=== PATIENT | male | born 1945 | race Caucasian/White ===

== ENCOUNTER → 2018-01-27 13:37 | Outpatient (CLI) | payer MEDICARE, SELFPAY ==
--- NOTE | 2018-01-27 15:23 | RAD_ITS ---
STUDY: X-RAY - ABDOMEN/PELVIS REASON FOR EXAM: Male, 72 years old. Diarrhea TECHNIQUE: AP supine and upright views of the abdomen and pelvis. COMPARISON: None. FINDINGS: Normal visualized lung bases. There is an unremarkable bowel gas pattern. Moderate fecal retention. There is no demonstrated free abdominal air. The visualized liver, spleen and kidneys are grossly normal in size and morphology. Normal soft tissue structures. Normal visualized osseous structures. RAD/Abd Inc Decub and/or Erect IMPRESSION: Moderate fecal retention. No evidence for obstruction. Electronically Signed: Sae Ellis MD at 10:33 EDT , Service support ,
[2018-01-27 15:59] LABS: Absolute Lymphocyte Count 0.72 X10^3/ul (0.83-4.51); Absolute Neutrophil Count 2.7 X10^3/uL (2.0-7.7); Basophil# 0.02 X10^3/uL; Basophil% 0.5 % (0-1); Eosinophil# 0.17 X10^3/uL; Eosinophils% 3.9 % (0-5); Hematocrit 41.3 % (40-54); Hemoglobin 13.6 g/dl (13.0-16.5); Lymphocyte # 0.72 X10^3/ul (4.0); Lymphocyte % 16.6 % (19-41); Mean Corp Hgb Conc 32.9 g/gl (32-36); Mean Corpuscular Hgb 31.6 pg (27.0-32.0); Mean Platelet Vol. 10.8 fl (6.2-12.0); Monocyte% 16.1 % (0-10); Neutrophil # 2.72 X10^3/uL (2.7-7.7); Neutrophil % 62.7 % (47-70); POSITIVE COUNT NO; POSITIVE DIFFERENTIAL NO; POSITIVE MORPHOLOGY NO; Platelet Count 137 K/mm3 (150-450); RBC Distribution Width CV 14.1 % (11.6-14.6); RBC Distribution Width SD 47.8 fl (35.1-43.9); White Blood Count 4.3 K/mm3 (4.4-11.0)
[2018-01-27 16:23] LABS: ALB/GLOB Ratio 1.1 RATIO (0.9-2.4); AST(SGOT) 42 U/L (15-37); Alanine Aminotransfer ALT/SGPT 39 U/L (16-61); Albumin, Serum 3.2 g/dL (3.2-5.0); Alkaline Phosphatase 75 U/L (45-117); Amylase 30 U/L (25-115); Anion Gap 6 (5-15); BUN 17 mg/dL (7-18); BUN/Creat Ratio 20.2 RATIO (10-20); Calcium,Total 8.6 mg/dL (8.5-10.1); Chloride 106 mmol/L (98-107); Creatinine, Serum 0.84 mg/dL (0.70-1.30); EST Glomerular Filtration Rate 95 mL/min (>60); Est Glom Filt Rate - Afr Amer 114 mL/min (>60); Glucose 62 mg/dL (74-106); Lipase 86 U/L (73-393); Potassium 4.3 mmol/L (3.5-5.1); Protein, Total 6.2 g/dL (6.4-8.2); Sodium Level 138 mmol/L (136-145)
== END ==
PROVIDERS: Family Provider Family Medicine Geriatric Medicine; PCP Family Medicine Geriatric Medicine; Visit Provider Family Medicine Geriatric Medicine
DX: R11.2 Nausea with vomiting, unspecified (principal)
CPT/HCPCS: 36415; 74019; 80053; 82150; 83690; 85025

== ENCOUNTER → 2018-01-28 09:32 | Outpatient (CLI) | payer MEDICARE, SELFPAY | PROVIDERS: Family Provider Family Medicine Geriatric Medicine; PCP Family Medicine Geriatric Medicine; Visit Provider Family Medicine Geriatric Medicine | DX: R11.2 Nausea with vomiting, unspecified (principal) | CPT/HCPCS: 82274; 83630; 87177; 87209; 87493; 87506 ==

== ENCOUNTER → 2018-02-23 09:33 | Outpatient (CLI) | payer MEDICARE, SELFPAY ==
--- NOTE | 2018-02-23 09:44 | BI_ITS ---
MAMMOGRAPHY - BILATERAL DIAGNOSTIC REASON FOR EXAM: Male, 72 years old. Retroareolar right breast lump and soreness. PERTINENT HISTORY: Mother with breast cancer. TECHNIQUE: Digital bilateral breast aramis (3D mammographic acquisition) in the CC and MLO projections. 2-D mediolateral oblique (MLO) and craniocaudad (CC) views of both breasts were obtained. CAD: Full Field Digital Mammography with Computer Added Detection was performed. COMPARISON: None. Baseline examination. FINDINGS: Breast Composition: The breasts are almost entirely fatty. Mild degree of retroareolar glandular tissue more prominent on the right side. There is a 5 mm x 5 mm well-defined nodular density in the upper lateral portion of the right breast most likely representing a small lymph node. No other significant abnormalities are identified. BI/DIAG MAMM W/CAD, BILAT IMPRESSION: Findings suggest bilateral gynecomastia slightly worse on the right side. Correlation with ultrasound is recommended. ASSESSMENT CATEGORY: BIRADS Category 0: Incomplete. Need additional imaging evaluation. A letter regarding these results will be sent to the patient by the facility within 30 days. Approximately 10% of breast cancers are not detected by mammography. A normal mammogram should not delay biopsy of a clinically suspicious abnormality. Electronically Signed: Robert England MD at 10:44 EDT Tel [phone], Service support ,
--- NOTE | 2018-02-23 09:47 | US_ITS ---
STUDY: ULTRASOUND BREAST - RIGHT REASON FOR EXAM: Male, 72 years old. Palpable lump in the right breast. TECHNIQUE: Axial and longitudinal images of the RIGHT breast were performed with a high resolution ultrasound transducer. COMPARISON: Comparison is made with prior mammogram done earlier today. FINDINGS: RIGHT Breast: Normal appearing retroareolar glandular tissue. No solid or cystic mass lesions US/Breast Limited Unilateral IMPRESSION: Findings suggestive of gynecomastia. ASSESSMENT CATEGORY: BIRADS Category 2: Benign. A letter regarding these results will be sent to the patient by the facility within 30 days. Electronically Signed: Robert England MD at 10:45 EDT Tel [phone], Service support ,
== END ==
PROVIDERS: Family Provider Family Medicine Geriatric Medicine; PCP Family Medicine Geriatric Medicine; Visit Provider Family Medicine Geriatric Medicine
DX: N63.42 Unspecified lump in left breast, subareolar (principal)
CPT/HCPCS: 76642; 77062; 77066; G0279

== ENCOUNTER → 2018-03-25 17:10 | Outpatient (CLI) | payer MEDICARE, SELFPAY | PROVIDERS: Family Provider Family Medicine Geriatric Medicine; PCP Family Medicine Geriatric Medicine; Visit Provider Family Medicine Geriatric Medicine | DX: E55.9 Vitamin D deficiency, unspecified (principal); I10 Essential (primary) hypertension ==

== ENCOUNTER → 2018-03-26 09:39 | Outpatient (CLI) | payer MEDICARE, SELFPAY ==
[2018-03-26 12:21] LABS: Absolute Lymphocyte Count 0.87 X10^3/ul (0.83-4.51); Absolute Neutrophil Count 4.3 X10^3/uL (2.0-7.7); Basophil# 0.02 X10^3/uL; Basophil% 0.3 % (0-1); Eosinophil# 0.18 X10^3/uL; Eosinophils% 3.1 % (0-5); Hematocrit 43.1 % (40-54); Hemoglobin 14.1 g/dl (13.0-16.5); Lymphocyte # 0.87 X10^3/ul (4.0); Lymphocyte % 14.8 % (19-41); Mean Corp Hgb Conc 32.7 g/gl (32-36); Mean Corpuscular Hgb 31.8 pg (27.0-32.0); Mean Corpuscular Volume 97.1 fL (80-94); Mean Platelet Vol. 10.8 fl (6.2-12.0); Monocyte# 0.53 X10^3/uL; Neutrophil # 4.26 X10^3/uL (2.7-7.7); Neutrophil % 72.5 % (47-70); Platelet Count 128 K/mm3 (150-450); RBC Distribution Width CV 13.9 % (11.6-14.6); RBC Distribution Width SD 48.1 fl (35.1-43.9); Red Blood Count 4.44 M/mm3 (4.6-6.2); White Blood Count 5.9 K/mm3 (4.4-11.0)
[2018-03-26 12:27] LABS: POSITIVE COUNT NO; POSITIVE DIFFERENTIAL NO; POSITIVE MORPHOLOGY NO
[2018-03-26 12:41] LABS: Vitamin D,25 Hydroxy 13.9 ng/mL (29.95-100.01)
[2018-03-26 13:16] LABS: ALB/GLOB Ratio 1.2 RATIO (0.9-2.4); AST(SGOT) 24 U/L (15-37); Alanine Aminotransfer ALT/SGPT 36 U/L (16-61); Albumin, Serum 3.6 g/dL (3.2-5.0); Alkaline Phosphatase 117 U/L (45-117); Anion Gap 6 (5-15); BUN 16 mg/dL (7-18); BUN/Creat Ratio 14.5 RATIO (10-20); Chloride 106 mmol/L (98-107); EST Glomerular Filtration Rate 70 mL/min (>60); Est Glom Filt Rate - Afr Amer 84 mL/min (>60); Globulin 2.9 g/dL (2.2-4.2); Glucose 99 mg/dL (74-106); Potassium 4.4 mmol/L (3.5-5.1); Protein, Total 6.5 g/dL (6.4-8.2); Sodium Level 138 mmol/L (136-145); Thyroid Stim Hormone (TSH) 3.06 uIU/mL (0.358-3.74)
== END ==
PROVIDERS: Family Provider Family Medicine Geriatric Medicine; PCP Family Medicine Geriatric Medicine; Visit Provider Family Medicine Geriatric Medicine
DX: I10 Essential (primary) hypertension (principal); E55.9 Vitamin D deficiency, unspecified
CPT/HCPCS: 36415; 80053; 82306; 84443; 85025

== ENCOUNTER → 2018-06-15 13:35 | Outpatient (CLI) | payer MEDICARE, SELFPAY ==
[2018-06-15 17:42] LABS: Absolute Lymphocyte Count 1.06 X10^3/ul (0.83-4.51); Absolute Neutrophil Count 3.9 X10^3/uL (2.0-7.7); Basophil# 0.02 X10^3/uL; Basophil% 0.3 % (0-1); Eosinophil# 0.11 X10^3/uL; Eosinophils% 1.9 % (0-5); Hematocrit 41.9 % (40-54); Hemoglobin 13.9 g/dl (13.0-16.5); Lymphocyte # 1.06 X10^3/ul (4.0); Lymphocyte % 18.5 % (19-41); Mean Corp Hgb Conc 33.2 g/gl (32-36); Mean Corpuscular Volume 96.5 fL (80-94); Mean Platelet Vol. 10.4 fl (6.2-12.0); Monocyte# 0.58 X10^3/uL; Monocyte% 10.1 % (0-10); Neutrophil # 3.94 X10^3/uL (2.7-7.7); Neutrophil % 68.9 % (47-70); Platelet Count 133 K/mm3 (150-450); RBC Distribution Width CV 14.3 % (11.6-14.6); RBC Distribution Width SD 48.2 fl (35.1-43.9); Red Blood Count 4.34 M/mm3 (4.6-6.2); White Blood Count 5.7 K/mm3 (4.4-11.0)
[2018-06-15 18:16] LABS: POSITIVE COUNT NO; POSITIVE DIFFERENTIAL NO; POSITIVE MORPHOLOGY NO
[2018-06-15 18:28] LABS: Anion Gap 5 (5-15); BUN 17 mg/dL (7-18); BUN/Creat Ratio 17.3 RATIO (10-20); Calcium,Total 8.7 mg/dL (8.5-10.1); Chloride 108 mmol/L (98-107); Creatinine, Serum 0.98 mg/dL (0.70-1.30); EST Glomerular Filtration Rate 79 mL/min (>60); Est Glom Filt Rate - Afr Amer 96 mL/min (>60); Glucose 103 mg/dL (74-106); Potassium 4.7 mmol/L (3.5-5.1); Sodium Level 139 mmol/L (136-145)
== END ==
PROVIDERS: Family Provider Family Medicine Geriatric Medicine; PCP Family Medicine Geriatric Medicine; Visit Provider Family Medicine Geriatric Medicine
DX: D64.9 Anemia, unspecified (principal); E86.0 Dehydration
CPT/HCPCS: 36415; 80048; 85025

== ENCOUNTER 2018-08-11 09:30 | Outpatient (RCR) | payer MEDICARE, SELFPAY ==
--- NOTE | 2018-07-14 12:05 | HP.PTEVAL_ITS ---
Patient's Visit Information ALMAZ ZUÑIGA is a 72 year old M referred to Physical Therapy by Macy Rausch DPM with a diagnosis of L midfoot OA. Date of Evaluation: 07/14/18 Physical Therapist: Jose Saunders DPT, OC - Visit Plan Frequency: 2-3x /Week Duration: 4-6 Weeks Plan: Molded orthotics and will fit when they arrive. Will consider STM and ankle/foot mobs and gastroc soleus stretching to suupplement this 2-3x/week for 4-6 weeks but patient wishes to wait on this until after he gets orthotics to see if it is needed. - Subjective Subjective: Here for foot pain L>R bu bilateral. And also has B thumb OA and pain. They hurt yesterday. Foot pain is daily and has been there for a year. Has had treatment for 9 months including some ex(pulling on elastic bands and stretching/ROM), band to wear around foot and they have helped a little but not much. Wears orthotics and they help for 10 years. Newer insoles have not helped. Daily pain gets to 9/10 and some days not any pain. Lots pf stabbing pain on top of midfoot and into arch 5/10. No heel pain lately. Hurts more with walking but also sitting and turning in bed. Sleep is not interrupted but may wake him up occasionally. 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 Current activities include cooking and working in the yard and active in political groups. Walks the dog a mile every day which hurts during the walk. Doesn't even try to hike due to pain. - Pain B midfoot. Pain Intensity (Out of 10): 0 Pain Intensity Range: 0, 9 - Objective Pes planus B with fallen arch and bearing weight nearly through navicular. Tender to palpation in this same area underneath and medial foot. Also mod tender through metatarsal heads B all 5. AROM in the ankles is WFL about 4 degrees of DF. Gastroc soleus mildly tight. No tenderness over post tibial tendon today B. Hindfoot is is neutral at stance. strength in LE 4+/5 ankle inv/ev/PF/DF and no real pain. Walks without antalgia today. - Goals Goal 1:: Fit for and I in use of new orthotics. Goal Time Frame: 2-4 Weeks Goal 2:: Patient pain to 0-2/10 at all times in midfoot and metatarsals. Goal Time Frame: 4-6 Weeks Goal 3:: Walk without increased pain for 1 mile with the dog. Goal Time Frame: 4-6 Weeks - Rehabilitation Potential Physical Therapy Diagnosis: L midfoot OA Rehabilitation Potential: Fair - Anticipated Interventions Patient/Client Instruction: Educate patient on: Condition, Plan of Care For the Purpose of:: To decrease pain, To improve ability of physical actions for home/community/work/leisure Therapeutic Exercise to Include: Flexibilty training For the Purpose of:: To decrease pain, To increase tolerance to activity/ condition/position, To improve ability of physical actions for home/community/ work/leisure Manual Therapy Techniques to Include: Soft tissue mobilization For the Purpose of:: To increase ROM, To improve ability of physical actions for home/community/work/leisure, To improve gait and locomotor functions Orthotics: Shoe insert For the Purpose of:: To decrease pain TENS: Yes For the Purpose of:: To decrease pain Thank you for the opportunity to evaluate your patient. For Medicare and Medicare HMO plans, please review the plan of care and approve it. It will need to be FAXED BACK to us at [phone] for Medicare purposes. Please let me know if there are questions or concerns regarding this plan of care. Physician Signature: Date:
--- NOTE | 2018-08-11 09:55 | HP.PTDCSUM ---
HP - PT D/C Summary It has been my pleasure to treat ALMAZ ZUÑIGA under orders from Macy Rausch DPM, for the diagnosis of L midfoot OA for a total of 2 visit(s). Discharge Date: 08/11/18 Please see the following information for a summary of their discharge status. - Subjective Subjective: Feet feeling better, cut down on going barefoot. - Pain B midfoot. Pain Intensity (Out of 10): 0 - Objective Objective/Function: Good fit and understanding of use. Does not wish for further PT at this point. 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 - Goals Goal 1:: Fit for and I in use of new orthotics. Goal Progress: Goal Met Goal 2:: Patient pain to 0-2/10 at all times in midfoot and metatarsals. Goal Progress: Goal Met Goal 3:: Walk without increased pain for 1 mile with the dog. Goal Progress: ??? - Plan Plan: D/C, pt request. - D/C Information Discharge Comments: Cut t fit shoe and I in use of orthotics. Does not want further therapy as he is feeling good. If there are questions or concerns regarding this patient's physical therapy, please feel free to call me at [phone]. Thank you for the referral of this patient. Sincerely, Jose Saunders, BIANCAT, OC
== END 2018-08-11 19:00 | disposition home or self-care (01) ==
LOC: PT 09:30
PROVIDERS: Family Provider Family Medicine Geriatric Medicine; PCP Family Medicine Geriatric Medicine; Visit Provider Podiatrist
DX: M19.072 Primary osteoarthritis, left ankle and foot (principal); R26.2 Difficulty in walking, not elsewhere classified; M76.822 Posterior tibial tendinitis, left leg
CPT/HCPCS: 97110; 97161; 97763

== ENCOUNTER → 2018-09-20 13:27 | Outpatient (CLI) | payer MEDICARE, SELFPAY ==
[2018-09-20 14:22] LABS: Absolute Lymphocyte Count 0.99 X10^3/ul (0.83-4.51); Absolute Neutrophil Count 5.1 X10^3/uL (2.0-7.7); Basophil# 0.02 X10^3/uL; Basophil% 0.3 % (0-1); Eosinophil# 0.24 X10^3/uL; Eosinophils% 3.2 % (0-5); Hemoglobin 14.9 g/dl (13.0-16.5); Lymphocyte # 0.99 X10^3/ul (4.0); Lymphocyte % 13.4 % (19-41); Mean Corp Hgb Conc 31.7 g/gl (32-36); Mean Corpuscular Hgb 31.6 pg (27.0-32.0); Mean Corpuscular Volume 99.6 fL (80-94); Mean Platelet Vol. 10.6 fl (6.2-12.0); Monocyte# 1.02 X10^3/uL; Monocyte% 13.8 % (0-10); Neutrophil # 5.11 X10^3/uL (2.7-7.7); Neutrophil % 69.2 % (47-70); Platelet Count 147 K/mm3 (150-450); RBC Distribution Width CV 14.4 % (11.6-14.6); RBC Distribution Width SD 52.8 fl (35.1-43.9); Red Blood Count 4.72 M/mm3 (4.6-6.2); White Blood Count 7.4 K/mm3 (4.4-11.0)
[2018-09-20 14:24] LABS: POSITIVE COUNT NO; POSITIVE DIFFERENTIAL NO; POSITIVE MORPHOLOGY NO
[2018-09-20 14:43] LABS: ALB/GLOB Ratio 0.9 RATIO (0.9-2.4); AST(SGOT) 20 U/L (15-37); Alanine Aminotransfer ALT/SGPT 36 U/L (16-61); Albumin, Serum 3.3 g/dL (3.2-5.0); Alkaline Phosphatase 108 U/L (45-117); Anion Gap 8 (5-15); BUN 14 mg/dL (7-18); BUN/Creat Ratio 14.4 RATIO (10-20); Calcium,Total 9.3 mg/dL (8.5-10.1); Chloride 106 mmol/L (98-107); Creatinine, Serum 0.98 mg/dL (0.70-1.30); EST Glomerular Filtration Rate 80 mL/min (>60); Est Glom Filt Rate - Afr Amer 97 mL/min (>60); Globulin 3.6 g/dL (2.2-4.2); Glucose 59 mg/dL (74-106); Potassium 4.2 mmol/L (3.5-5.1); Protein, Total 6.9 g/dL (6.4-8.2); Sodium Level 143 mmol/L (136-145); Thyroid Stim Hormone (TSH) 2.26 uIU/mL (0.358-3.74)
[2018-09-20 14:48] LABS: Vitamin D,25 Hydroxy 28.5 ng/mL (29.95-100.01)
== END ==
PROVIDERS: Family Provider Family Medicine Geriatric Medicine; PCP Family Medicine Geriatric Medicine; Visit Provider Family Medicine Geriatric Medicine
DX: E55.9 Vitamin D deficiency, unspecified (principal); I10 Essential (primary) hypertension
CPT/HCPCS: 36415; 80053; 82306; 84443; 85025

== ENCOUNTER 2018-10-22 13:00 | Outpatient (RCR) | payer MEDICARE, SELFPAY ==
--- NOTE | 2018-10-05 12:45 | HP.PTEVAL ---
Patient's Visit Information ALMAZ ZUÑIGA is a 72 year old M referred to Physical Therapy by Macy Rausch DPM with a diagnosis of L post tibial tendonitis adn OA. Date of Evaluation: 10/05/18 Physical Therapist: Jose Saunders DPT, OC - Visit Plan Frequency: 3x /Week Duration: 2-4 Weeks Plan: 3x/week for 2-4 for. 1/ STM to B medial feet and gastroc soleus. 2. strength to ankle and foot muscles adn progress to HEP. 3. Stretch gastroc and soleus and post tib. - Subjective Subjective: This is a re-evaluation of Mr Zuñiga who had an eval a while back and decided he wanted to just try orthotics. When that did not help as expected, he wants to return for the ordered PT. R foot better with orthotics adn left foot not really. L foot still gives him days that are difficult walking due to left arch pain. Even walking around the house is painful and walking the dog is a lot painful. Can hurt to turn in bed. Daily pain. R foot is better and pain is in arch and to top of foot but less often adn less severe. Not daily. Wearing orthotics but no other treatments for foot. Not employed. Retired. Drives alot of the day, errands around town adn meals on wheels.Admittedly very sedentary. Has avoided [employer] workout due to foot pain as well as [employer]. - Pain R arch pain Pain Intensity (Out of 10): 0 Pain Intensity Range: 0, 1, 3 L arch pain Pain Intensity (Out of 10): 2 Pain Intensity Range: 1, 6 - Objective Walks I without antalgia today , still showing pes planus B L>R. Transfers I. Tender L post tibialis tendon. Gastroc and soleus tight on L to 0 degrees and R to 4 degrees DF. Inv and eversion B are WFL and painful end of eversion slightly. PF is weak at 3+ B, ev and inv 4- and DF 4- adn painful on R. Ortotics in place and holding foot in decent position. - Goals Goal 1:: Pain in R foot abolished adn L foot 11/18 and 75% improved, Goal Time Frame: 4-6 Weeks Goal 2:: Patient I in HEP to minimize future problems Goal Time Frame: 4-6 Weeks Goal 3:: Turn in bed without noticing feet. Goal Time Frame: 4-6 Weeks - Rehabilitation Potential Physical Therapy Diagnosis: L foot pain post tibial tendonitis and tight and weak. Rehabilitation Potential: Fair - Anticipated Interventions Patient/Client Instruction: Educate patient on: Condition, Plan of Care For the Purpose of:: To decrease pain, To increase ROM Therapeutic Exercise to Include: Strength training, Passive ROM, Active ROM For the Purpose of:: To decrease pain, To increase ROM, To improve muscle performance and motor function, To improve ability of physical actions for home/community/work/leisure Manual Therapy Techniques to Include: Soft tissue mobilization For the Purpose of:: To decrease pain, To increase ROM TENS: Yes Thermo therapy (hot pack): Yes For the Purpose of:: To decrease pain Thank you for the opportunity to evaluate your patient. For Medicare and Medicare HMO plans, please review the plan of care and approve it. It will need to be FAXED BACK to us at [phone] for Medicare purposes. Please let me know if there are questions or concerns regarding this plan of care. Physician Signature: Date:
--- NOTE | 2018-10-22 13:41 | HP.PTDCSUM ---
HP - PT D/C Summary It has been my pleasure to treat ALMAZ ZUÑIGA under orders from Macy Rausch DPM, for the diagnosis of L post tibial tendonitis adn OA for a total of 8 visit(s). Discharge Date: 10/22/18 Please see the following information for a summary of their discharge status. - Subjective Subjective: Improved a little. L hurts less frequently and less intense for the last few days. R side is not a problem. Gets to 2/10 in am. Better as day goes on. Not a continuous pain. Doing stretches daily. Rolling ball on foot. Doing band exercises daily. Wearing orthotics. No f/u with doctor. Will continue to do exercises on his own. - Pain R arch pain Pain Intensity (Out of 10): 0 L arch pain Pain Intensity (Out of 10): 2 - Overall Improvement % Improvement: 85 - Objective Objective/Function: Functional AROM of L ankle without pain. Minimal tenderness calcaneus. Walks well adn toe raise I. - Goals Goal 1:: Pain in R foot abolished adn L foot 1/10 and 75% improved, Goal Progress: Progressing Goal 2:: Patient I in HEP to minimize future problems Goal Progress: Goal Met Goal 3:: Turn in bed without noticing feet. 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 - D/C Information Discharge Comments: Doing well and will manage with ex at home and contact doctor if pain worsens. If there are questions or concerns regarding this patient's physical therapy, please feel free to call me at [phone]. Thank you for the referral of this patient. Sincerely, Jose Saunders, DPT, OCS, CSCS
== END 2018-10-22 19:00 | disposition home or self-care (01) ==
LOC: PT 13:00
PROVIDERS: Family Provider Family Medicine Geriatric Medicine; PCP Family Medicine Geriatric Medicine; Referring Provider Podiatrist; Visit Provider Podiatrist
DX: M19.072 Primary osteoarthritis, left ankle and foot (principal); R26.2 Difficulty in walking, not elsewhere classified; M76.822 Posterior tibial tendinitis, left leg
CPT/HCPCS: 97110; 97140; 97164; 97530

== ENCOUNTER → 2019-01-04 17:32 | Outpatient (CLI) | payer MEDICARE, SELFPAY ==
--- NOTE | 2019-01-04 17:41 | CT_ITS ---
STUDY: CT BRAIN WITHOUT CONTRAST REASON FOR EXAM: Male, 73 years old. Recent falls. No reported head injury. RADIATION DOSAGE (If Supplied By Facility): CTDIvol = ( 60.81 ) mGy, DLP = ( 1067.08 ) mGycm TECHNIQUE: Transaxial CT imaging of the brain was performed without administration of intravenous contrast material. Individualized dose optimization techniques were used for this CT. COMPARISON: MRI of the brain, June 28, 2015. CT of the head, June 28, 2015. FINDINGS: Normal soft tissue structures. Normal calvarium. The There are areas of decreased attenuation within the white matter tracts of the supratentorial brain, consistent with microvascular disease changes. Normal basal ganglia and thalami. Normal brainstem. Normal cerebellum. There is no intracranial hemorrhage. There are no findings of an acute ischemic infarction. Normal visualized paranasal sinuses. CT/Brain/Head without Contrast IMPRESSION: Chronic involutional changes without evidence of acute intracranial or calvarial abnormality. There is no interval change. Electronically Signed: Hiram Jacobs DO at 18:30 EST Tel [phone], Service support ,
--- NOTE | 2019-01-04 17:45 | RAD_ITS ---
STUDY: X-RAY - PELVIS AND RIGHT HIP REASON FOR EXAM: Male, 73 years old. Fall today. Right hip pain. TECHNIQUE: 3 views of the pelvis and hip. COMPARISON: None. FINDINGS: There is a non-specific bowel gas pattern. Normal visualized soft tissue structures. There are surgical clips in the mid pelvic mass centered over the left groin. Surgical clips are also seen in the right scrotum. Normal bilateral iliac wings, sacroiliac joints and visualized sacrum. Normal bilateral superior and inferior pubic rami. Normal pubic symphysis. Normal bilateral ischial tuberosities. There is mild narrowing of the left hip. Normal visualized right femoral head. Normal right acetabulum. There is mild articular joint space narrowing of the right hip. RAD/HIP, UNI W/ Pelvis 2-3 Views IMPRESSION: Mild degenerative changes of the right hip without fracture or dislocation. Electronically Signed: Hiram Jacobs DO at 18:07 EST Tel [phone], Service support ,
--- NOTE | 2019-01-04 17:46 | RAD_ITS ---
STUDY: X-RAY - RIGHT KNEE REASON FOR EXAM: Male, 73 years old. Fall today. Pain. TECHNIQUE: 4 view(s) of the knee. COMPARISON: None. FINDINGS: Normal visualized distal femur. Normal visualized proximal tibia and fibula. Normal proximal tibiofibular articulation. There is no acute fracture, dislocation or destructive osseous pathology. There is very mild degenerative arthrosis of the medial femorotibial compartment. Normal lateral femorotibial compartment. Normal patellofemoral articulation. There is no demonstrated joint effusion. There are atherosclerotic calcifications. Skin clips are seen in the soft tissues medial to the RAD/Knee 4 or More Views IMPRESSION: Minimal arthrosis of the right knee without acute fracture or dislocation Electronically Signed: Hiram Jacobs DO at 18:08 EST Tel [phone], Service support ,
[2019-01-04 18:28] LABS: Absolute Lymphocyte Count 1.04 X10^3/ul (0.83-4.51); Absolute Neutrophil Count 4.3 X10^3/uL (2.0-7.7); Basophil# 0.02 X10^3/uL; Basophil% 0.3 % (0-1); Eosinophil# 0.13 X10^3/uL; Eosinophils% 2.1 % (0-5); Hematocrit 48.1 % (40-54); Hemoglobin 15.8 g/dl (13.0-16.5); Lymphocyte # 1.04 X10^3/ul (4.0); Lymphocyte % 16.7 % (19-41); Mean Corp Hgb Conc 32.8 g/gl (32-36); Mean Corpuscular Hgb 32.5 pg (27.0-32.0); Mean Platelet Vol. 10.2 fl (6.2-12.0); Monocyte# 0.75 X10^3/uL; Neutrophil % 68.9 % (47-70); POSITIVE COUNT NO; POSITIVE DIFFERENTIAL NO; POSITIVE MORPHOLOGY NO; Platelet Count 141 K/mm3 (150-450); RBC Distribution Width CV 13.8 % (11.6-14.6); RBC Distribution Width SD 49.4 fl (35.1-43.9); Red Blood Count 4.86 M/mm3 (4.6-6.2); White Blood Count 6.2 K/mm3 (4.4-11.0)
[2019-01-04 18:51] LABS: ALB/GLOB Ratio 1.1 RATIO (0.9-2.4); AST(SGOT) 29 U/L (15-37); Alanine Aminotransfer ALT/SGPT 40 U/L (16-61); Albumin, Serum 3.5 g/dL (3.2-5.0); Alkaline Phosphatase 103 U/L (45-117); Anion Gap 4 (5-15); BUN 17 mg/dL (7-18); BUN/Creat Ratio 14.8 RATIO (10-20); Calcium,Total 9.3 mg/dL (8.5-10.1); Chloride 107 mmol/L (98-107); Creatinine, Serum 1.15 mg/dL (0.70-1.30); EST Glomerular Filtration Rate 66 mL/min (>60); Est Glom Filt Rate - Afr Amer 80 mL/min (>60); Globulin 3.3 g/dL (2.2-4.2); Glucose 101 mg/dL (74-106); Potassium 4.6 mmol/L (3.5-5.1); Protein, Total 6.8 g/dL (6.4-8.2); Sodium Level 138 mmol/L (136-145)
== END ==
PROVIDERS: Family Provider Family Medicine Geriatric Medicine; PCP Family Medicine Geriatric Medicine; Visit Provider Family Medicine Geriatric Medicine
DX: S09.90XA Unspecified injury of head, initial encounter (principal); M25.559 Pain in unspecified hip; W19.XXXA Unspecified fall, initial encounter
CPT/HCPCS: 36415; 70450; 73502; 73564; 80053; 85025

== ENCOUNTER → 2019-01-11 13:54 | Outpatient (CLI) | payer MEDICARE, SELFPAY ==
--- NOTE | 2019-01-11 14:30 | MRI_ITS ---
STUDY: MRI BRAIN WITHOUT CONTRAST REASON FOR EXAM: Male, 73 years old. closed head injury, symptoms x 2 wks, persistent falling, h/a, laceration rt inferior orbit area. TECHNIQUE: Standardized multiplanar fat and water weighted pulse sequences were obtained. COMPARISON: 01/04/2019 CT of the head and MRI dated June 28, 2015 FINDINGS: There is mild cerebral atrophy with widening of the extra-axial spaces and ventricular dilatation. There are a limited number of small white matter hyperintensities, distributed throughout the deep white matter tracts of the cerebral hemispheres, consistent with mild chronic white matter ischemic changes. There is a 1 cm right anterior frontal nodule, stable since the prior examination in 2014, likely meningioma. Normal bilateral basal ganglia. Normal thalami. There is no extra-axial fluid accumulation. Normal flow voids within the major intracranial circulation suggesting patency by spin echo criteria. Normal sella turcica, pituitary gland, infundibular stalk, optic chiasm and hypothalamus. Normal tectal plate and pineal gland. Normal midbrain, chuckie and medulla. Normal cerebellum. Normal basal cisterns. MRI/Brain without Contrast IMPRESSION: No acute intracranial abnormality. Stable small right frontal meningioma. Electronically Signed: Gwendolyn Aguila MD at 15:39 EST Tel , Service support ,
== END ==
PROVIDERS: Family Provider Family Medicine Geriatric Medicine; PCP Family Medicine Geriatric Medicine; Referring Provider Family Medicine Geriatric Medicine; Visit Provider Family Medicine Geriatric Medicine
DX: S09.90XA Unspecified injury of head, initial encounter (principal)
CPT/HCPCS: 70551

== ENCOUNTER → 2019-01-31 10:59 | Outpatient (CLI) | payer MEDICARE, SELFPAY ==
[2019-01-25 14:05] VITALS: BMI 26.9
--- NOTE | 2019-01-31 11:01 | ECHOD_ITS ---
Reason For Study: Valve Replacement Eval Procedure This was a 2D Doppler, Color Flow transthoracic echocardiogram. Exam performed in department. Left Ventricle Mild concentric left ventricular hypertrophy. The estimated ejection fraction is 65 %. Stage 1 diastolic dysfunction. No regional wall motion abnormalities noted. Right Ventricle Moderately dilated right ventricle. Normal systolic function. Atria Normal left atrium. Normal right atrium. Normal atrial septum. Mitral Valve The mitral valve is structurally normal. No prolapse or stenosis seen. Trivial mitral valve insufficiency. Tricuspid Valve Normal tricuspid valve. Mild to moderate (1-2+) tricuspid valve insufficiency. Right ventricular systolic pressure estimated to be 36 mmHg. Aortic Valve Peak aortic valve gradient 49 mmHg. Mean aortic valve gradient 27 mmHg. Calculated aortic valve area (continuity equation) is 0.88 cm2. Bioprosthetic aortic valve. Pulmonic Valve Normal pulmonic valve. Great Vessels Normal aortic root. Mild atherosclerosis of the aortic arch. Normal inferior vena cava. Inferior vena cava collapse with sniff. MMode/2D Measurements & Calculations LVIDd: 4.0 cm IVSd: 1.3 cm LVOT diam: 2.0 cm LVIDs: 2.9 cm LVPWd: 1.2 cm LVOT area: 3.0 cm2 RVDd: 4.1 cm FS: 26.0 % Ao root diam: 2.3 cm LAV(MOD-bp): 53.7 ml LVAd ap4: 22.1 cm2 LAV(MOD-bp) Indexed: 28.5 ml/m2 EDV(MOD-sp4): 61.8 ml LAV(MOD-sp2): 65.8 ml EDV(sp4-el): 63.2 ml LAV(MOD-sp4): 44.2 ml LVAs ap4: 12.1 cm2 ESV(MOD-sp4): 23.1 ml ESV(sp4-el): 23.1 ml EF(MOD-sp4): 62.6 % EF(sp4-el): 63.4 % SV(MOD-sp4): 38.7 ml SV(sp4-el): 40.1 ml LA A4 area: 18.3 cm2 LA dimension(2D): 3.5 cm RA A4 area: 13.5 cm2 Doppler Measurements & Calculations MV E max elpidio: 96.9 cm/sec Lat Peak E' Elpidio: 8.2 cm/sec Med Peak E' Elpidio: 5.0 cm/sec MV A max elpidio: 132.6 cm/sec E/E' lat: 11.8 E/E' med: 19.3 MV E/A: 0.73 Ao V2 max: 348.7 cm/sec LV V1 max: 101.7 cm/sec SV(LVOT): 74.5 ml Ao max P.6 mmHg LV V1 max P.1 mmHg Ao V2 mean: 245.0 cm/sec LV V1 mean P.4 mmHg Ao mean P.9 mmHg LV V1 mean: 73.7 cm/sec Ao V2 VTI: 76.6 cm LV V1 VTI: 24.6 cm POLO(I,D): 0.97 cm2 POLO(V,D): 0.88 cm2 PA V2 max: 144.9 cm/sec TR max elpidio: 277.8 cm/sec TR max P.9 mmHg Interpretation Summary Mild concentric left ventricular hypertrophy. The estimated ejection fraction is 65 %. Stage 1 diastolic dysfunction. Moderately dilated right ventricle. Trivial mitral valve insufficiency. Mild to moderate (1-2+) tricuspid valve insufficiency. Right ventricular systolic pressure estimated to be 36 mmHg. Peak aortic valve gradient 49 mmHg. Mean aortic valve gradient 27 mmHg. Calculated aortic valve area (continuity equation) is 0.88 cm2. Compared to echo report dated , LV function has remained the same; Aortic valve gradients have worsened, but may be due to image acquisition or anemia. Recommend clinical correlation. RVSP has remained about the same. TAVR appears to be functioning normally. Ordering Physician: Jj Rodriguez Referring Physician: Kip Parnell Chi Performed By: Ashli Vasquez RDCS, RVT
== END ==
PROVIDERS: Family Provider Family Medicine Geriatric Medicine; PCP Family Medicine Geriatric Medicine; Referring Provider Internal Medicine Cardiovascular Disease; Visit Provider Internal Medicine Cardiovascular Disease
DX: Z95.2 Presence of prosthetic heart valve (principal)
CPT/HCPCS: 93306

== ENCOUNTER → 2019-03-23 12:16 | Outpatient (CLI) | payer MEDICARE, SELFPAY ==
[2019-01-25 14:05] VITALS: BMI 26.9
[2019-03-23 13:32] LABS: Absolute Lymphocyte Count 0.98 X10^3/ul (0.83-4.51); Absolute Neutrophil Count 3.6 X10^3/uL (2.0-7.7); Basophil# 0.02 X10^3/uL; Basophil% 0.4 % (0-1); Eosinophil# 0.16 X10^3/uL; Hematocrit 47.1 % (40-54); Hemoglobin 15.8 g/dl (13.0-16.5); Lymphocyte # 0.98 X10^3/ul (4.0); Lymphocyte % 18.5 % (19-41); Mean Corp Hgb Conc 33.5 g/gl (32-36); Mean Corpuscular Volume 95.3 fL (80-94); Mean Platelet Vol. 10.5 fl (6.2-12.0); Monocyte# 0.52 X10^3/uL; Monocyte% 9.8 % (0-10); Neutrophil # 3.62 X10^3/uL (2.7-7.7); Neutrophil % 68.1 % (47-70); Platelet Count 143 K/mm3 (150-450); RBC Distribution Width CV 13.7 % (11.6-14.6); RBC Distribution Width SD 46.5 fl (35.1-43.9); Red Blood Count 4.94 M/mm3 (4.6-6.2); White Blood Count 5.3 K/mm3 (4.4-11.0)
[2019-03-23 13:33] LABS: POSITIVE COUNT NO; POSITIVE DIFFERENTIAL NO; POSITIVE MORPHOLOGY NO
[2019-03-23 13:55] LABS: Vitamin D,25 Hydroxy 30.3 ng/mL (29.95-100.01)
[2019-03-23 14:00] LABS: ALB/GLOB Ratio 1.4 RATIO (0.9-2.4); AST(SGOT) 23 U/L (15-37); Alanine Aminotransfer ALT/SGPT 33 U/L (16-61); Albumin, Serum 3.7 g/dL (3.2-5.0); Alkaline Phosphatase 108 U/L (45-117); Anion Gap 3 (5-15); BUN 18 mg/dL (7-18); BUN/Creat Ratio 17.5 RATIO (10-20); Calcium,Total 9.2 mg/dL (8.5-10.1); Chloride 108 mmol/L (98-107); Creatinine, Serum 1.03 mg/dL (0.70-1.30); EST Glomerular Filtration Rate 75 mL/min (>60); Est Glom Filt Rate - Afr Amer 90 mL/min (>60); Globulin 2.7 g/dL (2.2-4.2); Glucose 78 mg/dL (74-106); Potassium 4.2 mmol/L (3.5-5.1); Protein, Total 6.4 g/dL (6.4-8.2); Sodium Level 139 mmol/L (136-145)
== END ==
PROVIDERS: Family Provider Family Medicine Geriatric Medicine; PCP Family Medicine Geriatric Medicine; Visit Provider Family Medicine Geriatric Medicine
DX: E55.9 Vitamin D deficiency, unspecified (principal); I10 Essential (primary) hypertension
CPT/HCPCS: 36415; 80053; 82306; 84443; 85025

== ENCOUNTER 2019-05-05 10:00 | Outpatient (RCR) | payer MEDICARE, SELFPAY ==
[2019-01-25 14:05] VITALS: BMI 26.9
--- NOTE | 2019-03-30 15:00 | HP.PTEVAL ---
Patient's Visit Information ALMAZ ZUÑIGA is a 73 year old M referred to Physical Therapy by Kip Parnell MD with a diagnosis of R shoulder pain. Date of Evaluation: 03/30/19 Physical Therapist: Joe Garber PT, ATC - Visit Plan Frequency: 2-3x /Week Duration: 4-6 Weeks Plan: R shoulder strengthening (rot cuff), scapular stab ex's, UBE, HEP - Subjective Findings: Pt reports he has had R shoulder pain for 5 months. Pt reports he likes to sleep on that shoulder and believes this may have been what caused his pain. Pt reports there has been no trauma to his shoulder. Pt is R hand dominant. No tingling or numbness in R UE. Pt reports sleep difficulty secondary to pain. Pt has had no diagnostic tests at this time. Pt reports yard work is limited secondary to pain. Pt is also limited with easier tasks such as cooking at home. No PMHx of pain like this. 1/10 pain at rest, 8/10 at worst (when he wakes up at night.) - Pain R shoulder OA Pain Intensity (Out of 10): 1 Pain Intensity Range: 8 - Objective Neuro: B UE sensation is WNL to light touch. B bicepital reflex= 2/3. Palpation: R shoulder is sore on the supraspinatus tendon and LHB. No deformity. ROM: L shoulder flex= 165, abd= 180, ER= 50, IR WNL; R shoulder flex= 95, abd= 105, ER= 50, IR= minimally limited. MMT: L shoulder is 5/5 throughout. R shoulder is 3/5 and painful. SPecial tests: - Goals Goal 1:: Decrease R shoulder pain x 50% to aid with sleep Goal Time Frame: 4-6 Weeks Goal 2:: Increase R shoulder strength x 1 grade to aid with IADL's Goal Time Frame: 4-6 Weeks Goal 3:: Increase R shoulder flexion and abd ROM x 1 grade to aid with overhead activity Goal Time Frame: 4-6 Weeks Goal 4:: I with HEP Goal Time Frame: 4-6 Weeks - Rehabilitation Potential Physical Therapy Diagnosis: R shoulder pain, weakness, and limited ROM secondary to impingement syndrome Rehabilitation Potential: Good - Anticipated Interventions Patient/Client Instruction: Educate patient on: Condition, Plan of Care For the Purpose of:: To improve self management Therapeutic Exercise to Include: Strength training, Body mechanics, Postural training, Scapular Strength/Stabilization For the Purpose of:: To decrease pain, To increase ROM, To improve muscle performance and motor function Cryotherapy (ice pack, ice massage): Yes For the Purpose of:: To decrease pain Thank you for the opportunity to evaluate your patient. For Medicare and Medicare HMO plans, please review the plan of care and approve it. It will need to be FAXED BACK to us at [phone] for Medicare purposes. For Medicare only, by signing this I certify the plan of care. Please let me know if there are questions or concerns regarding this plan of care. Physician Signature: Date:
--- NOTE | 2019-05-05 10:37 | HP.PTREVAL_ITS ---
Kip Parnell MD, It has been my pleasure to treat ALMAZ ZUÑIGA over the last 9 visits for R shoulder pain. Please see the progress note below for an update on the physical therapy plan of care! Subjective: Pt reports his shoulder pain is 1/10 at rest, 7/10 with movement Objective/Function: R shoulder pain ranges from 1/10-7/10. Still waking pt up at night. R shoulder ROM: flex= 125, abd= 120 degrees. R shoulder MMT: IR 5/5, all other motions 4-/5 and painful with testing. Pt is progressing well but still demonstrates the need for skilled PT to decrease pain and increase strength and ROM Plan Plan: Cont with PT 2x's per week for 2 more weeks Goals Goal 1:: Decrease R shoulder pain x 50% to aid with sleep Goal Time Frame: 4-6 Weeks Goal Progress: Progressing Goal 2:: Increase R shoulder strength x 1 grade to aid with IADL's Goal Time Frame: 4-6 Weeks Goal Progress: Progressing Goal 3:: Increase R shoulder flexion and abd ROM x 1 grade to aid with overhead activity Goal Time Frame: 4-6 Weeks Goal Progress: Progressing Goal 4:: I with HEP Goal Time Frame: 4-6 Weeks Goal Progress: Progressing Anticipated Interventions Patient/Client Instruction: Educate patient on: Condition, Plan of Care For the Purpose of:: To improve self management Therapeutic Exercise to Include: Strength training, Body mechanics, Postural training, Scapular Strength/Stabilization For the Purpose of:: To decrease pain, To increase ROM, To improve muscle p erformance and motor function Cryotherapy (ice pack, ice massage): Yes For the Purpose of:: To decrease pain Please do not hesitate to contact me at [phone] by phone or if you have questions or concerns regarding this new plan of care! Sincerely, Joe Garber, PT, ATC
--- NOTE | 2019-08-03 12:45 | HP.PT.NRP ---
HP - Discharge Summary (1) - Patient Information ALMAZ ZUÑIGA was seen in my office for initial evaluation on 03/30/19. The following Plan of Care was established for this patient: Initial Frequency: 2-3x /Week Initial Duration: 4-6 Weeks - Anticipated Interventions Patient/Client Instruction: Educate patient on: Condition, Plan of Care For the Purpose of:: To improve self management Therapeutic Exercise to Include: Strength training, Body mechanics, Postural training, Scapular Strength/Stabilization For the Purpose of:: To decrease pain, To increase ROM, To improve muscle performance and motor function Cryotherapy (ice pack, ice massage): Yes For the Purpose of:: To decrease pain This patient was last seen in our office . Pertinent comments regarding their Physical therapy will appear below: Pt was treated for 9 PT visits for his R shoulder pain through the date of 05/05/19. Pt has not returned through todays date and is therefore discontinued at this time. At this point I will be discontinuing this patient from physical therapy. I would be happy to see this patient again in the future if found appropriate by the physician. Thank you! Joe Garber, PT, ATC
== END 2019-05-05 19:00 | disposition home or self-care (01) ==
LOC: PT 10:00
PROVIDERS: Family Provider Family Medicine Geriatric Medicine; PCP Family Medicine Geriatric Medicine; Visit Provider Family Medicine Geriatric Medicine
DX: M25.519 Pain in unspecified shoulder (principal)
CPT/HCPCS: 97110; 97161; 97530

== ENCOUNTER → 2019-08-04 10:27 | Outpatient (CLI) | payer MEDICARE, SELFPAY ==
[2019-01-25 14:05] VITALS: BMI 26.9
--- NOTE | 2019-06-23 14:02 | RAD_ITS ---
STUDY: X-RAY CHEST REASON FOR EXAM: Male, 73 years old. Preop for cardiac surgery TECHNIQUE: PA and lateral views of the chest. COMPARISON: None. FINDINGS: There are interstitial fibrotic changes of the lungs. There is no demonstrated pleural abnormality. Sternal cerclage wires and vascular clips are present from a prior sternotomy and coronary artery bypass graft procedure (CABG). Normal mediastinum and altagracia. Normal visualized pulmonary arteries. Aortic root stent noted. There are diffuse degenerative changes of the visualized thoracic spine. Normal visualized ribs, clavicles, and shoulders. There is no demonstrated abnormality of the visualized soft tissue structures of the upper abdomen. RAD/Chest PA and Lateral IMPRESSION: No acute pulmonary process Electronically Signed: Nehemias Hodge MD at 17:04 EDT , Service support ,
--- NOTE | 2019-06-23 14:05 | EKG12_ITS ---
Test Reason : PRE OP Blood Pressure : / mmHG Vent. Rate : 065 BPM Atrial Rate : 065 BPM P-R Int : 158 ms QRS Dur : 078 ms QT Int : 350 ms P-R-T Axes : 056 -07 084 degrees QTc Int : 364 ms Normal sinus rhythm Nonspecific T wave abnormality Abnormal ECG Confirmed by LEONARD BELLE, GISELL ([id number]), web editor SCOTT LAM ([id number]) on 06/24/2019 11:49:55 AM Referred By: Victor Hugo Araujo Confirmed By:JUAN VALLE MD
[2019-06-23 15:38] LABS: Hematocrit 47.2 % (40-54); Hemoglobin 16.1 g/dL (13.0-16.5); Mean Corp Hgb Conc 34.1 g/dL (32-36); Mean Corpuscular Hgb 33.4 pg (27.0-32.0); Mean Corpuscular Volume 97.9 fL (80-94); Mean Platelet Vol. 10.1 fl (6.2-12.0); Platelet Count 148 K/mm3 (150-450); RBC Distribution Width CV 13.3 % (11.6-14.6); RBC Distribution Width SD 47.5 fl (35.1-43.9); Red Blood Count 4.82 M/mm3 (4.6-6.2); White Blood Count 6.8 K/mm3 (4.4-11.0)
[2019-06-23 16:00] LABS: Prothrombin Time (Protime)PT. 13.2 SECONDS (11.7-14.9)
[2019-06-23 16:01] LABS: Partial Thromboplast Time 29.7 Seconds (24.1-36.2)
[2019-06-23 16:03] LABS: AST(SGOT) 25 U/L (15-37); Alanine Aminotransfer ALT/SGPT 40 U/L (16-61); Albumin, Serum 3.3 g/dL (3.2-5.0); Alkaline Phosphatase 127 U/L (45-117); Anion Gap 6 (5-15); BUN 17 mg/dL (7-18); BUN/Creat Ratio 15.6 RATIO (10-20); Bilirubin, Direct 0.12 mg/dL (0.00-0.30); Calcium,Total 9.6 mg/dL (8.5-10.1); Chloride 109 mmol/L (98-107); Creatinine, Serum 1.09 mg/dL (0.70-1.30); EST Glomerular Filtration Rate 70 mL/min (>60); Est Glom Filt Rate - Afr Amer 85 mL/min (>60); Globulin 3.2 g/dL (2.2-4.2); Glucose 79 mg/dL (74-106); Potassium 4.3 mmol/L (3.5-5.1); Protein, Total 6.5 g/dL (6.4-8.2); Sodium Level 141 mmol/L (136-145)
== END ==
PROVIDERS: Family Provider Family Medicine Geriatric Medicine; PCP Family Medicine Geriatric Medicine; Referring Provider Urology; Visit Provider Urology
DX: Z01.818 Encounter for other preprocedural examination (principal); R94.31 Abnormal electrocardiogram [ECG] [EKG]; R23.3 Spontaneous ecchymoses; G47.30 Sleep apnea, unspecified
CPT/HCPCS: 36415; 71046; 80053; 82248; 85027; 85610; 85730; 86850; 86900; 86901; 93005

== ENCOUNTER → 2019-08-19 08:59 | Outpatient (CLI) | payer MEDICARE, SELFPAY ==
[2019-08-18 14:53] VITALS: BMI 26.6
[2019-08-19 10:48] LABS: AST(SGOT) 22 U/L (15-37); Alanine Aminotransfer ALT/SGPT 30 U/L (16-61); Albumin, Serum 3.7 g/dL (3.2-5.0); Alkaline Phosphatase 106 U/L (45-117); Bilirubin, Direct 0.16 mg/dL (0.00-0.30); Cholesterol 139 mg/dL (200); Globulin 3.1 g/dL (2.2-4.2); High Density Lipoprotein 46 mg/dL; Protein, Total 6.8 g/dL (6.4-8.2); Triglycerides 147 mg/dL; Very Low Density Lipoprotein 29 mg/dL (5-40)
== END ==
PROVIDERS: Family Provider Family Medicine Geriatric Medicine; PCP Family Medicine Geriatric Medicine; Referring Provider Internal Medicine Cardiovascular Disease; Visit Provider Internal Medicine Cardiovascular Disease
DX: E78.00 Pure hypercholesterolemia, unspecified (principal)
CPT/HCPCS: 36415; 80061; 80076

== ENCOUNTER → 2019-08-26 12:23 | Outpatient (CLI) | payer MEDICARE, SELFPAY ==
[2019-08-18 14:53] VITALS: BMI 26.6
--- NOTE | 2019-08-26 12:25 | STEWCON_ITS ---
Reason For Study: CAD; S/P CABG Stress Results Protocol: Baron Protocol Maximum Predicted HR: 145 bpm Target HR: 123 bpm % Maximum Predicted HR: 81 % DurationHeart Rate Stage (mm:ss) (bpm) BP Comment Baseline 61 128/70No Chest Pain; 3 ML Diluted Definity Given Baron Protocol Stage I 3:00 90 146/74Mild Chest Tightness Baron Protocol Stage II 3:00 107 174/70Mild to Moderate Chest Tightness; Left Chest Ache Baron Protocol Stage III 0:52 118 / Mild to Moderate Chest Tightness; Left Chest Ache Recovery 70 118/80No Chest Pain Stress Duration: 6:52 mm:ss Maximum Stress HR: 118 bpm METS: 9 Baseline Echocardiogram Findings The estimated ejection fraction is 65 %. Stress Echo Wall motion Data Resting WM Intermediate WM Stress WM Resting Wall Motion Wall Motion Stress No regional wall motion Posterior-Basal: Mildly abnormalities noted. hypokinetic. Infero-Basal: Mildly hypokinetic. EKG Data The baseline ECG displays normal sinus rhythm. The patient exercised according to the regular Baron protocol for a total duration of 6:52. The maximum heart rate attained was 118 beats per minute. This was 81% of maximum predicted heart rate. The patient exercised into stage 3 of the Baron protocol. During stress, there were no ST or T wave changes noted to suggest ischemia. No clinical angina was noted. MMode/2D Measurements & Calculations LVOT diam: 2.0 cm LVOT area: 3.1 cm2 Doppler Measurements & Calculations Ao V2 max: 342.4 cm/sec TR max courtney: 237.6 cm/sec Ao max P.9 mmHg TR max P.6 mmHg Ao V2 mean: 244.7 cm/sec Ao mean P.4 mmHg Ao V2 VTI: 73.2 cm Interpretation Summary The estimated ejection fraction is 65 %. Abnormal, submaximal treadmill echocardiogram. Positive for ischemia by echocardiographic criteria. Positive anginal symptoms noted during exercise. Rare PVC noted. Average exercise capacity for age. Patient appeared to develop mid inferior basal hypokinesis at peak exercise. Chest pain resolved by 2 minutes into recovery. Final LVEF of 45%. Test terminated due to chest discomfort. Poor echo windows requiring Definity agent may affect the integrity of the test. No complications. Patient referred to our office for repeat catheterization and graft angiography. The study was technically difficult. Contrast injection was performed. Ordering Physician: Jj Rodriguez Referring Physician: Kip Parnell Chi Performed By: Cheri Huff RDCS, RVT
== END ==
PROVIDERS: Family Provider Family Medicine Geriatric Medicine; PCP Family Medicine Geriatric Medicine; Referring Provider Internal Medicine Cardiovascular Disease; Visit Provider Internal Medicine Cardiovascular Disease
DX: I25.10 Atherosclerotic heart disease of native coronary artery without angina pectoris (principal); I10 Essential (primary) hypertension; Z95.1 Presence of aortocoronary bypass graft; Z95.2 Presence of prosthetic heart valve
CPT/HCPCS: 93017; 93350; Q9957; A4216; C8928

== ENCOUNTER → 2019-08-29 13:54 | Outpatient (CLI) | payer MEDICARE, SELFPAY ==
[2019-08-18 14:53] VITALS: BMI 26.6
[2019-08-29 15:00] LABS: Hematocrit 40.9 % (40-54); Hemoglobin 12.6 g/dL (13.0-16.5); Mean Corp Hgb Conc 30.8 g/dL (32-36); Mean Corpuscular Hgb 28.4 pg (27.0-32.0); Mean Corpuscular Volume 92.3 fL (80-94); Mean Platelet Vol. 10.9 fl (6.2-12.0); Platelet Count 184 K/mm3 (150-450); RBC Distribution Width CV 13.8 % (11.6-14.6); RBC Distribution Width SD 46.7 fl (35.1-43.9); Red Blood Count 4.43 M/mm3 (4.6-6.2); White Blood Count 5.7 K/mm3 (4.4-11.0)
[2019-08-29 15:10] LABS: Partial Thromboplast Time 30.3 Seconds (24.1-36.2)
[2019-08-29 15:33] LABS: Anion Gap 5 (5-15); BUN 21 mg/dL (7-18); BUN/Creat Ratio 18.8 RATIO (10-20); Calcium,Total 9.3 mg/dL (8.5-10.1); Chloride 105 mmol/L (98-107); Creatinine, Serum 1.12 mg/dL (0.70-1.30); EST Glomerular Filtration Rate 68 mL/min (>60); Est Glom Filt Rate - Afr Amer 82 mL/min (>60); Glucose 81 mg/dL (74-106); Potassium 4.7 mmol/L (3.5-5.1); Sodium Level 139 mmol/L (136-145)
== END ==
PROVIDERS: Family Provider Family Medicine Geriatric Medicine; PCP Family Medicine Geriatric Medicine; Referring Provider Internal Medicine Cardiovascular Disease; Visit Provider Internal Medicine Cardiovascular Disease
DX: R07.9 Chest pain, unspecified (principal); R94.39 Abnormal result of other cardiovascular function study; Z95.2 Presence of prosthetic heart valve; Z95.5 Presence of coronary angioplasty implant and graft; Z95.1 Presence of aortocoronary bypass graft; I25.10 Atherosclerotic heart disease of native coronary artery without angina pectoris
CPT/HCPCS: 36415; 80048; 85027; 85610; 85730

== ENCOUNTER 2019-09-08 06:53 | Day surgery (SDC) | payer MEDICARE, SELFPAY ==
[2019-08-18 14:53] VITALS: BMI 26.6
[2019-08-29 16:11] VITALS: BMI 26.6
[2019-09-07 08:57] VITALS: BMI 26.6
--- NOTE | 2019-09-08 08:40 | CL.D_ITS ---
Patient Name: ALMAZ ZUÑIGA Study Date: 09/08/2019 Performing: Jj Rodriguez MD Ht: 66.92 inches 170 cm : 1945 Wt: 169.76 lbs 77 kg Age: 73 Gender: male BSA: 1.88 PROCEDURE(S) PERFORMED ND84-NZG/COR/CABG DC11-AO ROOT ANGIO WITH HEART CATH CLINICAL PROFILE AND INDICATIONS Indications: New Onset Angina <= 2 months, Stable Known CAD, Valvular Disease Heart Failure: None Stress/Imaging Date: 08/26/2019Stress Echocardiogram: Positive Low Risk Angina Classification Anginal Classification w/in 2 Weeks: CCS III CAD Presentations: Unstable angina. Comorbidities/Risk Factors: Hypertension Dyslipidemia Prior CABG CONCLUSIONS Double vessel CAD of the LAD, LCX Non obstructive coronary arteries Widley patent stents to OM and RCA. Widely patent GUZMÁN to LAD. Occluded SVG to OM RECOMMENDATIONS Management as per referring Noc Analyst Re evaluate for possible redo AVR given symptoms of exertional anginal superimposed on moderate to se marvel TAVR restenosis. DESCRIPTION OF PROCEDURE The patient arrived to the procedure lab. The risks and benefits of the procedure as well as a full d escription of our services here and current unavailability of surgical backup were fully explained to the patient and/or their significant other prior to the catheterization. The Timeout was completed, verifying the correct patient and procedure. The patient's procedural site was prepped and draped in the usual fashion. Local anesthetic was given subcutaneously to right groin region with Lidocaine 2%. Using a modified Seldinger technique, arterial access was obtained via the right femoral artery, a 4 Fr sheath was inserted Left Coronary Artery selective angiography was performed in multiple views us ing a 4 Fr. JL5 catheter. Right Coronary Artery selective angiography was then performed in multiple views using a 4 Fr. 3DRC catheter. Left internal mammary artery graft to the LAD selective angiograph y was performed in multiple views using a 4 Fr. 3FRC catheter. Ascending (root) aorta selective angiography was then performed in single view. Ascending (root) aorta selective angiography was then performed in single view. CORONARY ANGIOGRAPHY DOMINANCE: Right Dominant LEFT HEART ASSESSMENT Left Ventricular Ejection Fraction: Not assessed LEFT MAIN: Moderate calcification LEFT ANTERIOR DESCENDING ARTERY: is occluded CIRCUMFLEX ARTERY: is occluded distally OM 1: Proximal - Instent restenosis 20 % RIGHT CORONARY ARTERY: MID RCA: Previously placed stent is patent GRAFTS: GUZMÁN graft to the LAD is patent Saphenous Vein graft to the 1st OM is totally occluded COMPLICATIONS No Complications PROCEDURE MEDICATIONS Oxygen: 2 L/min via nasal cannula SUMMARY OF HEMODYNAMIC DATA Time AIR REST ECG 07:20:32 AO 130/58 (84) SA 08:16:07 Signed By Jj Rodriguez MD On 09/08/2019 08:39:45 Jj Rodriguez MD
== END 2019-09-08 13:11 | disposition home or self-care (01) ==
LOC: CLSP 06:54
PROVIDERS: Family Provider Family Medicine Geriatric Medicine; PCP Family Medicine Geriatric Medicine; Visit Provider Internal Medicine Cardiovascular Disease
DX: I25.810 Atherosclerosis of coronary artery bypass graft(s) without angina pectoris (principal); T82.858A Stenosis of other vascular prosthetic devices, implants and grafts, initial encounter; I25.110 Atherosclerotic heart disease of native coronary artery with unstable angina pectoris; I10 Essential (primary) hypertension; E78.5 Hyperlipidemia, unspecified; Z95.1 Presence of aortocoronary bypass graft; K21.9 Gastro-esophageal reflux disease without esophagitis; D69.6 Thrombocytopenia, unspecified; R07.9 Chest pain, unspecified; Z95.2 Presence of prosthetic heart valve; R07.89 Other chest pain; I36.1 Nonrheumatic tricuspid (valve) insufficiency; I35.0 Nonrheumatic aortic (valve) stenosis
CPT/HCPCS: 93455; 93567; J7040; Q9967; C1769; C1894

== ENCOUNTER → 2019-09-21 10:26 | Outpatient (CLI) | payer MEDICARE, SELFPAY ==
[2019-09-07 08:57] VITALS: BMI 26.6
[2019-09-21 12:12] LABS: Absolute Lymphocyte Count 0.86 X10^3/uL (0.83-4.51); Absolute Neutrophil Count 4.2 X10^3/uL (2.0-7.7); Basophil# 0.04 X10^3/uL; Basophil% 0.7 % (0-1); Eosinophil# 0.18 X10^3/uL; Eosinophils% 3.1 % (0-5); Hematocrit 40.8 % (40-54); Hemoglobin 12.3 g/dL (13.0-16.5); Lymphocyte # 0.86 X10^3/ul (4.0); Lymphocyte % 14.7 % (19-41); Mean Corp Hgb Conc 30.1 g/dL (32-36); Mean Corpuscular Hgb 27.3 pg (27.0-32.0); Mean Corpuscular Volume 90.7 fL (80-94); Mean Platelet Vol. 11.1 fl (6.2-12.0); Monocyte# 0.55 X10^3/uL; Monocyte% 9.4 % (0-10); NRBC Flagged by Analyzer 0 % (0-5); Neutrophil # 4.19 X10^3/uL (2.7-7.7); Neutrophil % 71.6 % (47-70); Platelet Count 187 K/mm3 (150-450); RBC Distribution Width CV 14.7 % (11.6-14.6); RBC Distribution Width SD 49.1 fl (35.1-43.9); White Blood Count 5.9 K/mm3 (4.4-11.0)
[2019-09-21 12:55] LABS: ALB/GLOB Ratio 1.2 RATIO (0.9-2.4); AST(SGOT) 21 U/L (15-37); Alanine Aminotransfer ALT/SGPT 30 U/L (16-61); Albumin, Serum 3.6 g/dL (3.2-5.0); Alkaline Phosphatase 102 U/L (45-117); Anion Gap 6 (5-15); BUN 17 mg/dL (7-18); BUN/Creat Ratio 15.5 RATIO (10-20); Calcium,Total 9.1 mg/dL (8.5-10.1); Chloride 106 mmol/L (98-107); EST Glomerular Filtration Rate 69 mL/min (>60); Est Glom Filt Rate - Afr Amer 84 mL/min (>60); Glucose 99 mg/dL (74-106); Potassium 4.6 mmol/L (3.5-5.1); Protein, Total 6.6 g/dL (6.4-8.2); Sodium Level 140 mmol/L (136-145); Thyroid Stim Hormone (TSH) 2.81 uIU/mL (0.358-3.74); Uric Acid 6.5 mg/dL (3.5-7.2)
[2019-09-21 13:45] LABS: Vitamin D,25 Hydroxy 38.4 ng/mL (29.95-100.01)
== END ==
PROVIDERS: Family Provider Family Medicine Geriatric Medicine; PCP Family Medicine Geriatric Medicine; Visit Provider Family Medicine Geriatric Medicine
DX: R53.83 Other fatigue (principal); E55.9 Vitamin D deficiency, unspecified; M10.9 Gout, unspecified
CPT/HCPCS: 36415; 80053; 82306; 84443; 84550; 85025

== ENCOUNTER 2019-10-08 11:32 | Emergency (ER) | payer MEDICARE, SELFPAY ==
[2019-10-07 12:49] VITALS: BMI 26.6
[2019-10-08 11:33] VITALS: BP 133/73; PULSE 65; RESP 17; TEMP 36.6; O2SAT 98; BMI 28.8
--- NOTE | 2019-10-08 11:46 | ED.VISSUMM ---
- ER Visit Summary Date of Service: 10/08/19 Chief Complaint: [Pain and swelling to left elbow] History of Present Illness: The patient is a 73 M [presents to the emergency department with pain and swelling to the left elbow that started about 3 days ago. Patient thinks that he may have bumped it against something but is not sure. He denies any significant trauma to the area. Patient was seen in urgent care and started he believes on Bactrim yesterday however he got a notice from pharmacy that he was actually started on Keflex so he is not sure exactly what antibiotic he is taken. Patient denies any fever or chills or sweats. Patient has history of coronary artery disease. Patient states that he had a hard time sleeping last night so that is why he came in today.] Physical Examination: [HEENT-PERRLA, EOMI. Cranial nerves II through XII grossly intact. TMs clear. Mucous membranes moist. No adenopathy. Cardiovascular-regular rate and rhythm without murmur or ectopy Lungs-clear to auscultation, chest wall stable without crepitus or subcu emphysema Abdomen-normoactive bowel sounds, soft, nontender, no rebound or rigidity, no peritoneal signs. Extremities-intact ?4, normal range of motion, normal pulses, atraumatic. Left elbow-patient has soft tissue swelling and bogginess over the olecranon bursa of the left elbow. He is got some mild erythema noted. No lymphangitic streaking. Patient has painless range of motion at the elbow. He is neurovascular intact distally.] Test Results: [None indicated] Emergency Department Course and Treatment: [We will call the pharmacy to see exactly what antibiotic patient was started on as I feel he should be on both Keflex and Bactrim.] Treatment Plan: [Patient will be placed on both Bactrim and Keflex and given a prescription for [place] for pain. Patient will be given follow-up with orthopedics within the next 3 to 5 days. Patient advised to return if worsening pain, increased swelling, or condition should worsen anyway.] Disposition: [Discharged home in stable condition] Impression: [Left olecranon bursitis] This note was generated with [employer] software. It may contain incorrect words, spelling, and punctuation that were not noted in review of the chart prior to signing ED Disposition - Plan for ED Patient: Referrals: Kip Parnell Chi, MD [Primary Care Provider] -
--- NOTE | 2019-10-08 11:49 | DCINST.ED_ITS ---
ED Disposition - Plan for ED Patient: Instructions: Bursitis, Elbow (Olecranon) Prescriptions: Smz/Tmp Ds [Bactrim Ds] 1 tab PO BID #20 tab Prescription Printed Hydrocodone Bitart/Apap 5-325 [[place] 5MG-325MG] 1 tab PO Q4H PRN PRN 2 Days #14 tab PRN Reason: Pain Prescription Printed Referrals: Kip Parnell Chi, MD [Primary Care Provider] - David Chaocn DO [STAFF PHYSICIAN] - 3-5 Days
[2019-10-08 12:01] VITALS: RESP 16
== END 2019-10-08 12:02 | disposition home or self-care (01) ==
LOC: ED 11:58
PROVIDERS: Emergency Provider Emergency Medicine; Family Provider Family Medicine Geriatric Medicine; PCP Family Medicine Geriatric Medicine
DX: M70.22 Olecranon bursitis, left elbow (principal); I25.10 Atherosclerotic heart disease of native coronary artery without angina pectoris; Z95.1 Presence of aortocoronary bypass graft
CPT/HCPCS: 99282

== ENCOUNTER → 2019-10-12 13:58 | Outpatient (CLI) | payer MEDICARE, SELFPAY ==
[2019-10-12 13:49] VITALS: BMI 27.4
--- NOTE | 2019-10-12 13:59 | RAD_ITS ---
STUDY: X-RAY - LEFT ELBOW REASON FOR EXAM: Male, 73 years old. Pain for one week, unsure of an injury. TECHNIQUE: 3 view(s) of the elbow. COMPARISON: None. FINDINGS: Normal visualized humerus, radius and ulna. Normal radiocapitellar and ulnotrochlear articulations. Small enthesophyte is seen in association with the triceps tendon insertion. RAD/Elbow min 3 Views IMPRESSION: Small enthesophyte noted in association with the triceps tendon insertion otherwise unremarkable. Electronically Signed: Leah Carroll MD at 13:54 EST , Service support ,
[2019-10-12 16:32] LABS: Pathologist Comment/Body Fluid May follow
[2019-10-12 17:25] LABS: Absolute Lymphocyte Count 0.85 X10^3/uL (0.83-4.51); Absolute Neutrophil Count 4.4 X10^3/uL (2.0-7.7); Basophil# 0.03 X10^3/uL; Basophil% 0.5 % (0-1); Eosinophil# 0.19 X10^3/uL; Eosinophils% 3.1 % (0-5); Hematocrit 39.5 % (40-54); Hemoglobin 12.2 g/dL (13.0-16.5); Lymphocyte # 0.85 X10^3/ul (4.0); Lymphocyte % 13.7 % (19-41); Mean Corp Hgb Conc 30.9 g/dL (32-36); Mean Corpuscular Hgb 27.2 pg (27.0-32.0); Mean Corpuscular Volume 88.2 fL (80-94); Mean Platelet Vol. 10.3 fl (6.2-12.0); Monocyte# 0.69 X10^3/uL; Monocyte% 11.1 % (0-10); NRBC Flagged by Analyzer 0 % (0-5); Neutrophil # 4.42 X10^3/uL (2.7-7.7); Platelet Count 232 K/mm3 (150-450); RBC Distribution Width CV 16.4 % (11.6-14.6); RBC Distribution Width SD 52.6 fl (35.1-43.9); Red Blood Count 4.48 M/mm3 (4.6-6.2); White Blood Count 6.2 K/mm3 (4.4-11.0)
[2019-10-12 17:30] LABS: Anion Gap 7 (5-15); BUN 20 mg/dL (7-18); BUN/Creat Ratio 15.4 RATIO (10-20); Calcium,Total 9.4 mg/dL (8.5-10.1); Chloride 106 mmol/L (98-107); EST Glomerular Filtration Rate 57 mL/min (>60); Est Glom Filt Rate - Afr Amer 69 mL/min (>60); Glucose 86 mg/dL (74-106); Potassium 4.7 mmol/L (3.5-5.1); Sodium Level 138 mmol/L (136-145); Uric Acid 5.2 mg/dL (3.5-7.2)
[2019-10-12 17:33] LABS: Erythrocyte Sedimentation Rate 49 mm/hr (0-20)
[2019-10-12 17:57] LABS: Body Fluid Mononuclear WBC # 2.986 10^3/uL; Red Cell Count/Body Fluid 0.015 10^6/ul
[2019-10-12 18:21] LABS: Auto B Fluid Analyzer BKGD Ct COUNTS W/IN LIMITS (W/IN LIMITS)
[2019-10-12 18:22] LABS: Appearance/Body Fluid TURBID; Color/Body Fluid YELLOW; Source- Body Fluid OTHER; Source- Body Fluid SYNOVIAL
[2019-10-12 18:55] LABS: Lymphocytes 6 %; Neutrophil (Segs) 94 %
[2019-10-12 18:56] LABS: Body Fluid QC Type(s) BF1Q
[2019-10-13 09:34] LABS: Pathologist Review Reviewed
== END ==
PROVIDERS: Family Provider Family Medicine Geriatric Medicine; PCP Family Medicine Geriatric Medicine; Referring Provider Orthopaedic Surgery; Visit Provider Orthopaedic Surgery
DX: R79.9 Abnormal finding of blood chemistry, unspecified (principal); M25.522 Pain in left elbow
CPT/HCPCS: 36415; 73080; 80048; 84550; 85025; 85652; 86140; 87070; 87075; 87077; 87186; 87205; 89050; 89060

== ENCOUNTER 2019-11-04 10:57 | Outpatient (RCR) | payer MEDICARE, SELFPAY ==
[2019-10-28 10:53] VITALS: BMI 27.4
[2019-11-04 11:46] LABS: International Normalized Ratio 1.5; Prothrombin Time (Protime)PT. 18.2 SECONDS (11.7-14.9)
== END 2019-11-04 18:00 | disposition home or self-care (01) ==
LOC: LAB 10:57
PROVIDERS: Family Provider Family Medicine Geriatric Medicine; PCP Family Medicine Geriatric Medicine; Referring Provider Internal Medicine Cardiovascular Disease; Visit Provider Internal Medicine Cardiovascular Disease
DX: I74.10 Embolism and thrombosis of unspecified parts of aorta (principal); Z79.01 Long term (current) use of anticoagulants
CPT/HCPCS: 36415; 85610

== ENCOUNTER → 2019-11-24 10:16 | Outpatient (CLI) | payer MEDICARE, SELFPAY ==
[2019-10-17 10:09] VITALS: BMI 27.4
[2019-10-28 10:53] VITALS: BMI 27.4
== END ==
PROVIDERS: Family Provider Family Medicine Geriatric Medicine; PCP Family Medicine Geriatric Medicine; Referring Provider Orthopaedic Surgery; Visit Provider Orthopaedic Surgery
DX: Z00.00 Encounter for general adult medical examination without abnormal findings (principal)

== ENCOUNTER 2019-12-01 11:52 | Outpatient (RCR) | payer MEDICARE, SELFPAY ==
[2019-10-28 10:53] VITALS: BMI 27.4
[2019-11-10 11:32] LABS: International Normalized Ratio 2.1; Prothrombin Time (Protime)PT. 23.7 SECONDS (11.7-14.9)
[2019-11-17 11:14] LABS: International Normalized Ratio 1.8; Prothrombin Time (Protime)PT. 20.3 SECONDS (11.7-14.9)
[2019-11-24 12:41] LABS: International Normalized Ratio 1.8; Prothrombin Time (Protime)PT. 20.3 SECONDS (11.7-14.9)
[2019-12-01 12:46] LABS: International Normalized Ratio 1.8; Prothrombin Time (Protime)PT. 20.7 SECONDS (11.7-14.9)
== END 2019-12-07 18:00 | disposition home or self-care (01) ==
LOC: LAB 11:52
PROVIDERS: Family Provider Family Medicine Geriatric Medicine; PCP Family Medicine Geriatric Medicine; Referring Provider Internal Medicine Cardiovascular Disease; Visit Provider Internal Medicine Cardiovascular Disease
DX: I74.10 Embolism and thrombosis of unspecified parts of aorta (principal); Z79.01 Long term (current) use of anticoagulants
CPT/HCPCS: 36415; 85610

== ENCOUNTER 2020-01-02 11:10 | Outpatient (RCR) | payer MEDICARE, SELFPAY ==
[2019-10-28 10:53] VITALS: BMI 27.4
[2019-12-15 09:43] LABS: Prothrombin Time (Protime)PT. 31.4 SECONDS (11.7-14.9)
[2019-12-23 11:38] LABS: International Normalized Ratio 1.8; Prothrombin Time (Protime)PT. 20.9 SECONDS (11.7-14.9)
[2020-01-02 14:00] LABS: Prothrombin Time (Protime)PT. 35.9 SECONDS (11.7-14.9)
[2020-01-02 14:28] LABS: International Normalized Ratio 3.6
== END 2020-01-02 18:00 | disposition home or self-care (01) ==
LOC: LAB 11:10
PROVIDERS: Family Provider Family Medicine Geriatric Medicine; PCP Family Medicine Geriatric Medicine; Referring Provider Internal Medicine Cardiovascular Disease; Visit Provider Internal Medicine Cardiovascular Disease
DX: I74.10 Embolism and thrombosis of unspecified parts of aorta (principal); Z79.01 Long term (current) use of anticoagulants
CPT/HCPCS: 36415; 85610

== ENCOUNTER 2020-01-06 12:47 | Emergency (ER) | payer MEDICARE, SELFPAY ==
[2019-10-28 10:53] VITALS: BMI 27.4
[2020-01-06 12:47] VITALS: BP 152/85; PULSE 70; RESP 16; TEMP 36.6; O2SAT 98; BMI 27.3
--- NOTE | 2020-01-06 13:05 | CT_ITS ---
STUDY: CT BRAIN WITHOUT CONTRAST REASON FOR EXAM: Male, 74 years old. FALL, NO LOC, LAC TO FOREHEAD, PT ON THINNERS INDICATION: FALL, NO LOC, LAC TO FOREHEAD, PT ON THINNERS COMPARISON: None. TECHNIQUE: A CT scan of the head was performed without IV contrast in the axial plane. Coronal and sagittal reconstruction images were also obtained. This exam was performed according to our departmental dose-optimization program, which includes automated exposure control, adjustment of the mA and/or kV according to patient size and/or use of iterative reconstruction technique. FINDINGS: The chuckie, medulla, and cerebellum appear to be normal. The ventricles and sulci are mild to moderately enlarged. The basal ganglia appear to be normal. The inner and outer tables of the skull are intact. The frontal, ethmoid, maxillary, and sphenoid sinuses are normal. The mastoid air cells are normal. CT/Brain/Head without Contrast IMPRESSION: Age-related cerebral atrophy. Electronically Signed: Mikhail Mosquera, at 14:06 EST Tel , Service support ,
--- NOTE | 2020-01-06 13:05 | EKG12_ITS ---
Test Reason : CP Blood Pressure : / mmHG Vent. Rate : 065 BPM Atrial Rate : 065 BPM P-R Int : 162 ms QRS Dur : 080 ms QT Int : 392 ms P-R-T Axes : 018 -15 079 degrees QTc Int : 407 ms Normal sinus rhythm Nonspecific T wave abnormality Inferior MS, age undetermined, cannot be excluded Abnormal ECG Confirmed by MAHIN BELLE, NANCY ([id number]), primer expeditor and drier ISADORA CASTRO ([id number]) on 01/09/2020 9:56:44 AM Referred By: ZENY Confirmed By:NANCY STOCKTON MD
--- NOTE | 2020-01-06 13:06 | CT_ITS ---
STUDY: CT CERVICAL SPINE WITHOUT CONTRAST REASON FOR EXAM: Male, 74 years old. FALL, NO LOC, LAC TO FOREHEAD, PT ON THINNERS RADIATION DOSAGE (If Supplied By Facility): CTDIvol = ( 20.76 ) mGy, DLP = ( 473.10 ) mGycm TECHNIQUE: High resolution transaxial imaging was performed without contrast material. Sagittal and coronal images were reconstructed. Individualized dose optimization techniques were used for this CT. COMPARISON: Previous CTA of the neck obtained on 06/28/2015 FINDINGS: A CT scan of cervical spine was performed in the axial plane with coronal and sagittal reconstructions obtained. The base of the skull and C1 and C2 and C3 and C4 and C5 and C6 and C6-7 and T1 show no evidence of fracture, dislocation, or bony destruction. There is narrowing of the C5-6 intervertebral disc space with prominent spur formation seen off the inferior endplate of C5 causing him significant central spinal stenosis with some mild biforaminal stenosis. In addition, there is cervical spondylosis involving the posterior articular facets seen at the C3-4 level on the right and C4-5 level on the left in the C5-6 level on the left and at the C7-T1 level on the left. CT/Spine Cervical without Contras IMPRESSION: 1. No evidence of cervical spine fracture. 2. Narrowing of C5-6 intervertebral disc space level with uncinate spurring causing mild neural foraminal narrowing at C5-6 level bilaterally. 3. Cervical spondylosis Electronically Signed: Mikhail Mosquera, at 14:13 EST Tel , Service support ,
--- NOTE | 2020-01-06 13:11 | ED.VIS.GEN ---
History of Present Illness Chief Complaint: Head Injury Informant: Patient Onset: Today Current Severity: Mild Maximum Severity: Moderate Narrative: Patient presents after fall and head injury. Patient states he has been feeling lightheaded today and had several episodes of near falls. He was going down his basement steps when he felt on the last 2 steps and struck the center of his forehead against a metal support beam. Patient denies loss of consciousness. He is currently on Coumadin. He states his INR was over 3 when it was checked 5 days ago. Medications were adjusted at that time. 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 Rhodes started pt on Coumadin, we are taking over management. 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 Rhodes @ [facility] (4) Stented coronary artery Status: Chronic Comment: 2.5 X 13 followed by 1.5 X 18 Cypher Stent to first OM per Dr. Isidro Mckenzie at [facility] (5) S/P AVR (aortic valve replacement) and aortoplasty Status: Chronic Comment: GUZMÁN to LAD< SVG to OM-1; Redo sternotomy, AVT Ascending aortic aneurysm replacement with a 26mm Hemashield graft and CABG X1 to posterolateral CX with SVG 09/23/[address] Gonzalez Carroll, [facility] (6) S/P CABG x 2 Status: Chronic Comment: INITIAL CABG X 2 VESSELS 1997: GUZMÁN to LAD< SVG to OM-1; Redo sternotomy, AVT Ascending aortic aneurysm replacement with a 26mm Hemashield graft and CABG X1 to posterolateral CX with SVG 09/23/[address] Gonzalez Carroll, [facility] (7) Osteoarthritis Status: Chronic (8) Depression Status: Chronic (9) HTN (hypertension) Status: Chronic (10) Thrombocytopenia Status: Chronic (11) HLD (hyperlipidemia) Status: Chronic (12) GERD (gastroesophageal reflux disease) Status: Chronic Past Medical History - Allergies and Home Meds Allergies/Adverse Reactions: Allergies No Known Allergies Allergy (Verified 01/06/20 12:49) Primary Care Physician: Kip Parnell Chi, MD [Primary Care Provider] - Prior records reviewed: Yes Surgical History: coronary bypass surgery, herniorrhaphy Lives: Spouse/ Significant Other Smoking Status: Never smoker - Family History Maternal Family History: Family History (Last Reviewed 10/07/19 @ 12:49 by Shasta Lowe) Father COPD (chronic obstructive pulmonary disease) Mother Congestive heart failure Brother Sudden cardiac Brother Hypertension Hyperlipidemia Family History: Reports: Diabetes - His mother at the age of 94 and she had DM and breast CA Paternal Family History: Family History (Last Reviewed 10/07/19 @ 12:49 by Shasta Lowe) Father COPD (chronic obstructive pulmonary disease) Mother Congestive heart failure Brother Sudden cardiac Brother Hypertension Hyperlipidemia Family History: Reports: - - father at the age of 70 with COPD Sibling Family History: Family History (Last Reviewed 10/07/19 @ 12:49 by Shasta Lowe) Father COPD (chronic obstructive pulmonary disease) Mother Congestive heart failure Brother Sudden cardiac Brother Hypertension Hyperlipidemia Family History: Reports: Cancer - prostate, Heart Disease, Pulmonary Disease Review of Systems General: Denies: Chills, Fever Eyes: Denies: Visual changes - bilaterally ENT: Denies: Bilateral ear pain Cardiovascular: Denies: Chest pain Respiratory: Denies: Dyspnea, Cough Gastrointestinal: Denies: Abdominal pain, Nausea, Vomiting, Diarrhea Musculoskeletal: Reports: Neck pain - Chronic, unchanged from baseline. Denies: Back pain Skin: Reports: Wounds Neurological: Reports: Headache Hematologic: Reports: Easy bruising - Secondary to Coumadin Physical Exam Vital Signs/Narrative: Vital Signs Temp Pulse Resp BP Pulse Ox 01/06/20 12:47 98 F 70 16 152/85 H 98 Inital Vital Signs reviewed: Yes General: Well nourished, Well developed Head: Normocephalic, - - Hematoma noted to the central forehead with 2 vertical linear lacerations, each measuring approximately 2 cm. Eyes: Perrl, EOMI ENT: Moist mucous membranes Neck: Supple, - - No focal C-spine tenderness. Cardiovascular: Regular rate, Regular rhythm Respiratory: No distress, CTA bilaterally Abdomen: Soft, Nontender Extremities: Nontender Skin: - - Lacerations as above Neurological: Alert, Oriented x3, Normal Strength, Normal Sensation Psychological: Normal affect Diagnostic/Tx/Re-eval Impressions Brain CT 01/06/20 13:05 IMPRESSION: Age-related cerebral atrophy. Electronically Signed: Mikhail Mosquera, at 14:06 EST Tel , Service support , Cervical Spine CT 01/06/20 13:06 IMPRESSION: 1. No evidence of cervical spine fracture. 2. Narrowing of C5-6 intervertebral disc space level with uncinate spurring causing mild neural foraminal narrowing at C5-6 level bilaterally. 3. Cervical spondylosis Electronically Signed: Mikhail Mosquera, at 14:13 EST Tel , Service support , 01/06/20 13:05 Brain/Head without Contrast [CT] Stat 01/06/20 13:06 CT Cervical [Spine Cervical without Contras] [CT] Stat Laboratory Results 01/06/20 01/06/20 01/06/20 13:20 13:20 13:20 WBC 5.9 RBC 4.86 Hgb 12.7 L Hct 41.4 MCV 85.2 MCH 26.1 L MCHC 30.7 L RDW Std Deviation 55.6 H RDW Coeff of Alessandro 18.1 H Plt Count 164 MPV 10.0 Immature Gran % (Auto) 0.300 Neut % (Auto) 61.9 Lymph % (Auto) 16.1 L [place] % (Auto) 11.0 H Eos % (Auto) 10.2 H Baso % (Auto) 0.5 Absolute Neuts (auto) 3.7 Absolute Lymphs (auto) 0.95 Nucleated RBC % 0 PT 28.8 H INR 2.7 Sodium 140 Potassium 4.5 Chloride 108 H Carbon Dioxide 28.0 Anion Gap 4 L BUN 18 Creatinine 1.09 Estim Creat Clear Calc 52.03 Est GFR (MDRD) Af Amer 85 Est GFR (MDRD) Non-Af 70 BUN/Creatinine Ratio 16.5 Glucose 81 Calcium 9.5 - EKG Initial EKG Interpretation: Sinus Rhythm - Sinus at 65 with nonspecific T wave flattening. 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 He is able to get up and ambulate to the restroom without difficulty. Forehead lacerations were anesthetized with 4 cc of 1% lidocaine. A total of 10 simple interrupted sutures were placed with 6-0 nylon. Surgifoam and pressure dressing was then applied. Patient be discharged home with at this time. He is to have sutures removed in 5 to 7 days. Procedures - Lacerations No standard instances Length: 1.57 in - Total length of 2 laceration Depth: Skin Number of Sutures/Yrn: 10 Suture Information: Simple, 6-0 ED Disposition - Plan for ED Patient: Disposition: Home or Assisted Living Diagnosis: Fall, Closed head injury, Forehead laceration Instructions: HEAD INJURY, No Wake-Up (Adult), LACERATION, Face (Suture or Tape) Referrals: Kip Parnell Chi, MD [Primary Care Provider] - 5 Days for suture removal
[2020-01-06] MEDS: 0.9% Normal Saline 1,000 ML 150 ML IV (13:21)
[2020-01-06] MEDS: Diphth,Pertuss(Acell),Tet Vac 0.5 ML Vial IM (13:21)
[2020-01-06 13:31] LABS: Absolute Lymphocyte Count 0.95 X10^3/uL (0.83-4.51); Absolute Neutrophil Count 3.7 X10^3/uL (2.0-7.7); Basophil# 0.03 X10^3/uL; Basophil% 0.5 % (0-1); Eosinophils% 10.2 % (0-5); Hematocrit 41.4 % (40-54); Hemoglobin 12.7 g/dL (13.0-16.5); Lymphocyte # 0.95 X10^3/ul (4.0); Lymphocyte % 16.1 % (19-41); Mean Corp Hgb Conc 30.7 g/dL (32-36); Mean Corpuscular Hgb 26.1 pg (27.0-32.0); Mean Corpuscular Volume 85.2 fL (80-94); Monocyte# 0.65 X10^3/uL; NRBC Flagged by Analyzer 0 % (0-5); Neutrophil # 3.65 X10^3/uL (2.7-7.7); Neutrophil % 61.9 % (47-70); Platelet Count 164 K/mm3 (150-450); RBC Distribution Width CV 18.1 % (11.6-14.6); RBC Distribution Width SD 55.6 fl (35.1-43.9); Red Blood Count 4.86 M/mm3 (4.6-6.2); White Blood Count 5.9 K/mm3 (4.4-11.0)
[2020-01-06 13:40] LABS: International Normalized Ratio 2.7; Prothrombin Time (Protime)PT. 28.8 SECONDS (11.7-14.9)
[2020-01-06 13:42] VITALS: BP 142/83; PULSE 62; RESP 16; O2SAT 99
[2020-01-06 13:43] LABS: Anion Gap 4 (5-15); BUN 18 mg/dL (7-18); BUN/Creat Ratio 16.5 RATIO (10-20); Calcium,Total 9.5 mg/dL (8.5-10.1); Chloride 108 mmol/L (98-107); Creatinine, Serum 1.09 mg/dL (0.70-1.30); EST Glomerular Filtration Rate 70 mL/min (>60); Est Glom Filt Rate - Afr Amer 85 mL/min (>60); Estimated Creatinine Clearance 52.03 ml/min; Glucose 81 mg/dL (74-106); Potassium 4.5 mmol/L (3.5-5.1); Sodium Level 140 mmol/L (136-145)
[2020-01-06 14:25] VITALS: BP 135/76; PULSE 56; RESP 11; O2SAT 98
[2020-01-06 15:21] VITALS: BP 127/93; PULSE 55; RESP 15; O2SAT 94
[2020-01-06 16:10] VITALS: BP 127/93; PULSE 55; RESP 20; O2SAT 93
== END 2020-01-06 16:26 | disposition home or self-care (01) ==
PROVIDERS: Emergency Provider Emergency Medicine; PCP Family Medicine Geriatric Medicine
DX: S01.81XA Laceration without foreign body of other part of head, initial encounter (principal); W10.9XXA Fall (on) (from) unspecified stairs and steps, initial encounter; Y93.9 Activity, unspecified; Y92.009 Unspecified place in unspecified non-institutional (private) residence as the place of occurrence of the external cause; Y99.9 Unspecified external cause status; E78.5 Hyperlipidemia, unspecified; F32.9 Major depressive disorder, single episode, unspecified; I10 Essential (primary) hypertension; D69.6 Thrombocytopenia, unspecified; K21.9 Gastro-esophageal reflux disease without esophagitis; Z79.01 Long term (current) use of anticoagulants; Z82.49 Family history of ischemic heart disease and other diseases of the circulatory system; Z83.3 Family history of diabetes mellitus; Z95.1 Presence of aortocoronary bypass graft; Z95.2 Presence of prosthetic heart valve; Z95.5 Presence of coronary angioplasty implant and graft
CPT/HCPCS: 12011; 70450; 72125; 80048; 85025; 85610; 90471; 90715; 93005; 99285; J7030; A4216

== ENCOUNTER 2020-01-06 20:00 | Emergency (ER) | payer MEDICARE, SELFPAY ==
[2020-01-06 12:47] VITALS: BMI 27.3
[2020-01-06 20:02] VITALS: BP 149/83; PULSE 60; RESP 17; TEMP 36; O2SAT 98; BMI 27.1
--- NOTE | 2020-01-06 22:47 | ED.VISSUMM ---
- ER Visit Summary Date of Service: 01/06/20 Chief Complaint: Laceration bleeding History of Present Illness: The patient is a [address] Rodriguez and Dr. Parnell. He is on Coumadin for an aortic valve replacement. Reports that this is a bovine valve, but is calcified so they have placed him on Coumadin. Patient reports that earlier today he hit his head on a bar going into the basement and suffered a laceration. He was seen in the emerge department had sutures placed. Unfortunately this is continued to bleed he once he is got home. Physical Examination: Vitals: Stable. Afebrile. General: Well-nourished and well-developed. Head: Normocephalic 2 lacerations in the midline of his forehead. The one on the left approximately 3 cm long and it is oozing from the inferior 1 cm of this. Neck: Supple, no lymphadenopathy. No JVD. Nontender. Cardiovascular: Regular rate and rhythm. No murmurs. Respiratory: No respiratory distress. Clear to auscultation bilaterally. Abdominal: Soft, nontender, nondistended, normal bowel sounds. No guarding, rebound, or peritoneal signs. Back: Nontender. Extremities: Nontender, no edema. Skin: Normal color, no rash. Neurologic: Alert and oriented ?3. Cranial nerves II through XII are intact. Normal strength and sensation. Psych: Normal affect. Emergency Department Course and Treatment: Patient had his wound anesthetized and repaired. He tolerated this well. He was observed over the course of an hour following this and had no further bleeding. Treatment Plan: Patient be discharged instructions have sutures removed in 5 days. Return to the emergency department for any worsening symptoms. Disposition: To home in improved and stable condition. Impression: 1. Forehead laceration revision, 3 cm. 2. Coumadin coagulopathy. Procedure note: Patient had 4 out of the 5 stitches removed from this laceration. Was then injected with lidocaine with epinephrine. There were 3 Vicryl subcutaneous stitches that were placed to control the bleeding. It was then closed up again with 4 simple ruptured 4-0 Ethilon sutures. Patient tolerated this well. This note was generated with [employer] software. It may contain incorrect words, spelling, and punctuation that were not noted in review of the chart prior to signing ED Disposition - Plan for ED Patient: Disposition: Home or Assisted Living Instructions: LACERATION, Face (Suture or Tape) Referrals: Kip Parnell Chi, MD [Primary Care Provider] - 5 Days for suture removal
--- NOTE | 2020-01-06 22:54 | ED.RN ---
DR. CONTRERAS REMOVED 5 SUTURES AND REPLACED 4 WITH DISSOLVABLE TO LEFT SIDE OF MID FOREHEAD.
== END 2020-01-06 23:00 | disposition home or self-care (01) ==
LOC: ED 20:19
PROVIDERS: Emergency Provider Emergency Medicine; PCP Family Medicine Geriatric Medicine
DX: S01.81XA Laceration without foreign body of other part of head, initial encounter (principal); W22.09XA Striking against other stationary object, initial encounter; Y93.9 Activity, unspecified; Y92.008 Other place in unspecified non-institutional (private) residence as the place of occurrence of the external cause; Y99.9 Unspecified external cause status; T45.515A Adverse effect of anticoagulants, initial encounter; R79.1 Abnormal coagulation profile; Z79.01 Long term (current) use of anticoagulants; Z95.2 Presence of prosthetic heart valve
CPT/HCPCS: 12013; 70450; 72125; 80048; 85025; 85610; 90471; 90715; 93005; 96360; 96361; 99282; 99285; J7030; A4216

== ENCOUNTER 2020-01-07 15:33 | Emergency (ER) | payer MEDICARE, SELFPAY ==
[2020-01-06 20:02] VITALS: BMI 27.1
[2020-01-07 15:34] VITALS: BP 161/86; PULSE 75; RESP 18; TEMP 36.6; O2SAT 94; BMI 26.6
[2020-01-07] MEDS: Mixture 30 ML Bottle TOPICAL (16:01)
--- NOTE | 2020-01-07 18:23 | ED.VISSUMM ---
- ER Visit Summary Date of Service: 01/07/20 Chief Complaint: Nosebleed History of Present Illness: The patient is a [address] Rodriguez and Dr. Parnell. He is on Coumadin for an aortic valve replacement. He reports he picks the right side of his nose and it began to bleed. He denies any pain. He has not had anything like this previously. Physical Examination: Vitals: Stable. Afebrile. General: Well-nourished and well-developed. Head: Normocephalic 2 lacerations in the midline of his forehead with sutures in place. No bleeding. No erythema or warmth. No evidence of infection. HEENT: Moderate bleeding from the right nare. I had him blow the clots from his nose. I cannot visualize an obvious source of bleeding. Neck: Supple, no lymphadenopathy. No JVD. Nontender. Cardiovascular: Regular rate and rhythm. 2 out of 6 systolic murmur. Respiratory: No respiratory distress. Clear to auscultation bilaterally. Abdominal: Soft, nontender, nondistended, normal bowel sounds. No guarding, rebound, or peritoneal signs. Back: Nontender. Extremities: Nontender, no edema. Skin: Normal color, no rash. Neurologic: Alert and oriented ?3. Cranial nerves II through XII are intact. Normal strength and sensation. Psych: Normal affect. Test Results: INR is 4.2. INR yesterday was 2.7. Hemoglobin is 11.4. Hemoglobin yesterday was 12.7. Emergency Department Course and Treatment: Initially I packed the right side of his nose with Vaseline gauze. He continued to have oozing. This was removed and he had a 7 x 5 cm rapid Rhino placed. He was observed for approximately an hour following this and the bleeding seemed to resolve. Patient was discharged to home. Unfortunately after that he began having oozing from the right side of his nares again. So he returned emergency department. I did not have the patient sign in for a new visit as I feel this is a continuation of his prior visit. He had a Vaseline gauze placed around the rapid Rhino which transiently improved the bleeding. The bleeding then started again and is easing. He complains of a tickle in his throat. He was given Tessalon Perles and Keflex p.o. Treatment Plan: Patient was discussed with Dr. Flores. Unfortunately we do not have an ENT material control associate and she does not feel comfortable admitting him. I do think that this is a reasonable thing is he continues to ooze from the right nares. He was discussed with [facility]. They do not have any ENT either. He was then discussed with Dr. Clark, and ENT at [facility], who is accepted him in transfer to the emergency department where he will attempt to stop the bleeding. Patient has remained stable in the emergency department. Disposition: Transferred in stable condition. Impression: 1. Epistaxis on right. 2. Coumadin coagulopathy. This note was generated with [employer] dictation software. It may contain incorrect words, spelling, and punctuation that were not noted in review of the chart prior to signing ED Disposition - Plan for ED Patient: Disposition: Home or Assisted Living Instructions: Nosebleed Prescriptions: Cephalexin [Keflex] 500 mg PO TID #21 cap Prescription Printed Referrals: John Llanes MD [STAFF PHYSICIAN] - 3-5 Days
[2020-01-07] MEDS: Cephalexin 500 MG Capsule PO (18:30)
[2020-01-07 20:22] VITALS: BP 115/93; PULSE 69; RESP 18; O2SAT 98
--- NOTE | 2020-01-07 20:22 | ED.RN ---
patient presents to the ER with continuos nosebleed. Patient seen by Dr. Castro earlier. Chart brought back up and care continued at this time
[2020-01-07 20:38] LABS: Absolute Lymphocyte Count 1.21 X10^3/uL (0.83-4.51); Basophil# 0.02 X10^3/uL; Basophil% 0.3 % (0-1); Eosinophil# 0.13 X10^3/uL; Eosinophils% 1.8 % (0-5); Hemoglobin 11.4 g/dL (13.0-16.5); Lymphocyte # 1.21 X10^3/ul (4.0); Lymphocyte % 16.9 % (19-41); Mean Corp Hgb Conc 30.8 g/dL (32-36); Mean Corpuscular Hgb 27.1 pg (27.0-32.0); Mean Corpuscular Volume 88.1 fL (80-94); Mean Platelet Vol. 10.1 fl (6.2-12.0); Monocyte# 0.78 X10^3/uL; Monocyte% 10.9 % (0-10); NRBC Flagged by Analyzer 0 % (0-5); Neutrophil # 4.97 X10^3/uL (2.7-7.7); Neutrophil % 69.7 % (47-70); Platelet Count 165 K/mm3 (150-450); RBC Distribution Width CV 18.1 % (11.6-14.6); RBC Distribution Width SD 57.7 fl (35.1-43.9); White Blood Count 7.1 K/mm3 (4.4-11.0)
[2020-01-07 21:15] LABS: International Normalized Ratio 4.2
[2020-01-07 21:30] VITALS: BP 142/101; PULSE 73; RESP 18; O2SAT 96
--- NOTE | 2020-01-07 21:30 | ED.RN ---
PT BLEW HIS NOSE WITH RAPID RHINO IN PLACE. NOSE STARTED BLEEDING AGAIN. DR CONTRERAS NOTIFIED.
[2020-01-07 22:30] VITALS: BP 127/71; PULSE 76; RESP 16; O2SAT 96
[2020-01-07] MEDS: Benzonatate 100 MG Capsule 200 MG PO (23:10)
== END 2020-01-07 23:30 | disposition short-term general hospital (02) ==
LOC: ED 16:03
PROVIDERS: Emergency Provider Emergency Medicine; PCP Family Medicine Geriatric Medicine
DX: R04.0 Epistaxis (principal); R79.1 Abnormal coagulation profile; T45.515A Adverse effect of anticoagulants, initial encounter; Z79.01 Long term (current) use of anticoagulants; Z95.2 Presence of prosthetic heart valve
CPT/HCPCS: 30901; 85025; 85610; 99285; A4216

== ENCOUNTER 2020-01-19 13:53 | Outpatient (RCR) | payer MEDICARE, SELFPAY ==
[2020-01-11 13:20] LABS: Absolute Lymphocyte Count 1.05 X10^3/uL (0.83-4.51); Absolute Neutrophil Count 8.8 X10^3/uL (2.0-7.7); Basophil# 0.02 X10^3/uL; Basophil% 0.2 % (0-1); Eosinophil# 0.02 X10^3/uL; Eosinophils% 0.2 % (0-5); Hematocrit 33.4 % (40-54); Hemoglobin 10.5 g/dL (13.0-16.5); Lymphocyte # 1.05 X10^3/ul (4.0); Lymphocyte % 9.4 % (19-41); Mean Corp Hgb Conc 31.4 g/dL (32-36); Mean Corpuscular Hgb 27.6 pg (27.0-32.0); Mean Corpuscular Volume 87.7 fL (80-94); Mean Platelet Vol. 10.1 fl (6.2-12.0); Monocyte% 10.8 % (0-10); NRBC Flagged by Analyzer 0 % (0-5); Neutrophil # 8.81 X10^3/uL (2.7-7.7); Platelet Count 189 K/mm3 (150-450); RBC Distribution Width CV 19.3 % (11.6-14.6); Red Blood Count 3.81 M/mm3 (4.6-6.2); White Blood Count 11.2 K/mm3 (4.4-11.0)
[2020-01-11 13:51] LABS: International Normalized Ratio 1.2
[2020-01-19 14:22] LABS: International Normalized Ratio 1.2; Prothrombin Time (Protime)PT. 15.2 SECONDS (11.7-14.9)
== END 2020-01-19 18:00 | disposition home or self-care (01) ==
LOC: LAB 13:53
PROVIDERS: Family Provider Family Medicine Geriatric Medicine; PCP Family Medicine Geriatric Medicine; Referring Provider Internal Medicine Cardiovascular Disease; Visit Provider Internal Medicine Cardiovascular Disease
DX: I74.10 Embolism and thrombosis of unspecified parts of aorta (principal); Z79.01 Long term (current) use of anticoagulants
CPT/HCPCS: 36415; 85025; 85610

== ENCOUNTER → 2020-03-21 12:04 | Outpatient (CLI) | payer MEDICARE, SELFPAY ==
[2020-03-08 09:16] VITALS: BMI 25.3
[2020-03-21 12:24] LABS: Absolute Lymphocyte Count 0.98 X10^3/uL (0.83-4.51); Absolute Neutrophil Count 4.4 X10^3/uL (2.0-7.7); Basophil# 0.03 X10^3/uL; Basophil% 0.5 % (0-1); Eosinophil# 0.16 X10^3/uL; Eosinophils% 2.6 % (0-5); Hematocrit 35.5 % (40-54); Lymphocyte # 0.98 X10^3/ul (4.0); Lymphocyte % 15.7 % (19-41); Mean Corp Hgb Conc 28.2 g/dL (32-36); Mean Corpuscular Hgb 22.9 pg (27.0-32.0); Mean Corpuscular Volume 81.2 fL (80-94); Mean Platelet Vol. 10.5 fl (6.2-12.0); Monocyte# 0.63 X10^3/uL; Monocyte% 10.1 % (0-10); NRBC Flagged by Analyzer 0 % (0-5); Neutrophil # 4.41 X10^3/uL (2.7-7.7); Neutrophil % 70.6 % (47-70); POSITIVE MORPHOLOGY YES; Platelet Count 238 K/mm3 (150-450); RBC Distribution Width CV 18.1 % (11.6-14.6); RBC Distribution Width SD 53.7 fl (35.1-43.9); Red Blood Count 4.37 M/mm3 (4.6-6.2); White Blood Count 6.2 K/mm3 (4.4-11.0)
[2020-03-21 12:25] LABS: Differential Indicated SCAN CRITERIA MET
[2020-03-21 12:40] LABS: Vitamin D,25 Hydroxy 40.3 ng/mL
[2020-03-21 12:45] LABS: ALB/GLOB Ratio 1.1 RATIO (0.9-2.4); AST(SGOT) 17 U/L (15-37); Alanine Aminotransfer ALT/SGPT 33 U/L (16-61); Albumin, Serum 3.5 g/dL (3.2-5.0); Alkaline Phosphatase 97 U/L (45-117); Anion Gap 5 (5-15); BUN 18 mg/dL (7-18); BUN/Creat Ratio 16.5 RATIO (10-20); Calcium,Total 9.5 mg/dL (8.5-10.1); Chloride 106 mmol/L (98-107); Creatinine, Serum 1.09 mg/dL (0.70-1.30); EST Glomerular Filtration Rate 70 mL/min (>60); Est Glom Filt Rate - Afr Amer 85 mL/min (>60); Globulin 3.2 g/dL (2.2-4.2); Glucose 92 mg/dL (74-106); Potassium 4.6 mmol/L (3.5-5.1); Protein, Total 6.7 g/dL (6.4-8.2); Sodium Level 139 mmol/L (136-145); Thyroid Stim Hormone (TSH) 2.56 uIU/mL (0.358-3.74); Uric Acid 5.6 mg/dL (3.5-7.2)
[2020-03-21 13:54] LABS: Differential Comment SCANNED
== END ==
PROVIDERS: PCP Family Medicine Geriatric Medicine; Visit Provider Family Medicine Geriatric Medicine
DX: E55.9 Vitamin D deficiency, unspecified (principal); I10 Essential (primary) hypertension; M10.9 Gout, unspecified
CPT/HCPCS: 36415; 80053; 82306; 84443; 84550; 85025

== ENCOUNTER → 2020-03-23 09:32 | Outpatient (CLI) | payer MEDICARE, SELFPAY ==
[2020-03-08 09:16] VITALS: BMI 25.3
[2020-03-23 12:53] LABS: Absolute Neutrophil Count 3.8 X10^3/uL (2.0-7.7); Basophil# 0.02 X10^3/uL; Basophil% 0.4 % (0-1); Eosinophil# 0.09 X10^3/uL; Eosinophils% 1.8 % (0-5); Hematocrit 33.5 % (40-54); Hemoglobin 9.5 g/dL (13.0-16.5); Immature Platelet Fraction 1.9 % (1.0-7.9); Lymphocyte % 13.8 % (19-41); Mean Corp Hgb Conc 28.4 g/dL (32-36); Mean Corpuscular Hgb 23.2 pg (27.0-32.0); Mean Corpuscular Volume 81.7 fL (80-94); Mean Platelet Vol. 10.7 fl (6.2-12.0); Monocyte# 0.41 X10^3/uL; Monocyte% 8.1 % (0-10); NRBC Flagged by Analyzer 0 % (0-5); Neutrophil # 3.83 X10^3/uL (2.7-7.7); Neutrophil % 75.5 % (47-70); POSITIVE MORPHOLOGY YES; Platelet Count 190 K/mm3 (150-450); RBC Distribution Width CV 18.2 % (11.6-14.6); RBC Distribution Width SD 54.2 fl (35.1-43.9); RET-HE 20.8 pg (30-35); Reticulocyte Count 1.43 % (0.5-1.5); White Blood Count 5.1 K/mm3 (4.4-11.0)
[2020-03-23 13:03] LABS: Differential Indicated SCAN CRITERIA MET
[2020-03-23 13:04] LABS: Vitamin B12 239 pg/mL (211-911)
[2020-03-23 13:38] LABS: Anisocytosis 1+; Hypochromasia 2+; Microcytosis 2+; Platelet Estimate ADEQUATE (ADEQ); Schistocytes RARE
[2020-03-23 13:50] LABS: Ferritin 7 ng/mL (26-388); Iron 25 ug/dL (65-175); Iron Binding Capacity,Total 365 ug/dL (250-450)
== END ==
PROVIDERS: PCP Family Medicine Geriatric Medicine; Visit Provider Family Medicine Geriatric Medicine
DX: D64.9 Anemia, unspecified (principal)
CPT/HCPCS: 36415; 82607; 82728; 82746; 83540; 83550; 85025; 85045

== ENCOUNTER → 2020-03-27 12:52 | Outpatient (CLI) | payer MEDICARE, SELFPAY ==
[2020-03-08 09:16] VITALS: BMI 25.3
--- NOTE | 2020-03-27 12:57 | ECHOD_ITS ---
Reason For Study: VALVE REPLACEMENT EVAL Procedure This was a 2D Doppler, Color Flow transthoracic echocardiogram. The study was technically difficult. Exam performed in department. Left Ventricle Normal LV size. Left ventricular systolic function is normal. The estimated ejection fraction is 55 %. Unable to assess diastolic dysfunction. No regional wall motion abnormalities noted. Right Ventricle Moderately dilated right ventricle. Moderate global right ventricular systolic dysfunction. Atria The left atrium is mildly enlarged. Normal right atrium. No doppler evidence for ASD. Mitral Valve There is no mitral annular calcification. Normal mitral valve. Trivial mitral valve insufficiency. Tricuspid Valve Normal tricuspid valve. Moderate (2+) tricuspid valve insufficiency. Right ventricular systolic pressure estimated to be 28 mmHg. Aortic Valve Mild aortic stenosis. Stable appearing bioprosthetic aortic valve apparatus. Pulmonic Valve The pulmonic valve is not well visualized. Great Vessels The aortic root is not well visualized. Pericardium/Pleural No pericardial effusion. MMode/2D Measurements & Calculations LVIDd: 3.7 cm IVSd: 0.88 cm LVOT diam: 2.0 cm LVIDs: 2.9 cm LVPWd: 1.1 cm LVOT area: 3.0 cm2 RVDd: 4.0 cm FS: 23.5 % LAV(MOD-bp): 65.7 ml LA A4 area: 22.7 cm2 LA dimension(2D): 3.4 cm LAV(MOD-bp) Indexed: 35.6 ml/m2 LAV(MOD-sp2): 60.0 ml LAV(MOD-sp4): 71.7 ml RA A4 area: 17.3 cm2 Doppler Measurements & Calculations MV E max courtney: 150.7 cm/sec Ao V2 max: 221.3 cm/sec LV V1 max: 85.4 cm/sec Ao max P.6 mmHg LV V1 max P.9 mmHg Ao V2 mean: 139.8 cm/sec LV V1 mean P.7 mmHg Ao mean P.2 mmHg LV V1 mean: 62.2 cm/sec Ao V2 VTI: 37.6 cm LV V1 VTI: 17.5 cm POLO(I,D): 1.4 cm2 POLO(V,D): 1.2 cm2 SV(LVOT): 52.3 ml PA V2 max: 117.3 cm/sec TR max courtney: 220.7 cm/sec TR max P.6 mmHg Interpretation Summary The study was technically difficult. Left ventricular systolic function is normal. The estimated ejection fraction is 55 %. Moderately dilated right ventricle. Moderate global right ventricular systolic dysfunction. The left atrium is mildly enlarged. Trivial mitral valve insufficiency. Moderate (2+) tricuspid valve insufficiency. Stable appearing bioprosthetic aortic valve apparatus. Mild aortic stenosis. Right ventricular systolic pressure estimated to be 28 mmHg. Unable to assess diastolic dysfunction. Comment: Underlying rhythm: Consider atrial fibrillation/flutter-clinical correlation suggested Ordering Physician: Jj Rodriguez Referring Physician: Kip Parnell Chi Performed By: Cheri Huff, RDCS, RVT
== END ==
PROVIDERS: PCP Family Medicine Geriatric Medicine; Visit Provider Internal Medicine Cardiovascular Disease
DX: R07.9 Chest pain, unspecified (principal); Z95.2 Presence of prosthetic heart valve; R68.89 Other general symptoms and signs; E72.11 Homocystinuria
CPT/HCPCS: 36415; 83090; 83921; 93306

== ENCOUNTER → 2020-03-27 14:08 | Outpatient (CLI) | payer MEDICARE, SELFPAY ==
[2020-03-08 09:16] VITALS: BMI 25.3
[2020-03-27 15:09] LABS: Homocysteine 7.2 umol/L (3.2-10.7)
== END ==
PROVIDERS: PCP Family Medicine Geriatric Medicine; Visit Provider Family Medicine Geriatric Medicine
DX: R68.89 Other general symptoms and signs (principal)
CPT/HCPCS: 36415; 83090; 83921

== ENCOUNTER → 2020-03-28 12:48 | Outpatient (CLI) | payer MEDICARE, SELFPAY ==
[2020-03-08 09:16] VITALS: BMI 25.3
[2020-03-28 09:45] VITALS: BMI 25.3
== END ==
PROVIDERS: PCP Family Medicine Geriatric Medicine; Visit Provider Internal Medicine Cardiovascular Disease
DX: I49.9 Cardiac arrhythmia, unspecified (principal); I25.10 Atherosclerotic heart disease of native coronary artery without angina pectoris; Z95.2 Presence of prosthetic heart valve
CPT/HCPCS: 93225; 93226

== ENCOUNTER 2020-04-17 08:05 | Day surgery (SDC) | payer MEDICARE, SELFPAY ==
[2020-03-28 09:45] VITALS: BMI 25.3
--- NOTE | 2020-03-30 01:16 | HP_ITS ---
Intake Vital Signs 03/28/20 BMI 25.3 03/28/20 Height 5 ft 7 in 03/28/20 Weight: 169 lb 03/28/20 BMI 26.4 03/28/20 BP 106/73 03/28/20 Blood Pressure Location Rt brachial 03/28/20 Position Sitting 03/28/20 Respiration 18 03/28/20 Temp 97.5 F L 03/28/20 Temp Source Temporal Intake Visit Reasons: EGD/ CSCOPE Chief Complaint: Anemia and occult blood Director Of Scout Work Required: No Is patient in pain?: No Allergies No Known Allergies Allergy (Verified 03/28/20 09:44) Medications Nitroglycerin (INPATIENT USE) [Nitrostat] 0.4 mg SUBLINGUAL Q5M PRN 03/01/14 [History Confirmed 03/08/20] buPROPion SR [Wellbutrin SR (150mg tablets)] 150 mg PO QHS 06/28/15 [History Confirmed 03/28/20] atorvastatin 40 mg tablet 40 mg PO QHS 01/21/19 [History Confirmed 03/28/20] bupropion HCl 300 mg 24 hr tablet, extended release 300 mg PO QAM 01/21/19 [History Confirmed 03/28/20] fluticasone propionate 50 mcg/actuation nasal spray,suspension 2 spray INTRANASAL BID g 01/21/19 [History Confirmed 03/28/20] benazepril 5 mg tablet 5 mg PO DAILY 01/25/19 [History Confirmed 03/28/20] biotin 1 mg capsule 5,000 mcg PO DAILY 01/25/19 [History Confirmed 03/28/20] coenzyme Q10 100 mg capsule 100 mg PO DAILY 01/25/19 [History Confirmed 03/28/20] methylphenidate HCl 5 mg tablet 5 mg PO DAILY PRN tab 01/25/19 [History Confirmed 03/28/20] omeprazole 40 mg capsule,delayed release 40 mg PO DAILY 01/25/19 [History Confirmed 03/28/20] tamsulosin 0.4 mg capsule 0.4 mg PO DAILY 08/18/19 [History Confirmed 03/28/20] azelastine 137 mcg (0.1 %) nasal spray aerosol 1 spray INTRANASAL DAILY #30 ml 10/07/19 [History Confirmed 03/28/20] cholecalciferol (vitamin D3) 25 mcg (1,000 unit) capsule 1,000 unit PO DAILY 10/07/19 [History Confirmed 03/28/20] aspirin 81 mg tablet,delayed release 81 mg PO DAILY #1 tab 01/19/20 [Rx Confirmed 03/28/20] clopidogrel 75 mg tablet 75 mg PO DAILY #90 tab 03/01/20 [Rx Confirmed 03/28/20] metoprolol tartrate 25 mg tablet 25 mg PO QHS tab 03/08/20 [History Confirmed 03/28/20] PFSH Medical History Irregular heartbeat (Acute) Chest pain on exertion (Acute) Severe aortic stenosis (Chronic) MCFP current use of anticoagulant (Inactive) Aortic mural thrombus (Chronic 10/29/19) Abnormal stress test (Acute) Carotid bruit (Chronic) Atherosclerotic heart disease of [place] coronary artery without angina pectoris (Chronic) HTN (hypertension) (Chronic) Thrombocytopenia (Chronic) HLD (hyperlipidemia) (Chronic) GERD (gastroesophageal reflux disease) (Chronic) Arthritis (Acute) Back pain (Acute) Cancer (Acute) Difficulty balancing (Acute) Heart disease (Acute) Knee pain (Acute) Limb weakness (Acute) SOB (shortness of breath) (Acute) Shoulder pain (Acute) Surgical History 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 Alfonzo Maldonado MD) Smoking Status: Never smoker HPI HPI HPI: ALMAZ ZUÑIGA, is a 74 M who presents to the office today for HPI HPI Surgical H&P: Yes HPI: ALMAZ ZUÑIGA, is a 74 M who presents to the office today for Anemia and positive fecal occult blood test. The patient reports that he has not had any gross blood or abdominal pain. He has new onset anemia. Patient has a significant heart history with valve replacement x2 and stents. Patient is currently on a PPI but he is also on Plavix and aspirin. He had colonoscopy in [address] Reeder. This was normal. ROS General General: Yes fatigue; no weight change Musc Musculoskeletal: Yes arthritis and gout Cardio Cardiovascular: Yes murmur, heart disease, atrial fibrillation, high blood pressure and heart stent; no pacemaker, heart attack, palpitations, shortness of breat with exertion or chest pain Additional Details: Heart valve replacement x2 Psych Psychiatric: No depression or anxiety Resp Respiratory: No shortness of breath, No sleep apnea, No cough, No COPD, No asthma, No emphysema, No wheezing Gastro Gastrointestinal: No abdominal pain, No nausea or vomiting, No diarrhea, No constipation, No blood in stool, No acid reflux, No hemorrhoids, No ulcers, No gallbladder problem, No black,tarry stools Ryan Hematologic: No blood thinners Exam Const General: cooperative Orientation: alert, oriented x3 Resp Effort & Inspection: normal respiratory effort Auscultation: clear to auscultation bilaterally Cardio Rate: regular rate Rhythm: regular rhythm Heart Sounds: murmur GI Inspection: non-distended Palpation: soft, nontender Assessment & Plan Problems 1. Iron deficiency anemia, unspecified iron deficiency anemia type D50.9 2. Occult blood in stools R19.5 3. S/P AVR (aortic valve replacement) and aortoplasty Z95.2 GUZMÁN to LAD< SVG to OM-1; Redo sternotomy, AVT Ascending aortic aneurysm replacement with a 26mm Hemashield graft and CABG X1 to posterolateral CX with SVG 09/23/[address] Gonzalez Carroll, [facility] 4. S/P TAVR (transcatheter aortic valve replacement) Z95.2 Done for Severe Symptomatic Bioprosthetic Valve Stenosis (previously placed in 2001): #23 [place] XT Aortic Valve per Dr. Rhodes @ [facility] Plan The patient has an extensive heart history. He has new onset anemia and he was found to have positive fecal occult blood by his PCP. 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 Rodriguez for permission to perform EGD and colonoscopy and for permission to stop his Plavix. Patient may continue aspirin for the procedure. Would recommend EGD and colonoscopy to ensure that there is no bleeding from the stomach. His last colonoscopy was in 2016. I explained endoscopy in detail to the patient. I explained the risks including but not limited to stroke or heart attack with anesthesia, perforation of the GI tract, bleeding, infection. I explained that any of these could necessitate further emergency surgery. The patient understands and all questions were answered sufficiently. The patient wishes to proceed with procedure. We discussed the current risks associated with COVID-19. While it is understood that there is a community spread of COVID-19, the risk of frederic COVID-19 while at [facility] ([facility]) is very low; however, the risk cannot be completely mitigated because of the community spread of the disease. We discussed in detail the risk of exposure to and/or potential harm posed by the COVID-19 virus with having a surgery/procedure at this time versus the risk of delaying the surgery/procedure. It is not possible to know either the risk of delaying the surgery or procedure or chance of getting an infection with perfect accuracy, but a joint decision was made to proceed at this time with the scheduled surgery/procedure as indicated on the consent form. Patient was notified that we will need to comply with any screening or testing [facility] wishes to perform or that surgery may be delayed for any positive results. Alfonzo Maldonado MD Pager: [facility] [address] [place] [address], [address] [place] [address] Office: Orders Orders: Colonoscopy Today D64.9, R19.5 EGD Today D64.9, R19.5 Coding Level of Care Code Off vis,new,level 3 Diagnoses Iron deficiency anemia, unspecified iron deficiency anemia type D50.9 ??Anemia type: iron deficiency ??Iron deficiency anemia type: unspecified iron deficiency Occult blood in stools R19.5 S/P AVR (aortic valve replacement) and aortoplasty Z95.2 S/P TAVR (transcatheter aortic valve replacement) Z95.2 03/30/20 1316 <Electronically signed by Alfonzo cox MD> Date _ Alfonzo Maldonado MD I have re-examined the patient. There are no clinical changes since date of exam.
[2020-04-17] VITALS (7 sets, daily range): BP systolic 104–132; BP diastolic 55–64; PULSE 58–63; RESP 14–16; TEMP 36.2–36.7; O2SAT 98–100; BMI 26.2
[2020-04-17] MEDS: Lactated Ringers 1,000 ML 100 ML IV (08:30)
--- NOTE | 2020-04-17 09:00 | EGD_PTH ---
PATIENT: ALMAZ ZUÑIGA LOC: EN U#:[id number] AGE/SX: 74/M ROOM: RE04/17/[address]: Dr. Alfonzo Maldonado MD : 1945 BED: DIS: 04/17/2020 SPEC #: [id number] RECD: 04/17/20 13:48 STATUS: RADHA KP #: [id number] KATHLEEN: 04/17/20 09:[address]: Alfonzo Maldonado DEPT: SURGICAL PATHOLOGY RECD BY: Aziza Smith ENTERED: 04/17/20 14:03 SP TYPE: EGD BIOPSY OT DR: Dr. Kip Parnell MD Tissues: Gastric mucous membrane Procedures: Surgery Specimen Level IV HEADER OPERATION: [place]oscopy, [place] PRE[place]OP DIAGNOSIS: Anemia TISSUE SUBMITTED: Prepyloric ulcer biopsy for histo and H. pylori MICROSCOPIC DIAGNOSIS Prepyloric ulcer, biopsy: Mild gastritis. See microscopic description and comment. SJ:rene 04/19/20 COMMENT The results of immunohistochemistry for Helicobacter pylori will be reported separately ([id number]). MICROSCOPIC DESCRIPTION Slides are reviewed. The specimen shows fragments of gastric mucosa with chronic inflammatory cell infiltrates in the lamina propria consisting of lymphocytes and plasma cells, consistent with mild chronic gastritis. GROSS DESCRIPTION Received in fixative is one container labeled with the patient's name and designated prepyloric ulcer biopsy. The specimen consists of one irregular fragment of light herrera soft tissue that measures 0.5 x 0.3 x 0.1 cm. The specimen is totally submitted in one cassette. / BHUMI:rene 04/18/20 TC:3 CPT: 78905
--- NOTE | 2020-04-17 09:00 | IMM_PTH ---
PATIENT: ALMAZ ZUÑIGA LOC: KEKE U#:[id number] AGE/SX: 74/M ROOM: RE04/17/[address]: Dr. Alfonzo Maldonado MD : 1945 BED: DIS: 04/17/2020 SPEC #: [id number] RECD: 04/18/20 09:38 STATUS: RADHA REJaneth #: [id number] KATHLEEN: 04/17/20 09:[address]: Alfonzo Maldonado DEPT: IMMUNOHISTOCHEMISTRY RECD BY: Marylin Fong ENTERED: 04/18/20 09:38 SP TYPE: IMMUNO OTHR DR: Dr. Kip Parnell MD Tissues: Stomach, NOS Procedures: H Pylori (initial) PHYSICIAN & INSTITUTION [place] [address] SPECIMEN INFORMATION: Tissue Source: Prepyloric ulcer Clinical Info: Anemia Specimen Number: [id number] CPT code: 96237 METHODOLOGY: Deparaffinized sections of prefer/formalin-fixed tissue or PAP/DQ stained slides are incubated with monoclonal/polyclonal antibodies/oligonucleotide probes. Localization is made via biotin free immunoperoxidase method. Appropriate controls are performed and reacted as expected. Results on target cell population are indicated in the following table: RESULTS: ANTIBODY / CLONE RESULT H Pylori (polyclonal) negative These tests were developed and their performance characteristics determined by [facility]. They may not have been cleared or approved by the U.S. Food and Drug Administration. The FDA has determined that such clearance or approval is not necessary. INTERPRETATION: Prepyloric ulcer: Negative for Helicobacter pylori organisms. BHUMI:rene 04/19/20
--- NOTE | 2020-04-17 09:22 | OP.CCLET_ITS ---
04/17/2020 Kip Parnell MD [address] [place] [address] Re : Upper GI endoscopy procedure for Jevon Berkowitz Dear Dr. Parnell This procedure was performed on Friday, April 17, 2020. My impressions and recommendations are as follows: Impressions : - Normal esophagus. - Normal examined duodenum. - Non-bleeding gastric ulcer with no stigmata of bleeding. Biopsied. Recommendations : - Await pathology results. - Discharge patient to home. - Resume previous diet. - Continue present medications. My findings are described in the full procedure note, which is enclosed. If I can be of further assistance, please feel free to contact me at Doctor phone number(s): , Work: . Sincerely, Alfonzo Maldonado MD 04/17/2020 9:21:53 AM This report has been signed electronically.
--- NOTE | 2020-04-17 09:22 | OP.EGD_ITS ---
Patient Name: Jevon Berkowitz Procedure Date: 04/17/2020 8:48 AM Date of : 1945 Age: 74 Procedure: Upper GI endoscopy Indications: Iron deficiency anemia Providers: Alfonzo Maldonado MD Referring MD: Kip Parnell MD Medicines: Monitored Anesthesia Care Patient Profile: This is a 74 year old male. Refer to note in patient chart for documentation of history and physical. Complications: No immediate complications. Estimated blood loss: Minimal. Procedure: Pre-Anesthesia Assessment: - Prior to the procedure, a History and Physical was performed, and patient medications and allergies were reviewed. The patient's tolerance of previous anesthesia was also reviewed. The risks and benefits of the procedure and the sedation options and risks were discussed with the patient. All questions were answered, and informed consent was obtained. Prior Anticoagulants: The patient has taken Plavix (clopidogrel), last dose was 5 days prior to procedure. After reviewing the risks and benefits, the patient was deemed in satisfactory condition to undergo the procedure. After obtaining informed consent, the endoscope was passed under direct vision. Throughout the procedure, the patient's blood pressure, pulse, and oxygen saturations were monitored continuously. The gastroscope was introduced through the mouth, and advanced to the second part of duodenum. The upper GI endoscopy was accomplished without difficulty. The patient tolerated the procedure well. Scope In: 8:57:41 AM Scope Out: 9:00:19 AM Total Procedure Duration Time 0 hours 2 minutes 38 seconds Findings: The esophagus was normal. The examined duodenum was normal. One non-bleeding superficial gastric ulcer with no stigmata of bleeding was found in the prepyloric region of the stomach. The lesion was 5 mm in largest dimension. Biopsies were taken with a cold forceps for Helicobacter pylori testing. A medium-sized hiatal hernia was present. Impression: - Normal esophagus. - Normal examined duodenum. - Non-bleeding gastric ulcer with no stigmata of bleeding. Biopsied. Recommendation: - Await pathology results. - Discharge patient to home. - Resume previous diet. - Continue present medications. Procedure Code(s): --- Professional --- 97147, Esophagogastroduodenoscopy, flexible, transoral; with biopsy, single or multiple Diagnosis Code(s): --- Professional --- K25.9, Gastric ulcer, unspecified as acute or chronic, without hemorrhage or perforation D50.9, Iron deficiency anemia, unspecified CPT copyright 2017 [employer]. All rights reserved. The codes documented in this report are preliminary and upon video machines mechanic review may be revised to meet current compliance requirements. Alfonzo Maldonado MD 04/17/2020 9:21:53 AM This report has been signed electronically. Number of Addenda: 0 Note Initiated On: 04/17/2020 8:48 AM
--- NOTE | 2020-04-17 09:24 | OP.CCLET_ITS ---
04/17/2020 Kip Parnell MD [address] [place] [address] Re : Colonoscopy procedure for Jevon Berkowitz Dear Dr. Parnell This procedure was performed on Friday, April 17, 2020. My impressions and recommendations are as follows: Impressions : - The entire examined colon is normal on direct and retroflexion views. - Diverticulosis in the sigmoid colon. There was no evidence of diverticular bleeding. - No specimens collected. Recommendations : - Discharge patient to home. - Resume previous diet. - Resume Plavix (clopidogrel) at prior dose tomorrow. - Repeat colonoscopy is not recommended due to current age (66 years or older) for screening purposes. My findings are described in the full procedure note, which is enclosed. If I can be of further assistance, please feel free to contact me at Doctor phone number(s): , Work: . Sincerely, Alfonzo Maldonado MD 04/17/2020 9:23:51 AM This report has been signed electronically.
--- NOTE | 2020-04-17 09:24 | OP.COLON_ITS ---
Patient Name: Jevon Berkowitz Procedure Date: 04/17/2020 9:01 AM Date of : 1945 Age: 74 Procedure: Colonoscopy Indications: Iron deficiency anemia Providers: Alfonzo Maldonado MD Referring MD: Kip Parnell MD Medicines: Monitored Anesthesia Care Patient Profile: This is a 74 year old male. Refer to note in patient chart for documentation of history and physical. Last Colonoscopy: more than 3 years ago. Complications: No immediate complications. Procedure: Pre-Anesthesia Assessment: - Prior to the procedure, a History and Physical was performed, and patient medications and allergies were reviewed. The patient's tolerance of previous anesthesia was also reviewed. The risks and benefits of the procedure and the sedation options and risks were discussed with the patient. All questions were answered, and informed consent was obtained. Prior Anticoagulants: The patient has taken Plavix (clopidogrel), last dose was 5 days prior to procedure. After reviewing the risks and benefits, the patient was deemed in satisfactory condition to undergo the procedure. After I obtained informed consent, the scope was passed under direct vision. Throughout the procedure, the patient's blood pressure, pulse, and oxygen saturations were monitored continuously. The colonoscope was introduced through the anus and advanced to the cecum, identified by appendiceal orifice and ileocecal valve. The colonoscopy was performed without difficulty. The patient tolerated the procedure well. The quality of the bowel preparation was good. Scope In: 9:02:07 AM Scope Withdrawal Time 0 hours 6 minutes 22 seconds Scope Out: 9:17:50 AM Total Procedure Duration Time 0 hours 15 minutes 43 seconds Findings: The entire examined colon appeared normal on direct and retroflexion views. Multiple small-mouthed diverticula were found in the sigmoid colon. There was no evidence of diverticular bleeding. Impression: - The entire examined colon is normal on direct and retroflexion views. - Diverticulosis in the sigmoid colon. There was no evidence of diverticular bleeding. - No specimens collected. Recommendation: - Discharge patient to home. - Resume previous diet. - Resume Plavix (clopidogrel) at prior dose tomorrow. - Repeat colonoscopy is not recommended due to current age (66 years or older) for screening purposes. Procedure Code(s): --- Professional --- 86607, Colonoscopy, flexible; diagnostic, including collection of specimen(s) by brushing or washing, when performed (separate procedure) Diagnosis Code(s): --- Professional --- D50.9, Iron deficiency anemia, unspecified K57.30, Diverticulosis of large intestine without perforation or abscess without bleeding CPT copyright 2017 [employer]. All rights reserved. The codes documented in this report are preliminary and upon hims coder review may be revised to meet current compliance requirements. Alfonzo Maldonado MD 04/17/2020 9:23:51 AM This report has been signed electronically. Number of Addenda: 0 Note Initiated On: 04/17/2020 9:01 AM
== END 2020-04-17 10:23 | disposition home or self-care (01) ==
LOC: EN 08:05 → AC 08:07
PROVIDERS: Physician Assistant; PCP Family Medicine Geriatric Medicine; Referring Provider Family Medicine Geriatric Medicine; Visit Provider Surgery
PROC: 0DJD8ZZ Inspection of Lower Intestinal Tract, Via Natural or Artificial Opening Endoscopic (ICD-10-PCS; CPT 45378; principal; 2020-04-17 08:55)
DX: K29.70 Gastritis, unspecified, without bleeding (principal); K25.9 Gastric ulcer, unspecified as acute or chronic, without hemorrhage or perforation; D50.9 Iron deficiency anemia, unspecified; K44.9 Diaphragmatic hernia without obstruction or gangrene; K57.30 Diverticulosis of large intestine without perforation or abscess without bleeding; K21.9 Gastro-esophageal reflux disease without esophagitis; R19.5 Other fecal abnormalities; I25.10 Atherosclerotic heart disease of native coronary artery without angina pectoris; I10 Essential (primary) hypertension; E78.00 Pure hypercholesterolemia, unspecified; F32.9 Major depressive disorder, single episode, unspecified; N40.0 Benign prostatic hyperplasia without lower urinary tract symptoms; D69.6 Thrombocytopenia, unspecified; E78.5 Hyperlipidemia, unspecified; M19.90 Unspecified osteoarthritis, unspecified site; G47.419 Narcolepsy without cataplexy; Z95.1 Presence of aortocoronary bypass graft; Z95.2 Presence of prosthetic heart valve; Z79.01 Long term (current) use of anticoagulants; Z79.02 Long term (current) use of antithrombotics/antiplatelets; Z79.82 Long term (current) use of aspirin; Z79.899 Other long term (current) drug therapy; Z11.59 Encounter for screening for other viral diseases
CPT/HCPCS: 43239; 45378; 87635; 88305; 88342; G2023; J7120; J2405; U0003

== ENCOUNTER → 2020-04-26 17:04 | Outpatient (CLI) | payer MEDICARE, SELFPAY ==
[2020-04-26 15:44] VITALS: BMI 26.2
[2020-04-26 17:32] LABS: Absolute Lymphocyte Count 1.03 X10^3/uL (0.83-4.51); Absolute Neutrophil Count 3.9 X10^3/uL (2.0-7.7); Basophil# 0.03 X10^3/uL; Basophil% 0.5 % (0-1); Differential Indicated SCAN CRITERIA MET; Eosinophil# 0.14 X10^3/uL; Eosinophils% 2.4 % (0-5); Hemoglobin 10.1 g/dL (13.0-16.5); Lymphocyte # 1.03 X10^3/ul (4.0); Lymphocyte % 17.7 % (19-41); Mean Corp Hgb Conc 28.1 g/dL (32-36); Mean Corpuscular Hgb 22.5 pg (27.0-32.0); Mean Corpuscular Volume 80.4 fL (80-94); Mean Platelet Vol. 10.7 fl (6.2-12.0); Monocyte# 0.66 X10^3/uL; Monocyte% 11.3 % (0-10); NRBC Flagged by Analyzer 0 % (0-5); Neutrophil # 3.94 X10^3/uL (2.7-7.7); Neutrophil % 67.8 % (47-70); POSITIVE MORPHOLOGY YES; Platelet Count 230 K/mm3 (150-450); RBC Distribution Width CV 20.6 % (11.6-14.6); RBC Distribution Width SD 57.8 fl (35.1-43.9); Red Blood Count 4.48 M/mm3 (4.6-6.2); White Blood Count 5.8 K/mm3 (4.4-11.0)
[2020-04-26 17:48] LABS: Ferritin 10 ng/mL (26-388); Iron 20 ug/dL (65-175); Iron Binding Capacity,Total 406 ug/dL (250-450)
[2020-04-26 17:56] LABS: Anisocytosis 1+; Microcytosis 1+; Platelet Estimate ADEQUATE (ADEQ); Red Cell Morphology N CHROM NORMAL (NORM C&C)
== END ==
PROVIDERS: PCP Family Medicine Geriatric Medicine; Visit Provider Family Medicine Geriatric Medicine
DX: D64.9 Anemia, unspecified (principal)
CPT/HCPCS: 36415; 82728; 83540; 83550; 85025

== ENCOUNTER → 2020-05-09 12:58 | Outpatient (CLI) | payer MEDICARE, SELFPAY ==
[2020-04-26 15:44] VITALS: BMI 26.2
--- NOTE | 2020-05-09 13:01 | CDU_ITS ---
Reason For Study: Rt Carotid Bruit Rt. Velocities/BP Lt. Velocities/BP Prox CCA 99/20 cm/sec. Prox CCA 118/25 cm/sec. Mid CCA 89/22 cm/sec. Mid CCA 86/23 cm/sec. Dist CCA 99/19 cm/sec. Dist CCA 86/25 cm/sec. Prox ICA 106/23 cm/sec. Prox ICA 59/14 cm/sec. Mid ICA 87/19 cm/sec. Mid ICA 100/25 cm/sec. Dist ICA 104/36 cm/sec. Dist ICA 89/33 cm/sec. Rt. ICA/CCA = 1.2. Lt. ICA/CCA = 1.2. Prox ECA 60/8 cm/sec. Prox ECA 84/10 cm/sec. Rt. Vert. 67/16 cm/sec. Lt. Vert. 59/15 cm/sec. Right Extracranial There is heterogeneous, irregular atherosclerotic plaque noted in the right common carotid artery. There is heterogeneous, irregular atherosclerotic plaque noted in the right internal carotid artery. The right internal carotid artery is very tortuous. There is heterogeneous, irregular atherosclerotic plaque noted in the right external carotid artery. Antegrade flow is noted in the right vertebral artery. Left Extracranial There is heterogeneous, irregular atherosclerotic plaque noted in the left common carotid artery. There is heterogeneous, irregular atherosclerotic plaque noted in the left internal carotid artery. There is heterogeneous, irregular atherosclerotic plaque noted in the left external carotid artery. Antegrade flow is noted in the left vertebral artery. Procedure Carotid Duplex 84717. Exam performed in department. Interpretation Summary Mild (<50%) stenosis right extracranial internal carotid. Mild (<50%) stenosis left extracranial internal carotid. Flow within the vertebral arteries is antegrade bilaterally. Tortuosity in the right internal carotid artery may account for the presence of a bruit. Clinical correlation is advised. Ordering Physician: Sharlene Olson Referring Physician: Kip Parnell Chi Performed By: Ashli Vasquez, KARISSA, RVT
== END ==
PROVIDERS: PCP Family Medicine Geriatric Medicine; Referring Provider Nurse Practitioner Family; Visit Provider Nurse Practitioner Family
DX: R09.89 Other specified symptoms and signs involving the circulatory and respiratory systems (principal)
CPT/HCPCS: 93880

== ENCOUNTER → 2020-05-18 13:50 | Outpatient (CLI) | payer MEDICARE, SELFPAY ==
[2020-04-26 15:44] VITALS: BMI 26.2
[2020-05-18 14:00] VITALS: BP 114/62; PULSE 61; RESP 16; TEMP 36.3; O2SAT 98; BMI 25.8
[2020-05-18] MEDS: 0.9% NaCl IVPB Med Flush (250 mL) 15 ML IV (14:13)
[2020-05-18] MEDS: 0.9% NaCl Peripheral Flush Adult/Peds IV (14:14)
== END ==
PROVIDERS: PCP Family Medicine Geriatric Medicine; Referring Provider Family Medicine Geriatric Medicine; Visit Provider Family Medicine Geriatric Medicine
DX: D50.9 Iron deficiency anemia, unspecified (principal); K90.9 Intestinal malabsorption, unspecified
CPT/HCPCS: 96365; J1756; J7050; A4216

== ENCOUNTER → 2020-05-21 14:26 | Outpatient (CLI) | payer MEDICARE, SELFPAY ==
[2020-04-26 15:44] VITALS: BMI 26.2
[2020-05-18 14:00] VITALS: BMI 25.8
[2020-05-21] MEDS: 0.9% NaCl IVPB Med Flush (250 mL) 15 ML IV (14:47)
[2020-05-21 14:48] VITALS: BP 130/80; PULSE 67; RESP 16; TEMP 35.8; O2SAT 98; BMI 25.8
[2020-05-21] MEDS: 0.9% NaCl Peripheral Flush Adult/Peds IV (14:53)
[2020-05-21 15:31] VITALS: BP 130/80
== END ==
PROVIDERS: PCP Family Medicine Geriatric Medicine; Referring Provider Family Medicine Geriatric Medicine; Visit Provider Family Medicine Geriatric Medicine
DX: D50.9 Iron deficiency anemia, unspecified (principal); K90.9 Intestinal malabsorption, unspecified
CPT/HCPCS: 96365; J1756; J7050; A4216

== ENCOUNTER → 2020-05-23 13:52 | Outpatient (CLI) | payer MEDICARE, SELFPAY ==
[2020-04-26 15:44] VITALS: BMI 26.2
[2020-05-21 14:48] VITALS: BMI 25.8
[2020-05-23] MEDS: 0.9% NaCl IVPB Med Flush (250 mL) 15 ML IV (14:14)
[2020-05-23] MEDS: 0.9% NaCl Peripheral Flush Adult/Peds IV (14:15)
[2020-05-23 14:18] VITALS: BP 136/79; PULSE 80; RESP 16; TEMP 36.4; BMI 25.8
[2020-05-23 15:18] VITALS: BP 139/59; PULSE 58
== END ==
PROVIDERS: PCP Family Medicine Geriatric Medicine; Referring Provider Family Medicine Geriatric Medicine; Visit Provider Family Medicine Geriatric Medicine
DX: D50.9 Iron deficiency anemia, unspecified (principal)
CPT/HCPCS: 96365; J1756; J7050; A4216

== ENCOUNTER → 2020-05-25 13:57 | Outpatient (CLI) | payer MEDICARE, SELFPAY ==
[2020-04-26 15:44] VITALS: BMI 26.2
[2020-05-23 14:18] VITALS: BMI 25.8
[2020-05-25 14:11] VITALS: BP 142/65; PULSE 63; RESP 14; TEMP 36.4; O2SAT 98; BMI 25.9
[2020-05-25] MEDS: 0.9% NaCl IVPB Med Flush (250 mL) 15 ML IV (14:21)
[2020-05-25] MEDS: 0.9% NaCl Peripheral Flush Adult/Peds IV (14:21)
== END ==
PROVIDERS: PCP Family Medicine Geriatric Medicine; Referring Provider Family Medicine Geriatric Medicine; Visit Provider Family Medicine Geriatric Medicine
DX: D50.9 Iron deficiency anemia, unspecified (principal)
CPT/HCPCS: 96365; J1756; J7050; A4216

== ENCOUNTER → 2020-05-28 13:56 | Outpatient (CLI) | payer MEDICARE, SELFPAY ==
[2020-04-26 15:44] VITALS: BMI 26.2
[2020-05-25 14:11] VITALS: BMI 25.9
[2020-05-28 14:00] VITALS: BP 151/73; PULSE 58; RESP 16; TEMP 37; O2SAT 98; BMI 25.9
[2020-05-28] MEDS: 0.9% NaCl IVPB Med Flush (250 mL) 15 ML IV (14:20)
[2020-05-28] MEDS: 0.9% NaCl Peripheral Flush Adult/Peds IV (14:21)
== END ==
PROVIDERS: PCP Family Medicine Geriatric Medicine; Referring Provider Family Medicine Geriatric Medicine; Visit Provider Family Medicine Geriatric Medicine
DX: D50.9 Iron deficiency anemia, unspecified (principal); K90.9 Intestinal malabsorption, unspecified
CPT/HCPCS: 96365; J1756; J7050; A4216

== ENCOUNTER → 2020-05-29 10:35 | Outpatient (CLI) | payer MEDICARE, SELFPAY ==
[2020-05-28 14:00] VITALS: BMI 25.9
== END ==
PROVIDERS: PCP Family Medicine Geriatric Medicine; Referring Provider Family Medicine Geriatric Medicine; Visit Provider Family Medicine Geriatric Medicine
DX: R05 Cough (principal)
CPT/HCPCS: 87635; G2023; U0003

== ENCOUNTER → 2020-06-22 10:44 | Outpatient (CLI) | payer MEDICARE, SELFPAY ==
[2020-05-28 14:00] VITALS: BMI 25.9
== END ==
PROVIDERS: PCP Family Medicine Geriatric Medicine; Visit Provider Family Medicine Geriatric Medicine
DX: N39.0 Urinary tract infection, site not specified (principal)
CPT/HCPCS: 87086

== ENCOUNTER → 2020-07-09 23:04 | Outpatient (CLI) | payer MEDICARE, SELFPAY ==
[2020-04-26 15:44] VITALS: BMI 26.2
[2020-05-28 14:00] VITALS: BMI 25.9
== END ==
PROVIDERS: PCP Family Medicine Geriatric Medicine; Visit Provider Psychiatry & Neurology Neurology
DX: G47.30 Sleep apnea, unspecified (principal); R53.83 Other fatigue
CPT/HCPCS: 95810

== ENCOUNTER → 2020-07-12 15:59 | Outpatient (CLI) | payer MEDICARE, SELFPAY ==
[2020-05-28 14:00] VITALS: BMI 25.9
[2020-07-12 16:39] LABS: Absolute Lymphocyte Count 0.81 X10^3/uL (0.83-4.51); Absolute Neutrophil Count 5.8 X10^3/uL (2.0-7.7); Basophil# 0.02 X10^3/uL; Basophil% 0.3 % (0-1); Eosinophils% 1.3 % (0-5); Hematocrit 46.4 % (40-54); Hemoglobin 14.5 g/dL (13.0-16.5); Lymphocyte # 0.81 X10^3/ul (4.0); Lymphocyte % 10.9 % (19-41); Mean Corp Hgb Conc 31.3 g/dL (32-36); Mean Corpuscular Hgb 28.6 pg (27.0-32.0); Mean Corpuscular Volume 91.5 fL (80-94); Mean Platelet Vol. 9.6 fl (6.2-12.0); Monocyte# 0.69 X10^3/uL; Monocyte% 9.3 % (0-10); NRBC Flagged by Analyzer 0 % (0-5); Neutrophil # 5.78 X10^3/uL (2.7-7.7); Neutrophil % 77.8 % (47-70); POSITIVE MORPHOLOGY YES; Platelet Count 159 K/mm3 (150-450); RBC Distribution Width CV 25.3 % (11.6-14.6); RBC Distribution Width SD 82.3 fl (35.1-43.9); Red Blood Count 5.07 M/mm3 (4.6-6.2); White Blood Count 7.4 K/mm3 (4.4-11.0)
[2020-07-12 16:40] LABS: Differential Indicated SCAN CRITERIA MET
[2020-07-12 17:05] LABS: Differential Comment SCANNED
== END ==
PROVIDERS: PCP Family Medicine Geriatric Medicine; Visit Provider Family Medicine Geriatric Medicine
DX: R40.0 Somnolence (principal)
CPT/HCPCS: 36415; 85025

== ENCOUNTER → 2020-07-20 14:22 | Outpatient (CLI) | payer MEDICARE, SELFPAY ==
[2020-07-17 16:40] VITALS: BMI 25.8
[2020-07-20 15:29] LABS: CPK Total, Creatine Kinase 55 U/L (39-308)
[2020-07-23 14:08] LABS: Aldolase 6.9 U/L (3.3-10.3)
[2020-07-23 15:29] LABS: Myoglobin, Serum 43 ng/mL (28-72)
== END ==
PROVIDERS: Nurse Practitioner Family; PCP Family Medicine Geriatric Medicine; Referring Provider Psychiatry & Neurology Neurology; Visit Provider Psychiatry & Neurology Neurology
DX: R53.1 Weakness (principal)
CPT/HCPCS: 36415; 82085; 82550; 83874

== ENCOUNTER → 2020-09-05 20:05 | Outpatient (CLI) | payer MEDICARE, SELFPAY ==
[2020-08-22 11:18] VITALS: BMI 25.8
== END ==
PROVIDERS: PCP Family Medicine Geriatric Medicine; Referring Provider Nurse Practitioner Acute Care; Visit Provider Nurse Practitioner Acute Care
DX: G47.33 Obstructive sleep apnea (adult) (pediatric) (principal)
CPT/HCPCS: 95811

== ENCOUNTER → 2020-09-20 12:29 | Outpatient (CLI) | payer MEDICARE, SELFPAY ==
[2020-09-14 09:56] VITALS: BMI 25.8
== END ==
PROVIDERS: PCP Family Medicine Geriatric Medicine; Visit Provider Nurse Practitioner Acute Care
DX: Z46.89 Encounter for fitting and adjustment of other specified devices (principal)

== ENCOUNTER → 2020-09-24 10:59 | Outpatient (CLI) | payer MEDICARE, SELFPAY ==
[2020-09-14 09:56] VITALS: BMI 25.8
[2020-09-24 12:07] LABS: Absolute Lymphocyte Count 1.59 X10^3/uL (0.83-4.51); Absolute Neutrophil Count 6.4 X10^3/uL (2.0-7.7); Basophil# 0.04 X10^3/uL; Basophil% 0.4 % (0-1); Eosinophil# 0.26 X10^3/uL; Eosinophils% 2.9 % (0-5); Hemoglobin 13.1 g/dL (13.0-16.5); Lymphocyte # 1.59 X10^3/ul (4.0); Lymphocyte % 17.9 % (19-41); Mean Corpuscular Hgb 31.6 pg (27.0-32.0); Mean Corpuscular Volume 98.8 fL (80-94); Mean Platelet Vol. 9.9 fl (6.2-12.0); Monocyte# 0.57 X10^3/uL; Monocyte% 6.4 % (0-10); NRBC Flagged by Analyzer 0 % (0-5); Neutrophil % 72.1 % (47-70); Platelet Count 257 K/mm3 (150-450); RBC Distribution Width CV 15.4 % (11.6-14.6); Red Blood Count 4.15 M/mm3 (4.6-6.2); White Blood Count 8.9 K/mm3 (4.4-11.0)
[2020-09-24 12:24] LABS: Vitamin D,25 Hydroxy 34.4 ng/mL
[2020-09-24 12:31] LABS: AST(SGOT) 25 U/L (15-37); Alanine Aminotransfer ALT/SGPT 40 U/L (16-61); Albumin, Serum 3.3 g/dL (3.2-5.0); Alkaline Phosphatase 113 U/L (45-117); Anion Gap 6 (5-15); BUN 13 mg/dL (7-18); BUN/Creat Ratio 12.9 RATIO (10-20); Chloride 107 mmol/L (98-107); Creatinine, Serum 1.01 mg/dL (0.70-1.30); EST Glomerular Filtration Rate 76 mL/min (>60); Est Glom Filt Rate - Afr Amer 92 mL/min (>60); Globulin 3.3 g/dL (2.2-4.2); Glucose 86 mg/dL (74-106); Potassium 4.2 mmol/L (3.5-5.1); Protein, Total 6.6 g/dL (6.4-8.2); Sodium Level 141 mmol/L (136-145); Thyroid Stim Hormone (TSH) 2.63 uIU/mL (0.358-3.74); Uric Acid 6.2 mg/dL (3.5-7.2)
== END ==
PROVIDERS: PCP Family Medicine Geriatric Medicine; Visit Provider Family Medicine Geriatric Medicine
DX: I10 Essential (primary) hypertension (principal); E55.9 Vitamin D deficiency, unspecified; M10.9 Gout, unspecified
CPT/HCPCS: 36415; 80053; 82306; 84443; 84550; 85025

== ENCOUNTER → 2020-09-28 12:56 | Outpatient (CLI) | payer MEDICARE, SELFPAY ==
[2020-09-14 09:56] VITALS: BMI 25.8
--- NOTE | 2020-09-28 12:58 | ECHOCS_ITS ---
Reason For Study: Valve replacement eval Procedure This was a 2D Doppler, Color Flow transthoracic echocardiogram. The study was technically difficult. Contrast injection was performed. Exam performed in department. Left Ventricle Normal LV size. Left ventricular systolic function is normal. The estimated ejection fraction is 60 %. Stage 1 diastolic dysfunction. No regional wall motion abnormalities noted. Right Ventricle Normal RV size. Normal systolic function. Atria Normal left atrium. Normal right atrium. Mitral Valve Normal mitral valve. Tricuspid Valve Normal tricuspid valve. Mild (1+) tricuspid valve insufficiency. Pulmonary artery systolic pressure is 32 mmHg. Aortic Valve Peak aortic valve gradient 44 mmHg. Mean aortic valve gradient 21 mmHg. Bioprosthetic aortic valve. Stable appearing bioprosthetic aortic valve apparatus. Pulmonic Valve The pulmonic valve is not well visualized. Great Vessels Normal aortic root. The pulmonary artery is normal size. Normal inferior vena cava. Pericardium/Pleural No pericardial effusion. Medication 22 gauge I.V. with prn adaptor inserted into right arm. Diluted definity 2.5ml given slow IV push to enhance endocardial definition. MMode/2D Measurements & Calculations LVIDd: 4.4 cm IVSd: 1.2 cm LVOT diam: 2.0 cm LVIDs: 2.7 cm LVPWd: 1.1 cm FS: 37.3 % LVOT area: 3.2 cm2 LA dimension: 3.2 cm LAV(MOD-bp): 73.0 ml LA A4 area: 24.0 cm2 LAV(MOD-bp) Indexed: 39.2 ml/m2 LAV(MOD-sp2): 65.9 ml LAV(MOD-sp4): 75.2 ml RA A4 area: 16.8 cm2 Time Measurements MV dec time: 0.34 sec Doppler Measurements & Calculations MV E max elpidio: 91.2 cm/sec Lat Peak E' Elpidio: 8.8 cm/sec Med Peak E' Elpidio: 6.9 cm/sec MV A max elpidio: 132.9 cm/sec E/E' lat: 10.3 E/E' med: 13.2 MV E/A: 0.69 MV V2 max: 139.6 cm/sec MV P1/2t max elpidio: 112.7 cm/sec Ao V2 max: 329.6 cm/sec MV max P.8 mmHg MV P1/2t: 134.5 msec Ao max P.4 mmHg MV V2 mean: 72.2 cm/sec MV dec slope: 245.4 cm/sec2 Ao V2 mean: 211.4 cm/sec MV mean P.4 mmHg Ao mean P.4 mmHg MV V2 VTI: 48.4 cm MVA(P1/2t): 1.6 cm2 Ao V2 VTI: 76.3 cm MVA(VTI): 1.7 cm2 POLO(I,D): 1.0 cm2 POLO(V,D): 1.0 cm2 LV V1 max: 106.5 cm/sec SV(LVOT): 80.0 ml TR max elpidio: 266.3 cm/sec LV V1 max P.5 mmHg TR max P.4 mmHg LV V1 mean P.7 mmHg LV V1 mean: 76.4 cm/sec LV V1 VTI: 24.9 cm Interpretation Summary Normal LV size. Left ventricular systolic function is normal. The estimated ejection fraction is 60 %. Stage 1 diastolic dysfunction. Stable appearing bioprosthetic aortic valve apparatus. Contrast injection was performed. Ordering Physician: Eb Oropeza Referring Physician: Kip Parnell Chi Performed By: Anson Hardy RCS
== END ==
PROVIDERS: PCP Family Medicine Geriatric Medicine; Referring Provider Internal Medicine Cardiovascular Disease; Visit Provider Internal Medicine Cardiovascular Disease
DX: I25.10 Atherosclerotic heart disease of native coronary artery without angina pectoris (principal); Z95.2 Presence of prosthetic heart valve
CPT/HCPCS: 93306; Q9957; A4216; C8929

== ENCOUNTER → 2020-12-04 11:00 | Outpatient (CLI) | payer MEDICARE, SELFPAY ==
[2020-11-15 09:42] VITALS: BMI 28.0
== END ==
PROVIDERS: PCP Family Medicine Geriatric Medicine; Visit Provider Internal Medicine Critical Care Medicine
DX: G47.33 Obstructive sleep apnea (adult) (pediatric) (principal)
CPT/HCPCS: 98960; G0463

== ENCOUNTER → 2021-01-22 16:12 | Outpatient (CLI) | payer MEDICARE, SELFPAY ==
[2021-01-22 15:30] VITALS: BMI 27.2
[2021-01-22 17:29] LABS: AST(SGOT) 22 U/L (15-37); Alanine Aminotransfer ALT/SGPT 37 U/L (16-61); Albumin, Serum 3.5 g/dL (3.2-5.0); Alkaline Phosphatase 125 U/L (45-117); Bilirubin, Direct 0.19 mg/dL (0.00-0.30); Cholesterol 145 mg/dL (200); Globulin 3.1 g/dL (2.2-4.2); High Density Lipoprotein 46 mg/dL; Protein, Total 6.6 g/dL (6.4-8.2); Triglycerides 239 mg/dL; Very Low Density Lipoprotein 48 mg/dL (5-40)
== END ==
PROVIDERS: PCP Family Medicine Geriatric Medicine; Referring Provider Internal Medicine Cardiovascular Disease; Visit Provider Internal Medicine Cardiovascular Disease
DX: I25.10 Atherosclerotic heart disease of native coronary artery without angina pectoris (principal); E78.5 Hyperlipidemia, unspecified
CPT/HCPCS: 36415; 80061; 80076

== ENCOUNTER 2021-01-26 17:59 | Emergency (ER) | payer MEDICARE, SELFPAY ==
[2021-01-22 15:30] VITALS: BMI 27.2
[2021-01-26 18:00] VITALS: BP 157/99; PULSE 73; RESP 14; TEMP 37.1; O2SAT 96; BMI 26.6
--- NOTE | 2021-01-26 18:07 | ED.VIS.INJ ---
History of Present Illness Chief Complaint: Burn Detail of Chief Complaint: Some right hand and abdomen Informant: Patient Onset: Hours Mechanism/Context: Burn - Dr. Ann Quality of Pain: Aching, Throbbing Location: Dorsal radial side right hand and superior umbilicus Current Severity: Mild Maximum Severity: Severe Worsened by: Hot grease Relieved by: Cold water Associated Symptoms: - - Negative to all Length of loss of consciousness: Not applicable Narrative: Patient is a 75-year-old [id number][place]hfew-en[place] male who presents with burn to the dorsal radial side of his right hand with involvement of the thumb. There is no blistering noted. Area of involvement is 5 cm x 3 cm. There is a 2 x 3 cm superficial burn to the abdomen above the umbilicus. There is no blistering noted. Tetanus is unknown. He has no history of ulcers, diabetes or renal disease. Patient is on Plavix. He is on no anticoagulant. Tetanus Immunization: >10 years Prior similar symptoms: No Recent Illness/Hospitalization: No - Past Medical History (1) Aortic mural thrombus Status: Chronic (2) Atherosclerotic heart disease of [place] coronary artery without angina pectoris Status: Chronic (3) Essential (primary) hypertension Status: Chronic (4) HLD (hyperlipidemia) Status: Chronic (5) History of aortic valve replacement with bioprosthetic valve Status: Chronic Comment: AVR 2001; TAVR #23 [place] XT Aortic Valve 03/22/2016 (6) History of coronary artery stent placement Status: Chronic Comment: PCI-CAROLYNE-OM1 w/ 2.5 mm x 13 mm and 1.5 mm X 18 mm Cypher Stent; CAROLYNE-Mid RCA 10/20/2008; (7) Severe obstructive sleep apnea Status: Chronic (8) Thrombocytopenia Status: Chronic Past Medical History - Allergies and Home Meds Allergies/Adverse Reactions: Allergies No Known Allergies Allergy (Verified 01/26/21 18:01) Primary Care Physician: Kip Parnell Chi, MD [Primary Care Provider] - Surgical History: coronary bypass surgery, herniorrhaphy Smoking Status: Never smoker - Family History Maternal Family History: Family History (Last Reviewed 01/22/21 @ 15:[address] Eb Oropeza MD) Father COPD (chronic obstructive pulmonary disease) Mother Congestive heart failure Brother Sudden cardiac Brother Hypertension Hyperlipidemia Family History: Reports: Diabetes - His mother at the age of 94 and she had DM and breast CA Paternal Family History: Family History (Last Reviewed 01/22/21 @ 15:[address] Eb Oropeza MD) Father COPD (chronic obstructive pulmonary disease) Mother Congestive heart failure Brother Sudden cardiac Brother Hypertension Hyperlipidemia Family History: Reports: - - father at the age of 70 with COPD Sibling Family History: Family History (Last Reviewed 01/22/21 @ 15:[address] Eb Oropeza MD) Father COPD (chronic obstructive pulmonary disease) Mother Congestive heart failure Brother Sudden cardiac Brother Hypertension Hyperlipidemia Family History: Reports: Cancer - prostate, Heart Disease, Pulmonary Disease Review of Systems General: Denies: Chills, Fever, Malaise, Subjective Gastrointestinal: Reports: Abdominal pain. Denies: Nausea, Vomiting Skin: Reports: Rash, Wounds Neurological: Denies: Weakness, Parasthesia, Numbness Hematologic: Reports: Easy bruising. Denies: Easy bleeding Physical Exam Vital Signs/Narrative: Vital Signs Temp Pulse Resp BP Pulse Ox 01/26/21 18:00 98.8 F 73 14 157/99 H 96 Inital Vital Signs reviewed: Yes General: Well nourished, Well developed Head: Normocephalic, Atraumatic Eyes: Perrl, EOMI Cardiovascular: Regular rate, Regular rhythm Respiratory: No distress Abdomen: Soft - There is over superficial burn area, Nondistended, Normal bowel sounds, Tender Extremeties: Superficial burn dorsal radial side of right hand involving the thumb. Median, radial and ulnar function intact. Skin: Normal color, Trauma - Facial burn abdomen and hand Neurological: Alert, Oriented x3, Cranial nerves II-XII grossly intact, Normal Strength, Normal Sensation Psychological: Normal affect - Glascow Coma Scale Eye Opening: Spontaneous Motor: Obeys Commands Verbal: Oriented Coma Scale Total: 15 Diagnostic/Tx/Re-eval - Medical Decision Making Superficial burn. Appropriate treatment and home-going instructions ED Disposition - Plan for ED Patient: Disposition: Home or Assisted Living Diagnosis: Superficial burn of right hand including fingers, Superficial burn of abdominal wall Instructions: ED Burn, [facility] Referrals: Kip Parnell Chi, MD [Primary Care Provider] - As Needed
[2021-01-26] MEDS: Aspirin 325 MG Tablet PO (18:41)
[2021-01-26] MEDS: Diphth,Pertuss(Acell),Tet Vac 0.5 ML Vial IM (18:41)
== END 2021-01-26 18:42 | disposition home or self-care (01) ==
LOC: ED 18:37
PROVIDERS: Emergency Provider Emergency Medicine; PCP Family Medicine Geriatric Medicine
DX: T23.031A Burn of unspecified degree of multiple right fingers (nail), not including thumb, initial encounter (principal); T21.02XA Burn of unspecified degree of abdominal wall, initial encounter; X10.2XXA Contact with fats and cooking oils, initial encounter; Y93.9 Activity, unspecified; Y92.89 Other specified places as the place of occurrence of the external cause; Y99.8 Other external cause status; E78.5 Hyperlipidemia, unspecified; G47.33 Obstructive sleep apnea (adult) (pediatric); I10 Essential (primary) hypertension; I25.10 Atherosclerotic heart disease of native coronary artery without angina pectoris; Z80.3 Family history of malignant neoplasm of breast; Z82.49 Family history of ischemic heart disease and other diseases of the circulatory system; Z83.3 Family history of diabetes mellitus; Z83.49 Family history of other endocrine, nutritional and metabolic diseases; Z95.3 Presence of xenogenic heart valve; Z95.5 Presence of coronary angioplasty implant and graft; D69.6 Thrombocytopenia, unspecified
CPT/HCPCS: 90471; 90715; 99283

== ENCOUNTER → 2021-01-28 13:41 | Outpatient (CLI) | payer MEDICARE, SELFPAY ==
[2021-01-26 18:00] VITALS: BMI 26.6
[2021-01-28 18:07] LABS: M R Staph aureus DNA By PCR Negative (Negative); Probe Check PASS; Specimen Processing Control PASS; Staph aureus DNA By PCR POSITIVE (Negative)
== END ==
PROVIDERS: PCP Family Medicine Geriatric Medicine; Visit Provider Family Medicine Geriatric Medicine
DX: T14.8XXA Other injury of unspecified body region, initial encounter (principal); B95.62 Methicillin resistant Staphylococcus aureus infection as the cause of diseases classified elsewhere
CPT/HCPCS: 87070; 87077; 87186; 87205; 87640

== ENCOUNTER → 2021-03-25 14:08 | Outpatient (CLI) | payer MEDICARE, SELFPAY ==
[2021-03-25 16:45] LABS: Absolute Lymphocyte Count 1.03 X10^3/uL (0.83-4.51); Absolute Neutrophil Count 3.3 X10^3/uL (2.0-7.7); Basophil# 0.02 X10^3/uL; Basophil% 0.4 % (0-1); Eosinophil# 0.13 X10^3/uL; Eosinophils% 2.6 % (0-5); Hematocrit 46.7 % (40-54); Hemoglobin 15.5 g/dL (13.0-16.5); Lymphocyte # 1.03 X10^3/ul (0.83-4.51); Lymphocyte % 20.8 % (19-41); Mean Corp Hgb Conc 33.2 g/dL (32-36); Mean Corpuscular Volume 102.4 fL (80-94); Mean Platelet Vol. 10.3 fl (6.2-12.0); Monocyte# 0.47 X10^3/uL; Monocyte% 9.5 % (0-10); NRBC Flagged by Analyzer 0 % (0-5); Neutrophil # 3.28 X10^3/uL (2.7-7.7); Neutrophil % 66.3 % (47-70); Platelet Count 137 K/mm3 (150-450); RBC Distribution Width CV 13.2 % (11.6-14.6); RBC Distribution Width SD 50.4 fl (35.1-43.9); Red Blood Count 4.56 M/mm3 (4.6-6.2)
[2021-03-25 17:03] LABS: Vitamin D,25 Hydroxy 41.1 ng/mL
[2021-03-25 17:12] LABS: ALB/GLOB Ratio 1.2 RATIO (0.9-2.4); AST(SGOT) 28 U/L (15-37); Alanine Aminotransfer ALT/SGPT 43 U/L (16-61); Albumin, Serum 3.5 g/dL (3.2-5.0); Alkaline Phosphatase 114 U/L (45-117); Anion Gap 5 (5-15); BUN 17 mg/dL (7-18); BUN/Creat Ratio 15.3 RATIO (10-20); Calcium,Total 9.2 mg/dL (8.5-10.1); Chloride 107 mmol/L (98-107); Creatinine, Serum 1.11 mg/dL (0.70-1.30); EST Glomerular Filtration Rate 68 mL/min (>60); Est Glom Filt Rate - Afr Amer 83 mL/min (>60); Glucose 90 mg/dL (74-106); Potassium 3.9 mmol/L (3.5-5.1); Protein, Total 6.5 g/dL (6.4-8.2); Sodium Level 141 mmol/L (136-145); Thyroid Stim Hormone (TSH) 2.42 uIU/mL (0.358-3.74); Uric Acid 6.5 mg/dL (3.5-7.2)
== END ==
PROVIDERS: PCP Family Medicine Geriatric Medicine; Visit Provider Family Medicine Geriatric Medicine
DX: I10 Essential (primary) hypertension (principal); E55.9 Vitamin D deficiency, unspecified; M10.9 Gout, unspecified
CPT/HCPCS: 36415; 80053; 82306; 84443; 84550; 85025

== ENCOUNTER → 2021-04-29 08:00 | Outpatient (CLI) | payer MEDICARE, SELFPAY | PROVIDERS: PCP Family Medicine Geriatric Medicine; Visit Provider Nurse Practitioner Acute Care | DX: Z46.89 Encounter for fitting and adjustment of other specified devices (principal) ==

== ENCOUNTER → 2021-07-25 12:55 | Outpatient (CLI) | payer MEDICARE, SELFPAY ==
[2021-05-14 06:36] VITALS: BMI 28.2
--- NOTE | 2021-07-25 12:57 | ECHOD_ITS ---
Reason For Study: VALVE REPLACEMENT Procedure This was a 2D Doppler, Color Flow transthoracic echocardiogram. Exam performed in department. Left Ventricle Normal LV size. Left ventricular systolic function is normal. The estimated ejection fraction is 55 %. Stage 1 diastolic dysfunction. No regional wall motion abnormalities noted. Right Ventricle Normal RV size. Normal systolic function. Atria Normal left atrium. Normal right atrium. Mitral Valve Normal mitral valve. Tricuspid Valve Normal tricuspid valve. Mild tricuspid valve insufficiency. Pulmonary artery systolic pressure is 24 mmHg. Aortic Valve Peak aortic valve gradient 30 mmHg. Mean aortic valve gradient 18 mmHg. Mild to moderate aortic stenosis. Bioprosthetic aortic valve. Pulmonic Valve Normal pulmonic valve. Great Vessels Normal aortic root. The pulmonary artery is normal size. Normal inferior vena cava. Pericardium/Pleural No pericardial effusion. MMode/2D Measurements & Calculations LVIDd: 4.6 cm IVSd: 0.89 cm LVOT diam: 2.0 cm LVIDs: 3.2 cm LVPWd: 0.97 cm LVOT area: 3.1 cm2 RVDd: 3.2 cm FS: 30.6 % Ao root diam: 2.8 cm LAV(MOD-bp): 69.2 ml LA A4 area: 22.0 cm2 LAV(MOD-bp) Indexed: 37.4 ml/m2 LAV(MOD-sp2): 71.3 ml LAV(MOD-sp4): 61.9 ml LA dimension(2D): 4.6 cm RA A4 area: 17.4 cm2 Time Measurements MV dec time: 0.32 sec Doppler Measurements & Calculations MV E max elpidio: 84.7 cm/sec Lat Peak E' Elpidio: 6.4 cm/sec Med Peak E' Elpidio: 5.0 cm/sec MV A max elpidio: 114.7 cm/sec E/E' lat: 13.3 E/E' med: 16.8 MV E/A: 0.74 Ao V2 max: 276.7 cm/sec LV V1 max: 102.4 cm/sec SV(LVOT): 68.6 ml Ao max P.7 mmHg LV V1 max P.2 mmHg Ao V2 mean: 201.9 cm/sec LV V1 mean P.6 mmHg Ao mean P.6 mmHg LV V1 mean: 77.9 cm/sec Ao V2 VTI: 58.7 cm LV V1 VTI: 22.4 cm POLO(I,D): 1.2 cm2 POLO(V,D): 1.1 cm2 PA V2 max: 130.2 cm/sec TR max elpidio: 230.8 cm/sec TR max P.3 mmHg ECHO/Echo Complete Interpretation Summary Normal LV size. Left ventricular systolic function is normal. The estimated ejection fraction is 55 %. Stage 1 diastolic dysfunction. Bioprosthetic aortic valve. Compared to the previous the above findings are essentially comparable. Ordering Physician: Eb Oropeza Referring Physician: Kip Parnell Chi Performed By: Cheri Huff, KARISSA, RVT
== END ==
PROVIDERS: PCP Family Medicine Geriatric Medicine; Referring Provider Internal Medicine Cardiovascular Disease; Visit Provider Internal Medicine Cardiovascular Disease
DX: G47.33 Obstructive sleep apnea (adult) (pediatric) (principal)
CPT/HCPCS: 93306

== ENCOUNTER → 2021-08-08 12:07 | Outpatient (CLI) | payer MEDICARE, SELFPAY | PROVIDERS: PCP Family Medicine Geriatric Medicine; Referring Provider Physician Assistant; Visit Provider Physician Assistant | DX: Z11.52 Encounter for screening for COVID-19 (principal) | CPT/HCPCS: 87635; U0005; U0003 ==

== ENCOUNTER → 2021-08-30 | Outpatient (CLI) | payer MEDICARE, SELFPAY ==
[2021-08-30 14:10] LABS: M R Staph aureus DNA By PCR Negative (Negative); Probe Check PASS; Specimen Processing Control PASS; Staph aureus DNA By PCR POSITIVE (Negative)
== END | disposition home or self-care (01) ==
LOC: LABSPEC 11:24
PROVIDERS: PCP Family Medicine Geriatric Medicine; Visit Provider Family Medicine Geriatric Medicine
DX: S41.102A Unspecified open wound of left upper arm, initial encounter (principal); B95.62 Methicillin resistant Staphylococcus aureus infection as the cause of diseases classified elsewhere
CPT/HCPCS: 87070; 87077; 87186; 87205; 87640

== ENCOUNTER → 2021-09-09 17:08 | Outpatient (CLI) | payer MEDICARE, SELFPAY ==
--- NOTE | 2021-09-09 17:20 | RAD_ITS ---
STUDY: X-RAY - RIGHT ANKLE REASON FOR EXAM: Male, 75 years old. PAIN TECHNIQUE: 3 view(s) of the ankle. COMPARISON: None. FINDINGS: Normal visualized distal tibia and fibula. There is either an old ununited fracture or accessory ossicle just inferior to the distal fibula. Normal medial and lateral malleoli. Normal tibiotalar articulation and ankle mortise. Normal visualized talus. Small calcaneal spurs The visualized subtalar, talonavicular, calcaneocuboid and tarsal articulations are normal. The soft tissue structures are unremarkable. RAD/Ankle min 3 Views IMPRESSION: No acute findings Calcaneal spurs Electronically Signed: Nehemias Hodge MD at 10:43 EDT , Service support ,
--- NOTE | 2021-09-09 17:20 | RAD_ITS ---
STUDY: X-RAY - RIGHT FOOT CLINICAL: Male, 75 years old. PAIN TECHNIQUE: 3 view(s) of the foot. COMPARISON: None. FINDINGS: Normal talus and tarsal bones. Calcaneal spurs Normal visualized subtalar, talonavicular, calcaneocuboid, tarsal and tarsometatarsal articulations. Normal metatarsi. There is degenerative arthrosis of the metatarsophalangeal joint of the hallux with a hallux valgus deformity. Normal tibial and fibular sesamoid bones. Normal interphalangeal joint of the great toe. Normal phalanges of the great toe. Normal second through fifth metatarsophalangeal joints. Normal interphalangeal joints and phalanges of the lesser toes. The soft tissue structures are unremarkable. 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
--- NOTE | 2021-09-09 17:20 | RAD_ITS ---
STUDY: X-RAY - PELVIS AND RIGHT HIP REASON FOR EXAM: Male, 75 years old. PAIN TECHNIQUE: 3 views of the pelvis and hip. COMPARISON: None. FINDINGS: There is a non-specific bowel gas pattern. Normal visualized soft tissue structures. There is diffuse demineralization of the osseous structures. There is narrowing with cortical sclerosis and osteophyte formation of the sacroiliac joint consistent with degenerative osteoarthritic changes. Normal bilateral superior and inferior pubic rami. Normal pubic symphysis. Normal bilateral ischial tuberosities. Normal visualized femoral head. Normal acetabulum. There is moderate articular joint space narrowing of the hip. RAD/HIP, UNI W/ Pelvis 2-3 Views IMPRESSION: Age consistent degenerative changes, no acute findings Electronically Signed: Nehemias Hodge MD at 10:44 EDT , Service support ,
== END ==
PROVIDERS: PCP Family Medicine Geriatric Medicine; Referring Provider Family Medicine Geriatric Medicine; Visit Provider Family Medicine Geriatric Medicine
DX: M25.559 Pain in unspecified hip (principal); M79.609 Pain in unspecified limb
CPT/HCPCS: 73502; 73610; 73630

== ENCOUNTER → 2021-09-25 14:20 | Outpatient (CLI) | payer MEDICARE, SELFPAY ==
[2021-09-25 17:14] LABS: Absolute Lymphocyte Count 0.86 X10^3/uL (0.83-4.51); Absolute Neutrophil Count 3.6 X10^3/uL (2.0-7.7); Basophil# 0.03 X10^3/uL; Basophil% 0.6 % (0-1); Eosinophil# 0.17 X10^3/uL; Eosinophils% 3.3 % (0-5); Hematocrit 42.6 % (40-54); Hemoglobin 14.2 g/dL (13.0-16.5); Lymphocyte # 0.86 X10^3/ul (0.83-4.51); Lymphocyte % 16.6 % (19-41); Mean Corp Hgb Conc 33.3 g/dL (32-36); Mean Corpuscular Hgb 34.7 pg (27.0-32.0); Mean Corpuscular Volume 104.2 fL (80-94); Mean Platelet Vol. 10.2 fl (6.2-12.0); Monocyte# 0.53 X10^3/uL; Monocyte% 10.2 % (0-10); NRBC Flagged by Analyzer 0 % (0-5); Neutrophil # 3.59 X10^3/uL (2.7-7.7); Neutrophil % 69.1 % (47-70); Platelet Count 167 K/mm3 (150-450); RBC Distribution Width CV 13.5 % (11.6-14.6); RBC Distribution Width SD 51.9 fl (35.1-43.9); Red Blood Count 4.09 M/mm3 (4.6-6.2); White Blood Count 5.2 K/mm3 (4.4-11.0)
[2021-09-25 17:54] LABS: ALB/GLOB Ratio 1.1 RATIO (0.9-2.4); AST(SGOT) 18 U/L (15-37); Alanine Aminotransfer ALT/SGPT 35 U/L (16-61); Albumin, Serum 3.2 g/dL (3.2-5.0); Alkaline Phosphatase 93 U/L (45-117); Anion Gap 5 (5-15); BUN 20 mg/dL (7-18); BUN/Creat Ratio 19.8 RATIO (10-20); Calcium,Total 9.3 mg/dL (8.5-10.1); Chloride 107 mmol/L (98-107); Creatinine, Serum 1.01 mg/dL (0.70-1.30); EST Glomerular Filtration Rate 76 mL/min (>60); Est Glom Filt Rate - Afr Amer 92 mL/min (>60); Glucose 108 mg/dL (74-106); Potassium 4.2 mmol/L (3.5-5.1); Protein, Total 6.2 g/dL (6.4-8.2); Sodium Level 140 mmol/L (136-145); Thyroid Stim Hormone (TSH) 2.02 uIU/mL (0.358-3.74); Uric Acid 6.7 mg/dL (3.5-7.2)
[2021-09-25 18:12] LABS: Vitamin D,25 Hydroxy 38.8 ng/mL
== END ==
PROVIDERS: PCP Family Medicine Geriatric Medicine; Visit Provider Family Medicine Geriatric Medicine
DX: I10 Essential (primary) hypertension (principal); E55.9 Vitamin D deficiency, unspecified; M10.9 Gout, unspecified
CPT/HCPCS: 36415; 80053; 82306; 84443; 84550; 85025

== ENCOUNTER 2021-11-11 13:30 | Outpatient (RCR) | payer MEDICARE, SELFPAY ==
--- NOTE | 2021-09-18 11:51 | HP.PTEVAL ---
Patient's Visit Information ALMAZ ZUÑIGA is a 75 year old M referred to Physical Therapy by Dr. Kip Parnell MD with a diagnosis of Balance Deficit. Date of Evaluation: 09/18/21 Physical Therapist: Rosie Amaro DPT - Visit Plan Frequency: 2x /Week Duration: 4 Weeks Plan: Balance assessment- and 2x4 for strength and endurance with addition of balance exercises indicated in assessment. HEP Given IE: HR/TR, marching, hip abduction, hip extension, marching - Subjective Patient reports that he has had balance issues for a long time. Was doing silver sneakers here then he dropped out of the program and has not been diligent to get back in. Reports falling 3x in the last week but that is not every week. He starts to fall but catches himself- time of day has no bearings. He normally falls forwards. He has had a few falls missing the last step on stairs. Patient reports that the last fall he bruised his right foot which is affecting his gait currently. Right hip pain from another fall for about 4 weeks. Had both foot and hip x-rayed which showed no breaks. Does not use a cane or walker. Two story home and sleeps on the second floor-hand rail. Does wear shoes 75% of the time. Does not have any numbness or tingling in his feet. Has never been treated for his balance before. 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 Does still drive and is fully I with all ADL's- he goes to the grocery store and cooks all the meals. PMHx/Meds: no changes since saw MD- scanned into the chart. Does still walk his dog daily- small dog- 1/8 of a mile up to a mile. - Objective Posture: FH, RS- can correct but does not maintain. Gait: slightly deviated- slow [place] and decreased stride bilateral- watches his feet- no AD. Stairs: asc/ desc 8 recip with 2 HR and watches feet. HR/TR: able. SLS: weight shift but no SLS. Balance: see FGA. ROM: WFL. Strength: Core: fair, Hip: 4/5 throughout Knee: 4+/5, Ankle: 5/5 - Balance/Special Test Scores Functional Gait Assessment Score: 19 % Disability: 36.6700 Lower Extremity Functional Score: 42 TUG Test Time Seconds: 15.05 30 Second Chair Rise Test Seconds: 18 - Goals Goal 1:: Patient will be I with HEP and progression Goal Time Frame: 4-6 Weeks Goal 2:: Patient will increase his FGA to wfl for his age Goal Time Frame: 4-6 Weeks Goal 3:: Patient will asc/desc 8 stairs recip carrying an object safely Goal Time Frame: 4-6 Weeks Goal 4:: Patient will demo 5/5 strength in LE Goal Time Frame: 4-6 Weeks - Rehabilitation Potential Physical Therapy Diagnosis: Patient presents with hypomobility- he has decreased LE and core s/s, proprioception, muscular endurance leading to poor balance, falls and decreased ability to perform ADL's. Rehabilitation Potential: Good - Anticipated Interventions Patient/Client Instruction: Educate patient on: Benefits of Fitness Program Therapeutic Exercise to Include: Strength training, Endurance training, Balance training, Coordination, Agility training, Body mechanics, Postural training, Flexibilty training, Gait and locomotor training, Neuromotor development, Dynamic Lumbar Stabilization For the Purpose of:: To improve muscle performance and motor function Thank you for the opportunity to evaluate your patient. For Medicare and Medicare HMO plans, please review the plan of care and approve it. It will need to be FAXED BACK to us at [phone] for Medicare purposes. For Medicare only, by signing this I certify the plan of care. Please let me know if there are questions or concerns regarding this plan of care. Physician Signature: Date:
--- NOTE | 2021-09-25 16:38 | HP.PTCOM ---
PT Communication Note 09/25/[address] Kip Parnell MD , Thank you for the referral of Jevon to [facility] for balance testing. I have enclosed a copy of the results for your review. In summation, he scored well on the Sensory roganization Test and Motor control Test. he scored poorly on the Forward weight shifting portions of the Limits of Stability Test. With these results in mind, We plan to see mr. orlando as described in his evaluation for 2x/week for 4 weeks to work on strength as well as exercises to address the deficits in his balance assessment. please do not hesitate to call if you have questions. Sincerely, Jose Saunders DPT, OCS, CSCS Contact Information
--- NOTE | 2021-10-23 12:59 | HP.PTREVAL_ITS ---
Dr. Kip Parnell MD, It has been my pleasure to treat ALMAZ ZUÑIGA over the last 9 visits for Balance Deficit. Please see the progress note below for an update on the physical therapy plan of care! Subjective: Patient reports that he fell a few weeks ago pulling out his trashcans and lost his balance and fell- right leg has significant bruising from his hamstring. Went to his MD who gave him medication that is helping. He feels the balance was most of the issue of the fall. Does not feel that his balance is improving. Objective/Function: Posture: FH, RS- can correct but does not maintain. Gait: slightly deviated- slow catalino and decreased stride bilateral- watches his feet- no AD. Stairs: asc/ desc 8 recip with 1 HR and watches feet. HR/TR: able. SLS: weight shift but no SLS. Balance: see FGA. ROM: WFL. Strength: Core: fair, Hip: 4/5 throughout Knee: 4+/5, Ankle: 5/5 Plan Plan: 2x4 for strength and endurance. Please include Fw weight shift and funcitonal Fw weight shift exercises for patient each visit and to HEP based on his balance results. Balance/Gait/Functional tests - Balance/Special Test Scores Functional Gait Assessment Score: 18 % Disability: 40.0000 Lower Extremity Functional Score: 32 TUG Test Time Seconds: 15.05 Tug Test: <20 sec.=mostly independent 30 Second Chair Rise Test Seconds: 18 Goals Goal 1:: Patient will be I with HEP and progression Goal Time Frame: 4-6 Weeks Goal Progress: Progressing Goal 2:: Patient will increase his FGA to wfl for his age Goal Time Frame: 4-6 Weeks Goal Progress: Progressing Goal 3:: Patient will asc/desc 8 stairs recip carrying an object safely Goal Time Frame: 4-6 Weeks Goal Progress: Progressing Goal 4:: Patient will demo 5/5 strength in LE Goal Time Frame: 4-6 Weeks Goal Progress: Progressing Anticipated Interventions Patient/Client Instruction: Educate patient on: Benefits of Fitness Program Therapeutic Exercise to Include: Strength training, Endurance training, Balance training, Coordination, Agility training, Body mechanics, Postural training, Flexibilty training, Gait and locomotor training, Neuromotor development, Dynamic Lumbar Stabilization For the Purpose of:: To improve muscle performance and motor function Please do not hesitate to contact me at [phone] by phone or Fax: if you have questions or concerns regarding this new plan of care! Sincerely, BIANCA StevenT
--- NOTE | 2021-11-19 11:28 | HP.PT.NRP ---
ALMAZ ZUÑIGA was seen in my office for initial evaluation on 09/18/21. The following Plan of Care was established for this patient: Initial Frequency: 2x /Week Initial Duration: 4 Weeks Patient/Client Instruction: Educate patient on: Benefits of Fitness Program Therapeutic Exercise to Include: Strength training, Endurance training, Balance training, Coordination, Agility training, Body mechanics, Postural training, Flexibilty training, Gait and locomotor training, Neuromotor development, Dynamic Lumbar Stabilization For the Purpose of:: To improve muscle performance and motor function This patient was last seen in our office . Pertinent comments regarding their Physical therapy will appear below: fell and broke her leg so he is taking care of her- would like to be discharged from PT. At this point I will be discontinuing this patient from physical therapy. I would be happy to see this patient again in the future if found appropriate by the physician. Thank you! Rosie Amaro, BIANCAT Balance/Gait/Functional tests - Balance/Special Test Scores Functional Gait Assessment Score: 18 % Disability: 40.0000 Lower Extremity Functional Score: 32 TUG Test Time Seconds: 15.05 Tug Test: <20 sec.=mostly independent 30 Second Chair Rise Test Seconds: 18
== END 2021-11-11 19:00 | disposition home or self-care (01) ==
LOC: PT 13:30
PROVIDERS: PCP Family Medicine Geriatric Medicine; Referring Provider Family Medicine Geriatric Medicine; Visit Provider Family Medicine Geriatric Medicine
DX: R26.81 Unsteadiness on feet (principal); R29.6 Repeated falls
CPT/HCPCS: 92548; 97110; 97162; 97164

== ENCOUNTER → 2022-03-26 | Outpatient (CLI) | payer MEDICARE, SELFPAY ==
[2022-03-26 17:18] LABS: Absolute Lymphocyte Count 1.13 X10^3/uL (0.83-4.51); Absolute Neutrophil Count 4.4 X10^3/uL (2.0-7.7); Basophil# 0.03 X10^3/uL; Basophil% 0.5 % (0-1); Eosinophil# 0.08 X10^3/uL; Eosinophils% 1.3 % (0-5); Hematocrit 47.9 % (40-54); Lymphocyte # 1.13 X10^3/ul (0.83-4.51); Lymphocyte % 18.2 % (19-41); Mean Corp Hgb Conc 33.4 g/dL (32-36); Mean Corpuscular Volume 101.9 fL (80-94); Monocyte# 0.54 X10^3/uL; Monocyte% 8.7 % (0-10); NRBC Flagged by Analyzer 0 % (0-5); Neutrophil # 4.39 X10^3/uL (2.7-7.7); Neutrophil % 70.8 % (47-70); Platelet Count 161 K/mm3 (150-450); RBC Distribution Width CV 13.4 % (11.6-14.6); RBC Distribution Width SD 50.6 fl (35.1-43.9); White Blood Count 6.2 K/mm3 (4.4-11.0)
[2022-03-26 17:55] LABS: ALB/GLOB Ratio 1.1 RATIO (0.9-2.4); AST(SGOT) 28 U/L (15-37); Alanine Aminotransfer ALT/SGPT 49 U/L (16-61); Albumin, Serum 3.5 g/dL (3.2-5.0); Alkaline Phosphatase 103 U/L (45-117); Anion Gap 7 (5-15); BUN 18 mg/dL (7-18); BUN/Creat Ratio 15.9 RATIO (10-20); Calcium,Total 9.6 mg/dL (8.5-10.1); Chloride 106 mmol/L (98-107); Creatinine, Serum 1.13 mg/dL (0.70-1.30); EST Glomerular Filtration Rate 67 mL/min (>60); Est Glom Filt Rate - Afr Amer 81 mL/min (>60); Globulin 3.2 g/dL (2.2-4.2); Glucose 97 mg/dL (74-106); Potassium 4.1 mmol/L (3.5-5.1); Protein, Total 6.7 g/dL (6.4-8.2); Sodium Level 139 mmol/L (136-145); Thyroid Stim Hormone (TSH) 2.22 uIU/mL (0.358-3.74); Uric Acid 6.7 mg/dL (3.5-7.2)
== END | disposition home or self-care (01) ==
LOC: POLAB3 13:06
PROVIDERS: PCP Family Medicine Geriatric Medicine; Visit Provider Family Medicine Geriatric Medicine
DX: I10 Essential (primary) hypertension (principal); E55.9 Vitamin D deficiency, unspecified; M10.9 Gout, unspecified
CPT/HCPCS: 36415; 80053; 82306; 84443; 84550; 85025

== ENCOUNTER → 2022-04-18 | Outpatient (CLI) | payer MEDICARE, SELFPAY | END | disposition home or self-care (01) | LOC: PSN 14:05 | PROVIDERS: PCP Family Medicine Geriatric Medicine; Referring Provider Family Medicine Geriatric Medicine; Visit Provider Family Medicine Geriatric Medicine | DX: R68.83 Chills (without fever) (principal) | CPT/HCPCS: 87635; 87804; 87807; C9803; U0003; U0005 ==

== ENCOUNTER → 2022-05-05 | Outpatient (CLI) | payer MEDICARE, SELFPAY ==
[2022-05-05 17:25] LABS: Specimen Processing Control PASS
== END | disposition home or self-care (01) ==
LOC: PSN 13:57
PROVIDERS: PCP Family Medicine Geriatric Medicine; Referring Provider Family Medicine Geriatric Medicine; Visit Provider Family Medicine Geriatric Medicine
DX: R68.83 Chills (without fever) (principal)
CPT/HCPCS: 87635; 87804; 87807; C9803; U0003; U0005

== ENCOUNTER → 2022-09-30 | Outpatient (CLI) | payer MEDICARE, SELFPAY ==
[2022-09-30 17:23] LABS: Absolute Neutrophil Count 7.5 X10^3/uL (2.0-7.7); Basophil# 0.04 X10^3/uL; Basophil% 0.4 % (0-1); Eosinophil# 0.06 X10^3/uL; Eosinophils% 0.6 % (0-5); Hematocrit 52.3 % (40-54); Hemoglobin 17.5 g/dL (13.0-16.5); Mean Corp Hgb Conc 33.5 g/dL (32-36); Mean Corpuscular Hgb 34.2 pg (27.0-32.0); Mean Corpuscular Volume 102.1 fL (80-94); Monocyte# 1.03 X10^3/uL; Monocyte% 10.3 % (0-10); NRBC Flagged by Analyzer 0 % (0-5); Neutrophil # 7.45 X10^3/uL (2.7-7.7); Neutrophil % 74.2 % (47-70); Platelet Count 189 K/mm3 (150-450); RBC Distribution Width CV 12.6 % (11.6-14.6); RBC Distribution Width SD 47.8 fl (35.1-43.9); Red Blood Count 5.12 M/mm3 (4.6-6.2)
[2022-09-30 18:36] LABS: ALB/GLOB Ratio 1.2 RATIO (0.9-2.4); AST(SGOT) 22 U/L (15-37); Alanine Aminotransfer ALT/SGPT 48 U/L (16-61); Albumin, Serum 3.8 g/dL (3.2-5.0); Alkaline Phosphatase 102 U/L (45-117); Anion Gap 7 (5-15); BUN 20 mg/dL (7-18); BUN/Creat Ratio 20.5 RATIO (10-20); Calcium,Total 10.2 mg/dL (8.5-10.1); Chloride 101 mmol/L (98-107); Creatinine, Serum 0.98 mg/dL (0.70-1.30); EST Glomerular Filtration Rate 79 mL/min (>60); Est Glom Filt Rate - Afr Amer 95 mL/min (>60); Globulin 3.3 g/dL (2.2-4.2); Glucose 56 mg/dL (74-106); Potassium 4.5 mmol/L (3.5-5.1); Protein, Total 7.1 g/dL (6.4-8.2); Sodium Level 138 mmol/L (136-145); Thyroid Stim Hormone (TSH) 2.65 uIU/mL (0.358-3.74)
[2022-09-30 18:40] LABS: Vitamin D,25 Hydroxy 52.6 ng/mL
== END | disposition home or self-care (01) ==
LOC: POLAB3 14:29
PROVIDERS: PCP Family Medicine Geriatric Medicine; Visit Provider Family Medicine Geriatric Medicine
DX: I10 Essential (primary) hypertension (principal); E55.9 Vitamin D deficiency, unspecified
CPT/HCPCS: 36415; 80053; 82306; 84443; 85025

== ENCOUNTER → 2022-10-15 | Outpatient (CLI) | payer MEDICARE, SELFPAY | END | disposition home or self-care (01) | LOC: POLAB3 16:39 | PROVIDERS: PCP Family Medicine Geriatric Medicine; Visit Provider Family Medicine Geriatric Medicine | DX: N39.0 Urinary tract infection, site not specified (principal); I10 Essential (primary) hypertension | CPT/HCPCS: 36415; 87086; 87088 ==

== ENCOUNTER → 2022-10-16 | Outpatient (CLI) | payer MEDICARE, SELFPAY ==
[2022-10-16 12:23] LABS: Absolute Lymphocyte Count 1.11 X10^3/uL (0.83-4.51); Absolute Neutrophil Count 4.4 X10^3/uL (2.0-7.7); Basophil# 0.03 X10^3/uL; Basophil% 0.5 % (0-1); Eosinophil# 0.09 X10^3/uL; Eosinophils% 1.4 % (0-5); Hematocrit 49.9 % (40-54); Hemoglobin 16.8 g/dL (13.0-16.5); Lymphocyte # 1.11 X10^3/ul (0.83-4.51); Lymphocyte % 17.7 % (19-41); Mean Corp Hgb Conc 33.7 g/dL (32-36); Mean Corpuscular Hgb 34.5 pg (27.0-32.0); Mean Corpuscular Volume 102.5 fL (80-94); Mean Platelet Vol. 9.5 fl (6.2-12.0); Monocyte# 0.62 X10^3/uL; Monocyte% 9.9 % (0-10); NRBC Flagged by Analyzer 0 % (0-5); Neutrophil # 4.38 X10^3/uL (2.7-7.7); Platelet Count 155 K/mm3 (150-450); RBC Distribution Width CV 12.7 % (11.6-14.6); RBC Distribution Width SD 48.3 fl (35.1-43.9); Red Blood Count 4.87 M/mm3 (4.6-6.2); White Blood Count 6.3 K/mm3 (4.4-11.0)
[2022-10-16 12:47] LABS: Anion Gap 3 (5-15); BUN 18 mg/dL (7-18); Calcium,Total 9.7 mg/dL (8.5-10.1); Chloride 105 mmol/L (98-107); Creatinine, Serum 1.06 mg/dL (0.70-1.30); EST Glomerular Filtration Rate 72 mL/min (>60); Est Glom Filt Rate - Afr Amer 87 mL/min (>60); Glucose 93 mg/dL (74-106); Potassium 4.8 mmol/L (3.5-5.1); Sodium Level 139 mmol/L (136-145)
== END | disposition home or self-care (01) ==
LOC: LAB 11:40
PROVIDERS: PCP Family Medicine Geriatric Medicine; Referring Provider Family Medicine Geriatric Medicine; Visit Provider Family Medicine Geriatric Medicine
DX: I10 Essential (primary) hypertension (principal); N39.0 Urinary tract infection, site not specified
CPT/HCPCS: 36415; 80048; 85025; 87086

== ENCOUNTER → 2022-10-22 | Outpatient (CLI) | payer MEDICARE, SELFPAY ==
[2022-10-22 16:29] LABS: Erythrocyte Sedimentation Rate 4 mm/hr (0-20)
[2022-10-22 16:33] LABS: CRP < 2.90 mg/L (0.0-3.0); LDH 245 U/L (87-241)
[2022-10-24 15:08] LABS: Endomysial Antibody IgA Negative (Negative)
[2022-10-24 15:38] LABS: Immunoglobulin A 193 mg/dL (61-437)
[2022-10-24 15:39] LABS: t-Transglutaminase IgA <2 U/mL (0-3)
[2022-10-24 16:08] LABS: Anti-Centromere B Ab <0.2 AI (0.0-0.9); Anti-Chromatin <0.2 AI (0.0-0.9); Anti-Jo <0.2 AI (0.0-0.9); Anti-Scleroderma-70 AB <0.2 AI (0.0-0.9); RNP Ab 0.4 AI (0.0-0.9); SJOGREN'S Anti-SS-A test < 0.2 AI (0.0-0.9); SJOGREN'S Anti-SS-B test < 0.2 AI (0.0-0.9); Smith Ab 0.2 AI (0.0-0.9)
[2022-10-24 20:52] LABS: Anti-dsDNA Ab <1 IU/mL (0-9)
[2022-10-27 01:06] LABS: Angiotensin Convert Enzyme < 15 U/L (14-82); Cytoplasmic Ab (C-ANCA) <1:20 titer (Neg:<1:20); Immunoglobulin A 194 mg/dL (61-437); Immunoglobulin E 50 IU/mL (6-495); Immunoglobulin G 590 mg/dL (603-1613)
[2022-10-27 19:05] LABS: Gastrin, Serum 56 pg/mL (0-115); Immunoglobulin M 74 mg/dL (15-143); Perinuclear Ab (P-ANCA) <1:20 titer (Neg:<1:20)
== END | disposition home or self-care (01) ==
LOC: LAB 14:59
PROVIDERS: PCP Family Medicine Geriatric Medicine; Visit Provider Internal Medicine Gastroenterology
DX: R05.3 Chronic cough (principal)
CPT/HCPCS: 36415; 82164; 82784; 82785; 82941; 83516; 83615; 85652; 86140; 86225; 86235; 86255; 86256

== ENCOUNTER 2022-12-22 06:27 | Day surgery (SDC) | payer MEDICARE, SELFPAY ==
--- NOTE | 2022-12-03 13:20 | CASEMGMT ---
SARAH SOTO: Notified on 12/01/22 of pt's scheduled procedure and plan to use [facility] transportation to and from. Report received that pt does not have an individual to accompany him home. Call placed to patient on 12/01 and voicemail received. Message left requesting a return call. Return call received on this date from pt. Discussed protocol and rationale for pt to have a responsible individual to accompany him home from the procedure. Pt expressed understanding. States his is not mobile and unable to accompany him. Pt states it would be a hardship to find someone. States he will try harder to reach out to some of his friends. Requested pt to call this RN CHARLES back if he is unable to find someone. Pt expressed agreement with this plan. Mj Daigle RN CM
[2022-12-22] VITALS (8 sets, daily range): BP systolic 97–136; BP diastolic 61–85; PULSE 60–74; RESP 16–18; TEMP 36.1–36.9; O2SAT 92–97; BMI 25.9
--- NOTE | 2022-12-22 | IMM_PTH ---
PATIENT: ALMAZ ZUÑIGA LOC: EN U#:[id number] AGE/SX: 77/M ROOM: RE12/22/[address]: Dr. Oswald Cates DO : 1945 BED: DIS: 12/22/2022 SPEC #: [id number] RECD: 12/23/22 14:00 STATUS: RADHA REJaneth #: [id number] KATHLEEN: 12/22/22 00:[address]: Oswald Cates DEPT: IMMUNOHISTOCHEMISTRY RECD BY: Marylin Fong ENTERED: 12/23/22 14:01 SP TYPE: IMMUNO OTHR DR: Dr. Kip Parnell MD Tissues: Esophagus, NOS Procedures: P53 (initial) KI-67 (add) PHYSICIAN & [place] [phone] SPECIMEN INFORMATION: Tissue Source: Distal esophagus Clinical Info: Cough Specimen Number: [id number] CPT code: 51858, 11495 METHODOLOGY: Deparaffinized sections of prefer/formalin-fixed tissue or PAP/DQ stained slides are incubated with monoclonal/polyclonal antibodies/oligonucleotide probes. Localization is made via biotin free immunoperoxidase method. Appropriate controls are performed and reacted as expected. Results on target cell population are indicated in the following table: RESULTS: ANTIBODY / CLONE RESULT P53 (DO-7) negative Ki-67 (30-9) positive, very low These tests were developed and their performance characteristics determined by [facility]. They may not have been cleared or approved by the U.S. Food and Drug Administration. The FDA has determined that such clearance or approval is not necessary. The above immunohistochemical/dualISH markers are ordered and reviewed by the Pathologist. INTERPRETATION: Distal esophagus, biopsy: Negative for dysplasia. BHUMI:rene 12/24/2022
[2022-12-22] MEDS: Lactated Ringers 1,000 ML 15 ML IV (07:45)
--- NOTE | 2022-12-22 08:22 | HP.PCM_ITS ---
History and Physical Date of Admission: 12/22/22 77 M who presents to the office today for initial consult. Jevon established with this clinic 10.22.22 with referral from PCP. Chronic cough with wheeze for 20-30 years present both day and night; cough syrup helpful, PO steroids helpful, azelastine and levocetirizine helpful, gabapentin ineffective. ENT ? finger waver GERD for which he utilizes omeprazole PMH aortic valve disorder; CAD s/p CABG 1976; depression; HTN; hyperlipidemia; chronic sinusitis FH brother asthma Pt reports having a chronic cough over the last couple decades. Has been working with a cough clinic through [facility]. Reports no dysphagia, nausea, vomiting. Has had issues in the fast with heartburn but is controlled with omeprazole and Prevacid. Has had previous EGD and Colonoscopy several years ago. Father had COPD. No other FH of esophageal disease. ? ? Exam Const General: cooperative and comfortable Nutritional Appearance: average body habitus and well nourished HENMT Head: normal to inspection Ears: hearing grossly normal bilaterally Nose: external nose normal Face and sinus: normal facial exam Mouth: oral mucosae normal Throat: posterior oropharynx normal Eyes General: appearance normal, both eyes and all related structures Neck Neck: normal visual inspection Chest Chest palpation & inspection: normal inspection of the chest and normal palpation of entire chest wall Resp Effort & Inspection: normal respiratory effort Auscultation: Bilateral: Clear to Auscultation Cardio Palpation: normal PMI Rate: regular rate Rhythm: regular rhythm GI Inspection: normal to inspection Auscultation: normal bowel sounds Percussion: normal to percussion Palpation: no hepatosplenomegaly Skin General: no rashes or lesions noted Neuro General: patient alert Extrem General: normal to inspection Psych Affect: normal affect Quality Reporting Tobacco Screening ([facility] 138) Smoking Status: Never smoker Assessment and Plan Assessment and Plan (1) Chronic cough: ?Status:?Chronic ?Plan: Diffuse diagnosis for his chronic cough psychogenic cough, atypical gastroesophageal reflux disease and is not responsive to medicines.? Also different diagnosis would include cricopharyngeal achalasia, gastric inlet patch, esophageal dysmotility disorder, eosinophilic esophagitis.? He will undergo an upper endoscopy with evaluation of his upper GI tract and placement of Buckner at the patient off of PPI therapy for 5 days.? He takes omeprazole 40 mg once a day.? He also may need a gastric emptying study and a biochemical work-up for autoimmune diseases such as scleroderma, Sjogren's syndrome and any other autoimmune disease that may be affecting upper GI tract.? He was explained alternatives, risk, benefits including outstanding bleeding, infection, sepsis, perforation, need for emergent .? He will have an ASA of 3. I have examined the patient and the H&P has been reviewed. There are no clinical changes since date of exam.
--- NOTE | 2022-12-22 08:30 | EGD_PTH ---
PATIENT: ALMAZ ZUÑIGA LOC: EN U#:[id number] AGE/SX: 77/M ROOM: RE12/22/[address]: Dr. Oswald Cates DO : 1945 BED: DIS: 12/22/2022 SPEC #: [id number] RECD: 12/22/22 10:50 STATUS: RADHA KP #: [id number] KATHLEEN: 12/22/22 08:[address]: Oswald Cates DEPT: SURGICAL PATHOLOGY RECD BY: Mai Guardado ENTERED: 12/22/22 12:13 SP TYPE: EGD BIOPSY OT DR: Dr. Kip Parnell MD Tissues: Esophagus, NOS Procedures: Special Stain Group II Surgery Specimen Level IV Alcian Blue/PAS (control) HEADER OPERATION: [place] [place] probe PRE-OP DIAGNOSIS: Cough TISSUE SUBMITTED: Distal esophagus MICROSCOPIC DIAGNOSIS Distal esophagus, biopsy: Gastroesophageal junctional mucosa with mild chronic inflammation. 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 Focal changes of reflux. No evidence of dysplasia. See comment. AM:rene 12/23/2022 COMMENT Immunohistochemistry ([id number]) for P53 and Ki-67 will be performed and results will be reported separately. Alcian blue/PAS stain with matched control supports the above diagnosis. MICROSCOPIC DESCRIPTION Slides are reviewed. GROSS DESCRIPTION Received in fixative is one container labeled with the patient's name and designated distal esophagus. The specimen consists of multiple irregular fragments of light herrera soft tissue that in aggregate measure 0.8 x 0.3 x 0.1 cm. The specimen is totally submitted in one cassette. / BHUMI:rene 12/22/2022 TC:3 CPT: 81974, 28165
--- NOTE | 2022-12-22 08:50 | OP.EGD_ITS ---
Patient Name: Jevon Berkowitz Procedure Date: 12/22/2022 8:30 AM Date of : 1945 Age: 77 Procedure: Upper GI endoscopy Indications: Heartburn, Suspected esophageal reflux, Failure to respond to medical treatment Providers: Oswald Cates DO Referring MD: Oswald Cates DO Medicines: Monitored Anesthesia Care Patient Profile: This is a 77 year old male. Refer to note in patient chart for documentation of history and physical. Patient has symptoms of chronic cough. Complications: No immediate complications. Procedure: Pre-Anesthesia Assessment: - Prior to the procedure, a History and Physical was performed, and patient medications and allergies were reviewed. The patient is competent. The risks and benefits of the procedure and the sedation options and risks were discussed with the patient. All questions were answered and informed consent was obtained. Patient identification and proposed procedure were verified by the physician in the pre-procedure area. Mental Status Examination: alert and oriented. Airway Examination: normal oropharyngeal airway and neck mobility. Respiratory Examination: clear to auscultation. CV Examination: normal. Prophylactic Antibiotics: The patient does not require prophylactic antibiotics. Prior Anticoagulants: The patient has taken no previous anticoagulant or antiplatelet agents. After reviewing the risks and benefits, the patient was deemed in satisfactory condition to undergo the procedure. The anesthesia plan was to use monitored anesthesia care (MAC). Immediately prior to administration of medications, the patient was re-assessed for adequacy to receive sedatives. The heart rate, respiratory rate, oxygen saturations, blood pressure, adequacy of pulmonary ventilation, and response to care were monitored throughout the procedure. The physical status of the patient was re-assessed after the procedure. After obtaining informed consent, the endoscope was passed under direct vision. Throughout the procedure, the patient's blood pressure, pulse, and oxygen saturations were monitored continuously. The gastroscope was introduced through the mouth, and advanced to the second part of duodenum. The upper GI endoscopy was accomplished without difficulty. The patient tolerated the procedure well. Scope In: 8:34:18 AM Scope Out: 8:41:01 AM Total Procedure Duration Time 0 hours 6 minutes 43 seconds Findings: The Z-line was irregular and was found 37 cm from the incisors. A large hiatal hernia was present. No other significant abnormalities were identified in a careful examination of the stomach. Mildly erythematous mucosa without active bleeding and with no stigmata of bleeding was found in the first portion of the duodenum. Biopsies were taken with a cold forceps for histology. Verification of patient identification for the specimen was done. Estimated blood loss was minimal. Impression: - Z-line irregular, 37 cm from the incisors. - Large hiatal hernia. - Erythematous duodenopathy. Biopsied. Recommendation: - Discharge patient to home. - Resume previous diet. - Continue present medications. - Await pathology results. - Repeat upper endoscopy in 1 year for surveillance. Procedure Code(s): --- Professional --- 63139, Esophagogastroduodenoscopy, flexible, transoral; with biopsy, single or multiple CPT copyright 2017 [employer]. All rights reserved. The codes documented in this report are preliminary and upon invoice coder review may be revised to meet current compliance requirements. Oswald Cates DO 12/22/2022 8:50:35 AM This report has been signed electronically. Number of Addenda: 0 Note Initiated On: 12/22/2022 8:30 AM
--- NOTE | 2022-12-22 08:51 | OP.CCLET_ITS ---
12/22/2022 Kip Parnell MD [address] [place] [address] Re : Upper GI endoscopy procedure for Jevon Berkowitz Dear Dr. Parnell This procedure was performed on Thursday, December 22, 2022. My impressions and recommendations are as follows: Impressions : - Z-line irregular, 37 cm from the incisors. - Large hiatal hernia. - Erythematous duodenopathy. Biopsied. Recommendations : - Discharge patient to home. - Resume previous diet. - Continue present medications. - Await pathology results. - Repeat upper endoscopy in 1 year for surveillance. My findings are described in the full procedure note, which is enclosed. If I can be of further assistance, please feel free to contact me at . Sincerely, Oswald Cates, 12/22/2022 8:50:35 AM This report has been signed electronically.
== END 2022-12-22 09:35 | disposition home or self-care (01) ==
LOC: EN 06:28 → AC 06:29
PROVIDERS: PCP Family Medicine Geriatric Medicine; Referring Provider Family Medicine Geriatric Medicine; Visit Provider Internal Medicine Gastroenterology
PROC: 0DJ08ZZ Inspection of Upper Intestinal Tract, Via Natural or Artificial Opening Endoscopic (ICD-10-PCS; CPT 43235; principal; 2022-12-22 08:25)
DX: K44.9 Diaphragmatic hernia without obstruction or gangrene (principal); R05.3 Chronic cough; K21.9 Gastro-esophageal reflux disease without esophagitis; I25.10 Atherosclerotic heart disease of native coronary artery without angina pectoris; Z95.1 Presence of aortocoronary bypass graft; F32.A Depression, unspecified; I10 Essential (primary) hypertension; E78.2 Mixed hyperlipidemia
CPT/HCPCS: 43239; 88305; 88313; 88341; 88342; J7120

== ENCOUNTER → 2023-01-05 | Outpatient (CLI) | payer MEDICARE, SELFPAY ==
--- NOTE | 2023-01-05 16:52 | RAD_ITS ---
STUDY: X-RAY - RIGHT SHOULDER REASON FOR EXAM: Male, 77 years old. RIGHT SHOULDER PAIN TECHNIQUE: 4 view(s) of the shoulder. COMPARISON: None. FINDINGS: Narrowed glenohumeral articulation. Normal acromioclavicular joint. There is mild periarticular soft tissue calcification Normal acromion. Narrowed subacromial space which may be on the basis of rotator cuff tendon pathology Normal humeral head and visualized proximal humerus. The soft tissue structures are unremarkable. Normal visualized pulmonary apex. RAD/Shoulder min 2 Views IMPRESSION: Degenerative changes. No acute fracture or significant bony pathology. Electronically Signed: Isidro Mo MD at 20:55 EST ,
== END | disposition home or self-care (01) ==
LOC: RAD 16:50
PROVIDERS: PCP Family Medicine Geriatric Medicine; Visit Provider Family Medicine Geriatric Medicine
DX: M25.511 Pain in right shoulder (principal)
CPT/HCPCS: 73030

== ENCOUNTER → 2023-01-23 | Outpatient (CLI) | payer MEDICARE, SELFPAY ==
[2023-01-23 16:06] LABS: AST(SGOT) 23 U/L (15-37); Alanine Aminotransfer ALT/SGPT 37 U/L (16-61); Albumin, Serum 3.3 g/dL (3.2-5.0); Alkaline Phosphatase 95 U/L (45-117); Bilirubin, Direct 0.16 mg/dL (0.00-0.30); Cholesterol 227 mg/dL (200); High Density Lipoprotein 42 mg/dL; Protein, Total 6.3 g/dL (6.4-8.2); Triglycerides 507 mg/dL
== END | disposition home or self-care (01) ==
LOC: LAB 13:54
PROVIDERS: PCP Family Medicine Geriatric Medicine; Visit Provider Internal Medicine Cardiovascular Disease
DX: I25.10 Atherosclerotic heart disease of native coronary artery without angina pectoris (principal); Z95.1 Presence of aortocoronary bypass graft; E78.5 Hyperlipidemia, unspecified
CPT/HCPCS: 36415; 80061; 80076

== ENCOUNTER → 2023-02-05 | Outpatient (CLI) | payer MEDICARE, SELFPAY ==
--- NOTE | 2023-02-05 18:22 | STRESSREP ---
Stress Test Report Pharmacologic myocardial perfusion stress test. 77-year-old man with a history of coronary artery disease Resting EKG demonstrates sinus rhythm with a rate of 66 bpm. Resting blood pressure is 128/80 mmHg. 0.4 mg of regadenoson was infused per usual protocol followed by rapid intravenous saline flush injection. Continuous EKG monitoring was performed. The maximum heart rate was 79 bpm which was 56% of max impacted heart rate the maximum workload was 1 metabolic equivalent. At rest there were no ST or T wave changes noted to suggest ischemia and at peak infusion nonspecific ST changes were noted which did not meet the criteria for ischemia. No clinical angina is noted. The final blood pressure was 120/78 mmHg. Myocardial perfusion protocol. 11.3 mCi of technetium 99m sestamibi was injected at rest. 0.4 mg of regadenoson was infused per usual protocol. At peak infusion 34 mCi of technetium 99m sestamibi was injected stress images were obtained stress and rest images were reconstructed and compared in the short axis vertical long and horizontal long axis. Gated images were also obtained. Perfusion SPECT analysis: Review of the stress images demonstrate normal uptake of tracer noted in all areas of the myocardium. The resting images similar demonstrated normal uptake of tracer noted in all areas of the myocardium. No areas of reversibility are noted to suggest ischemia and no previous infarct is noted. Gated SPECT analysis: The gated ejection fraction is 71%. Conclusion: Normal pharmacologic myocardial perfusion stress test. Preserved ejection fraction.
== END | disposition home or self-care (01) ==
PROVIDERS: PCP Family Medicine Geriatric Medicine; Visit Provider Internal Medicine Cardiovascular Disease
DX: R07.9 Chest pain, unspecified (principal); Z95.1 Presence of aortocoronary bypass graft
CPT/HCPCS: 78452; 93017; A9500; A4216; J2785

== ENCOUNTER → 2023-03-31 | Outpatient (CLI) | payer MEDICARE, SELFPAY ==
[2023-03-31 17:16] LABS: Absolute Lymphocyte Count 0.95 X10^3/uL (0.83-4.51); Absolute Neutrophil Count 5.4 X10^3/uL (2.0-7.7); Basophil# 0.03 X10^3/uL; Basophil% 0.4 % (0-1); Eosinophil# 0.15 X10^3/uL; Eosinophils% 2.1 % (0-5); Hematocrit 52.4 % (40-54); Lymphocyte # 0.95 X10^3/ul (0.83-4.51); Lymphocyte % 13.1 % (19-41); Mean Corp Hgb Conc 32.4 g/dL (32-36); Mean Corpuscular Volume 104.8 fL (80-94); Mean Platelet Vol. 9.9 fl (6.2-12.0); Monocyte# 0.63 X10^3/uL; Monocyte% 8.7 % (0-10); NRBC Flagged by Analyzer 0 % (0-5); Neutrophil # 5.43 X10^3/uL (2.7-7.7); Neutrophil % 75.1 % (47-70); Platelet Count 179 K/mm3 (150-450); RBC Distribution Width CV 13.3 % (11.6-14.6); White Blood Count 7.2 K/mm3 (4.4-11.0)
[2023-03-31 17:43] LABS: Vitamin D,25 Hydroxy 55.7 ng/mL
[2023-03-31 17:57] LABS: ALB/GLOB Ratio 1.1 RATIO (0.9-2.4); AST(SGOT) 30 U/L (15-37); Alanine Aminotransfer ALT/SGPT 37 U/L (16-61); Albumin, Serum 3.5 g/dL (3.2-5.0); Alkaline Phosphatase 109 U/L (45-117); Anion Gap 4 (5-15); BUN 15 mg/dL (7-18); BUN/Creat Ratio 15.2 RATIO (10-20); Calcium,Total 9.7 mg/dL (8.5-10.1); Chloride 107 mmol/L (98-107); Creatinine, Serum 0.99 mg/dL (0.70-1.30); EST Glomerular Filtration Rate 78 mL/min (>60); Est Glom Filt Rate - Afr Amer 94 mL/min (>60); Globulin 3.3 g/dL (2.2-4.2); Glucose 85 mg/dL (74-106); Potassium 4.7 mmol/L (3.5-5.1); Protein, Total 6.8 g/dL (6.4-8.2); Sodium Level 139 mmol/L (136-145); Thyroid Stim Hormone (TSH) 1.91 uIU/mL (0.358-3.74)
== END | disposition home or self-care (01) ==
LOC: POLAB3 14:42
PROVIDERS: PCP Family Medicine Geriatric Medicine; Visit Provider Family Medicine Geriatric Medicine
DX: I10 Essential (primary) hypertension (principal); E55.9 Vitamin D deficiency, unspecified
CPT/HCPCS: 36415; 80053; 82306; 84443; 85025

== ENCOUNTER → 2023-04-30 | Outpatient (CLI) | payer MEDICARE, SELFPAY ==
--- NOTE | 2023-04-30 10:45 | RAD_ITS ---
HISTORY: RIB PAIN. TECHNIQUE: XR Ribs Unilateral W/ PA Chest Min 3 Views. COMPARISON: 02/26/2016. FINDINGS: CARDIOMEDIASTINAL BORDERS: Cardiac silhouette within normal limits in size. Mediastinal contour unremarkable with calcification tortuosity of the aorta. Midline sternotomy with valve prosthesis. Mild hiatal hernia. LUNGS: Mild left basilar scarring again seen. PLEURA: No pleural effusion or pneumothorax seen. OSSEOUS STRUCTURES: No acute displaced rib fracture identified. RAD/Ribs Uni Min 3V w/PA Chest IMPRESSION: No acute displaced rib fracture identified. Mild hiatal hernia. Electronically Signed: Parisa Stock MD at 15:56 EDT ,
== END | disposition home or self-care (01) ==
PROVIDERS: PCP Family Medicine Geriatric Medicine; Referring Provider Family Medicine Geriatric Medicine; Visit Provider Family Medicine Geriatric Medicine
DX: R07.81 Pleurodynia (principal)
CPT/HCPCS: 71101

== ENCOUNTER → 2023-05-18 | Outpatient (CLI) | payer MEDICARE, SELFPAY | END | disposition home or self-care (01) | LOC: POLAB3 15:21 | PROVIDERS: PCP Family Medicine Geriatric Medicine; Visit Provider Family Medicine Geriatric Medicine | DX: N39.0 Urinary tract infection, site not specified (principal) | CPT/HCPCS: 87077; 87086; 87088; 87186 ==

== ENCOUNTER → 2023-05-19 | Outpatient (CLI) | payer MEDICARE, SELFPAY | END | disposition home or self-care (01) | LOC: PSN 12:05 | PROVIDERS: PCP Family Medicine Geriatric Medicine; Referring Provider Family Medicine Geriatric Medicine; Visit Provider Family Medicine Geriatric Medicine | DX: R68.83 Chills (without fever) (principal) | CPT/HCPCS: 87635; 87804; 87807 ==

== ENCOUNTER → 2023-06-17 | Outpatient (CLI) | payer MEDICARE, SELFPAY ==
--- NOTE | 2023-06-17 17:13 | RAD_ITS ---
INDICATION: LEFT HIP PAIN pt states fell x 1 week ago, left hip pain x 4 days, bruising to lateral femur, pain radiates into lower back EXAMINATION/TECHNIQUE: X-RAY - XR Hip Unilateral with Pelvis when performed; 2-3 Views COMPARISON: Pelvis x-rays 09/09/2021 FINDINGS: No fracture demonstrated. The femoral heads are normal in contour. No dislocation at the hips. Surgical clips overlying the left hip and pelvis. RAD/HIP, UNI W/ Pelvis 2-3 Views IMPRESSION: No evidence of fracture. Electronically Signed: Agatha Quintana MD at 4:34 EDT ,
--- NOTE | 2023-06-17 17:18 | RAD_ITS ---
INDICATION: LOW BACK PAIN pt states fell x 1 week ago, lower back pain x 4 days EXAMINATION/TECHNIQUE: X-RAY - XR Spine Lumbar Min 4 Views COMPARISON: None. FINDINGS: Vertebral bodies are normal height. No definite fracture demonstrated. Minimal retrolisthesis of L2 on L3. Disc space narrowing with osteophytes at all levels. Facet arthropathy most pronounced at the lower levels. No paravertebral soft tissue mass identified. Aortic calcifications. RAD/L/S Spine Min 4 Views IMPRESSION: No evidence of fracture or traumatic subluxation. Degenerative changes. Electronically Signed: Agatha Quintana MD at 4:37 EDT ,
== END | disposition home or self-care (01) ==
LOC: RAD 17:04
PROVIDERS: PCP Family Medicine Geriatric Medicine; Referring Provider Family Medicine Geriatric Medicine; Visit Provider Family Medicine Geriatric Medicine
DX: M54.50 Low back pain, unspecified (principal); M25.552 Pain in left hip
CPT/HCPCS: 72110; 73502

== ENCOUNTER → 2023-06-18 | Outpatient (CLI) | payer MEDICARE, SELFPAY | END | disposition home or self-care (01) | LOC: PSN 11:59 | PROVIDERS: PCP Family Medicine Geriatric Medicine; Visit Provider Family Medicine Geriatric Medicine | DX: R68.83 Chills (without fever) (principal) | CPT/HCPCS: 87635; 87804; 87807; C9803 ==

== ENCOUNTER → 2023-08-26 | Outpatient (CLI) | payer MEDICARE, SELFPAY ==
[2023-08-26 16:59] LABS: M R Staph aureus DNA By PCR Negative (Negative); Probe Check PASS; Staph aureus DNA By PCR POSITIVE (Negative)
== END | disposition home or self-care (01) ==
LOC: LABSPEC 14:34
PROVIDERS: PCP Family Medicine Geriatric Medicine; Visit Provider Family Medicine Geriatric Medicine
DX: L03.115 Cellulitis of right lower limb (principal)
CPT/HCPCS: 87070; 87077; 87186; 87205; 87640

== ENCOUNTER 2023-08-28 08:04 | Outpatient (RCR) | payer MEDICARE, SELFPAY ==
--- NOTE | 2023-08-28 09:04 | HP.PTEVAL ---
Patient's Visit Information Visit Information Visit Information: ALMAZ ZUÑIGA is a 77 year old M referred to Physical Therapy by Dr. Kip Parnell MD with a diagnosis of Imbalance and Gait. Date of Evaluation: 08/28/23 Physical Therapist: Joe Garber, PT, ATC Visit Plan Frequency: 2-3x /Week Duration: 4-6 Weeks Plan: Nu-Step, gait ex, balance ex, LE strengthening Subjective Subjective: Pt reports he has had several falls in the past. Pt notes it is usually due to a loss of balance. 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 Pt notes he is a little sore today in his R hip. Pt denies numbness in LE's. Pt reports he gets light headed occasionally if he stands up too quickly. Pt reports he wears glasses secondary to having double vision. Pt notes he sees 2 of everything. Pt notes he feels weak throughout, but especially in his legs. Pt notes he has difficulty with transfers, and notes he is unable to get off of the ground if he falls secondary to LE weakness. Pt feels like he has really debilitated the most over the past 6 months. Pt notes he lives a very seditary lifestyle at this time. Pt has stairs at home and has to negotiate them one step at a time on occasions. Objective Objective: LEFS: 38 Neuro: All LE sensation WNL to light touch; MMT: B Hips: 4/5; B Knee Flex: 4-/5; B Knee Ext: 5/5 FGA: (Age Norm = 24.9) Gait: 680 ft without AD - stopped d/t fatigue Balance/Special Test Scores Functional Gait Assessment Score: 22 % Disability: 26.6700 Lower Extremity Functional Score: 38 Goals Goal 1:: Pt. to improve B hip strength by x1 grade to 5/5 and B Knee Flexion x1 grade to 5-/5 to aid in ability to complete ADLs and iADLs. Goal Time Frame: 4-6 Weeks Goal 2:: Pt. to improve FGA score by 4 points to reflect a MCID to aid in the pts. postural stability during walking and assesses their ability to perform multiple motor tasks while walking. Goal Time Frame: 4-6 Weeks Goal 3:: Pt. to ambulate 1000 ft without AD and without experiencing fatigue or pain in order to aid in community ambulation. Goal Time Frame: 4-6 Weeks Goal 4:: Pt. to be I with HEP to aid in self maintenance and self care. Goal Time Frame: 4-6 Weeks Goal 5:: Pt. to decrease LEFS by 9 points in order to reflect an increase in pts. lower extremity function. Goal Time Frame: 4-6 Weeks Rehabilitation Potential Physical Therapy Diagnosis: Imbalance, weakness, difficulty with ambulation and stairs Rehabilitation Potential: Good Anticipated Interventions Patient/Client Instruction: Educate patient on: Condition For the Purpose of:: To improve self management Therapeutic Exercise to Include: Strength training, Balance training and Body mechanics For the Purpose of:: To improve ability to perform ADL's, To improve performance and independence with ADL's, To improve endurance, To improve balance, To improve safety with gait, To assume or resume ADL's and To improve ability to perform tasks related to life management Text: Thank you for the opportunity to evaluate your patient. For Medicare and Medicare HMO plans, please review the plan of care and approve it. It will need to be FAXED BACK to us at [phone] for Medicare purposes. For Medicare only, by signing this I certify the plan of care. Please let me know if there are questions or concerns regarding this plan of care. Physician Signature: Date:
--- NOTE | 2023-10-20 08:40 | HP.PT.NRP ---
Patient Information Patient Information: ALMAZ ZUÑIGA was seen in my office for initial evaluation on 08/28/23. The following Plan of Care was established for this patient: POC Established Initial Frequency: 2-3x /Week Initial Duration: 4-6 Weeks Anticipated Interventions Patient/Client Instruction: Educate patient on: Condition For the Purpose of:: To improve self management Therapeutic Exercise to Include: Strength training, Balance training and Body mechanics For the Purpose of:: To improve ability to perform ADL's, To improve performance and independence with ADL's, To improve endurance, To improve balance, To improve safety with gait, To assume or resume ADL's and To improve ability to perform tasks related to life management Last Seen Last Seen: This patient was last seen in our office . Pertinent comments regarding their Physical therapy will appear below: Pt did not return after his evaluation. Discontinue at this time At this point I will be discontinuing this patient from physical therapy. I would be happy to see this patient again in the future if found appropriate by the physician. Thank you! Joe Garber, PT, ATC Balance/Gait/Functional tests Balance/Special Test Scores Functional Gait Assessment Score: 22 % Disability: 26.6700 Lower Extremity Functional Score: 38
== END 2023-08-28 19:00 | disposition home or self-care (01) ==
LOC: PT 08:04
PROVIDERS: PCP Family Medicine Geriatric Medicine; Visit Provider Family Medicine Geriatric Medicine
DX: R26.89 Other abnormalities of gait and mobility (principal)
CPT/HCPCS: 97161

== ENCOUNTER → 2023-09-16 | Outpatient (CLI) | payer MEDICARE, SELFPAY ==
--- NOTE | 2023-09-16 10:29 | MRI_ITS ---
STUDY: MRI ORBITS WITH AND WITHOUT CONTRAST REASON FOR EXAM: Male, 77 years old. DIPLOPLIA TECHNIQUE: Standardized fat and water weighted pulse sequences were obtained in all 3 orthogonal planes, pre-and post contrast administration. IV CLARISCAN 15ML was administered for the contrast portion of the examination. COMPARISON: MRI of the brain dated January 11, 2019. Head CT dated January 06, 2020 FINDINGS: Normal bilateral globes. Normal bilateral optic nerve sheath complexes and optic nerves. Normal bilateral intraconal and extraconal spaces. Normal bilateral extraocular muscles. There is no evidence of optic neuritis or optic nerve atrophy or abnormal enlargement. No intraconal or extraconal masses or cysts or fluid collections are present. No visualized retinal detachment or hemorrhage. No demonstrated enlargement or edema of the extraocular muscles. No demonstrated intraorbital cellulitis. Normal optic chiasm and post-chiasmatic tracts. Normal sella turcica, pituitary gland, infundibular stalk, and hypothalamus. Normal bilateral cavernous sinuses. Normal tectal plate and pineal gland. IMPRESSION: 1. Normal enhanced and unenhanced MRI of the orbits. 2. There is no evidence of optic neuritis or optic nerve atrophy or abnormal enlargement. No intraconal or extraconal masses or cysts or fluid collections are present. No visualized retinal detachment or hemorrhage. No demonstrated enlargement or edema of the extraocular muscles. No demonstrated intraorbital cellulitis. STUDY: MRI BRAIN WITH AND WITHOUT CONTRAST REASON FOR EXAM: Male, 77 years old. DIPLOPLIA TECHNIQUE: Standardized multiplanar fat and water weighted pulse sequences were obtained. IV CLARISCAN 15ML was administered for the contrast portion of the examination. COMPARISON: MRI of the brain dated January 11, 2019. Head CT dated January 06, 2020 FINDINGS: There is moderate cerebral atrophy with widening of the extra-axial spaces and ventricular dilatation. There are multiple white matter hyperintensities, distributed throughout the deep white matter tracts of the cerebral hemispheres, consistent with moderate chronic white matter ischemic changes. There is no evidence for recent intracranial ischemia or other cause of cytotoxic edema on diffusion weighted imaging (DWI). Normal T2* images of the brain without demonstrated susceptibility artifact. There is no demonstrated hemosiderin stain. Normal bilateral basal ganglia. Normal thalami. There is no extra-axial fluid accumulation. Normal flow voids within the major intracranial circulation suggesting patency by spin echo criteria. Normal venous enhancement. Stable benign 1.86 cm extra-axial intensely enhancing meningioma in the anterior aspect of the right frontal lobe. There are no additional intra-axial or extra-axial lesions of the brain parenchyma. Normal sella turcica, pituitary gland, infundibular stalk, optic chiasm and hypothalamus. Normal tectal plate and pineal gland. Normal midbrain, chuckie and medulla. Normal cerebellum. Normal basal cisterns. Normal bilateral temporal bones. Normal bilateral internal auditory canals. No demonstrated orbital abnormality, within the constraints of a routine brain study. Normal visualized paranasal sinuses. Normal calvarium and skull base. Normal visualized soft tissue structures. Normal visualized upper cervical spine. MRI/Brain W/WO Contrast IMPRESSION: 1. Stable benign 1.86 cm extra-axial intensely enhancing meningioma in the anterior aspect of the right frontal lobe. There are no additional intra-axial or extra-axial lesions of the brain parenchyma. 2. Involutional and chronic ischemic changes of the brain, as described above. Electronically Signed: Lino Zepeda MD at 14:00 EST ,
[2023-09-17 08:40] LABS: CREATININE FINGERSTICK 1.2 mg/dL (0.70-1.30); EGFR FINGERSTICK > 60.0000 mL/min (>60)
== END | disposition home or self-care (01) ==
PROVIDERS: PCP Family Medicine Geriatric Medicine; Referring Provider Ophthalmology; Visit Provider Ophthalmology
DX: Q89.9 Congenital malformation, unspecified (principal)
CPT/HCPCS: 70553; A9575

== ENCOUNTER → 2023-10-05 | Outpatient (CLI) | payer MEDICARE, SELFPAY ==
[2023-10-05 13:38] LABS: Absolute Lymphocyte Count 1.02 X10^3/uL (0.83-4.51); Basophil# 0.04 X10^3/uL; Basophil% 0.6 % (0-1); Eosinophil# 0.08 X10^3/uL; Eosinophils% 1.2 % (0-5); Hematocrit 50.8 % (40-54); Hemoglobin 16.5 g/dL (13.0-16.5); Lymphocyte # 1.02 X10^3/ul (0.83-4.51); Lymphocyte % 15.1 % (19-41); Mean Corp Hgb Conc 32.5 g/dL (32-36); Mean Corpuscular Hgb 33.5 pg (27.0-32.0); Mean Platelet Vol. 9.7 fl (6.2-12.0); Monocyte# 0.55 X10^3/uL; Monocyte% 8.2 % (0-10); NRBC Flagged by Analyzer 0 % (0-5); Neutrophil # 5.02 X10^3/uL (2.7-7.7); Neutrophil % 74.5 % (47-70); Platelet Count 148 K/mm3 (150-450); RBC Distribution Width CV 12.8 % (11.6-14.6); RBC Distribution Width SD 48.7 fl (35.1-43.9); Red Blood Count 4.93 M/mm3 (4.6-6.2); White Blood Count 6.7 K/mm3 (4.4-11.0)
[2023-10-05 14:04] LABS: ALB/GLOB Ratio 1.1 RATIO (0.9-2.4); AST(SGOT) 26 U/L (15-37); Alanine Aminotransfer ALT/SGPT 44 U/L (16-61); Albumin, Serum 3.4 g/dL (3.2-5.0); Alkaline Phosphatase 114 U/L (45-117); Anion Gap 8 (5-15); BUN 14 mg/dL (7-18); BUN/Creat Ratio 13.7 RATIO (10-20); Calcium,Total 9.4 mg/dL (8.5-10.1); Chloride 107 mmol/L (98-107); Creatinine, Serum 1.02 mg/dL (0.70-1.30); EST Glomerular Filtration Rate 75 mL/min (>60); Est Glom Filt Rate - Afr Amer 90 mL/min (>60); Globulin 3.2 g/dL (2.2-4.2); Glucose 109 mg/dL (74-106); Potassium 4.2 mmol/L (3.5-5.1); Protein, Total 6.6 g/dL (6.4-8.2); Sodium Level 142 mmol/L (136-145); Thyroid Stim Hormone (TSH) 1.66 uIU/mL (0.358-3.74)
== END | disposition home or self-care (01) ==
LOC: POLAB3 11:30
PROVIDERS: PCP Family Medicine Geriatric Medicine; Visit Provider Family Medicine Geriatric Medicine
DX: I10 Essential (primary) hypertension (principal); E55.9 Vitamin D deficiency, unspecified
CPT/HCPCS: 36415; 80053; 82306; 84443; 85025

== ENCOUNTER 2024-02-04 14:30 | Emergency (ER) | payer MEDICARE, SELFPAY ==
[2024-02-04 14:31] VITALS: BP 176/110; PULSE 70; RESP 16; TEMP 36.2; O2SAT 99; BMI 25.0
[2024-02-04] MEDS: Diphth,Pertuss(Acell),Tet Vac 0.5 ML Vial IM (14:57)
[2024-02-04] MEDS: Lidocaine 1% (20 ml mdv) 20 ML Vial INFILT (14:58)
--- NOTE | 2024-02-04 15:00 | EX.ED.UPPERE ---
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 He sustained laceration to the tip of his left thumb. 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) Arthritis Atherosclerotic heart disease of [place] coronary artery without angina pectoris Back pain Cancer Cardiology follow-up encounter Carotid bruit Chest pain on exertion Chronic cough Chronic fatigue Depression Difficulty balancing Easy bruising Essential (primary) hypertension Frequent falls Grief Hemorrhage of gastrointestinal tract High cholesterol History of echocardiogram History of Holter monitoring History of Mohs micrographic surgery for skin cancer History of stress test HLD (hyperlipidemia) Hypertension Injury of head and neck Knee pain Limb weakness Major depression Narcolepsy Olecranon bursitis, left elbow Osteoarthritis Positional lightheadedness Prosthetic aortic valve stenosis Severe obstructive sleep apnea Sleep apnea Staphylococcal infection of skin Thrombocytopenia Wears glasses Wears hearing aid Home Medications nitroglycerin 0.4 mg sublingual tablet 0.4 mg sublingual Q5M PRN Chest Pain 03/01/14 [History Last Taken 03/01/14] biotin 1 mg capsule 5,000 mcg PO DAILY 01/25/19 [History Last Taken Unknown] coenzyme Q10 100 mg capsule (Co Q-10) 100 mg PO DAILY 01/25/19 [History Last Taken Unknown] azelastine 137 mcg (0.1 %) nasal spray aerosol 1 spray intranasal DAILY #30 mL 10/07/19 [History Last Taken Unknown] aspirin 81 mg tablet,delayed release (Adult Aspirin Regimen) 81 mg PO DAILY #1 TAB 01/19/20 [Rx Last Taken 12/18/22] metoprolol tartrate 25 mg tablet 25 mg PO QHS #90 tabs 09/14/20 [Rx Last Taken 12/21/22] benazepril 5 mg tablet 5 mg PO DAILY 01/22/21 [History Last Taken 12/22/22] cholecalciferol (vitamin D3) 25 mcg (1,000 unit) capsule 50 mcg PO DAILY 10/08/22 [History Last Taken Unknown] fluticasone propionate 50 mcg/actuation nasal spray,suspension 2 spray intranasal DAILY allergies 10/08/22 [History Last Taken Unknown] tamsulosin 0.4 mg capsule 0.4 mg PO QHS prostate 10/08/22 [History Last Taken Unknown] levocetirizine 5 mg tablet (Xyzal) 5 mg PO DAILY PRN ALLERGIES 12/17/22 [History Last Taken Unknown] naproxen sodium 220 mg tablet (Aleve) 220 mg PO DAILY 01/23/23 [History Last Taken Unknown] clopidogrel 75 mg tablet (Plavix) 75 mg PO DAILY #90 tabs 02/09/23 [Rx Last Taken Unknown] famotidine 40 mg tablet 40 mg PO QHS #30 tabs 08/11/23 [Rx Last Taken Unknown] lorazepam 0.5 mg tablet 0.5 mg PO QHS PRN anxiety #30 tabs 10/21/23 [Rx Last Taken Unknown] bupropion HCl 150 mg tablet,12 hr sustained-release See Rx Instructions .Route .COMPLEX #270 TABLETS 11/04/23 [Rx Last Taken Unknown] atorvastatin 40 mg tablet See Rx Instructions .Route .COMPLEX #90 tabs 01/13/24 [Rx Last Taken Unknown] mirtazapine 15 mg tablet See Rx Instructions .Route .COMPLEX #90 tabs 01/13/24 [Rx Last Taken Unknown] omeprazole 40 mg capsule,delayed release 40 mg PO DAILY #90 caps 01/13/24 [Rx Last Taken Unknown] Allergy/AdvReac Type Severity Reaction Status Date / Time No Known Allergies Allergy Verified 02/04/24 14:31 Family History Father , Age 70 COPD (chronic obstructive pulmonary disease) Mother , Age 94 Congestive heart failure Brother , Age 61 Sudden cardiac Brother , age 84 Hypertension Hyperlipidemia COPD (chronic obstructive pulmonary disease) Surgical History H/O coronary artery bypass surgery (09/23/02) History of aortic valve replacement with bioprosthetic valve (09/23/02) History of coronary artery stent placement (10/20/08) History of hernia repair History of left heart catheterization History of transcatheter aortic valve replacement (TAVR) (03/22/16) History of uvulectomy Hx of bilateral cataract extraction Hx of colonoscopy Hx of surgical procedure Social History (Updated 02/04/24 @ 15:[address] Benito Rivas MD) household members: none Smoking Status: Never smoker alcohol intake: current alcohol intake frequency: a few times a week Alcohol type: wine substance use type: does not use caffeine: Yes Type: coffee Number of servings: 1 ROS ROS ED Integumentary Reports other Details: Avulsion of left thumb tip ulnar side Neurologic Neurologic: Reports paresthesias and weakness Psychiatric Psychiatric: Reports anxiety; Denies depression Hematologic/Lymphatic Hematologic/Lymphatic: Reports easy bleeding and easy bruising EXAM Physical Exam Const Vital Signs: 02/04/24 14:31 Temperature 97.2 F L Temperature Source Temporal Pulse Rate 70 Respiratory Rate 16 Blood Pressure 176/110 H Blood Pressure Mean 132 Pulse Ox 99 Oxygen Delivery Method Room Air Positive well nourished and well developed General Appearance ED: well developed and NAD; Negative for cyanotic or diaphoretic HEENT Reports moist mucous membranes normocephalic and atraumatic Eyes PERRL and EOMs intact bilaterally Resp normal respiratory effort Cardio regular rate and regular rhythm Extremity Negative for normal to inspection Extremity Narrative: Patient has a flap laceration ulnar distal left thumb. The pedicle appears to be viable. Sensations intact. Cap refill is normal. There is no subungual hematoma. Patient is able to extend and flex at the IP and MCP joint of his left thumb. He is able to AB duct and adductor as well. Neuro oriented x3, CN's II-XII intact bilaterally, no focal motor deficits and no sensory deficits noted Sensorium / Orientation: alert Psych mental status grossly normal MDM MDM MDM Narrative Medical decision making narrative: Patient prior records were reviewed. Patient has extensive cardiac history. He is on Plavix. Is on no anticoagulant. He is reportedly on Plavix because of valve replacement. Since our no neurovasc compromise will anesthetize thumb and suture flap in place. Circumference of the wound is 2.5 cm. Patient was anesthetized by metacarpal block as well as no sensation of the superficial radial nerve. After 15 minutes patient was reassessed. No sensation. The wound was irrigated with 100 cc of normal saline. The wound was closed using 5-0 Ethilon. A total of 5 stitches was placed. Patient tolerated procedure well. Of note patient has a bruise everyplace he was stuck with a needle to anesthetize. This is due to his Plavix. He states he bruises quite easily. Discharge Plan Triage Chief Complaint: Laceration ED Provider: Benito Rivas Dx/Rx/DC Orders Clinical Impression: Laceration of thumb without foreign body without damage to nail, HLD (hyperlipidemia), Thrombocytopenia, History of aortic valve replacement with bioprosthetic valve, H/O coronary artery bypass surgery, Prosthetic aortic valve stenosis, Current long-term use of anticoagulant medication with history of deep venous thrombosis (DVT) Instructions: ED Laceration, Hand: All Closures Prescriptions: No Action coenzyme Q10 [Co Q-10] 100 mg capsule 100 mg PO DAILY biotin 1 mg capsule 5,000 mcg PO DAILY fluticasone propionate 50 mcg/actuation spray,suspension 2 spray INTRANASAL DAILY tamsulosin 0.4 mg capsule 0.4 mg PO QHS azelastine 137 mcg (0.1 %) aerosol,spray 1 spray INTRANASAL DAILY Qty: 30 cholecalciferol (vitamin D3) 25 mcg (1,000 unit) capsule 50 mcg PO DAILY metoprolol tartrate 25 mg tablet 25 mg PO QHS Qty: 90 3RF benazepril 5 mg tablet 5 mg PO DAILY naproxen sodium [Aleve] 220 mg tablet 220 mg PO DAILY famotidine 40 mg tablet 40 mg PO QHS Qty: 30 2RF lorazepam 0.5 mg tablet 0.5 mg PO QHS PRN (Reason: anxiety) Qty: 30 1RF nitroglycerin 0.4 MG tablet 0.4 mg sublingual Q5M PRN (Reason: Chest Pain) Patient Comments: CHEST PAIN levocetirizine [Xyzal] 5 mg Tablet 5 mg PO DAILY PRN (Reason: ALLERGIES) aspirin [Adult Aspirin Regimen] 81 mg tablet,delayed release (DR/EC) 81 mg PO DAILY Qty: 1 0RF Patient Comments: was not told to stop clopidogrel [Plavix] 75 mg tablet 75 mg PO DAILY Qty: 90 3RF Patient Comments: stop as instructed for colonoscopy bupropion HCl 150 mg tablet sustained-release 12 hr See Rx Instructions .ROUTE .COMPLEX Qty: 270 3RF Dose Instruction: TAKE 2 TABLETS (300 MG) EVERY MORNING AND 1 TABLET EVERY EVENING Rx Instructions: TAKE 2 TABLETS (300 MG) EVERY MORNING AND 1 TABLET EVERY EVENING omeprazole 40 mg capsule,delayed release(DR/EC) 40 mg PO DAILY Qty: 90 3RF atorvastatin 40 mg tablet See Rx Instructions .ROUTE .COMPLEX Qty: 90 3RF Dose Instruction: TAKE 1 TABLET AT BEDTIME Rx Instructions: TAKE 1 TABLET AT BEDTIME mirtazapine 15 mg tablet See Rx Instructions .ROUTE .COMPLEX Qty: 90 2RF Dose Instruction: TAKE 1 TABLET AT BEDTIME Rx Instructions: TAKE 1 TABLET AT BEDTIME Primary Care Provider: Kip Parnell Chi Referrals: Kip Parnell Chi, MD [Primary Care Provider] - 10-14 Days suture removal Activity Restrictions/Additional Instructions: 1. Clean wound with peroxide on a Q-tip 3 times a day 2. After cleaning wound with peroxide apply bacitracin ointment 3. If there is any concern for infection follow-up with Dr. Parnell; otherwise, the sutures out after 10 to 14 days Disposition Disposition: Home, Self Care
[2024-02-04 16:00] VITALS: BP 154/84; PULSE 76; RESP 14; TEMP 36.1; O2SAT 100
== END 2024-02-04 16:01 | disposition home or self-care (01) ==
PROVIDERS: Emergency Provider Emergency Medicine; PCP Family Medicine Geriatric Medicine; Visit Provider Emergency Medicine
DX: S61.012A Laceration without foreign body of left thumb without damage to nail, initial encounter (principal); G47.33 Obstructive sleep apnea (adult) (pediatric); I25.10 Atherosclerotic heart disease of native coronary artery without angina pectoris; I10 Essential (primary) hypertension; E78.00 Pure hypercholesterolemia, unspecified; Z79.82 Long term (current) use of aspirin; Z79.899 Other long term (current) drug therapy; Z79.02 Long term (current) use of antithrombotics/antiplatelets; F32.A Depression, unspecified; Z95.5 Presence of coronary angioplasty implant and graft; Z95.3 Presence of xenogenic heart valve; Z98.41 Cataract extraction status, right eye; Z98.42 Cataract extraction status, left eye; W26.0XXA Contact with knife, initial encounter
CPT/HCPCS: 12001; 90715; 99284

== ENCOUNTER → 2024-02-18 | Outpatient (CLI) | payer MEDICARE, SELFPAY | END | disposition home or self-care (01) | LOC: PSN 14:08 | PROVIDERS: PCP Family Medicine Geriatric Medicine; Referring Provider Family Medicine Geriatric Medicine; Visit Provider Family Medicine Geriatric Medicine | DX: R68.83 Chills (without fever) (principal) | CPT/HCPCS: 87631 ==

== ENCOUNTER → 2024-03-24 | Outpatient (CLI) | payer MEDICARE, SELFPAY | END | disposition home or self-care (01) | LOC: PSN 09:26 | PROVIDERS: PCP Family Medicine Geriatric Medicine; Referring Provider Family Medicine Geriatric Medicine; Visit Provider Family Medicine Geriatric Medicine | DX: R68.83 Chills (without fever) (principal) | CPT/HCPCS: 87631 ==

== ENCOUNTER → 2024-03-30 | Outpatient (CLI) | payer MEDICARE, SELFPAY ==
[2024-03-30 12:56] LABS: Absolute Lymphocyte Count 1.07 X10^3/uL (0.83-4.51); Absolute Neutrophil Count 6.1 X10^3/uL (2.0-7.7); Basophil# 0.05 X10^3/uL; Basophil% 0.6 % (0-1); Eosinophil# 0.26 X10^3/uL; Eosinophils% 3.1 % (0-5); Hematocrit 46.1 % (40-54); Hemoglobin 15.2 g/dL (13.0-16.5); Lymphocyte # 1.07 X10^3/ul (0.83-4.51); Lymphocyte % 12.8 % (19-41); Mean Corpuscular Hgb 34.1 pg (27.0-32.0); Mean Corpuscular Volume 103.4 fL (80-94); Mean Platelet Vol. 9.7 fl (6.2-12.0); Monocyte# 0.73 X10^3/uL; Monocyte% 8.8 % (0-10); NRBC Flagged by Analyzer 0 % (0-5); Neutrophil # 6.13 X10^3/uL (2.7-7.7); Neutrophil % 73.6 % (47-70); Platelet Count 159 K/mm3 (150-450); RBC Distribution Width CV 13.3 % (11.6-14.6); RBC Distribution Width SD 50.8 fl (35.1-43.9); Red Blood Count 4.46 M/mm3 (4.6-6.2); White Blood Count 8.3 K/mm3 (4.4-11.0)
[2024-03-30 13:34] LABS: Vitamin D,25 Hydroxy 48.1 ng/mL
[2024-03-30 14:01] LABS: ALB/GLOB Ratio 1.5 RATIO (0.9-2.4); AST(SGOT) 34 U/L (15-37); Alanine Aminotransfer ALT/SGPT 61 U/L (16-61); Albumin, Serum 3.6 g/dL (3.2-5.0); Alkaline Phosphatase 84 U/L (45-117); Anion Gap 6 (5-15); BUN 23 mg/dL (7-18); BUN/Creat Ratio 23.7 RATIO (10-20); Calcium,Total 9.2 mg/dL (8.5-10.1); Chloride 109 mmol/L (98-107); Cholesterol 171 mg/dL (200); Creatinine, Serum 0.97 mg/dL (0.70-1.30); EST Glomerular Filtration Rate 79 mL/min (>60); Est Glom Filt Rate - Afr Amer 96 mL/min (>60); Globulin 2.4 g/dL (2.2-4.2); Glucose 78 mg/dL (74-106); High Density Lipoprotein 53 mg/dL; Sodium Level 140 mmol/L (136-145); Thyroid Stim Hormone (TSH) 3.18 uIU/mL (0.358-3.74); Triglycerides 300 mg/dL; Very Low Density Lipoprotein 60 mg/dL (5-40)
== END | disposition home or self-care (01) ==
LOC: LAB 11:34
PROVIDERS: PCP Family Medicine Geriatric Medicine; Referring Provider Family Medicine Geriatric Medicine; Visit Provider Family Medicine Geriatric Medicine
DX: I10 Essential (primary) hypertension (principal); E55.9 Vitamin D deficiency, unspecified; E78.5 Hyperlipidemia, unspecified
CPT/HCPCS: 36415; 80053; 80061; 82306; 84443; 85025

== ENCOUNTER → 2024-05-05 | Outpatient (CLI) | payer MEDICARE, SELFPAY ==
--- NOTE | 2024-05-05 09:56 | ECHOD_ITS ---
Reason For Study: Presence of xenogenic Heart Valve Procedure This was a 2D Doppler, Color Flow transthoracic echocardiogram. Exam performed in department. Left Ventricle Normal LV size. Left ventricular systolic function is normal. The estimated ejection fraction is 60 %. Stage 1 diastolic dysfunction. Right Ventricle Normal RV size. Normal systolic function. Atria The left atrium is moderately enlarged. The right atrium is mildly enlarged. Mitral Valve The mitral valve is structurally normal. No prolapse or stenosis seen. Mild (1+) mitral valve insufficiency. Tricuspid Valve Normal tricuspid valve. Mild to moderate (1-2+) tricuspid valve insufficiency. Aortic Valve Trivial aortic valve insufficiency. Bioprosthetic aortic valve. Mean peak gradient 19 mmHg which is not significantly different from the study from 07/25/2021. Pulmonic Valve The pulmonic valve is not well visualized. Great Vessels Aortic root normal in size. Possible flap noted in ascending aorta. Cannot rule out dissection or intramural hematoma. Recommend CT scan for further evaluation. Pericardium/Pleural No pericardial effusion. MMode/2D Measurements & Calculations LVIDd: 4.4 cm IVSd: 1.0 cm LVOT diam: 2.0 cm LVIDs: 2.8 cm LVPWd: 1.0 cm LVOT area: 3.2 cm2 FS: 37.2 % Ao root diam: 3.1 cm LAV(MOD-bp): 63.1 ml LVAd ap4: 24.1 cm2 LAV(MOD-bp) Indexed: 35.1 ml/m2 LVLd ap4: 7.2 cm LAV(MOD-sp2): 57.0 ml EDV(MOD-sp4): 66.9 ml LAV(MOD-sp4): 65.6 ml EDV(sp4-el): 68.1 ml LVAs ap4: 15.3 cm2 LVLs ap4: 6.1 cm ESV(MOD-sp4): 32.2 ml ESV(sp4-el): 32.5 ml EF(MOD-sp4): 51.8 % EF(sp4-el): 52.3 % SV(MOD-sp4): 34.7 ml SV(sp4-el): 35.6 ml LA A4 area: 22.2 cm2 RA A4 area: 21.4 cm2 TAPSE: 1.2 cm Time Measurements MV dec time: 0.26 sec Doppler Measurements & Calculations MV E max elpidio: 62.3 cm/sec Lat Peak E' Elpidio: 6.2 cm/sec Med Peak E' Elpidio: 5.8 cm/sec MV A max elpidio: 109.9 cm/sec E/E' lat: 10.1 E/E' med: 10.7 MV E/A: 0.57 MV V2 max: 126.3 cm/sec MV P1/2t max elpidio: 85.4 cm/sec Ao V2 max: 298.3 cm/sec MV max P.4 mmHg MV P1/2t: 112.5 msec Ao max P.6 mmHg MV V2 mean: 66.0 cm/sec Ao V2 mean: 200.9 cm/sec MV mean P.0 mmHg MV dec slope: 222.5 cm/sec2 Ao mean P.9 mmHg MV V2 VTI: 37.9 cm MVA(P1/2t): 2.0 cm2 Ao V2 VTI: 62.2 cm AV (velocity ratio): 0.41 MVA(VTI): 2.1 cm2 POLO(I,D): 1.3 cm2 POLO(V,D): 1.3 cm2 LV V1 max: 122.6 cm/sec SV(LVOT): 80.8 ml PA V2 max: 144.1 cm/sec LV V1 max P.0 mmHg PA max PG (full): 6.3 mmHg LV V1 mean P.1 mmHg LV V1 mean: 80.4 cm/sec LV V1 VTI: 25.2 cm TR max elpidio: 249.2 cm/sec TR max P.8 mmHg ECHO/Echo Complete Interpretation Summary The estimated ejection fraction is 60 %. Stage 1 diastolic dysfunction. The left atrium is moderately enlarged. The right atrium is mildly enlarged. Bioprosthetic aortic valve. Mean peak gradient 19 mmHg which is not significant ly different from the study from 07/25/2021. Aortic root normal in size. Possible flap noted in ascending aorta. Cannot rule out dissection or intramural hematoma. Recommend CT scan for further evaluation. Ordering Physician: Anderson Jonas Referring Physician: Anderson Jonas Performed By: Anson Hardy RCS
--- NOTE | 2024-05-05 12:12 | CT_ITS ---
STUDY: CTA CHEST REASON FOR EXAM: Male, 78 years old. Possible dissection. History of aortic valve replacement. RADIATION DOSAGE (If Supplied By Facility): CTDIvol = ( 9.38 ) mGy, DLP = ( 667.72 ) mGycm TECHNIQUE: The examination was performed with the intravenous administration of IV 100mL Isovue-370. Post-processing of the angiographic images was performed, with multiplanar reformation and 3D reconstruction. Individualized dose optimization techniques were used for this CT. COMPARISON: None. FINDINGS: Normal enhancement of the main pulmonary artery and right and left pulmonary arteries. Normal enhancement of the bilateral peripheral pulmonary arteries. There is no demonstrated pulmonary embolism. There is atherosclerotic calcification of the aortic arch and descending thoracic aorta. Aortic valve prostheses. The root of the ascending thoracic aorta measures 3.5 cm in transverse dimension. There is evidence of mural thrombus. This extends to the region of the aortic valve. No evidence of dissection. Atherosclerotic calcification at the origin of the left subclavian artery as well as the left common carotid artery and right brachiocephalic artery. There are calcifications of the coronary arteries. Sternal cerclage wires and vascular clips are present from a prior sternotomy and coronary artery bypass graft procedure (CABG). Normal mediastinum. Normal hilar regions. Normal visualized trachea and bronchi. The lungs are well expanded. Normal pulmonary parenchyma. Normal pleura. Normal chest wall structures. There are degenerative changes of thoracic spine. Moderate-sized hiatal hernia. Nonobstructive calculus in the upper pole of the left kidney. CT/CTA Chest W/WO Contrast IMPRESSION: Status post aortic valve replacement. The root of the ascending thoracic aorta measures 3.5 cm in transverse dimension. There is evidence of mural thrombus. No evidence of dissection at this time. Prior CABG and coronary artery calcification. Electronically Signed: Robert England MD at 13:14 EDT ,
[2024-05-06 09:28] LABS: CREATININE FINGERSTICK < 1.0 mg/dL (0.70-1.30); EGFR FINGERSTICK > 60.0000 mL/min (>60)
== END | disposition home or self-care (01) ==
PROVIDERS: PCP Family Medicine Geriatric Medicine; Referring Provider Internal Medicine Cardiovascular Disease; Visit Provider Internal Medicine Cardiovascular Disease
DX: Z95.3 Presence of xenogenic heart valve (principal)
CPT/HCPCS: 71275; 93306; Q9967

== ENCOUNTER → 2024-07-05 | Outpatient (CLI) | payer MEDICARE, SELFPAY ==
--- NOTE | 2024-07-05 10:51 | RAD_ITS ---
EXAM: XR LUMBOSACRAL SPINE, 5 VIEWS CLINICAL INDICATION: LOW BACK PAIN TECHNIQUE: Frontal, lateral and bilateral oblique views of the lumbar spine. COMPARISON: No relevant prior studies available. FINDINGS: VERTEBRAEDISCS: Moderate-marked disc space narrowing at L2-3 with mild endplate sclerosis and anterior spondylosis. Moderate disc space narrowing at L3-4 and L4-5 with prominent anterior spondylosis at L3-4. Prominent posterior facet joint sclerosis and hypertrophy at L3-S1, likely contribute to some degree of spinal stenosis. No significant spondylolisthesis. Mild straightening of the usual lordotic curvature. The L5-S1 disc space is well-maintained. OTHER: Heavily calcified infrarenal aorta, no evidence of aneurysm. Mild gas and stool colon, minimal if any small bowel gas. Median sternotomy wires are partially included. RAD/L/S Spine Min 4 Views IMPRESSION: Multilevel degenerative changes, including multilevel at least moderate disc space narrowing and marked multilevel hypertrophic posterior element-facet joint hypertrophic changes. Electronically Signed: Gilma Farias MD at 1:54 EDT ,
--- NOTE | 2024-07-05 11:00 | RAD_ITS ---
EXAM: XR THORACIC SPINE, 3 views including superiorly and inferiorly positioned lateral views. CLINICAL INDICATION: LOW BACK PAIN TECHNIQUE: Frontal and lateral views of the thoracic spine. COMPARISON: No relevant prior studies available. FINDINGS: SPINE: No significant compression deformities. Mild anterior spondylosis at multiple lower thoracic levels. No evidence of retropulsion. OTHER: Aortic valve prosthesis. Median sternotomy wires. Mild cardiomegaly. Minimal left basilar atelectasis, infiltrate or scarring. RAD/Thoracic Spine 2 Views IMPRESSION: No evidence of thoracic spinal fracture or spondylolisthesis. Electronically Signed: Gilma Farias MD at 1:57 EDT ,
== END | disposition home or self-care (01) ==
LOC: RAD 10:50
PROVIDERS: PCP Family Medicine Geriatric Medicine; Referring Provider Family Medicine Geriatric Medicine; Visit Provider Family Medicine Geriatric Medicine
DX: M54.50 Low back pain, unspecified (principal)
CPT/HCPCS: 72070; 72110

== ENCOUNTER 2024-09-29 08:25 | Day surgery (SDC) | payer MEDICARE, SELFPAY ==
--- NOTE | 2024-09-29 | IMM_PTH ---
PATIENT: ALMAZ ZUÑIGA LOC: EN U#:[id number] AGE/SX: 78/M ROOM: RE09/29/[address]: Dr. Oswald Cates DO : 1945 BED: DIS: 09/29/2024 SPEC #: [id number] RECD: 09/30/24 11:19 STATUS: RADHA REQ #: [id number] KATHLEEN: 09/29/24 00:[address]: Oswald Cates DEPT: IMMUNOHISTOCHEMISTRY RECD BY: Nicola Guzman ENTERED: 09/30/24 11:19 SP TYPE: IMMUNO OT DR: Dr. Kip Parnell MD Tissues: Esophagus, NOS Procedures: P53 (initial) KI-67 (add) PHYSICIAN & INSTITUTION [place] [id number] SPECIMEN INFORMATION: Tissue Source: Distal esophagus biopsy Clinical Info: GERD, Rosado's esophagus Specimen Number: [id number] CPT code: 88845,29323 METHODOLOGY: Deparaffinized sections of prefer/formalin-fixed tissue or PAP/DQ stained slides are incubated with monoclonal/polyclonal antibodies/oligonucleotide probes. Localization is made via biotin free immunoperoxidase method. Appropriate controls are performed and reacted as expected. Results on target cell population are indicated in the following table: RESULTS: ANTIBODY / CLONE RESULT P53 (DO-7) positive, wild type Ki-67 (30-9) positive, low These tests were developed and their performance characteristics determined by [facility]. They may not have been cleared or approved by the U.[place]. Food and Drug Administration. The FDA has determined that such clearance or approval is not necessary. The above immunohistochemical/dualISH markers are ordered and reviewed by the Pathologist. INTERPRETATION: Distal esophagus, biopsy: No evidence of dysplasia. AM 10/04/2024
--- NOTE | 2024-09-29 08:45 | PRE.ANES_ITS ---
ASA Classification* ASA Classification ASA Classification: 3 Assessment & Plan Anesthesia* Anesthesia Assessment Anesthesia Assessment: Discussed sedation and/or anesthesia options, risks, benefits, and alternatives with patient/parents/legal guardian/POA. Questions invited. The patient/parents/legal guardian/POA seems to understand and agrees to proceed with anesthesia plan. Reviewed the physical assessment, medical history, allergy history and patient home medications list prior to surgery/procedure/anesthetic and documented any changes. Performed airway and anesthesia risk assessments. Anesthesia Type Anesthesia Type: MAC Anesthesia Focused Assessment* Airway Assessment Mouth opens: >3 cm Mallampati Score: II Focused Labs Anesthesia Preop lab: CBC WBC 8.3 K/mm3 (4.4-11.0) 03/30/24 11:44 RBC 4.46 M/mm3 (4.6-6.2) L 03/30/24 11:44 Hgb 15.2 g/dL (13.0-16.5) 03/30/24 11:44 Hct 46.1 % (40-54) 03/30/24 11:44 Plt Count 159 K/mm3 (150-450) 03/30/24 11:44 CHEMISTRY Potassium 4.0 mmol/L (3.5-5.1) 03/30/24 11:44 Sodium 140 mmol/L (136-145) 03/30/24 11:44 Magnesium 2.0 mg/dL (1.8-2.4) 06/29/15 03:20 Phosphorus 2.8 mg/dL (2.5-4.9) 06/29/15 03:20 BUN 23 mg/dL (7-18) H 03/30/24 11:44 Creatinine 0.97 mg/dL (0.70-1.30) 03/30/24 11:44 Glucose 78 mg/dL (74-106) 03/30/24 11:44 POC Glucose 102 mg/dL (70-110) 06/29/15 11:25 TSH 3.18 uIU/mL (0.358-3.74) 03/30/24 11:44 COAG PT 15.2 SECONDS (11.7-14.9) H 01/19/20 14:00 Pre-Assessment Diagnosis/Proposed Procedure Planned Operative Procedure(s): EGD Anesthesia History 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 When Was Last Pacemaker Check QUESTION #4 FULL TEXT: You/Your Family Experience fever (hyperthermia) with Anesthesia Last Oral Intake Last Oral intake: Last Oral Intake NPO since Meds taken in AM with sips of water? Meds patient instructed to take am of surgery PONV PONV - petroleum laboratory technician: PONV - petroleum laboratory technician Female No 09/28/24 10:19 HX of Motion Sickness No 09/28/24 10:19 HX of N/V After Surgery No 09/28/24 10:19 Non-Smoker Yes 09/28/24 10:19 Duration of Surgery greater No 09/28/24 10:19 than 60 minutes Number of Risk Factors 1 09/28/24 10:19 PONV Score Low Risk 09/28/24 10:19 Height & Weight Height & Weight: Anesthesia: Height & Weight Height 5 ft 6 in 08/02/24 10:16 Respiratory Assessment Respiratory Assessment - petroleum laboratory technician: Respiratory Tract Infection Hx - petroleum laboratory technician Hx Respiratory Tract Infection No 09/28/24 10:19 STOP Sleep Apnea STOP Sleep Apnea - petroleum laboratory technician: STOP Sleep Apnea - petroleum laboratory technician Hx Hypertension Yes: controlled with med 09/28/24 10:19 Hx Sleep Apnea Yes 09/28/24 10:19 CPAP Yes: not able to use 09/28/24 10:19 BIPAP No 09/28/24 10:19 Do you snore loudly (louder than talking or can be heard Do you often feel tired/ fatigued/ sleepy during daytime? Has anyone observed you stop breathing during sleep? STOP Results Positive 09/28/24 10:19 QUESTION #5 FULL TEXT : Do you snore loudly (louder than talking or can be heard through closed doors)? 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 Specify any problems Hx of Preganancy in last 3 N/A 09/28/24 10:19 Months Nurse Filling Out Transfusion DSCHRIBER 09/28/24 10:19 & Questions: Date: 09/28/24 09/28/24 10:19 Time: 10:20 09/28/24 10:19 Patient unable to answer at this time (ie. confused, unrespo /Reproduction History /Reproductive History - petroleum laboratory technician: /Reproductive Hx- petroleum laboratory technician Hx Now No 09/28/24 10:19 Gestational Age (in weeks): EDC: Hx Hx Para Hx Section SAB No 09/28/24 10:19 PFS Medical History Fall Aortic aneurysm and dissection Grief Wears hearing aid Wears glasses Alcohol use High cholesterol Narcolepsy Injury of head and neck History of Holter monitoring History of echocardiogram History of stress test Hypertension Cardiology follow-up encounter History of Mohs micrographic surgery for skin cancer Major depression Acute decompensated heart failure Chronic cough Severe obstructive sleep apnea Positional lightheadedness Essential (primary) hypertension 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) Back pain Limb weakness Difficulty balancing Knee pain Cancer Arthritis Chest pain on exertion Abnormal stress test Carotid bruit Atherosclerotic heart disease of [place] coronary artery without angina pectoris Osteoarthritis Depression Thrombocytopenia HLD (hyperlipidemia) Home Medications ?Medication ?Instructions ?Recorded ?Last Taken ?Type nitroglycerin 0.4 mg sublingual 0.4 mg sublingual Q5M PRN Chest 03/01/14 03/01/14 History tablet Pain biotin 1 mg capsule 5,000 mcg PO DAILY 01/25/19 Unknown History aspirin 81 mg tablet,delayed 81 mg PO DAILY #1 TAB 01/19/20 12/18/22 Rx release (Adult Aspirin Regimen) metoprolol tartrate 25 mg tablet 25 mg PO QHS #90 tabs 09/14/20 12/21/22 Rx benazepril 5 mg tablet 5 mg PO DAILY 01/22/21 12/22/22 History cholecalciferol (vitamin D3) 25 50 mcg PO DAILY 10/08/22 Unknown History mcg (1,000 unit) capsule tamsulosin 0.4 mg capsule 0.4 mg PO QHS prostate 10/08/22 Unknown History clopidogrel 75 mg tablet (Plavix) 75 mg PO DAILY #90 tabs 02/09/23 09/25/24 Rx omeprazole 40 mg capsule,delayed 40 mg PO DAILY #90 caps 01/13/24 09/24/24 Rx release methylphenidate HCl 5 mg tablet 5 mg PO DAILY PRN ADHD 04/11/24 Unknown History (Ritalin) naproxen sodium 220 mg tablet 220 mg PO DAILY PRN pain 05/18/24 Unknown History (Aleve) lorazepam 0.5 mg tablet 0.5 mg PO QHS PRN anxiety #30 tabs 08/02/24 Unknown Rx aluminum hydrox-magnesium carb 160 2 tab PO BID PRN dyspepsia 09/28/24 09/26/24 History mg-105 mg chewable tablet (Gaviscon Extra Strength) atorvastatin 40 mg tablet 40 mg PO QHS 09/28/24 Unknown History bupropion HCl 150 mg 24 hr tablet, 150 mg PO QHS 09/28/24 Unknown History extended release bupropion HCl 150 mg tablet,12 hr 300 mg PO DAILY 09/28/24 Unknown History sustained-release famotidine 40 mg tablet 40 mg PO QHS PRN GERD 09/28/24 09/24/24 History mirtazapine 15 mg tablet 15 mg PO QHS 09/28/24 Unknown History Allergy/AdvReac Type Severity Reaction Status Date / Time No Known Allergies Allergy Verified 09/28/24 10:12 Family History Father , Age 70 COPD (chronic obstructive pulmonary disease) Mother , Age 94 Congestive heart failure Brother , Age 61 Sudden cardiac Brother , age 84 Hypertension Hyperlipidemia COPD (chronic obstructive pulmonary disease) Surgical History Hx of oral surgery History of esophagogastroduodenoscopy (EGD) Hx of surgical procedure Hx of colonoscopy Hx of bilateral cataract extraction History of uvulectomy History of hernia repair History of transcatheter aortic valve replacement (TAVR) (03/22/16) History of coronary artery stent placement (10/20/08) H/O coronary artery bypass surgery (09/23/02) History of aortic valve replacement with bioprosthetic valve (09/23/02) History of left heart catheterization Social History household members: none Smoking Status: Never smoker alcohol intake: current alcohol intake frequency: a few times a week Alcohol type: wine substance use type: does not use caffeine: Yes Type: coffee Number of servings: 1 Review of Systems (Anesthesia) ROS Narrative System reviewed and no additional complaints, except as documented.
[2024-09-29 08:51] VITALS: BP 158/79; PULSE 81; RESP 18; TEMP 36.8; O2SAT 97; BMI 25.7
--- NOTE | 2024-09-29 09:03 | HP.PCM_ITS ---
History and Physical Date of Admission: 09/29/24 Chief Complaint: f/u sleep apnea vs narcolepsy Details: ALMAZ ZUÑIGA, is a 78 M who presents to the office today for follow up. PMH aortic valve disorder; CAD s/p CABG 1977; depression; HTN; hyperlipidemia; chronic sinusitis. FH brother asthma *BGI established 10.22.22 with referral from PCP. Chronic cough with wheeze for 20-30 years present both day and night; cough syrup helpful, PO steroids helpful, azelastine and levocetirizine helpful, gabapentin ineffective. GERD for which he utilizes omeprazole. ? Biochemical workup ESR, CRP, ADDISON comp, celiac, IgG(H590)ILYA, MÓNICA, ANCA, gastrin without pertinent abnormality.? EGD 12.22.22 Irregular Zline 37cm, Rosado?s +; large hiatal hernia; erythematous duodenopathy. OV 3.8.23 omeprazole ended approximately a week ago and he experienced heartburn; started Pepcid and daytime heartburn has ceased. Nocturnal regurgitation approximately 2 nights a week has been noted; last meal 6PM and lays down for bed 10PM; has noted that going to bed earlier triggers symptoms. OV 10.3.23 reports mild constipation for which he uses a OTC laxative that is effective and is happy with this pattern. Continues with omeprazole; reflux is only a difficulty if he eats right before bed. OV 10.15.24 pt reports that he is doing well overall, notes some mild constipation. Pt reports that he takes 4 Metamucil capsules a day and is having a formed daily bm; does state it can sometimes be hard to pass. Pt reports that once a month he will wake up with bile in his mouth, he will then take a Pepcid and some tums and that is effective. ROS Const Constitutional: Positive for frequent falls and weakness; No fatigue, fever(s) or weight change ENT ENT: No difficulty swallowing Gastro GI: Positive for constipation; No abdominal pain, belching, bloating, change in bowel habits, change in stool character, coffee ground emesis, cramping, diarrhea, heartburn, difficulty swallowing, feeling full early, excessive flatus, incontinent of stools, Vomiting blood/hematemesis, Blood in stool, loose stools, Black,tarry stools, nausea/dyspepsia, pain with swallowing, vomiting or other Musc Musculoskeletal: Positive for abnormal gait, muscle weakness and leg pain at night; No joint pain Skin Skin: No yellowing of the eye or itchy eyes Neuro Neurology: Positive for abnormal gait, weakness and frequent falls Psych Psychiatric: Positive for anxiety and Positive for depression Endo Endocrine: No fatigue or weight change Aller/Imm Allergy/Immunologic: No itchy eyes Ryan/Lymp Hematologic/Lymphatic: Positive for easy bruising; No easy bleeding Exam Const General: cooperative and well developed [facility] Head: normal to inspection and atraumatic Ears: hearing grossly normal bilaterally Nose: nasal discharge clear Face and sinus: normal facial exam Mouth: oral mucosae normal Throat: abnormal tonsil bilaterally hypertrophy 1+ Resp Effort & Inspection: normal respiratory effort and no audible wheezes Auscultation: Bilateral: Clear to Auscultation Cardio Palpation: normal PMI Rate: regular rate Rhythm: regular rhythm Neuro General: patient alert and CN's II-XI intact bilaterally Psych Appearance: grossly normal Mental Status: mental status grossly normal Assessment and Plan Assessment and Plan (1) GERD (gastroesophageal reflux disease): Status: Acute Qualifiers: Esophagitis presence: without esophagitis Qualified Code(s): K21.9 - Gastro-esophageal reflux disease without esophagitis Plan: Patient LA grade D erosive esophagitis in the setting of a hiatal hernia. He is on PPI therapy and as long as he takes it he does not get any symptoms of reflux disease. We will have him on a once a day and repeat his upper endoscopy in approxi-1 year. He can take famotidine 20mg at night as needed. 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 I would recommend to continue PPI therapy. Risk and benefits of PPI therapy was explained to the patient in great detail. Coding Level of Care Code Off vis,est,level 4 I have examined the patient and the H&P has been reviewed. There are no clinical changes since date of exam.
--- NOTE | 2024-09-29 09:15 | EGD_PTH ---
PATIENT: ALMAZ ZUÑIGA LOC: EN U#:[id number] AGE/SX: 78/M ROOM: RE09/29/[address]: Dr. Oswald Cates DO : 1945 BED: DIS: 09/29/2024 SPEC #: [id number] RECD: 09/29/24 13:25 STATUS: RADHA REJaneth #: [id number] KATHLEEN: 09/29/24 09:[address]: Oswald Catse DEPT: SURGICAL PATHOLOGY RECD BY: Aziza Smith ENTERED: 09/29/24 14:32 SP TYPE: EGD BIOPSY OT DR: Dr. Kip Parnell MD Tissues: Esophagus, NOS Procedures: Surgery Specimen Level IV HEADER OPERATION: EGD with biopsy PRE-OP DIAGNOSIS: GERD, Rosado's esophagus TISSUE SUBMITTED: Distal esophagus biopsy MICROSCOPIC DIAGNOSIS Distal esophagus, biopsy: Fragments of gastric mucosa with extensive intestinal metaplasia (goblet cell metaplasia), consistent with Rosado's esophagus. Chronic inflammation. Negative for dysplasia. See comment. 09/30/2024 COMMENT Alcian blue/PAS stain with matched control is used in the evaluation of the specimen. Immunohistochemistry ([id number]) for P53 and Ki-67 will be performed and results will be reported separately. Case has been reviewed in consultation with Dr. Lorenzo who concurs with the above diagnosis. IDC:AM MICROSCOPIC DESCRIPTION Slides are reviewed. GROSS DESCRIPTION Received in fixative is one container labeled with the patient's name and designated Distal esophagus biopsy. The specimen consists of multiple irregular fragments of light herrera soft tissue that in aggregate measure 0.8 x 0.3 x 0.1 cm. The specimen is totally submitted in one cassette. 09/29/2024 TC:5 CPT:71366,93715
[2024-09-29 09:50] VITALS: BP 158/79; BP 92/61; PULSE 70; RESP 16; TEMP 36.5; O2SAT 93
--- NOTE | 2024-09-29 09:51 | OP.EGD_ITS ---
Patient Name: Jevon Berkowitz Procedure Date: 09/29/2024 9:29 AM Date of : 1945 Age: 78 Procedure: Upper GI endoscopy Indications: Follow-up of Rosado's esophagus Providers: Oswald Cates DO Referring MD: Kip Parnell MD Medicines: Monitored Anesthesia Care Patient Profile: This is an 78 year old male. Refer to note in patient chart for documentation of history and physical. Patient has symptoms of chronic heartburn. Complications: No immediate complications. Procedure: Pre-Anesthesia Assessment: - Prior to the procedure, a History and Physical was performed, and patient medications and allergies were reviewed. The patient is competent. The risks and benefits of the procedure and the sedation options and risks were discussed with the patient. All questions were answered and informed consent was obtained. Patient identification and proposed procedure were verified by the physician in the pre-procedure area. Mental Status Examination: alert and oriented. Airway Examination: normal oropharyngeal airway and neck mobility. Respiratory Examination: clear to auscultation. CV Examination: normal. Prophylactic Antibiotics: The patient does not require prophylactic antibiotics. Prior Anticoagulants: The patient has taken no anticoagulant or antiplatelet agents except for NSAID medication. ASA Grade Assessment: II - A patient with mild systemic disease. After reviewing the risks and benefits, the patient was deemed in satisfactory condition to undergo the procedure. The anesthesia plan was to use monitored anesthesia care (MAC). Immediately prior to administration of medications, the patient was re-assessed for adequacy to receive sedatives. The heart rate, respiratory rate, oxygen saturations, blood pressure, adequacy of pulmonary ventilation, and response to care were monitored throughout the procedure. The physical status of the patient was re-assessed after the procedure. After obtaining informed consent, the endoscope was passed under direct vision. Throughout the procedure, the patient's blood pressure, pulse, and oxygen saturations were monitored continuously. The Endoscope was introduced through the mouth, and advanced to the second part of duodenum. The upper GI endoscopy was accomplished without difficulty. The patient tolerated the procedure well. Scope In: 9:40:15 AM Scope Out: 9:44:23 AM Total Procedure Duration Time 0 hours 4 minutes 8 seconds Findings: The examined esophagus was significantly tortuous. There were esophageal mucosal changes secondary to established short-segment Rosado's disease present in the lower third of the esophagus. The maximum longitudinal extent of these mucosal changes was 3 cm in length. Mucosa was biopsied with a cold forceps for histology in a targeted manner at intervals of 1 cm in the lower third of the esophagus. One specimen bottle was sent to pathology. Verification of patient identification for the specimen was done. Estimated blood loss was minimal. A medium-sized hiatal hernia was present. One non-bleeding cratered gastric ulcer with no stigmata of bleeding was found in the gastric body. The lesion was 4 mm in largest dimension. Three non-bleeding superficial duodenal ulcers with no stigmata of bleeding were found in the duodenal bulb. Impression: - Tortuous esophagus. - Esophageal mucosal changes secondary to established short-segment Rosado's disease. Biopsied. - Medium-sized hiatal hernia. - Non-bleeding gastric ulcer with no stigmata of bleeding. - Non-bleeding duodenal ulcers with no stigmata of bleeding. Recommendation: - Await pathology results. - Repeat upper endoscopy in 1 year for surveillance. - Continue present medications. Procedure Code(s): --- Professional --- 88351, Esophagogastroduodenoscopy, flexible, transoral; with biopsy, single or multiple CPT copyright 2021 [employer]. All rights reserved. The codes documented in this report are preliminary and upon feed crusher operator review may be revised to meet current compliance requirements. Oswald Cates DO 09/29/2024 9:51:04 AM This report has been signed electronically. Number of Addenda: 0 Note Initiated On: 09/29/2024 9:29 AM
--- NOTE | 2024-09-29 09:51 | OP.CCLET_ITS ---
09/29/2024 Kip Parnell MD [address] [place] [address] Re : Upper GI endoscopy procedure for Jevon Berkowitz Dear Dr. Parnell This procedure was performed on September. My impressions and recommendations are as follows: Impressions : - Tortuous esophagus. - Esophageal mucosal changes secondary to established short-segment Rosado's disease. Biopsied. - Medium-sized hiatal hernia. - Non-bleeding gastric ulcer with no stigmata of bleeding. - Non-bleeding duodenal ulcers with no stigmata of bleeding. Recommendations : - Await pathology results. - Repeat upper endoscopy in 1 year for surveillance. - Continue present medications. My findings are described in the full procedure note, which is enclosed. If I can be of further assistance, please feel free to contact me at . Sincerely, Oswald Cates, 09/29/2024 9:51:04 AM This report has been signed electronically.
--- NOTE | 2024-09-29 09:54 | PCM.POST.ANE ---
Anesthesia: Postop Eval I Current Vital Signs Temperature: 97.1 F Pulse Rate: 71 Blood Pressure: 92/61 Respiratory Rate: 16 Pulse Ox: 95 Oxygen Delivery Method: Room Air Assessment Airway patent: Yes Spontaneous unlabored respirations: Yes Mental status: Asleep nausea: No Vomiting: No Anesthesia Complication: No Fluid Hydration Crystalloid volume administer (ml): 30 Total IV fluid infused: 30 Progress Note Anesthesia document: Postop Eval 1 completed: Yes
[2024-09-29 09:55] VITALS: BP 107/72; BP 158/79; BP 92/61; PULSE 70; PULSE 71; RESP 16; TEMP 36.2; O2SAT 92; O2SAT 95
[2024-09-29 10:00] VITALS: BP 130/61; BP 158/79; PULSE 68; RESP 16; O2SAT 91
[2024-09-29 10:05] VITALS: BP 100/74; BP 158/79; PULSE 74; RESP 16; TEMP 36.2; O2SAT 96
[2024-09-29 10:29] VITALS: BP 158/79
--- NOTE | 2024-09-29 15:19 | PCM.POSTANE2 ---
Anesthesia Postop Eval I Sum Postop Eval Completion status Anesthesia document: Postop Eval 1 completed: Yes Anesthesia Postop Eval I Summary Anesthesia Postop Eval I Summary: Anesthesia Postop Eval I: Assessment Summary Airway patent Yes 09/29/24 09:55 [email or web address] Spontaneous unlabored Yes 09/29/24 09:55 [email or web address] respirations Mental status Asleep 09/29/24 09:55 [email or web address] nausea No 09/29/24 09:55 [email or web address] Vomiting No 09/29/24 09:55 [email or web address] Anesthesia Postop Eval I: Fluid Summary Crystalloid volume administer 30 09/29/24 09:55 [email or web address] (ml) Colloids volume administered ( ml) Blood Product volume administered (ml) Total IV fluid infused 30 09/29/24 09:55 [email or web address] Anesthesia Postop Eval I: Summary Notes Anesthesia Complication No 09/29/24 09:55 [email or web address] Anesthesia Complication Comment: Post-operative progress note Anesthesia: Postop Eval II Evaluation Mental status: Awake and Calm Pain Level: 0 nausea: No Vomiting: No Complications Anesthesia Complication: No
== END 2024-09-29 10:32 | disposition home or self-care (01) ==
LOC: EN 08:29 → AC 08:30
PROVIDERS: PCP Family Medicine Geriatric Medicine; Referring Provider Family Medicine Geriatric Medicine; Visit Provider Internal Medicine Gastroenterology
PROC: 0DJ08ZZ Inspection of Upper Intestinal Tract, Via Natural or Artificial Opening Endoscopic (ICD-10-PCS; CPT 43235; principal; 2024-09-29 09:10)
DX: K31.A19 Gastric intestinal metaplasia without dysplasia, unspecified site (principal); K44.9 Diaphragmatic hernia without obstruction or gangrene; K26.9 Duodenal ulcer, unspecified as acute or chronic, without hemorrhage or perforation; K25.9 Gastric ulcer, unspecified as acute or chronic, without hemorrhage or perforation; I10 Essential (primary) hypertension; K22.70 Barrett's esophagus without dysplasia; I25.10 Atherosclerotic heart disease of native coronary artery without angina pectoris; Z95.1 Presence of aortocoronary bypass graft; Z79.899 Other long term (current) drug therapy; K21.00 Gastro-esophageal reflux disease with esophagitis, without bleeding; Z79.82 Long term (current) use of aspirin; F41.9 Anxiety disorder, unspecified; F32.A Depression, unspecified; Z79.02 Long term (current) use of antithrombotics/antiplatelets; E78.00 Pure hypercholesterolemia, unspecified
CPT/HCPCS: 43239; 88305; 88341; 88342; A4216; J2405

== ENCOUNTER → 2024-10-10 | Outpatient (CLI) | payer MEDICARE, SELFPAY ==
[2024-10-10 10:13] LABS: Absolute Lymphocyte Count 1.34 X10^3/uL (0.83-4.51); Absolute Neutrophil Count 7.4 X10^3/uL (2.0-7.7); Basophil# 0.07 X10^3/uL; Basophil% 0.7 % (0-1); Eosinophil# 0.15 X10^3/uL; Eosinophils% 1.5 % (0-5); Hematocrit 50.4 % (40-54); Hemoglobin 16.9 g/dL (13.0-16.5); Lymphocyte # 1.34 X10^3/ul (0.83-4.51); Lymphocyte % 13.3 % (19-41); Mean Corp Hgb Conc 33.5 g/dL (32-36); Mean Corpuscular Hgb 34.6 pg (27.0-32.0); Mean Corpuscular Volume 103.3 fL (80-94); Mean Platelet Vol. 9.7 fl (6.2-12.0); Monocyte# 0.98 X10^3/uL; Monocyte% 9.8 % (0-10); NRBC Flagged by Analyzer 0 % (0-5); Neutrophil # 7.44 X10^3/uL (2.7-7.7); Neutrophil % 74.1 % (47-70); Platelet Count 161 K/mm3 (150-450); RBC Distribution Width CV 13.7 % (11.6-14.6); Red Blood Count 4.88 M/mm3 (4.6-6.2)
[2024-10-10 10:38] LABS: Bilirubin, Direct 0.29 mg/dL (0.00-0.30)
[2024-10-10 10:51] LABS: ALB/GLOB Ratio 1.1 RATIO (0.9-2.4); AST(SGOT) 32 U/L (15-37); Alanine Aminotransfer ALT/SGPT 70 U/L (16-61); Albumin, Serum 3.4 g/dL (3.2-5.0); Alkaline Phosphatase 112 U/L (45-117); Anion Gap 3 (5-15); BUN 21 mg/dL (7-18); BUN/Creat Ratio 18.8 RATIO (10-20); Calcium,Total 9.6 mg/dL (8.5-10.1); Chloride 110 mmol/L (98-107); Creatinine, Serum 1.12 mg/dL (0.70-1.30); EST Glomerular Filtration Rate 67 mL/min (>60); Est Glom Filt Rate - Afr Amer 81 mL/min (>60); Glucose 94 mg/dL (74-106); Potassium 4.6 mmol/L (3.5-5.1); Protein, Total 6.4 g/dL (6.4-8.2); Sodium Level 142 mmol/L (136-145)
[2024-10-10 10:57] LABS: Vitamin D,25 Hydroxy 50.2 ng/mL
== END | disposition home or self-care (01) ==
PROVIDERS: Internal Medicine Cardiovascular Disease; PCP Family Medicine Geriatric Medicine; Visit Provider Family Medicine Geriatric Medicine
DX: I10 Essential (primary) hypertension (principal); E55.9 Vitamin D deficiency, unspecified
CPT/HCPCS: 36415; 80053; 82248; 82306; 84443; 85025

== ENCOUNTER → 2024-12-01 | Outpatient (CLI) | payer MEDICARE, SELFPAY ==
--- NOTE | 2024-12-01 10:45 | RAD_ITS ---
STUDY: X-RAY - RIGHT HAND REASON FOR EXAM: Male, 79 years old. RIGHT FINGER PAIN TECHNIQUE: 4 views of the right hand. COMPARISON: None. FINDINGS: Normal radiocarpal articulation. Normal distal radioulnar joint. Normal visualized carpal bones. Normal carpal articulations There is degenerative arthrosis of the carpometacarpal articulation of the thumb with lateral subluxation of the first metacarpus. Normal second through fifth carpometacarpal joints. Normal metacarpi. There is degenerative arthrosis of the first through third MCP joints, interphalangeal joint of the thumb, as well as second, third, and fifth DIP joints. Normal proximal and distal phalanges of the thumb. Normal phalanges of the second through fifth fingers. The soft tissue structures are unremarkable. 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 Electronically Signed: Bill Reyes MD at 14:44 EST ,
[2024-12-01 11:04] LABS: Absolute Lymphocyte Count 1.03 X10^3/uL (0.83-4.51); Absolute Neutrophil Count 6.8 X10^3/uL (2.0-7.7); Basophil# 0.02 X10^3/uL; Basophil% 0.2 % (0-1); Eosinophil# 0.11 X10^3/uL; Eosinophils% 1.3 % (0-5); Hemoglobin 16.3 g/dL (13.0-16.5); Lymphocyte # 1.03 X10^3/ul (0.83-4.51); Mean Corp Hgb Conc 33.3 g/dL (32-36); Mean Corpuscular Hgb 33.5 pg (27.0-32.0); Mean Corpuscular Volume 100.8 fL (80-94); Mean Platelet Vol. 9.5 fl (6.2-12.0); Monocyte# 0.64 X10^3/uL; Monocyte% 7.4 % (0-10); NRBC Flagged by Analyzer 0 % (0-5); Neutrophil # 6.76 X10^3/uL (2.7-7.7); Neutrophil % 78.6 % (47-70); Platelet Count 167 K/mm3 (150-450); RBC Distribution Width CV 12.9 % (11.6-14.6); Red Blood Count 4.86 M/mm3 (4.6-6.2); White Blood Count 8.6 K/mm3 (4.4-11.0)
[2024-12-01 11:14] LABS: Erythrocyte Sedimentation Rate 7 mm/hr (0-20)
[2024-12-01 11:36] LABS: Anion Gap 5 (5-15); BUN 14 mg/dL (7-18); BUN/Creat Ratio 12.6 RATIO (10-20); CRP < 2.90 mg/L (0.0-3.0); Calcium,Total 9.8 mg/dL (8.5-10.1); Chloride 106 mmol/L (98-107); Creatinine, Serum 1.11 mg/dL (0.70-1.30); EST Glomerular Filtration Rate 68 mL/min (>60); Est Glom Filt Rate - Afr Amer 82 mL/min (>60); Glucose 104 mg/dL (74-106); Potassium 4.5 mmol/L (3.5-5.1); Sodium Level 138 mmol/L (136-145)
[2024-12-05 14:07] LABS: Lyme IgG P18 Ab Absent (.); Lyme IgG P23 Ab Absent (.); Lyme IgG P28 Ab Absent (.); Lyme IgG P30 Ab Absent (.); Lyme IgG P39 Ab Present (.); Lyme IgG P41 Ab Present (.); Lyme IgG P45 Ab Absent (.); Lyme IgG P58 Ab Absent (.); Lyme IgG P66 Ab Absent (.); Lyme IgG P93 Ab Absent (.); Lyme IgG WB Interpretation Negative (.); Lyme IgM P23 Ab Absent (.); Lyme IgM P39 Ab Absent (.); Lyme IgM P41 Ab Absent (.); Lyme IgM WB Interpretation Negative (.)
== END | disposition home or self-care (01) ==
PROVIDERS: PCP Family Medicine Geriatric Medicine; Referring Provider Family Medicine Geriatric Medicine; Visit Provider Family Medicine Geriatric Medicine
DX: S61.200A Unspecified open wound of right index finger without damage to nail, initial encounter (principal); M79.644 Pain in right finger(s); W57.XXXA Bitten or stung by nonvenomous insect and other nonvenomous arthropods, initial encounter
CPT/HCPCS: 73130; 80048; 85025; 85652; 86140; 86617; 87640

== ENCOUNTER → 2025-02-08 | Outpatient (CLI) | payer MEDICARE, SELFPAY ==
--- NOTE | 2025-02-08 16:02 | RAD_ITS ---
PROCEDURE: HIP, UNI W/ PELVIS 2-3 VIEWS 02/08/2025 REASON FOR EXAM: PAIN IN RIGHT HIP TECHNIQUE: AP pelvis and two views right hip, 3 total images COMPARISON: 06/17/2023 and 09/09/2021 FINDINGS: Patient appears rotated to the left. No fracture or dislocation. Symmetric appearing SI joints and pubic symphysis appear within limits. Prostate radiation seeds and surgical clips at the left inguinal area again seen. Joint spaces appear within limits. Surgical clips at the scrotum again noted. Aortoiliac atherosclerotic calcification. Right ovoid gluteal soft tissue calcifications again seen. RAD/HIP, UNI W/ Pelvis 2-3 Views IMPRESSION: No fracture or dislocation. Reading Location: [id number]
--- NOTE | 2025-02-08 16:05 | RAD_ITS ---
PROCEDURE: L/S SPINE MIN 4 VIEWS 02/08/2025 REASON FOR EXAM: PAIN IN RIGHT HIP TECHNIQUE: Four views; AP, lateral and bilateral oblique COMPARISON: None available FINDINGS: 5 [id number] lumbar vertebral body types identified. Leftward levo curvature, scoliosis lower lumbar spine with possible mild leftward listhesis of L4 on L5 on the AP view. No definite spondylolysis identified. L2-3 moderate appearing disc space narrowing, spondylosis/discogenic change with minimal appearing retrolisthesis L2 on L3. Mild disc space narrowing L3-4. Moderate disc space narrowing L4-5. Bilateral lower lumbar facet degenerative changes suggested. Heavy aortoiliac atherosclerotic calcifications. No fracture identified. RAD/L/S Spine Min 4 Views IMPRESSION: Leftward curvature, scoliosis and multilevel spondylosis/discogenic change with associated listhesis as above. Reading Location: [id number]
== END | disposition home or self-care (01) ==
PROVIDERS: PCP Family Medicine Geriatric Medicine; Referring Provider Family Medicine Geriatric Medicine; Visit Provider Family Medicine Geriatric Medicine
DX: M25.551 Pain in right hip (principal)
CPT/HCPCS: 72110; 73502

== ENCOUNTER → 2025-02-14 | Outpatient (CLI) | payer MEDICARE, SELFPAY ==
[2025-02-14 15:37] LABS: Absolute Lymphocyte Count 1.27 X10^3/uL (0.83-4.51); Absolute Neutrophil Count 6.6 X10^3/uL (2.0-7.7); Basophil# 0.05 X10^3/uL; Basophil% 0.5 % (0-1); Eosinophil# 0.41 X10^3/uL; Eosinophils% 4.5 % (0-5); Hematocrit 46.2 % (40-54); Hemoglobin 15.4 g/dL (13.0-16.5); Lymphocyte # 1.27 X10^3/ul (0.83-4.51); Lymphocyte % 13.9 % (19-41); Mean Corp Hgb Conc 33.3 g/dL (32-36); Mean Corpuscular Hgb 34.2 pg (27.0-32.0); Mean Corpuscular Volume 102.7 fL (80-94); Mean Platelet Vol. 9.8 fl (6.2-12.0); Monocyte# 0.76 X10^3/uL; Monocyte% 8.3 % (0-10); NRBC Flagged by Analyzer 0 % (0-5); Neutrophil # 6.55 X10^3/uL (2.7-7.7); Platelet Count 184 K/mm3 (150-450); RBC Distribution Width SD 53.3 fl (35.1-43.9); White Blood Count 9.1 K/mm3 (4.4-11.0)
[2025-02-14 15:49] LABS: D-Dimer Quantitative (DVT/PE) 0.27 FEU/ug/m (0.27-0.49)
[2025-02-14 16:29] LABS: ALB/GLOB Ratio 1.7 RATIO (0.9-2.4); AST(SGOT) 24 U/L (<=37); Alanine Aminotransfer ALT/SGPT 25 U/L (<=46); Alkaline Phosphatase 102 U/L (40-129); Anion Gap 10 (5-15); BUN 21 mg/dL (4-19); BUN/Creat Ratio 21.6 RATIO (10-20); Calcium,Total 9.7 mg/dL (7.6-11.0); Chloride 106 mmol/L (98-108); Creatinine, Serum 0.95 mg/dL (0.70-1.20); EST Glomerular Filtration Rate 81 (>60); Globulin 2.4 g/dL (2.2-4.2); Glucose 75 mg/dL (70-99); Potassium 4.4 mmol/L (3.3-5.1); Protein, Total 6.4 g/dL (5.9-8.4); Sodium Level 142 mmol/L (133-145); Total Bilirubin 0.76 mg/dL (0.00-1.30)
[2025-02-14 16:53] LABS: CPK Total, Creatine Kinase 41 U/L (24-195); Pro- Brain NATRIURETIC PEPTIDE 1306 pg/mL (<=1800); Troponin T High Sensitivity 15 ng/L (<=22)
[2025-02-16 04:07] LABS: Myoglobin, Serum 52 ng/mL (28-72)
== END | disposition home or self-care (01) ==
LOC: LAB 14:24
PROVIDERS: PCP Family Medicine Geriatric Medicine; Referring Provider Family Medicine Geriatric Medicine; Visit Provider Family Medicine Geriatric Medicine
DX: R07.9 Chest pain, unspecified (principal)
CPT/HCPCS: 36415; 80053; 82550; 83874; 83880; 84484; 85025; 85379

== ENCOUNTER 2025-02-15 16:03 | Observation (INO) | payer MEDICARE, SELFPAY ==
[2025-02-15] VITALS (8 sets, daily range): BP systolic 116–174; BP diastolic 85–129; PULSE 58–74; RESP 13–23; TEMP 36.8–36.9; O2SAT 94–98; BMI 25.9; BMI 26.4; BMI 25.4
--- NOTE | 2025-02-15 16:19 | CT_ITS ---
PROCEDURE: STROKE CTA HEAD AND NECK W/CON 02/15/2025 REASON FOR EXAM: NEURO DEFICIT, ACUTE, STROKE SUSPECTED TECHNIQUE: CTA imaging of the head and neck from the aortic arch to the skull vertex with intravenous contrast. Coronal and Sagittal reconstruction series were provided. 3D, 3D post processing, 3D reconstructions, Maximum intensity projection (MIPs) Volume rendering and Shaded surface rendering was provided. CONTRAST: Isovue 370 VOLUME: 100 mL One or more dose reduction techniques were used (e.g., Automated exposure control, adjustment of the mA and/or kV according to patient size, use of iterative reconstruction technique). RADIATION DOSE SUMMARY: CTDlvol: 43 mGy DLP: 1000 mGycm COMPARISON: Same-day CT head. FINDINGS: Additional noncontrast CT head findings: Hyperdense lesion with punctate calcification along the right frontal vertex. CTA: Three-vessel aortic arch with moderate narrowing of the right brachiocephalic and right common carotid arteries at their origin due to mixed atherosclerosis. Mixed atherosclerosis of the left subclavian artery at its origin resulting in moderate-severe narrowing. The bilateral vertebral arteries are widely patent without focal stenosis or occlusion. Calcific plaque of the left cervical carotid artery without focal narrowing by NASCET criteria. Severe calcific plaque of the proximal right common carotid artery (series 601, image 96), with near-complete occlusion. High bifurcation of the right internal and external cervical carotid arteries. Moderate calcific plaque of the right common carotid artery and carotid bulb resulting in approximately 40% stenosis by NASCET criteria. Arterially hyperenhancing lesion within the right frontal lobe, along the right anterior cranial fossa, measuring 1.5 x 1.5 cm (series 2, image 387). The hyperenhancing lesion abuts the dura. Multifocal calcific plaque of the bilateral carotid siphons resulting in mild multifocal narrowing. The bilateral anterior, middle and posterior cranial arteries are widely patent. No aneurysm or arteriovenous malformation. Major venous structures: Unremarkable. Other findings: Cervical spondylosis. Partially visualized median sternotomy wires. Trace left and small right pleural effusions. Visualization of the lung parenchyma is slightly limited by motion artifact and expiratory phase imaging. Questionable ground-glass opacification within the visualized upper lungs. CT/STROKE CTA Head AND Neck W/Con IMPRESSION: 1. No intracranial large vessel occlusion, aneurysm or AVM. 2. Severe calcific plaque of the proximal right common carotid artery with near -complete occlusion. Moderate calcific plaque of the right cervical carotid artery resulting in 40% stenosis by NASCET criteria. 3. Severe calcific plaque of the left subclavian artery origin resulting in mod erate-severe narrowing. 4. Arterially hyperenhancing lesion within the right frontal lobe along the ant erior cranial fossa, most compatible with a meningioma. 5. Questionable ground-glass opacification within the visualized upper lungs. Correlation with patient's symptoms and laboratory values recommended to exclude pneumonitis/pneumonia. Reading Location: [id number]
--- NOTE | 2025-02-15 16:19 | EKG12_ITS ---
Test Reason : STROKE Blood Pressure : */* mmHG Vent. Rate : 67 BPM Atrial Rate : 288 BPM P-R Int : * ms QRS Dur : 78 ms QT Int : 402 ms P-R-T Axes : 259 -16 88 degrees QTcB Int : 424 ms Atrial flutter with variable A-V block Nonspecific T wave abnormality Abnormal ECG Confirmed by JAMES BELLE, JESSE ([id number]), pictures editor ISADORA CASTRO ([id number]) on 02/16/2025 8:39:40 AM Referred By: Confirmed By: JESSE RAMIREZ MD
--- NOTE | 2025-02-15 16:19 | CT_ITS ---
PROCEDURE: STROKE BRAIN/HEAD WITHOUT CONT 02/15/2025 REASON FOR EXAM: NEURO DEFICIT, ACUTE, STROKE SUSPECTED TECHNIQUE: Head CT without intravenous contrast. Coronal and Sagittal reconstruction series were provided. One or more dose reduction techniques were used (e.g., Automated exposure control, adjustment of the mA and/or kV according to patient size, use of iterative reconstruction technique. COMPARISON: None FINDINGS: No acute intracranial hemorrhage, mass, mass effect, midline shift or pathologic extra-axial fluid collection. Mild parenchymal atrophy with commensurate increase in CSF containing spaces. Patchy white matter hypodensities, patient demographics favor chronic microvascular ischemic changes. Mild paranasal sinus mucosal thickening. Mucoperiosteal reaction bilateral maxillary sinuses. The calvarium is grossly intact. CT/STROKE Brain/Head without Cont IMPRESSION: No acute intracranial abnormality; no acute infarct, intracranial hemorrhage or extra-axial collection. Chronic microvascular ischemia and involutional changes. Reading Location: [facility]
--- NOTE | 2025-02-15 16:20 | ED.VIS.STROK ---
HPI History of Present Illness Chief Complaint: Stroke Alert Informant: patient and family Narrative Narrative: Brought here by son evaluating triage for potential stroke. Patient's son received a call around 2:00 patient missed an appointment. They reported patient's speech seemed off. Per son when he called his father speech seems slurred unable to finish his sentences. Patient does not recall the conversation from health facility. Son last known patient being normal a week and a half ago when he was at lunch with him. Patient reports he has been having trouble sleeping for the past month saw PCP Dr. Parnell he thinks yesterday maybe today for maybe both. Patient denies headache dizziness. Speech seems to be improving in the emergency department during discussion confirmed by son. No stroke history. Prior similar symptoms: No PFSH PFSH Medical History Fall Aortic aneurysm and dissection Grief Wears hearing aid Wears glasses Alcohol use High cholesterol Narcolepsy Injury of head and neck History of Holter monitoring History of echocardiogram History of stress test Hypertension Cardiology follow-up encounter History of Mohs micrographic surgery for skin cancer Major depression Acute decompensated heart failure Chronic cough Severe obstructive sleep apnea Positional lightheadedness Essential (primary) hypertension 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) Back pain Limb weakness Difficulty balancing Knee pain Cancer Arthritis Chest pain on exertion Abnormal stress test Carotid bruit Atherosclerotic heart disease of [place] coronary artery without angina pectoris Osteoarthritis Depression Thrombocytopenia HLD (hyperlipidemia) Home Medications ?Medication ?Instructions ?Recorded ?Last Taken ?Type nitroglycerin 0.4 mg sublingual 0.4 mg sublingual Q5M PRN Chest 03/01/14 03/01/14 History tablet Pain biotin 1 mg capsule 5,000 mcg PO DAILY 01/25/19 Unknown History aspirin 81 mg tablet,delayed 81 mg PO DAILY #1 TAB 01/19/20 09/24/24 Rx release (Adult Aspirin Regimen) metoprolol tartrate 25 mg tablet 25 mg PO QHS #90 tabs 09/14/20 12/21/22 Rx benazepril 5 mg tablet 5 mg PO DAILY 01/22/21 12/22/22 History cholecalciferol (vitamin D3) 25 50 mcg PO DAILY 10/08/22 Unknown History mcg (1,000 unit) capsule tamsulosin 0.4 mg capsule 0.4 mg PO QHS prostate 10/08/22 Unknown History clopidogrel 75 mg tablet (Plavix) 75 mg PO DAILY #90 tabs 02/09/23 09/24/24 Rx methylphenidate HCl 5 mg tablet 5 mg PO DAILY PRN ADHD 04/11/24 Unknown History (Ritalin) naproxen sodium 220 mg tablet 220 mg PO DAILY PRN pain 05/18/24 Unknown History (Aleve) aluminum hydrox-magnesium carb 160 2 tab PO BID PRN dyspepsia 09/28/24 09/24/24 History mg-105 mg chewable tablet (Gaviscon Extra Strength) bupropion HCl 150 mg 24 hr tablet, 150 mg PO QHS 09/28/24 09/28/24 History extended release famotidine 40 mg tablet 40 mg PO QHS PRN GERD 09/28/24 09/24/24 History atorvastatin 40 mg tablet 40 mg PO QHS #90 tabs 11/21/24 Unknown Rx bupropion HCl 150 mg tablet,12 hr See Rx Instructions PO DAILY #90 12/27/24 Unknown Rx sustained-release TABLETS mirtazapine 30 mg tablet 30 mg PO QHS #30 TABLETS 12/27/24 Unknown Rx lorazepam 0.5 mg tablet 0.5 mg PO QHS PRN anxiety #30 tabs 01/09/25 Unknown Rx omeprazole 40 mg capsule,delayed 40 mg PO DAILY #90 caps 01/31/25 Unknown Rx release baclofen 10 mg tablet 10 mg PO QHS 02/15/25 Unknown History furosemide 40 mg tablet 40 mg PO 02/15/25 Unknown History gabapentin 100 mg capsule 100 mg PO QHS 02/15/25 Unknown History potassium chloride 20 mEq 20 meq PO 02/15/25 Unknown History tablet,extended release Allergy/AdvReac Type Severity Reaction Status Date / Time No Known Allergies Allergy Verified 02/15/25 16:16 Family History Father , Age 70 COPD (chronic obstructive pulmonary disease) Mother , Age 94 Congestive heart failure Brother , Age 61 Sudden cardiac Brother , age 84 Hypertension Hyperlipidemia COPD (chronic obstructive pulmonary disease) Surgical History Hx of oral surgery History of esophagogastroduodenoscopy (EGD) Hx of surgical procedure Hx of colonoscopy Hx of bilateral cataract extraction History of uvulectomy History of hernia repair History of transcatheter aortic valve replacement (TAVR) (03/22/16) History of coronary artery stent placement (10/20/08) H/O coronary artery bypass surgery (09/23/02) History of aortic valve replacement with bioprosthetic valve (09/23/02) History of left heart catheterization Social History household members: none Smoking Status: Never smoker alcohol intake: current alcohol intake frequency: a few times a week Alcohol type: wine substance use type: does not use caffeine: Yes Type: coffee Number of servings: 1 ROS ROS ED Constitutional Constitutional ED: Denies chills, fever(s) or sweats ENT ENT ED: Denies sore throat Cardiovascular Cardiovascular: Denies chest pain, leg edema, palpitations or racing heartbeat Respiratory/Chest Respiratory/Chest: Denies cough, dyspnea or dyspnea on exertion Gastrointestinal Gastrointestinal: Denies abdominal pain, diarrhea, nausea or vomiting Genitourinary Genitourinary ED: Denies dysuria, hematuria or urinary frequency Musculoskeletal Musculoskeletal: Denies back pain, extremity pain or neck pain Integumentary Denies rash or wounds Neurologic Neurologic: Reports other Details: Slurred speech ; Denies headache(s), paresthesias or weakness EXAM Physical Exam Const Vital Signs: 02/15/25 16:11 02/15/25 16:44 02/15/25 16:45 Temperature 98.2 F Temperature Source Temporal Pulse Rate 70 63 Respiratory Rate 17 17 Blood Pressure 174/129 H 152/85 H Blood Pressure Mean 144 107 Pulse Ox 98 95 Oxygen Delivery Method Room Air Room Air Room Air Positive well nourished and well developed General Appearance ED: well developed and NAD HEENT Reports moist mucous membranes normocephalic and atraumatic Eyes General Eye ED: Yes normal appearance of both eyes Neck full ROM Chest Wall Chest: Negative for tenderness Resp normal respiratory effort and normal air movement Effort and Inspection: symmetric chest movement; Negative for respiratory distress Cardio no murmurs Cardio Narrative: Initial appeared regular however EKG with irregular rhythm. Rhythm: abnormal rhythm Peripheral Pulses: pulses 2+ throughout GI normal to inspection, nondistended, normoactive bowel sounds and non-tender Palpation: Negative for guarding or rebound tenderness present Extremity normal to inspection General Extremety ED: Negative for edema or tenderness General Extremity: Negative for edema Neuro oriented x3 and no sensory deficits noted Sensorium / Orientation: awake and alert Skin no rashes or lesions noted and no wounds NIHSS NIHSS Initial: 1a Level of Consciousness: 0 1b LOC Questions (Score 2 if aphasic/stupor): 0 1c LOC Commands (Only score 1st attempt): 0 2 Best Gaze (If aphasic, use reflexive mvmts.): 0 3 Visual: 0 4 Facial Palsy: 0 5 Motor Arm Right (UN = amputation/fusion): 0 5 Motor Arm Left: 0 6 Motor Leg Right: 0 6 Motor Leg Left: 0 7 Limb ataxia (Only + if out of proportion): 0 8 Sensory (Aphasia/stupor=0 or 1, coma=2): 0 9 Best Language: 0 10 Dysarthria (mute, coma=2, intubated=UN): 0 11 Extinction and Inattention (only scored if +): 0 Total Score: 0 MDM MDM MDM Narrative Medical decision making narrative: Interventions / MDM: Differential diagnosis: TIA, atrial flutter, history of meningioma Diagnosis considered but do not suspect: Intracranial hemorrhage however CT negative. My EKG interpretation: Rate controlled a flutter rate of 67, no ST changes. Imaging independently reviewed and interpreted by myself: CT brain: No acute process also read by radiology. CT angiogram head and neck: External documents reviewed: N/A Test considered but not ordered:N/A ED course: Son noted symptoms 2 PM, unclear exact time from patient I did not recall the conversation from earlier. He reports he saw his PCP possibly yesterday or the day before both. Current NIH of 0. Stroke team will be initiated as possible symptoms within 24 hours with angiogram to rule out large vessel occlusion. Will have stroke neurology evaluate with patient's history. 1699: Patient arrived by stroke neurologist. CT brain negative. On his angiogram reading concern of lesion right frontal possible AVM however patient had MRI 2022 in the system noting 1.8 cm meningioma. Patient symptom resolved, neurology did not recommend TNK. Recommended admission for further workup. EKG did note new atrial flutter. He he denies any history of this. Increased risk for stroke symptoms. Will plan for admission. Re-evaluation: stable Disposition discussed with patient/family/significant other: Case discussed with consulting clinician: [facility] neurology, hospitalist This note was generated with 1Cast dictation software. It may contain incorrect words, spelling, and punctuation that were not noted in checking the note before signing. Lab Data Labs: Laboratory Results - last 24 hr 02/15/25 02/15/25 16:28 16:37 WBC 8.6 RBC 4.49 L Hgb 15.4 Hct 46.2 MCV 102.9 H MCH 34.3 H MCHC 33.3 RDW Std Deviation 53.3 H RDW Coeff of Alessandro 14.0 Plt Count 181 MPV 9.7 Immature Gran % (Auto) 0.600 Neut % (Auto) 69.7 Lymph % (Auto) 14.7 L [place] % (Auto) 9.8 Eos % (Auto) 4.6 Baso % (Auto) 0.6 Absolute Neuts (auto) 6.0 Absolute Lymphs (auto) 1.26 Nucleated RBC % 0 PT 13.4 INR 1.0 APTT 25.7 POC Glucose 74 Radiography Diagnostic Testing: Clinical Impression(s) from Imaging Studies Brain CT 02/15/25 16:19 IMPRESSION: No acute intracranial abnormality; no acute infarct, intracranial hemorrhage or extra-axial collection. Chronic microvascular ischemia and involutional changes. Reading Location: [facility] Stroke Documentation Questions Stroke Team Activated: Yes Discharge Plan Triage Chief Complaint: Stroke Alert ED Provider: Nirav Sánchez Dx/Rx/DC Orders Clinical Impression: Brain TIA, Slurred speech, New onset atrial flutter, Meningioma, cerebral Prescriptions: No Action biotin 1 mg capsule 5,000 mcg PO DAILY tamsulosin 0.4 mg capsule 0.4 mg PO QHS cholecalciferol (vitamin D3) 25 mcg (1,000 unit) capsule 50 mcg PO DAILY metoprolol tartrate 25 mg tablet 25 mg PO QHS Qty: 90 3RF benazepril 5 mg tablet 5 mg PO DAILY naproxen sodium [Aleve] 220 mg tablet 220 mg PO DAILY PRN (Reason: pain) methylphenidate HCl [Ritalin] 5 mg tablet 5 mg PO DAILY PRN (Reason: ADHD) mirtazapine 30 mg tablet 30 mg PO QHS Qty: 30 2RF bupropion HCl 150 mg tablet sustained-release 12 hr See Rx Instructions PO DAILY Qty: 90 2RF Rx Instructions: orally daily; TAKE 2 TABLETS (300 MG) EVERY MORNING AND 1 TABLET EVERY EVENING nitroglycerin 0.4 MG tablet 0.4 mg sublingual Q5M PRN (Reason: Chest Pain) Patient Comments: CHEST PAIN bupropion HCl 150 mg tablet extended release 24 hr 150 mg PO QHS Gaviscon Extra Strength 160-105 mg tablet,chewable 2 tab PO BID PRN (Reason: dyspepsia) famotidine 40 mg tablet 40 mg PO QHS PRN (Reason: GERD) furosemide 40 mg tablet 40 mg PO baclofen 10 mg tablet 10 mg PO QHS gabapentin 100 mg capsule 100 mg PO QHS potassium chloride 20 mEq tablet extended release 20 meq PO aspirin [Adult Aspirin Regimen] 81 mg tablet,delayed release (DR/EC) 81 mg PO DAILY Qty: 1 0RF Patient Comments: was not told to stop clopidogrel [Plavix] 75 mg tablet 75 mg PO DAILY Qty: 90 3RF Patient Comments: stop as instructed for colonoscopy atorvastatin 40 mg tablet 40 mg PO QHS Qty: 90 3RF Rx Instructions: TAKE 1 TABLET AT BEDTIME lorazepam 0.5 mg tablet 0.5 mg PO QHS PRN (Reason: anxiety) Qty: 30 1RF omeprazole 40 mg capsule,delayed release(DR/EC) 40 mg PO DAILY Qty: 90 3RF Primary Care Provider: Kip Parnell Chi Referrals: Kip Parnell Chi, MD [Primary Care Provider] - Print Language: Egyptian
[2025-02-15 16:37] LABS: Absolute Lymphocyte Count 1.26 X10^3/uL (0.83-4.51); Basophil# 0.05 X10^3/uL; Basophil% 0.6 % (0-1); Eosinophil# 0.39 X10^3/uL; Eosinophils% 4.6 % (0-5); Hematocrit 46.2 % (40-54); Hemoglobin 15.4 g/dL (13.0-16.5); Lymphocyte # 1.26 X10^3/ul (0.83-4.51); Lymphocyte % 14.7 % (19-41); Mean Corp Hgb Conc 33.3 g/dL (32-36); Mean Corpuscular Hgb 34.3 pg (27.0-32.0); Mean Corpuscular Volume 102.9 fL (80-94); Mean Platelet Vol. 9.7 fl (6.2-12.0); Monocyte# 0.84 X10^3/uL; Monocyte% 9.8 % (0-10); NRBC Flagged by Analyzer 0 % (0-5); Neutrophil # 5.97 X10^3/uL (2.7-7.7); Neutrophil % 69.7 % (47-70); Platelet Count 181 K/mm3 (150-450); RBC Distribution Width SD 53.3 fl (35.1-43.9); Red Blood Count 4.49 M/mm3 (4.6-6.2); White Blood Count 8.6 K/mm3 (4.4-11.0)
[2025-02-15 16:50] LABS: Partial Thromboplast Time 25.7 Seconds (24.1-36.2); Prothrombin Time (Protime)PT. 13.4 SECONDS (11.7-14.9)
[2025-02-15 16:54] LABS: Bedside Glucose 74 mg/dL (74-106)
[2025-02-15 17:15] LABS: Troponin T High Sensitivity 15 ng/L (<=22)
[2025-02-15 17:27] LABS: Anion Gap 9 (5-15); BUN 24 mg/dL (4-19); BUN/Creat Ratio 15.5 RATIO (10-20); Calcium,Total 9.8 mg/dL (7.6-11.0); Carbon Dioxide 25.7 mmol/L (21.0-32.0); Chloride 106 mmol/L (98-108); Creatinine, Serum 1.57 mg/dL (0.70-1.20); EST Glomerular Filtration Rate 44 (>60); Glucose 87 mg/dL (70-99); Potassium 4.6 mmol/L (3.3-5.1); Sodium Level 140 mmol/L (133-145)
--- NOTE | 2025-02-15 17:52 | MRI_ITS ---
PROCEDURE: BRAIN WITHOUT CONTRAST 02/15/2025 REASON FOR EXAM: SLURRED SPEECH TECHNIQUE: Brain MRI without intravenous contrast with additional dedicated imaging of the IACs. COMPARISON: CTA head and neck 02/15/2025 FINDINGS: TECHNIQUE: Multiplanar, multi-sequence MRI of brain was performed without and with IV contrast. FINDINGS: BRAIN/PARENCHYMA: No evidence of acute infarction or acute intracranial hemorrhage. There are subcortical and periventricular white matter FLAIR hyperintensities, likely related to chronic microvascular ischemic disease. No abnormal post-contrast enhancement. EXTRA-AXIAL SPACES: No abnormal extra-axial fluid collections. Patent basal cisterns and foramen magnum. MIDLINE SHIFT: None. VENTRICLES: No hydrocephalus. SCALP SOFT TISSUES & CALVARIUM: No significant abnormality. VISUALIZED SINUSES & MASTOIDS: No air-fluid levels in the paranasal sinuses. The mastoid air cells are clear. ARTERIAL FLOW VOIDS: Preserved major arterial flow voids indicating gross patency. MRI/Brain without Contrast IMPRESSION: No acute intracranial abnormality; no acute infarct, intracranial hemorrhage or extra-axial collection. Chronic microvascular ischemia and involutional changes. Reading Location[facility]
[2025-02-15] MEDS: 0.9% Normal Saline (500mL Bag) 500 ML 999 ML IV (18:41)
--- NOTE | 2025-02-15 18:47 | CDU_ITS ---
Reason For Study Reason For Study: Rt CCA partial Occlusion Rt. Velocities/BP Lt. Velocities/BP Subclavian artery 124.2/5.7 cm/sec. Prox CCA 67.2/16.7 cm/sec. Prox CCA 152.1/17.0 cm/sec. Mid CCA 86.9/25.5 cm/sec. Mid CCA 99.8/21.2 cm/sec. Dist CCA 78.1/21.1 cm/sec. Dist CCA 79.1/22.5 cm/sec. Prox ICA 46.4/10.2 cm/sec. Prox ICA 82.7/18.8 cm/sec. Mid ICA 54.7/20.3 cm/sec. Mid ICA 54.3/10.9 cm/sec. Dist ICA 66.7/21.0 cm/sec. Dist ICA 93.8/22.0 cm/sec. Lt. ICA/CCA = 0.8. Rt. ICA/CCA = 0.9. Prox ECA 54.4/10.2 cm/sec. Prox ECA 57.9/7.8 cm/sec. Lt. Vert. 32.0/7.4 cm/sec. Rt. Vert. 48.2/10.7 cm/sec. Right Extracranial There is heterogeneous, irregular atherosclerotic plaque noted in the right common carotid artery. The atherosclerotic plaque causes acoustic shadowing. The right common carotid artery is tortuous. There is heterogeneous, irregular atherosclerotic plaque noted in the right internal carotid artery. The right internal carotid artery is very tortuous. The right external carotid artery is not well visualized. Antegrade flow is noted in the right vertebral artery. Left Extracranial There is heterogeneous, irregular atherosclerotic plaque noted in the left common carotid artery. There is heterogeneous, irregular atherosclerotic plaque noted in the left internal carotid artery. The left internal carotid artery is very tortuous. The left external carotid artery is not well visualized. Antegrade flow is noted in the left vertebral artery. Procedure Carotid Duplex [id number]. This is a Carotid Duplex examination using B-mode, color flow and specral Doppler. The exam was of poor technical quality due to Acoustic shadowing, labored breathing, patient inability to lay flat. Exam performed portable in patient room. VL/Carotid Duplex Ultrasound Interpretation Summary Mild (<50%) stenosis right extracranial internal carotid. Bulky calcified plaqu e in proximal common carotid. Mild (<50%) stenosis left extracranial internal carotid. Patent and antegrade vertebrals bilaterally. Limited study due to calcification Ordering Physician: Chad Moreno Referring Physician: Kip Parnell Chi Performed By: Chidi Gupta RVT
--- NOTE | 2025-02-15 18:48 | PCM.HP.STD ---
HPI - General General Date of Admission: 02/15/25 HPI Narrative ALMAZ ZUÑIGA, is a 79 M who presents to the hospital with signs and symptoms consistent of a stroke. States that he was slurring his speech but denies any weakness or paresthesias. His symptoms have essentially resolved, and I do not appreciate any aphasia or slurred speech but he states that he can still hear it a little bit as does his son. He was placed on Coumadin and in around 2015 after he had a TAVR, there was gradients across his valve that were thought to be due to clot on the valve leaflets, the gradient did improve with COVID and so he was subsequently taken off of Coumadin. He does appear to be in new onset a flutter here in the ER. He does say that he falls frequently usually because he tripped over his small dog. Last week he fell twice without significant injury. I did have an extensive discussion counseling on the use of the anticoagulation. And they would like to try it on discharge as he uses a walker at home when she has to see if that helps stabilize him. His [id number] score is a 4. He was evaluated by telestroke and and was found to have an NIH of 0. PFSH Medical History (Updated 02/15/25 @ 18:15 by Tammi Diaz) Anxiety Non-smoker Fall Aortic aneurysm and dissection Grief Wears hearing aid Wears glasses Alcohol use High cholesterol Narcolepsy Injury of head and neck History of Holter monitoring History of echocardiogram History of stress test Hypertension Cardiology follow-up encounter History of Mohs micrographic surgery for skin cancer Major depression Acute decompensated heart failure Chronic cough Severe obstructive sleep apnea Positional lightheadedness Essential (primary) hypertension 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) Back pain Limb weakness Difficulty balancing Knee pain Cancer Arthritis Chest pain on exertion Abnormal stress test Carotid bruit Atherosclerotic heart disease of [place] coronary artery without angina pectoris Osteoarthritis Depression Thrombocytopenia HLD (hyperlipidemia) Home Medications ?Medication ?Instructions ?Recorded ?Last Taken ?Type nitroglycerin 0.4 mg sublingual 0.4 mg sublingual Q5M PRN Chest 03/01/14 03/01/14 History tablet Pain biotin 1 mg capsule 5,000 mcg PO DAILY 01/25/19 02/15/25 History aspirin 81 mg tablet,delayed 81 mg PO DAILY #1 TAB 01/19/20 02/15/25 Rx release (Adult Aspirin Regimen) metoprolol tartrate 25 mg tablet 25 mg PO QHS #90 tabs 09/14/20 02/14/25 Rx benazepril 5 mg tablet 5 mg PO DAILY 01/22/21 02/15/25 History cholecalciferol (vitamin D3) 25 25 mcg PO DAILY 10/08/22 02/15/25 History mcg (1,000 unit) capsule tamsulosin 0.4 mg capsule 0.4 mg PO QHS prostate 10/08/22 02/14/25 History clopidogrel 75 mg tablet (Plavix) 75 mg PO DAILY #90 tabs 02/09/23 02/15/25 Rx methylphenidate HCl 5 mg tablet 5 mg PO DAILY PRN ALERTNESS WHEN 04/11/24 Unknown History (Ritalin) DRIVING naproxen sodium 220 mg tablet 220 mg PO DAILY PRN pain 05/18/24 02/14/25 History (Aleve) famotidine 40 mg tablet 40 mg PO QHS PRN GERD 09/28/24 09/24/24 History atorvastatin 40 mg tablet 40 mg PO QHS #90 tabs 11/21/24 02/14/25 Rx bupropion HCl 150 mg tablet,12 hr See Rx Instructions PO DAILY #90 12/27/24 02/15/25 Rx sustained-release TABLETS mirtazapine 30 mg tablet 30 mg PO QHS #30 TABLETS 12/27/24 02/14/25 Rx lorazepam 0.5 mg tablet 0.5 mg PO QHS PRN anxiety #30 tabs 01/09/25 02/14/25 Rx omeprazole 40 mg capsule,delayed 40 mg PO DAILY #90 caps 01/31/25 02/15/25 Rx release furosemide 40 mg tablet 40 mg PO DAILY 02/15/25 02/15/25 History gabapentin 100 mg capsule 100 mg PO QHS 02/15/25 02/14/25 History potassium chloride 20 mEq 20 meq PO DAILY 02/15/25 02/15/25 History tablet,extended release Allergy/AdvReac Type Severity Reaction Status Date / Time No Known Allergies Allergy Verified 02/15/25 16:16 Family History Father , Age 70 COPD (chronic obstructive pulmonary disease) Mother , Age 94 Congestive heart failure Brother , Age 61 Sudden cardiac Brother , age 84 Hypertension Hyperlipidemia COPD (chronic obstructive pulmonary disease) Surgical History Hx of oral surgery History of esophagogastroduodenoscopy (EGD) Hx of surgical procedure Hx of colonoscopy Hx of bilateral cataract extraction History of uvulectomy History of hernia repair History of transcatheter aortic valve replacement (TAVR) (03/22/16) History of coronary artery stent placement (10/20/08) H/O coronary artery bypass surgery (09/23/02) History of aortic valve replacement with bioprosthetic valve (09/23/02) History of left heart catheterization Social History household members: none Smoking Status: Never smoker alcohol intake: current alcohol intake frequency: a few times a week Alcohol type: wine substance use type: does not use caffeine: Yes Type: coffee Number of servings: 1 ROS Constitutional Constitutional: Denies chills, fatigue, fever(s) or malaise Eyes Eyes: Denies blurry vision ENT HEENT: Denies headache(s) or nasal discharge Cardiovascular Cardiovascular: Denies chest pain, dyspnea on exertion or syncope Respiratory/Chest Respiratory/Chest: Denies cough, shortness of breath at rest or shortness of breath with exertion Gastrointestinal Gastrointestinal: Denies constipation, diarrhea, nausea or vomiting Genitourinary Genitourinary: Denies dysuria Neurologic Neurologic: Reports abnormal speech; Denies focal weakness, numbness or tremor(s) Psychiatric Psychiatric: Denies anxiety or depression Vital Signs Vital Signs Vital Signs: 02/15/25 16:11 02/15/25 16:19 02/15/25 16:44 Temperature 98.2 F Temperature Source Temporal Pulse Rate 70 70 Respiratory Rate 17 17 Blood Pressure 174/129 H 174/129 H Blood Pressure Mean 144 144 Pulse Ox 98 98 Oxygen Delivery Method Room Air Room Air Room Air 02/15/25 16:45 02/15/25 17:00 02/15/25 17:45 Temperature Temperature Source Pulse Rate 63 73 74 Respiratory Rate 17 23 H 13 Blood Pressure 152/85 H 166/118 H 158/108 H Blood Pressure Mean 107 129 117 Pulse Ox 95 97 Oxygen Delivery Method Room Air Weight Weight: 163 lb 5.8 oz Body Mass Index (BMI) 26.4 Physical Exam Narrative General: Alert, Oriented x3, Cooperative, No apparent distress HEENT: Atraumatic, PERRLA, EOMI, Normocephalic, hearing aids Oral: Moist Mucosa Neck: Supple, No JVD Lungs: Diminished, Normal air movement, No rhonchi, No wheeze, No rales Cardiovascular: Regular rate, Regular Rhythm, Normal S1, Normal S2, PENELOPE Abdomen: Soft, Non Tender, Non-Distended, No Hepato-splenomegaly Extremities: No edema, Capillary Refill Less than 3 Seconds Skin: No rashes, No breakdown Musculoskeletal: No Tenderness to Palpation of Joints or Extremities Neurological: No focal neurological deficits, Motor Exam 5/5 strength throughout, Sensory exam intact to light touch and pain, NIH of 0 Psych/Mental Status: Normal Affect, Appropriate Results Lab / Micro Data 02/15/25 16:28 02/15/25 16:28 Labs: Laboratory Results - last 24 hr 02/15/25 16:28: WBC 8.6, RBC 4.49 L, Hgb 15.4, Hct 46.2, MCV 102.9 H, MCH 34.3 H, MCHC 33.3, RDW Std Deviation 53.3 H, RDW Coeff of Alessandro 14.0, Plt Count 181, MPV 9.7, Immature Gran % (Auto) 0.600, Neut % (Auto) 69.7, Lymph % (Auto) 14.7 L, [place] % (Auto) 9.8, Eos % (Auto) 4.6, Baso % (Auto) 0.6, Absolute Neuts (auto) 6.0, Absolute Lymphs (auto) 1.26, Nucleated RBC % 0, PT 13.4, INR 1.0, APTT 25.7, Sodium 140, Potassium 4.6, Chloride 106, Carbon Dioxide 25.7, Anion Gap 9, BUN 24 H, Creatinine 1.57 H, Estim Creat Clear Calc 33.30 L, Est GFR (MDRD) Non-Af 44 L, BUN/Creatinine Ratio 15.5, Glucose 87, Calcium 9.8, Troponin T High Sens 15 02/15/25 16:37: POC Glucose 74 02/15/25 17:30: Troponin T Hi Sens 2 Hr Cancelled Imaging Radiology Impression Brain CT 02/15/25 16:19 IMPRESSION: No acute intracranial abnormality; no acute infarct, intracranial hemorrhage or extra-axial collection. Chronic microvascular ischemia and involutional changes. Reading Location: [facility] Head/Neck CTA 02/15/25 16:19 IMPRESSION: 1. No intracranial large vessel occlusion, aneurysm or AVM. 2. Severe calcific plaque of the proximal right common carotid artery with near-complete occlusion. Moderate calcific plaque of the right cervical carotid artery resulting in 40% stenosis by NASCET criteria. 3. Severe calcific plaque of the left subclavian artery origin resulting in moderate-severe narrowing. 4. Arterially hyperenhancing lesion within the right frontal lobe along the anterior cranial fossa, most compatible with a meningioma. 5. Questionable ground-glass opacification within the visualized upper lungs. Correlation with patient's symptoms and laboratory values recommended to exclude pneumonitis/pneumonia. Reading Location: [id number] Assessment & Plan Assessment/Plan (1) Brain TIA: PLAN: Plan 1. TIA versus CVA/new onset a flutter ? MRI is pending ? Will obtain carotid Dopplers to evaluate his right proximal carotids near occlusion on the CTA of the head and neck ? His previous meningioma was seen again on a CTA of the head and neck ? He does have a flutter and would benefit from Eliquis though I am holding off initially on admission secondary to the evaluation for possible stroke, if he does have a lesion on the right side of his brain and may necessitate more urgent vascular intervention ? Will obtain an echo 2. CAD status post CABG and stent/aortic valve replacement/essential HTN/HLD/chronic diastolic CHF ? Can place on Eliquis on discharge ? Can continue with his aspirin and Plavix ? Can restart blood pressure medications tomorrow ? Resume Lasix tomorrow as well 3. GERD ? Stable ? Continue with PPI 4. BPH with obstruction ? Stable ? Continue with Flomax 5. Anxiety/depression ? Stable ? Continue with his home medications DVT: SCDs 75 minutes was spent on direct patient care, including documentation as well as chart review and collaboration with colleagues Charges/Coding Visit Charges Inpatient E&M: 39325 Init Hosp L3
--- NOTE | 2025-02-15 18:54 | ECHOD_ITS ---
Reason For Study Reason For Study: TIA/CVA Procedure This was a 2D Doppler, Color Flow transthoracic echocardiogram. Exam performed portable in patient room. Left Ventricle Normal LV size. Mild concentric left ventricular hypertrophy. The left ventricular ejection fraction is 55 %. No regional wall motion abnormalities noted. Right Ventricle Normal RV size. Normal systolic function. Atria The left atrium is moderately enlarged. Normal right atrium. Mitral Valve [place] diffuse mitral valve thickening. Mild (1+) eccentric mitral valve insufficiency. Tricuspid Valve Normal tricuspid valve. Mild to moderate (1-2+) tricuspid valve insufficiency. Pulmonary artery systolic pressure is 45 mmHg. Aortic Valve Peak aortic valve gradient 48 mmHg. Mean aortic valve gradient 25 mmHg. Mild to moderate aortic stenosis. Bioprosthetic aortic valve. Pulmonic Valve The pulmonic valve is not well visualized. Great Vessels Ascending aortic wall is thickened and likely reinforced. The pulmonary artery is normal size. Inferior vena cava collapse with respiration. Pericardium/Pleural No pericardial effusion. MMode/2D Measurements & Calculations LVIDd: 4.1 cm IVSd: 1.2 cm LAV(MOD- bp): 73.6 ml LVIDs: 3.1 cm LVPWd: 1.3 cm LAV(MOD- bp) Indexed: 40.8 ml/m2 FS: 23.8 % LAV(MOD- sp2): 63.0 ml LAV(MOD- sp4): 76.8 ml SV(MOD-sp4): 33.7 ml SV(sp4- el): 36.6 ml LVAd ap4: 23.3 cm2 LVLd ap4: 7.1 cm SI(MOD-sp4): 18.7 ml/m2 EDV(MOD-sp4): 64.2 ml EDV(sp4-el): 65.1 ml LVAs ap4: 14.8 cm2 LVLs ap4: 6.5 cm ESV(MOD-sp4): 30.5 ml ESV(sp4-el): 28.5 ml EF(MOD-sp4): 52.5 % EF(sp4-el): 56.3 % LA A4 area: 25.4 cm2 RA A4 area: 18.8 cm2 Time Measurements MV dec time: 0.13 sec Doppler Measurements & Calculations MV E max elpidio: 134.6 cm/sec Lat Peak E' Elpidio: 11.5 cm/sec Med Peak E' Elpidio: 7.6 cm/sec MV A max elpidio: 28.7 cm/sec E/E' lat: 11.7 E/E' med: 17.6 MV E/A: 4.7 MV V2 max: 154.8 cm/sec MV dec slope: 1047 cm/sec2 Ao V2 max: 346.1 cm/sec MV max P.6 mmHg Ao max P.4 mmHg MV V2 mean: 93.5 cm/sec Ao V2 mean: 228.5 cm/sec MV mean P.0 mmHg Ao mean P.1 mmHg MV V2 VTI: 37.0 cm Ao V2 VTI: 86.5 cm PA V2 max: 101.1 cm/sec TR max elpidio: 323.0 cm/sec PA V2 mean: 67.0 cm/sec TR max P.7 mmHg ECHO/Echo Complete Interpretation Summary Normal LV size. The left ventricular ejection fraction is 55 %. Mild concentric left ventricular hypertrophy. Ascending aortic wall is thickened and likely reinforced. Bioprosthetic aortic valve. Mean aortic valve gradient 25 mmHg. Mild to moderate aortic stenosis. Ordering Physician: Chad Moreno Referring Physician: Kip Parnell Chi Performed By: Opal He RCS
[2025-02-15 19:14] LABS: Troponin T High Sens 2 HR 14 ng/L (<=22)
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
--- NOTE | 2025-02-15 21:00 | NURSING ---
refusing tele monitor. educated on why it is order. continues to refuse. it will keep me awake. dr varner aware.
[2025-02-15 22:00] LABS: Troponin T High Sens 4 HR 14 ng/L (<=22)
[2025-02-15] MEDS: Tamsulosin HCl 0.4 MG Capsule PO (22:29)
[2025-02-15] MEDS: Mirtazapine 30 MG Tablet PO (22:29)
[2025-02-15] MEDS: buPROPion (SR) 150 MG Tablet.SA PO (22:29)
[2025-02-15] MEDS: Atorvastatin Calcium 40 MG Tablet PO (22:29)
[2025-02-16 00:30] VITALS: BP 137/81; PULSE 91; RESP 18; TEMP 36.6; O2SAT 95
[2025-02-16] MEDS: Ibuprofen 200 MG Tablet PO (01:06)
[2025-02-16] MEDS: LORazepam 0.5 MG Tablet PO (01:06)
[2025-02-16 05:00] VITALS: BMI 25.4
[2025-02-16 06:20] VITALS: BP 119/65; PULSE 68; RESP 16; TEMP 36.6; O2SAT 95
[2025-02-16 07:43] LABS: Absolute Neutrophil Count 6.1 X10^3/uL (2.0-7.7); Basophil# 0.04 X10^3/uL; Basophil% 0.5 % (0-1); Eosinophil# 0.29 X10^3/uL; Eosinophils% 3.7 % (0-5); Hematocrit 43.7 % (40-54); Hemoglobin 14.5 g/dL (13.0-16.5); Lymphocyte % 11.3 % (19-41); Mean Corp Hgb Conc 33.2 g/dL (32-36); Mean Corpuscular Volume 102.3 fL (80-94); Mean Platelet Vol. 9.8 fl (6.2-12.0); Monocyte% 7.6 % (0-10); NRBC Flagged by Analyzer 0 % (0-5); Neutrophil # 6.05 X10^3/uL (2.7-7.7); Neutrophil % 76.1 % (47-70); Platelet Count 158 K/mm3 (150-450); RBC Distribution Width CV 13.9 % (11.6-14.6); RBC Distribution Width SD 52.8 fl (35.1-43.9); Red Blood Count 4.27 M/mm3 (4.6-6.2); White Blood Count 7.9 K/mm3 (4.4-11.0)
[2025-02-16 08:30] LABS: Anion Gap 9 (5-15); BUN 23 mg/dL (4-19); BUN/Creat Ratio 22.1 RATIO (10-20); Calcium,Total 9.8 mg/dL (7.6-11.0); Carbon Dioxide 24.8 mmol/L (21.0-32.0); Chloride 108 mmol/L (98-108); Cholesterol 142 mg/dL (<=200); Creatinine, Serum 1.03 mg/dL (0.70-1.20); EST Glomerular Filtration Rate 73 (>60); Estimated Creatinine Clearance 50.76 ml/min (50-250); Glucose 121 mg/dL (70-99); High Density Lipoprotein 55 mg/dL; Low Density Lipoprotein Calc. 51 mg/dL; Potassium 4.3 mmol/L (3.3-5.1); Sodium Level 142 mmol/L (133-145); Triglycerides 182 mg/dL; Very Low Density Lipoprotein 36 mg/dL (5-40); cholesterol:hdl ratio screen 2.58
--- NOTE | 2025-02-16 08:34 | PCM.PN.HOSP ---
Reason for Visit Reason for Visit: Diagnoses Transient cerebral ischemic attack, unspecified (02/15/25) Subjective Subjective Feeling well. Worried about the SOB he experiences when he awakes from sleep. Objective Data Objective Data Vital Signs: Vital Signs Temp Pulse Resp BP Pulse Ox O2 Del Method 36.6 C 68 16 119/65 95 Room Air 02/16/25 06:20 02/16/25 06:20 02/16/25 06:20 02/16/25 06:20 02/16/25 06:20 02/16/25 06:20 Oxygen Delivery Method Room Air Weight: 71.6 kg Body Mass Index (BMI) 25.4 Intake & Output: Intake and Output for Last 24 Hours 02/14/25 02/15/25 02/16/25 23:59 23:59 23:59 Intake Total 500 / 500 Balance 500 / 500 Lab / Micro Data 02/16/25 07:24 02/16/25 07:24 Labs: Laboratory Results - last 24 hr 02/15/25 16:28: WBC 8.6, RBC 4.49 L, Hgb 15.4, Hct 46.2, MCV 102.9 H, MCH 34.3 H, MCHC 33.3, RDW Std Deviation 53.3 H, RDW Coeff of [place]ess[place] 14.0, Plt Count 181, MPV 9.7, Immature Gran % (Auto) 0.600, Neut % (Auto) 69.7, Lymph % (Auto) 14.7 L, [place] % (Auto) 9.8, Eos % (Auto) 4.6, Baso % (Auto) 0.6, Absolute Neuts (auto) 6.0, Absolute Lymphs (auto) 1.26, Nucleated RBC % 0, PT 13.4, INR 1.0, APTT 25.7, Sodium 140, Potassium 4.6, Chloride 106, Carbon Dioxide 25.7, Anion Gap 9, BUN 24 H, Creatinine 1.57 H, Estim Creat Clear Calc 33.30 L, Est GFR (MDRD) Non-Af 44 L, BUN/Creatinine Ratio 15.5, Glucose 87, Calcium 9.8, Troponin T High Sens 15 02/15/25 16:37: POC Glucose 74 02/15/25 17:30: Troponin T Hi Sens 2 Hr Cancelled 02/15/25 18:40: Troponin T Hi Sens 2 Hr 14 02/15/25 21:30: Troponin T Hi Sens 4Hr 14 02/16/25 07:24: WBC 7.9, RBC 4.27 L, Hgb 14.5, Hct 43.7, MCV 102.3 H, MCH 34.0 H, MCHC 33.2, RDW Std Deviation 52.8 H, RDW Coeff of [place]ess[place] 13.9, Plt Count 158, MPV 9.8, Immature Gran % (Auto) 0.800, Neut % (Auto) 76.1 H, Lymph % (Auto) 11.3 L, [place] % (Auto) 7.6, Eos % (Auto) 3.7, Baso % (Auto) 0.5, Absolute Neuts (auto) 6.1, Absolute Lymphs (auto) 0.90, Nucleated RBC % 0, Sodium 142, Potassium 4.3, Chloride 108, Carbon Dioxide 24.8, Anion Gap 9, BUN 23 H, Creatinine 1.03, Estim Creat Clear Calc 50.76, Est GFR (MDRD) Non-Af 73, BUN/Creatinine Ratio 22.1 H, Glucose 121 H, Calcium 9.8, Triglycerides 182, Cholesterol 142, LDL Cholesterol, Calc 51, VLDL Cholesterol 36, HDL Cholesterol 55, Cholesterol/HDL Ratio 2.58 Radiography Diagnostic Testing: Radiology Impression Brain CT 02/15/25 16:19 IMPRESSION: No acute intracranial abnormality; no acute infarct, intracranial hemorrhage or extra-axial collection. Chronic microvascular ischemia and involutional changes. Reading Location: [facility] Head/Neck CTA 02/15/25 16:19 IMPRESSION: 1. No intracranial large vessel occlusion, aneurysm or AVM. 2. Severe calcific plaque of the proximal right common carotid artery with near-complete occlusion. Moderate calcific plaque of the right cervical carotid artery resulting in 40% stenosis by NASCET criteria. 3. Severe calcific plaque of the left subclavian artery origin resulting in moderate-severe narrowing. 4. Arterially hyperenhancing lesion within the right frontal lobe along the anterior cranial fossa, most compatible with a meningioma. 5. Questionable ground-glass opacification within the visualized upper lungs. Correlation with patient's symptoms and laboratory values recommended to exclude pneumonitis/pneumonia. Reading Location: [facility] Brain MRI 02/15/25 17:52 IMPRESSION: No acute intracranial abnormality; no acute infarct, intracranial hemorrhage or extra-axial collection. Chronic microvascular ischemia and involutional changes. Reading Location: [facility] Physical Exam Const alert and no apparent distress Resp normal respiratory effort and no retractions Assessment & Plan Assessment/Plan (1) Brain TIA: PLAN: MRI brain negative. (2) Atrial flutter: PLAN: [id number] New diagnosis, unclear if new onset. Echo shows an EF 55% DC with apixaban. PLAN: Plan OTTO: has not tolerated CPAP in the past. Previously deemed not a candidate for Inspire. Still having PND. Recommend follow up with ENT to see if he would be a candidate for UPP. DC home.
[2025-02-16 10:02] VITALS: BP 160/66; PULSE 57; RESP 16; TEMP 36.4; O2SAT 95
[2025-02-16] MEDS: Aspirin E.C. 81 MG Tablet PO (10:08)
[2025-02-16] MEDS: Clopidogrel Bisulfate 75 MG Tablet PO (10:08)
[2025-02-16] MEDS: Potassium Chloride Oral Tablet 20 MEQ PO (10:08)
[2025-02-16] MEDS: buPROPion (SR) 150 MG Tablet.SA 300 MG PO (10:09)
[2025-02-16] MEDS: Pantoprazole Sodium 40 MG Tablet PO (10:09)
[2025-02-16 11:04] VITALS: O2SAT 96
--- NOTE | 2025-02-16 12:28 | PCM.DC.SUM ---
Providers Date of Admission: 02/15/25 Primary Care Physician: Dr. Kip Parnell MD Reason For Visit: CVA R/O Diagnosis Discharge Diagnosis (1) Brain TIA: Status: Acute Code(s): G45.9 - Transient cerebral ischemic attack, unspecified Plan: MRI brain negative. (2) Atrial flutter: Status: Acute Code(s): I48.92 - Unspecified atrial flutter Plan: [id number] New diagnosis, unclear if new onset. Echo shows an EF 55% DC with apixaban. (3) Carotid stenosis: Status: Acute Code(s): I65.29 - Occlusion and stenosis of unspecified carotid artery Plan: severe plaque of the proximal right common carotid artery with near-complete occlusion. Continue DAPT. Follow up with vascular surgery. Plan OTTO: has not tolerated CPAP in the past. Previously deemed not a candidate for Inspire. Still having PND. Recommend follow up with ENT to see if he would be a candidate for UPP. DC home. Medications at Discharge Home Medications nitroglycerin 0.4 mg sublingual tablet 0.4 mg sublingual Q5M PRN Chest Pain 03/01/14 biotin 1 mg capsule 5,000 mcg PO DAILY 01/25/19 aspirin 81 mg tablet,delayed release (Adult Aspirin Regimen) 81 mg PO DAILY #1 TAB 01/19/20 metoprolol tartrate 25 mg tablet 25 mg PO QHS #90 tabs 09/14/20 benazepril 5 mg tablet 5 mg PO DAILY 01/22/21 cholecalciferol (vitamin D3) 25 mcg (1,000 unit) capsule 25 mcg PO DAILY 10/08/22 tamsulosin 0.4 mg capsule 0.4 mg PO QHS prostate 10/08/22 methylphenidate HCl 5 mg tablet (Ritalin) 5 mg PO DAILY PRN ALERTNESS WHEN DRIVING 04/11/24 famotidine 40 mg tablet 40 mg PO QHS PRN GERD 09/28/24 atorvastatin 40 mg tablet 40 mg PO QHS #90 tabs 11/21/24 bupropion HCl 150 mg tablet,12 hr sustained-release See Rx Instructions PO DAILY #90 TABLETS 12/27/24 mirtazapine 30 mg tablet 30 mg PO QHS #30 TABLETS 12/27/24 lorazepam 0.5 mg tablet 0.5 mg PO QHS PRN anxiety #30 tabs 01/09/25 omeprazole 40 mg capsule,delayed release 40 mg PO DAILY #90 caps 01/31/25 furosemide 40 mg tablet 40 mg PO DAILY 02/15/25 gabapentin 100 mg capsule 100 mg PO QHS 02/15/25 potassium chloride 20 mEq tablet,extended release 20 meq PO DAILY 02/15/25 apixaban 5 mg tablet (Eliquis) 5 mg PO BID #60 tabs 02/16/25 clopidogrel 75 mg tablet 75 mg PO DAILY #0 tabs 02/16/25 Hospital Course Operations None Procedures 2-D Echocardiogram Summary of Care Provided Minutes Spent on Discharge: 35 Weight / BMI Weight Weight: 71.6 kg Body Mass Index (BMI) 25.4 ABG / Lab / Microbiology Data 02/16/25 07:24 02/16/25 07:24 Laboratory: Laboratory Results - last 24 hr 02/15/25 16:28: WBC 8.6, RBC 4.49 L, Hgb 15.4, Hct 46.2, MCV 102.9 H, MCH 34.3 H, MCHC 33.3, RDW Std Deviation 53.3 H, RDW Coeff of Alessandro 14.0, Plt Count 181, MPV 9.7, Immature Gran % (Auto) 0.600, Neut % (Auto) 69.7, Lymph % (Auto) 14.7 L, Rankin % (Auto) 9.8, Eos % (Auto) 4.6, Baso % (Auto) 0.6, Absolute Neuts (auto) 6.0, Absolute Lymphs (auto) 1.26, Nucleated RBC % 0, PT 13.4, INR 1.0, APTT 25.7, Sodium 140, Potassium 4.6, Chloride 106, Carbon Dioxide 25.7, Anion Gap 9, BUN 24 H, Creatinine 1.57 H, Estim Creat Clear Calc 33.30 L, Est GFR (MDRD) Non-Af 44 L, BUN/Creatinine Ratio 15.5, Glucose 87, Calcium 9.8, Troponin T High Sens 15 02/15/25 16:37: POC Glucose 74 02/15/25 17:30: Troponin T Hi Sens 2 Hr Cancelled 02/15/25 18:40: Troponin T Hi Sens 2 Hr 14 02/15/25 21:30: Troponin T Hi Sens 4Hr 14 02/16/25 07:24: WBC 7.9, RBC 4.27 L, Hgb 14.5, Hct 43.7, MCV 102.3 H, MCH 34.0 H, MCHC 33.2, RDW Std Deviation 52.8 H, RDW Coeff of Alessandro 13.9, Plt Count 158, MPV 9.8, Immature Gran % (Auto) 0.800, Neut % (Auto) 76.1 H, Lymph % (Auto) 11.3 L, Rankin % (Auto) 7.6, Eos % (Auto) 3.7, Baso % (Auto) 0.5, Absolute Neuts (auto) 6.1, Absolute Lymphs (auto) 0.90, Nucleated RBC % 0, Sodium 142, Potassium 4.3, Chloride 108, Carbon Dioxide 24.8, Anion Gap 9, BUN 23 H, Creatinine 1.03, Estim Creat Clear Calc 50.76, Est GFR (MDRD) Non-Af 73, BUN/Creatinine Ratio 22.1 H, Glucose 121 H, Calcium 9.8, Triglycerides 182, Cholesterol 142, LDL Cholesterol, Calc 51, VLDL Cholesterol 36, HDL Cholesterol 55, Cholesterol/HDL Ratio 2.58 Radiography Diagnostic Testing: Radiology Impression Brain CT 02/15/25 16:19 IMPRESSION: No acute intracranial abnormality; no acute infarct, intracranial hemorrhage or extra-axial collection. Chronic microvascular ischemia and involutional changes. Reading Location: [facility] Head/Neck CTA 02/15/25 16:19 IMPRESSION: 1. No intracranial large vessel occlusion, aneurysm or AVM. 2. Severe calcific plaque of the proximal right common carotid artery with near-complete occlusion. Moderate calcific plaque of the right cervical carotid artery resulting in 40% stenosis by NASCET criteria. 3. Severe calcific plaque of the left subclavian artery origin resulting in moderate-severe narrowing. 4. Arterially hyperenhancing lesion within the right frontal lobe along the anterior cranial fossa, most compatible with a meningioma. 5. Questionable ground-glass opacification within the visualized upper lungs. Correlation with patient's symptoms and laboratory values recommended to exclude pneumonitis/pneumonia. Reading Location: [id number] Brain MRI 02/15/25 17:52 IMPRESSION: No acute intracranial abnormality; no acute infarct, intracranial hemorrhage or extra-axial collection. Chronic microvascular ischemia and involutional changes. Reading Location: [facility] Echocardiogram 02/15/25 18:54 Interpretation Summary Normal LV size. The left ventricular ejection fraction is 55 %. Mild concentric left ventricular hypertrophy. Ascending aortic wall is thickened and likely reinforced. Bioprosthetic aortic valve. Mean aortic valve gradient 25 mmHg. Mild to moderate aortic stenosis. Ordering Physician: Chad Moreno Referring Physician: Kip Parnell Chi Performed By: Opal He RCS D/C Instructions Discharge Diet: No restrictions DC O2, CPAP, BIPAP Needs Home O2 Discharge instructions: No Meaningful Use Info Meaningful Use Meaningful Use Diagnoses (Choose all that apply): None applicable Ischemic Stroke Statin Dosing Therapy Reference: STATIN DOSE THERAPY REFERENCE: * Patients > 75 years receive moderate or high dose statin therapy. * Patients 75 years or YOUNGER should receive HIGH intensity statin dose unless contraindicated. You will be required to document reason for non-treatment if statin daily dose does not meet guidelines. HIGH DOSE STATIN THERAPY DAILY Atorvastatin > than or = to 40 mg Rosuvastatin > than or = to 20 mg Amlodipine + Atorvastatin > than or = to 2.5/40 mg Ezetimibe + Simvastatin 10/80 mg Simvastatin 80mg Discharge Plan Admission Admit Date/Time: 02/15/25 18:40 Primary Reason for Your Visit: TIA Attending Provider: Jose Mclaughlin Primary Care Provider: Kip Parnell Chi Consulting Providers: Chad Moreno Instructions Additional Instructions / Restrictions: You had a TIA. You were noticed to have atrial flutter. Atrial flutter can pose a risk for stroke, so that is why you will need to be on anticoagulation, which in your case will be apixaban (Eliquis). For your sleep apnea, since you have not tolerated CPAP and were not a candidate for the Inspire device. One option would be a uvulopalatopharyngoplasty (UPPP). Discuss with Dr. Parnell about referral to ENT about this. You have stenosis (narrowing) of your carotid arthery. You should follow up with vascular surgery. Discharge Orders/Prescriptions Prescriptions: New Eliquis 5 mg tablet 5 mg PO BID Qty: 60 0RF clopidogrel 75 mg Tablet 75 mg PO DAILY Qty: 0 0RF Continued biotin 1 mg capsule 5,000 mcg PO DAILY tamsulosin 0.4 mg capsule 0.4 mg PO QHS cholecalciferol (vitamin D3) 25 mcg (1,000 unit) capsule 25 mcg PO DAILY metoprolol tartrate 25 mg tablet 25 mg PO QHS Qty: 90 3RF benazepril 5 mg tablet 5 mg PO DAILY methylphenidate HCl [Ritalin] 5 mg tablet 5 mg PO DAILY PRN (Reason: ALERTNESS WHEN DRIVING) mirtazapine 30 mg tablet 30 mg PO QHS Qty: 30 2RF bupropion HCl 150 mg tablet sustained-release 12 hr See Rx Instructions PO DAILY Qty: 90 2RF Rx Instructions: orally daily; TAKE 2 TABLETS (300 MG) EVERY MORNING AND 1 TABLET EVERY EVENING nitroglycerin 0.4 MG tablet 0.4 mg sublingual Q5M PRN (Reason: Chest Pain) Patient Comments: CHEST PAIN famotidine 40 mg tablet 40 mg PO QHS PRN (Reason: GERD) furosemide 40 mg tablet 40 mg PO DAILY gabapentin 100 mg capsule 100 mg PO QHS potassium chloride 20 mEq tablet extended release 20 meq PO DAILY aspirin [Adult Aspirin Regimen] 81 mg tablet,delayed release (DR/EC) 81 mg PO DAILY Qty: 1 0RF Patient Comments: was not told to stop atorvastatin 40 mg tablet 40 mg PO QHS Qty: 90 3RF Rx Instructions: TAKE 1 TABLET AT BEDTIME lorazepam 0.5 mg tablet 0.5 mg PO QHS PRN (Reason: anxiety) Qty: 30 1RF omeprazole 40 mg capsule,delayed release(DR/EC) 40 mg PO DAILY Qty: 90 3RF Discontinued naproxen sodium [Aleve] 220 mg tablet 220 mg PO DAILY PRN (Reason: pain) clopidogrel [Plavix] 75 mg tablet 75 mg PO DAILY Qty: 90 3RF Patient Comments: stop as instructed for colonoscopy Referrals / Follow Up: Jose Sigala MD [Med Staff - Active Staff] - Within 1 Month Kip Parnell Chi, MD [Primary Care Provider] - Within 2 Weeks Disposition Disposition (needs filled in before D/C Order can be placed): Home, Self Care Charges/Coding Visit Charges Inpatient E&M: 04048 Disch Hosp >30min
[2025-02-16 12:46] VITALS: BP 148/76; PULSE 66; RESP 18; TEMP 36.4; O2SAT 96
[2025-02-16 13:44] VITALS: BP 148/76; PULSE 66; RESP 18; TEMP 36.4; O2SAT 96
--- NOTE | 2025-02-16 14:21 | CASEMGMT ---
Patient has order for discharge. Patient is discharging on SARAH Mai CM called Ayde Avila, copay is $304.03. SARAH CM in to discuss needs at discharge. Patient ambulated independently with therapy, no therapy recommended. SARAH SOTO updated patient regarding copay, 30 day free trial card provided. Patient denies needs or help at discharge. Patient had no further questions or concerns.
== END 2025-02-16 12:46 | disposition home or self-care (01) ==
LOC: ED 17:59 → PCU 19:06
PROVIDERS: Admitting Provider Family Medicine; Emergency Provider Emergency Medicine; PCP Family Medicine Geriatric Medicine
DX: I65.21 Occlusion and stenosis of right carotid artery (principal); I50.32 Chronic diastolic (congestive) heart failure; I11.0 Hypertensive heart disease with heart failure; I48.92 Unspecified atrial flutter; D32.0 Benign neoplasm of cerebral meninges; R47.81 Slurred speech; G47.33 Obstructive sleep apnea (adult) (pediatric); I25.10 Atherosclerotic heart disease of native coronary artery without angina pectoris; R29.6 Repeated falls; E78.00 Pure hypercholesterolemia, unspecified; K21.9 Gastro-esophageal reflux disease without esophagitis; N40.1 Benign prostatic hyperplasia with lower urinary tract symptoms; N13.8 Other obstructive and reflux uropathy; F32.A Depression, unspecified; F41.9 Anxiety disorder, unspecified; Z79.82 Long term (current) use of aspirin; Z79.02 Long term (current) use of antithrombotics/antiplatelets; Z79.899 Other long term (current) drug therapy; Z95.1 Presence of aortocoronary bypass graft; Z95.2 Presence of prosthetic heart valve
CPT/HCPCS: 36415; 70450; 70496; 70498; 70551; 80048; 80061; 82962; 84484; 85025; 85610; 85730; 93005; 93306; 93880; 94762; 96360; 96361; 97162; 97802; 99221; 99285; Q9967; A4216; G0378

== ENCOUNTER → 2025-02-17 | Outpatient (CLI) | payer MEDICARE, SELFPAY ==
--- NOTE | 2025-02-17 11:40 | CT_ITS ---
PROCEDURE: CTA CHEST W/WO CONTRAST 02/17/2025 REASON FOR EXAM: PAIN TECHNIQUE: CTA axial imaging of the chest with intravenous contrast. Contiguous axial scans of 1.25 mm slice thicknesses. Sagittal and coronal reconstruction images were obtained. One or more dose reduction techniques were used (e.g., automated exposure control, adjustment of mA and/or kv according to patient size, use of iterative reconstruction technique). PATIENT PREPARATION: Per protocol CONTRAST: Isovue 370 VOLUME: 100 mL RADIATION DOSE SUMMARY: CTDlvol: 30.58 mGy DLP: 420.73 mGycm COMPARISON: No relevant prior. FINDINGS: Heart: Normal in size and configuration. Eugenia: No masses or adenopathy. Mediastinum: No widening. No masses. No adenopathy. Thoracic Aorta: Stent graft at the aortic root. Eccentric thrombus in the ascending aorta measuring a maximal thickness of 0.8 cm. Moderate to severe atherosclerotic calcific disease of the aorta. Pulmonary Vessels: No intraluminal filling defects. Lungs and Airways: No masses or suspicious nodules. Pleura: Small bilateral pleural effusions, slightly more prominent on the right Upper Abdomen: Small calcifications in the left kidney. Colon diverticulosis. Large hiatal hernia. Bones: Multilevel spondylosis and degenerative disc disease. Median sternotomy wires. CT/CTA Chest W/WO Contrast IMPRESSION: No evidence of pulmonary embolism. Stent graft at the aortic root. Eccentric thrombus in the ascending aorta. Moderate to severe atherosclerotic calcific disease of the aorta. Small bilateral pleural effusions. Diverticulosis without signs of diverticulitis. Large stationary hiatal hernia. Nonobstructing left nephrolithiasis. Other nonacute findings detailed above. Reading Location: [place] [id number]
[2025-02-17 12:52] LABS: Absolute Lymphocyte Count 0.74 X10^3/uL (0.83-4.51); Absolute Neutrophil Count 7.4 X10^3/uL (2.0-7.7); Basophil# 0.04 X10^3/uL; Basophil% 0.4 % (0-1); Eosinophil# 0.22 X10^3/uL; Eosinophils% 2.3 % (0-5); Hematocrit 44.2 % (40-54); Lymphocyte # 0.74 X10^3/ul (0.83-4.51); Lymphocyte % 7.8 % (19-41); Mean Corp Hgb Conc 33.9 g/dL (32-36); Mean Corpuscular Hgb 34.6 pg (27.0-32.0); Mean Corpuscular Volume 101.8 fL (80-94); Monocyte# 1.03 X10^3/uL; Monocyte% 10.9 % (0-10); NRBC Flagged by Analyzer 0 % (0-5); Neutrophil # 7.35 X10^3/uL (2.7-7.7); Platelet Count 160 K/mm3 (150-450); RBC Distribution Width CV 13.6 % (11.6-14.6); RBC Distribution Width SD 51.4 fl (35.1-43.9); Red Blood Count 4.34 M/mm3 (4.6-6.2); White Blood Count 9.4 K/mm3 (4.4-11.0)
[2025-02-17 13:18] LABS: D-Dimer Quantitative (DVT/PE) 0.27 FEU/ug/m (0.27-0.49)
[2025-02-17 13:27] LABS: ALB/GLOB Ratio 1.7 RATIO (0.9-2.4); AST(SGOT) 22 U/L (<=37); Alanine Aminotransfer ALT/SGPT 22 U/L (<=46); Albumin, Serum 3.8 g/dL (3.4-4.8); Alkaline Phosphatase 92 U/L (40-129); Anion Gap 11 (5-15); BUN 20 mg/dL (4-19); BUN/Creat Ratio 16.5 RATIO (10-20); Calcium,Total 10.2 mg/dL (7.6-11.0); Carbon Dioxide 24.5 mmol/L (21.0-32.0); Chloride 103 mmol/L (98-108); Creatinine, Serum 1.23 mg/dL (0.70-1.20); EST Glomerular Filtration Rate 59 (>60); Globulin 2.3 g/dL (2.2-4.2); Glucose 90 mg/dL (70-99); Potassium 4.5 mmol/L (3.3-5.1); Protein, Total 6.1 g/dL (5.9-8.4); Sodium Level 138 mmol/L (133-145)
[2025-02-17 14:13] LABS: Amphetamine Urine NEGATIVE (<1000 ng/mL); Barbiturate Urine NEGATIVE (< 200 ng/mL); Benzodiazepine Urine NEGATIVE (< 200 ng/mL); Buprenorphine Urine NEGATIVE (< 200 ng/mL); Cocaine Urine NEGATIVE (< 300 ng/mL); Fentanyl, Urine NEGATIVE; Methadone Urine NEGATIVE (< 300 ng/mL); Opiates Urine NEGATIVE (< 300 ng/mL); Oxycodone, Urine NEGATIVE (< 100 ng/mL); PCP Urine NEGATIVE (< 25 ng/mL); THC Urine NEGATIVE (< 50 ng/mL)
== END | disposition home or self-care (01) ==
PROVIDERS: PCP Family Medicine Geriatric Medicine; Referring Provider Family Medicine Geriatric Medicine; Visit Provider Family Medicine Geriatric Medicine
DX: R06.02 Shortness of breath (principal); R07.9 Chest pain, unspecified; G93.40 Encephalopathy, unspecified; I10 Essential (primary) hypertension
CPT/HCPCS: 36415; 71275; 80053; 80307; 85025; 85379; 87086; 87088; Q9967; A4216

== ENCOUNTER 2025-03-20 06:08 | Observation (INO) | payer MEDICARE, SELFPAY ==
[2025-03-20] VITALS (14 sets, daily range): BP systolic 111–165; BP diastolic 66–136; PULSE 51–75; RESP 12–23; TEMP 36.2–36.9; O2SAT 95–100; BMI 23.3
--- NOTE | 2025-03-20 06:22 | CT_ITS ---
PROCEDURE: BRAIN/HEAD WITHOUT CONTRAST 03/20/2025 REASON FOR EXAM: FALL AND HEAD INJURY ON PLAVIX TECHNIQUE: Head CT without intravenous contrast. Coronal and Sagittal reconstruction series were provided. One or more dose reduction techniques were used (e.g., Automated exposure control, adjustment of the mA and/or kV according to patient size, use of iterative reconstruction technique. RADIATION DOSE SUMMARY: CTDlvol: 44.99 mGy DLP: 779.24 mGycm COMPARISON: 02/15/2025 FINDINGS: No intracranial hemorrhage, mass effect or calvarial fracture. The ventricles are unchanged in size and remain midline. The ventricles are prominent out of proportion to the sulci and may represent central volume loss or NPH, unchanged. Chronic and involutional changes again noted. Small area of calcification inferior right frontal lobe again seen without mass effect or associated edema. May represent a small meningioma, incidental. Acute on chronic maxillary sinusitis again noted. Sclerotic thickened joya with apparent antral windows. The mastoids and orbits appear within limits. Right TMJ degenerative changes. Parasellar carotid calcification. CT/Brain/Head without Contrast IMPRESSION: No intracranial hemorrhage, mass effect or calvarial fracture. Chronic involutional changes again noted. Acute on chronic maxillary sinusitis again noted as above. Reading Location: [id number]
--- NOTE | 2025-03-20 06:25 | ED.VIS.FALL ---
HPI HPI - Fall History of Present Illness Chief Complaint: Fall Informant: patient Occured/Mechanism Occurred: Today and Hours Mechanism/Context: Yes same level fall and Yes trip Usually ambulates: Without assistance Pain/Injury Pain Location: head, back and upper extremity Quality of Pain: Sharp Current Severity: Mild Maximum Severity: Mild Narrative Narrative: 79-year-old male history of A-fib, hypertension, prior stroke, prior CABG with 2 other heart surgeries for valve replacement of the aortic valve. Patient states he tripped and fell at home this morning. Hit his head. No LOC. He is on Plavix. Complaining of low back pain after the fall. Denies any chest or abdominal pain. Says he did not feel sick prior to the fall. He does have trouble with his balance in the last year. He had a prior stroke. Patient denies any recent illness or vomiting or diarrhea. Tetanus Immunization: <5 years Prior similar symptoms: No Recent Illness/Hospitalization: Yes [facility] Medical History Persistent atrial fibrillation Carotid stenosis Atrial flutter Meningioma, cerebral Brain TIA [place] esophagus GERD (gastroesophageal reflux disease) OTTO (obstructive sleep apnea) Anxiety Non-smoker Fall Aortic aneurysm and dissection Grief Wears hearing aid Wears glasses Alcohol use High cholesterol Narcolepsy Injury of head and neck History of Holter monitoring History of echocardiogram History of stress test Hypertension Cardiology follow-up encounter History of Mohs micrographic surgery for skin cancer Major depression Acute decompensated heart failure Chronic cough Severe obstructive sleep apnea Positional lightheadedness Essential (primary) hypertension 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) Back pain Limb weakness Difficulty balancing Knee pain Cancer Arthritis Chest pain on exertion Abnormal stress test Carotid bruit Atherosclerotic heart disease of [place] coronary artery without angina pectoris Osteoarthritis Depression Thrombocytopenia HLD (hyperlipidemia) Home Medications ?Medication ?Instructions ?Recorded ?Last Taken ?Type nitroglycerin 0.4 mg sublingual 0.4 mg sublingual Q5M PRN Chest 03/01/14 03/01/14 History tablet Pain biotin 1 mg capsule 5,000 mcg PO DAILY 01/25/19 02/15/25 History metoprolol tartrate 25 mg tablet 25 mg PO QHS #90 tabs 09/14/20 02/14/25 Rx cholecalciferol (vitamin D3) 25 25 mcg PO DAILY 10/08/22 02/15/25 History mcg (1,000 unit) capsule tamsulosin 0.4 mg capsule 0.4 mg PO QHS prostate 10/08/22 02/14/25 History methylphenidate HCl 5 mg tablet 5 mg PO DAILY PRN ALERTNESS WHEN 04/11/24 Unknown History (Ritalin) DRIVING atorvastatin 40 mg tablet 40 mg PO QHS #90 tabs 11/21/24 02/14/25 Rx bupropion HCl 150 mg tablet,12 hr See Rx Instructions PO DAILY #90 12/27/24 02/15/25 Rx sustained-release TABLETS mirtazapine 30 mg tablet 30 mg PO QHS #30 TABLETS 12/27/24 02/14/25 Rx furosemide 40 mg tablet 40 mg PO DAILY 02/15/25 02/15/25 History gabapentin 100 mg capsule 100 mg PO QHS 02/15/25 02/14/25 History potassium chloride 20 mEq 20 meq PO DAILY 02/15/25 02/15/25 History tablet,extended release apixaban 5 mg tablet (Eliquis) 5 mg PO BID #60 tabs 02/16/25 Unknown Rx clopidogrel 75 mg tablet 75 mg PO DAILY #0 tabs 02/16/25 Unknown Rx azelastine 137 mcg (0.1 %) nasal 1 spray intranasal BID 03/01/25 Unknown History spray benazepril 5 mg tablet 2.5 mg PO DAILY 03/01/25 Unknown History coenzyme Q10 30 mg capsule (Co 30 mg PO QDAY 03/01/25 Unknown History Q-10) omeprazole magnesium 20 mg 20 mg PO QDAY 03/01/25 Unknown History tablet,delayed release (Prilosec OTC) lorazepam 0.5 mg tablet 0.5 mg PO QHS PRN anxiety #30 tabs 03/13/25 Unknown Rx Allergy/AdvReac Type Severity Reaction Status Date / Time No Known Allergies Allergy Verified 03/20/25 06:08 Family History Father , Age 70 COPD (chronic obstructive pulmonary disease) Mother , Age 94 Congestive heart failure Brother , Age 61 Sudden cardiac Brother , age 84 Hypertension Hyperlipidemia COPD (chronic obstructive pulmonary disease) Surgical History Hx of oral surgery History of esophagogastroduodenoscopy (EGD) Hx of surgical procedure Hx of colonoscopy Hx of bilateral cataract extraction History of uvulectomy History of hernia repair History of transcatheter aortic valve replacement (TAVR) (03/22/16) History of coronary artery stent placement (10/20/08) H/O coronary artery bypass surgery (09/23/02) History of aortic valve replacement with bioprosthetic valve (09/23/02) History of left heart catheterization Social History household members: none Smoking Status: Never smoker alcohol intake: current alcohol intake frequency: a few times a week Alcohol type: wine substance use type: does not use caffeine: Yes Type: coffee Number of servings: 1 ROS ROS ED ROS Narrative Denies recent illness. Constitutional Constitutional ED: Denies chills or fever(s) Eyes Eyes: Denies blurry vision Cardiovascular Cardiovascular: Denies chest pain Respiratory/Chest Respiratory/Chest: Denies cough Gastrointestinal Gastrointestinal: Denies abdominal pain, constipation, diarrhea, melena, nausea or vomiting Genitourinary Genitourinary ED: Denies dysuria or hematuria Musculoskeletal Musculoskeletal: Denies arthralgias Integumentary Denies abscess or Abrasions Neurologic Neurologic: Denies headache(s) Psychiatric Psychiatric: Denies depression Endocrine Endocrinology: Denies polydipsia Hematologic/Lymphatic Hematologic/Lymphatic: Denies lymphadenopathy Allergic/Immunologic Allergic/Immunologic ED: Denies mouth swelling, tongue swelling or urticaria EXAM Physical Exam Narrative Exam Narrative: 79-year-old male sitting upright in bed. Vital signs are stable afebrile. No acute distress. Initial blood pressure elevated at 150/136. Be rechecked. H EENT exam pupils round reactive light. He has an abrasion on his head which is only send has not been in the fall. Is a Band-Aid on his head to again that was before the fall tonight. His scalp is nontender. There is no bleeding. Pupils round reactive light. No facial trauma. Moist mucous membranes. Neck nontender. Trachea midline. Back nontender. Lungs clear to auscultation bilaterally. Heart atrial flutter rate about 60 no murmur. Chest wall and ribs nontender. Well-healed midline sternotomy incision. Dry and clean. Abdomen is soft and nontender. Moving all 4 extremities. Nontender no deformity. He has a skin tear left elbow. Dried blood no active bleeding. Full flexion extension supination and pronation there is no bony tenderness. No decrease in his range of motion. Back nontender no trauma. Neurologically he is awake alert. Answering questions following commands. Const Vital Signs: 03/20/25 06:08 03/20/25 06:13 Temperature 97.7 F L Temperature Source Oral Pulse Rate 51 L Respiratory Rate 15 Respiratory Effort Normal Respiratory Depth Normal Respiratory Pattern Normal Blood Pressure 150/136 H Blood Pressure Mean 140 Pulse Ox 98 100 Oxygen Delivery Method Room Air Room Air Positive well nourished and well developed; Negative for obese, contractures or unkempt General Appearance ED: well developed and NAD; Negative for unkempt or contractures Nutritional Appearance: Negative for obese HEENT Reports normocephalic atraumatic; Negative for trauma, contusion, hematoma or tenderness Eyes PERRL and EOMs intact bilaterally General Eye ED: Yes pale conjunctiva and scleral icterus Neck full ROM, no lymphadenopathy and supple Chest Wall inspection of chest normal and palpation of chest normal Resp normal respiratory effort, no retractions and clear to auscultation bilaterally Cardio S1 normal heart sound, S2 normal heart sound and no murmurs; Negative for regular rate or regular rhythm Rate: Negative for bradycardia or tachycardic Rhythm: Negative for abnormal rhythm GI non-tender and no masses Inspection: Negative for abdominal distention Auscultation: Negative for normoactive bowel sounds Palpation: soft; Negative for guarding or rebound tenderness present Back/Spine no CVA tenderness General Back: Negative for CVA tenderness Cervical Spine: Negative for cervical spine tenderness Lumbar Spine / Lower Back: lumbar spinal tenderness Neuro oriented x3, CN's II-XII intact bilaterally and moves all extremities Boo Coma Scale: document GCS findings Spontaneous Obeys Commands Oriented 15 Sensorium / Orientation: alert, oriented to person, oriented to place and oriented to time; Negative for orientation impaired, confused or lethargic Cranial Nerves: Negative for CN normal except as noted Sensory Exam: No sensory level loss detected Motor Exam: strength 5/5 throughout Psych mental status grossly normal and thought process normal Appearance: Negative for unkempt Attitude: No agitated Mood & Affect: depressed; Negative for anxious Skin Skin Narrative: Skin tear posterior left elbow. Full flexion extension supination and pronation. No bony deformity. Dried blood. This does not need to be sewn. To be cleaned and dressed. General Skin Exam: Negative for other Lesions: no lesions Rashes: no rashes Trauma: Negative for abrasion MDM MDM MDM Narrative Medical decision making narrative: 79-year-old male fell at home. CAT scan of his brain will be obtained even though low suspicion for any significant head injury. He did hit his head but there is no significant signs of trauma. He is on Plavix. Also lumbar spine x-ray to be obtained. He was offered but did not want anything for pain. Repeat exam patient is doing well at 7:15 AM. He feels good enough to try to walk if he walks okay will be discharged home. I went over his lumbar x-ray with him and the CAT scan of the brain. Repeat exam patient is doing well at 7:55 AM. He requested some for his back discomfort. I offered him Tylenol he said it does not work that well for him he does not want narcotic pain medication. He typically takes ibuprofen or Aleve so be given 400 of ibuprofen. I did speak to the hospitalist. He is not really at care home facility candidate. He will remain in the emergency department till 10 AM to discuss with our perinatal social worker I will plan to get him in his assisted living if possible. History & Record Review Discussion w/independent historian: Patient Additional record(s) reviewed:: Prior outpatient record Radiography Diagnostic Testing: Clinical Impression(s) from Imaging Studies Brain CT 03/20/25 06:22 IMPRESSION: No intracranial hemorrhage, mass effect or calvarial fracture. Chronic involutional changes again noted. Acute on chronic maxillary sinusitis again noted as above. Reading Location: [facility] Lumbar Spine X-Ray 03/20/25 06:35 IMPRESSION: Since the prior study there is now an L1 superior endplate compression fracture with mild anterior wedging and loss of vertebral body height. No evidence of retropulsion of bone or associated malalignment. Reading Location: [facility] Lumbar spine x-rays, 2 views, AP and lateral, interpreted by myself shows an L1 compression fracture that is new from a film from [place] [employer] and the radiologist. Chronic changes. Degenerative arthritis. Calcified aorta. CT brain no acute abnormality. No bleed. Read by the radiologist and reviewed by me. Discharge Plan Triage Chief Complaint: Fall ED Provider: Luis Angel Estrada Dx/Rx/DC Orders Clinical Impression: Fall, Atrial fib/flutter, transient, Minor closed head injury, Closed compression fracture of lumbar vertebra Instructions: ED Fracture, Vertebral Compression, ED Head Injury (Adult) Prescriptions: No Action biotin 1 mg capsule 5,000 mcg PO DAILY tamsulosin 0.4 mg capsule 0.4 mg PO QHS cholecalciferol (vitamin D3) 25 mcg (1,000 unit) capsule 25 mcg PO DAILY metoprolol tartrate 25 mg tablet 25 mg PO QHS Qty: 90 3RF methylphenidate HCl [Ritalin] 5 mg tablet 5 mg PO DAILY PRN (Reason: ALERTNESS WHEN DRIVING) mirtazapine 30 mg tablet 30 mg PO QHS Qty: 30 2RF bupropion HCl 150 mg tablet sustained-release 12 hr See Rx Instructions PO DAILY Qty: 90 2RF Rx Instructions: orally daily; TAKE 2 TABLETS (300 MG) EVERY MORNING AND 1 TABLET EVERY EVENING azelastine 137 mcg (0.1 %) spray,non-aerosol 1 spray intranasal BID Rx Instructions: administer into each nostril coenzyme Q10 [Co Q-10] 30 mg capsule 30 mg PO QDAY omeprazole magnesium [Prilosec OTC] 20 mg tablet,delayed release (DR/EC) 20 mg PO QDAY benazepril 5 mg tablet 2.5 mg PO DAILY nitroglycerin 0.4 MG tablet 0.4 mg sublingual Q5M PRN (Reason: Chest Pain) Patient Comments: CHEST PAIN furosemide 40 mg tablet 40 mg PO DAILY gabapentin 100 mg capsule 100 mg PO QHS potassium chloride 20 mEq tablet extended release 20 meq PO DAILY Eliquis 5 mg tablet 5 mg PO BID Qty: 60 0RF clopidogrel 75 mg Tablet 75 mg PO DAILY Qty: 0 0RF atorvastatin 40 mg tablet 40 mg PO QHS Qty: 90 3RF Rx Instructions: TAKE 1 TABLET AT BEDTIME lorazepam 0.5 mg tablet 0.5 mg PO QHS PRN (Reason: anxiety) Qty: 30 1RF Primary Care Provider: Kip Parnell Chi Referrals: Kip Parnell Chi, MD [Primary Care Provider] - 3-5 Days if not improving Activity Restrictions/Additional Instructions: Ice to your back. Massage. Tylenol. Hot shower or whirlpool tub. You L1 compression fracture of your lumbar spine. Follow-up with your doctor if not improving. Return emergency department if you are feeling a lot worse. Print Language: Ethiopian Disposition Disposition: Home, Self Care
--- NOTE | 2025-03-20 06:35 | RAD_ITS ---
PROCEDURE: LUMBAR SPINE 2 OR 3 VIEWS 03/20/2025 REASON FOR EXAM: FALL TECHNIQUE: 2 view(s) of the lumbar spine COMPARISON: 02/08/2025 FINDINGS: Since the prior study there is now an L1 superior endplate compression fracture with mild anterior wedging and loss of vertebral body height. No evidence of retropulsion of bone or associated malalignment. Multilevel spondylosis/discogenic change with mild retrolisthesis L2 on L3 and multilevel facet degenerative changes again noted. Leftward curvature again noted. Heavy atherosclerotic changes again seen. RAD/Lumbar Spine 2 or 3 Views IMPRESSION: Since the prior study there is now an L1 superior endplate compression fracture with mild anterior wedging and loss of vertebral body height. No evidence of retropulsion of bone or associated malalignment. Reading Location: [id number]
[2025-03-20] MEDS: Ibuprofen 200 MG Tablet 400 MG PO (08:34)
--- NOTE | 2025-03-20 13:30 | CM.ED ---
Social work This SW was made aware of patient's situation when SW was arriving for start of shift. SW was asked to meet with patient to assess for safety and possibly help get patient into AL. SW entered patient's room, introducing self and role at [facility]. Patient accepted SW visit and thanked SW for talking with patient; patient was observed sitting up in bed. Patient stated patient's just over 2 years ago and patient reported increased depression symptoms over the last month. Patient stated not going anywhere out of the house due to patient's depression and inability to drive. Patient reports losing 20 lbs over the last few weeks and also being the victim of an online scam; patient reports losing $60-70k and having to declare bankruptcy. Patient reports being tired of being alone and having to force self to go out. Patient reports patient's son, Kurtis, advised patient not to drive anymore due to health concerns and patient reports using the [facility] van to get to necessary appointments; patient reports cheating sometimes when desiring to leave the house for other situations. Patient reports seeing Dr. Kelly for psychiatry and was planning to start seeing a therapist through [facility] starting today. Patient reports starting the process of looking into AL by touring [facility], [place], and [facility] (this order is also the order of preference of facilities). Patient reports also meeting with a realtor to start the process of selling patient's house. Per patient request, this SW called the above AL facilities and received the following information that was passed on to patient: - [facility]: spoke with Claudio (ph: [phone]) who stated [facility] did not have any beds available, but [facility] and [facility] did. If patient desired, patient could be placed at one of the other two facilities and within 30-45 days, Claudio stated patient could receive a [facility] bed. When this was expressed to patient by this SW, patient stated this would be a desire and then asked if [facility] had any openings. - Claudio stated [facility] did have a 1 bedroom apartment available now (preferably tomorrow 03/21/25). Contact is Maribeth Sharma at [phone]. - Claudio stated [facility] had a large studio apartment available now (preferably tomorrow 03/21/25) with ability to move into a 1 bedroom apartment next week. Contact is renetta Perez at [phone]. - Claudio stated Claudio would like to be contacted with any changes as Claudio manages the [facility] facility and would help with making sure patient could return to the [place] area when a [facility] apartment was available. - [facility]: spoke with Fawad (ph: [phone]) who stated having a studio apartment available. Patient confirmed desire to move ahead with [facility]. - [facility]: spoke with Jony (ph: [phone]) who stated having no beds available currently, but patient could go on a waitlist if patient desired. Patient declined this offer. Patient reported patient's son, Kurtis, as being out of state (lives in [place]) and being home at some point today. Patient reported not believing Kurtis could take off work to help patient with the transition to [place]. Patient also stated talking with a 40 year old woman who is currently in nursing home (after patient's ) who could move in with patient to help care for patient. Patient stated believing this to not be a good idea due to already spending $20-30k on this woman. Of note, patient did appear to have some confusion while this SW was meeting with patient, though the confusion did not appear to an extreme level. Patient reported having suicidal thoughts to a nurse and SW completed the [place] Suicide Severity Rating Scale (C-SSRS) to help explore patient's suicide risk. See below for details; patient is low risk: Due to patient having an L1 compression fracture, being on Plavix and falling 3-4 times over the last 24 hours and almost falling twice with nursing in the ED, and having no family support, patient was admitted to acute with intention of getting PT/OT evaluations for intention of discharging to assisted living, but possibly needing SNF. Spoke with doctor who agrees and called hospitalist for admission. Plan: admission to acute; RN CM/SW to follow for discharge planning needs that may arise. [place] SSRS SUICIDAL IDEATION Ask questions 1 and 2. If both are negative, proceed to ?Suicidal Behavior? section. If the answer question 2 is yes, ask questions 3, 4, 5.? If the answer to question 1 and/or 2 is ?yes?, complete ?Intensity of Ideation? section below. 1. Wish to be ? Subject endorses thoughts about a wish to be or not alive anymore or wish to fall asleep and not wake up. Have you wished you were or wished you could go to sleep and not wake up? Past 1 month: yes Please Describe if yes: ?patient stated having been depressed over the last month, but only having general thoughts of wishing patient was . 2. Non-Specific Active Suicidal Thoughts General, non-specific thoughts of wanting to end one?s life/commit suicide (e.g., ?I?ve thought about killing myself?) without thoughts of ways to kills oneself/associated methods, intent, or plan during the assessment period.? Have you actually had any thoughts of killing yourself? Past 1 month: yes Please Describe if yes: patient stated having general thoughts of wanting to kill self. 3. Active Suicidal Ideation with Any Methods (Not Plan) without Intent to Act Subject endorses thoughts of suicide and has thought of at least one method during the assessment period.? This is different than a specific plan with time, place, or method details worked out (e.g., thought of method to kills self but not a specific plan).? Includes person who would say ?I thought about thanking an overdose, but I never made a specific plan as to when, where or how. I would actually do it, and I would never go through with it.? Have you been thinking about how you might do this? Past 1 month:?no Please Describe if yes: N/A 4. Active Suicidal Ideation with Some Intent to Act, without Specific Plan Active suicidal thoughts of kills oneself fand subject reports having some intent to act on such thoughts, as opposed to ?I have the thoughts but I definitely will not do anything about them.? Have you had these thoughts and had some intention of acting on them? Past 1 month: no Please Describe if yes: N/A 5. Active Suicidal Ideation with Specific Plan and Intent Thoughts of kills oneself with details of plan fully or partially worked out and subject has some intent to care it out. Have you started to work out or worked out the details of how to kill yourself? Do you intend to carry out this plan? Past 1 month: ?no Please Describe if yes: N/A INTENSITY OF IDEATION The following feature should be rated with respect to the most sever type of ideation (i.e., 1-5 from above, with 1 being the least severe and 5 being the most severe). Ask about time he/she/they were feeling the most suicidal.? Recent - Most Severe Ideation: Type # (1-5): Description: Frequency How many times have you had these thoughts? Recent, Past 1 month:? (1) Less than once a week??? (2) Once a week?? (3)? 2-5 times in week??? (4) Daily or almost daily??? (5) Many times each day Duration When you have the thoughts, how long do they last? Recent, Past 1 month:? (1) Fleeting - few seconds or minutes? (2) Less than 1 hour/some of the time? (3) 1-4 hours/a lot of time? 4) 4-8 hours/most of day? (5) More than 8 hours/persistent or continuous Controllability Could/can you stop thinking about killing yourself or wanting to if you want to? Recent, Past 1 month: (1) Easily able to control thoughts?? (2) Can control thoughts with little difficulty??? (3) Can control thoughts with some difficulty??? 4) Can control thoughts with a lot of difficulty? (5) Unable to control thoughts?? (0) Does not attempt to control thoughts Deterrents Are there things - anyone or anything (e.g., family, christianity, pain of ) - that stopped you from wanting to or acting on thoughts of committing suicide? Recent:??? (1) Deterrents definitely stopped you from attempting suicide? (2) Deterrents probably stopped you?? (3) Uncertain that deterrents stopped you? (4) Deterrents most likely did not stop you? (5) Deterrents definitely did not stop you?? 0) Does not apply??? Reasons for Ideation What sort of reasons did you have for thinking about wanting to or killing yourself? Was it to end the pain or stop the way you were feeling (in other words you couldn?t go on living with this pain or how you were feeling) or was it to get attention, revenge or a reaction from others? Or both? Recent: (1) Completely to get attention, revenge or a reaction from?? (2) Mostly to get attention, revenge or a reaction from others? (3) Equally to get attention, revenge or a reaction from others? and to end/stop the pain??? (4) Mostly to end or stop the pain (you couldn?t go on living with the pain or how you were feeling)?? (5) Completely to end or stop the pain (you couldn?t go on living with the pain or? how you were feeling)?? (0)? Does not apply? SUICIDAL BEHAVIOR Actual Attempt: A potentially self-injurious act committed with at least some wish to , as a result of act.? Behavior was in part thought of as method to kill oneself.? Intent does not have to be 100%.? If there is any intent/desire to associated with the act, then it can be considered an actual suicide attempt.? There does not have to be any injury of harm, just the potential for injury or harm.? If person pulls trigger while gun is in mouth, but gun is broken so no injury results, this is considered an attempt.? Inferring intent:? Even if an individual denies intent/wish to , it may be inferred clinically from the behavior or circumstances.? For example, a highly lethal act that is clearly not an accident so no other intent but suicide can be inferred (e.g. gunshot to head, jumping from window of a high floor/story).? Also, if someone denies intent to , but they thought that what they did could be lethal, intent may be inferred.? Have you made a suicide attempt? Have you done anything to harm yourself? Have you done anything dangerous where you could have ? What did you do? Did you as a way to end your life? Did you want to (even a little) when you ? Were you trying to end your life when you ? Or did you think it was possible you could have from ? Or did you do it purely for other reasons/without ANY intention of killing yourself like to relieve stress, feel better, get sympathy, or get something else to happen)? (Self -Injurious Behavior without suicidal intent) Past 3 months: no If yes, describe: N/A Total # of attempts in Past 3 months: N/A Has person engaged in Non-Suicidal Self-Injurious Behavior? Past 3 months: no Interrupted Attempt: When the person is interrupted (by an outside circumstance) from starting the potentially self-injurious act (if not for that, actual attempt would have occurred).? Overdose: Person has pills in hand but is stopped from ingesting. Once they ingest any pills, this becomes an attempt rather than an interrupted attempt. Shooting: Person has gun pointed toward self, gun is taken away by someone else, or is somehow prevented from pulling trigger. Once they pull the trigger, even if the gun fails to fire, it is an attempt. Jumping: Person is poised to jump, is grabbed and taken down from ledge.? Hanging: Person has noose around neck but has not yet started to hang self -is stopped from doing so.? Has there been a time when you started to do something to end your life but someone or something stopped you before you did anything? Past 3 months: no If yes, describe: ?N/A Total # of interrupted attempts in Past 3 months: N/A Aborted or Self-Interrupted Attempt:? When person begins to take steps toward making a suicide attempt, but stops themselves before they have actually engaged in any self-destructive behavior. Examples are like interrupted attempts, except that the individual stops him/herself, instead of being stopped by something else. Has there been a time when you started to do something to try to end your life, but you stopped yourself before you did anything? Past 3 months: no If yes, describe: N/A Total # of aborted or self-interrupted attempts in Past 3 months: N/A Preparatory Acts or Behavior:? Acts or preparation towards imminently making a suicide attempt. This can include anything beyond a verbalization or thought, such as assembling a specific method (e.g., buying pills, purchasing a gun) or preparing for one?s by suicide (e.g., giving things away, writing a suicide note). Have you taken any steps towards making a suicide attempt or preparing to kill yourself (such as collecting pills, getting a gun, giving valuables away or writing a suicide note)? Past 3 months: no If yes, describe: N/A Total # of preparatory acts in Past 3 months: N/A Plan: admission to acute; RN CM/SW to follow for discharge planning needs that may arise. Zaina Meraz, MEDICAL PRACTICE MANAGER, COMMERCIAL PROJECT MANAGER
--- NOTE | 2025-03-20 14:03 | PCM.HP.STD ---
HPI - General General Date of Admission: 03/20/25 Date of Service: 03/20/25 Chief Complaint: Falls, back pain HPI Narrative The patient is an 79 y/o M w/ PMHx: Persistent AF/Flutter, Hx TIA, Carotid disease, Cerebral meningioma, Anxiety and Depression/ADHD, OTTO, GERD w/ Rosado's esophagus, Aortic aneurysm and dissection with history of aortic mural thrombus, HTN, HLD, Valvular Heart Disease s/p prostatic AV replacement 2001 and TAVR 2015, CAD s/p CABG and PCI who presents to the [facility] ED on 03/20/2025 with history of mechanical fall, tripped at same level while in his home the morning of day of presentation noting to have hit his head but not having any loss of consciousness with persistent lumbar back pain following his fall prompting ED evaluation to be cautious. He does report he has chronic balance issues over the last year at least. He denies any recent illness. He notes immediately following his fall he had lumbar back pain that was rated 7-8 out of 10 in severity both dull aching and severe sharp stabbing in nature. He notes even resting in the ED bed had initially been painful but following ibuprofen he now rates his pain 1 out of 10 in severity. Workup in the ED included T97.7, heart 51, BP 150/136, respiratory rate 15, 98% on room air with most recent repeat vitals heart rate 68, BP 148/118, respiratory rate 20, 98% on room air, CT of the brain with no acute intracranial findings, chronic involutional changes, acute on chronic maxillary sinusitis, plain film of the lumbar spine with since previous study evidence of an L1 superior endplate compression fracture with mild anterior wedging and loss of vertebral body height with no evidence of any retropulsion of the bone or associated malalignments. In the ED patient ministered ibuprofen 400 mg p.o. x 1. Initially emergency room attempts to transition patient potentially to assisted living given frequency of debility resulting out of fall unfortunately this was not able to be immediately arranged prompting transition to the inpatient setting for evaluation by therapies and case management for set up. [facility] Medical History Persistent atrial fibrillation Carotid stenosis Atrial flutter Meningioma, cerebral Brain TIA Rosado esophagus GERD (gastroesophageal reflux disease) OTTO (obstructive sleep apnea) Anxiety Non-smoker Fall Aortic aneurysm and dissection Grief Wears hearing aid Wears glasses Alcohol use High cholesterol Narcolepsy Injury of head and neck History of Holter monitoring History of echocardiogram History of stress test Hypertension Cardiology follow-up encounter History of Mohs micrographic surgery for skin cancer Major depression Acute decompensated heart failure Chronic cough Severe obstructive sleep apnea Positional lightheadedness Essential (primary) hypertension 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) Back pain Limb weakness Difficulty balancing Knee pain Cancer Arthritis Chest pain on exertion Abnormal stress test Carotid bruit Atherosclerotic heart disease of ak chin coronary artery without angina pectoris Osteoarthritis Depression Thrombocytopenia HLD (hyperlipidemia) Home Medications ?Medication ?Instructions ?Recorded ?Last Taken ?Type nitroglycerin 0.4 mg sublingual 0.4 mg sublingual Q5M PRN Chest 03/01/14 03/01/14 History tablet Pain biotin 1 mg capsule 1 mg PO DAILY 01/25/19 03/20/25 History metoprolol tartrate 25 mg tablet 25 mg PO QHS #90 tabs 09/14/20 03/19/25 Rx cholecalciferol (vitamin D3) 25 25 mcg PO DAILY 10/08/22 03/20/25 History mcg (1,000 unit) capsule tamsulosin 0.4 mg capsule 0.4 mg PO QHS prostate 10/08/22 03/19/25 History methylphenidate HCl 5 mg tablet 5 mg PO DAILY PRN ALERTNESS WHEN 04/11/24 Unknown History (Ritalin) DRIVING atorvastatin 40 mg tablet 40 mg PO QHS #90 tabs 11/21/24 02/14/25 Rx bupropion HCl 150 mg tablet,12 hr See Rx Instructions PO DAILY #90 12/27/24 03/20/25 Rx sustained-release TABLETS mirtazapine 30 mg tablet 30 mg PO QHS #30 TABLETS 12/27/24 03/19/25 Rx clopidogrel 75 mg tablet 75 mg PO DAILY #0 tabs 02/16/25 03/20/25 Rx benazepril 5 mg tablet 2.5 mg PO DAILY 03/01/25 03/20/25 History coenzyme Q10 30 mg capsule (Co 30 mg PO DAILY 03/01/25 03/20/25 History Q-10) omeprazole magnesium 20 mg 20 mg PO DAILY 03/01/25 03/20/25 History tablet,delayed release (Prilosec OTC) lorazepam 0.5 mg tablet 0.5 mg PO QHS PRN anxiety #30 tabs 03/13/25 Unknown Rx Allergy/AdvReac Type Severity Reaction Status Date / Time No Known Allergies Allergy Verified 03/20/25 06:08 Family History Father , Age 70 COPD (chronic obstructive pulmonary disease) Mother , Age 94 Congestive heart failure Brother , Age 61 Sudden cardiac Brother , age 84 Hypertension Hyperlipidemia COPD (chronic obstructive pulmonary disease) Surgical History Hx of oral surgery History of esophagogastroduodenoscopy (EGD) Hx of surgical procedure Hx of colonoscopy Hx of bilateral cataract extraction History of uvulectomy History of hernia repair History of transcatheter aortic valve replacement (TAVR) (03/22/16) History of coronary artery stent placement (10/20/08) H/O coronary artery bypass surgery (09/23/02) History of aortic valve replacement with bioprosthetic valve (09/23/02) History of left heart catheterization Social History household members: none Smoking Status: Never smoker alcohol intake: current alcohol intake frequency: a few times a week Alcohol type: wine substance use type: does not use caffeine: Yes Type: coffee Number of servings: 1 ROS ROS Narrative Admission Review of Systems: CONSTITUTIONAL: No weight loss, fever, chills, + weakness or fatigue. HEENT: Eyes: No visual loss, blurred vision, double vision or yellow sclerae. Ears, Nose, Throat: No hearing loss, sneezing, congestion, runny nose or sore throat. SKIN: No rash or itching, lesions, wounds except + abrasions, occasional stage ecchymoses. CARDIOVASCULAR: No chest pain, chest pressure or chest discomfort, palpitations, edema, orthopnea, syncopal events. RESPIRATORY: No shortness of breath, cough or sputum, wheezing, hemoptysis. GASTROINTESTINAL: No anorexia, nausea, vomiting or diarrhea, abdominal pain, melena, BRBPR. GENITOURINARY: No dysuria, frequency, urgency or retention. NEUROLOGICAL:+ Gait debility, recent fall. No headache, dizziness, syncope, paralysis, ataxia, numbness or tingling in the extremities, focal weakness, change in bowel or bladder control, seizure. MUSCULOSKELETAL: + muscle, back pain, joint pain or stiffness. HEMATOLOGIC: No anemia. + Easy bleeding/bruising. LYMPHATICS: No enlarged nodes. No history of splenectomy. PSYCHIATRIC: + History of anxiety and depression/ADHD. ENDOCRINOLOGIC: No reports of sweating, cold or heat intolerance. No polyuria or polydipsia. ALLERGIES: No history of asthma, hives, eczema or rhinitis. Vital Signs Vital Signs Vital Signs: 03/20/25 06:08 03/20/25 06:13 03/20/25 08:00 Temperature 97.7 F L Temperature Source Oral Pulse Rate 51 L 73 Respiratory Rate 15 23 H Respiratory Effort Normal Respiratory Depth Normal Respiratory Pattern Normal Blood Pressure 150/136 H 152/66 H Blood Pressure Mean 140 94 Pulse Ox 98 100 97 Oxygen Delivery Method Room Air Room Air 03/20/25 09:00 03/20/25 10:21 03/20/25 11:00 Temperature Temperature Source Pulse Rate 74 74 71 Respiratory Rate 22 H 21 H 18 Respiratory Effort Respiratory Depth Respiratory Pattern Blood Pressure 164/81 H 133/80 H 137/92 H Blood Pressure Mean 108 97 107 Pulse Ox 97 98 99 Oxygen Delivery Method Room Air 03/20/25 12:06 03/20/25 13:00 03/20/25 14:00 Temperature Temperature Source Pulse Rate 75 68 70 Respiratory Rate 12 20 H 18 Respiratory Effort Respiratory Depth Respiratory Pattern Blood Pressure 165/107 H 148/118 H 136/75 H Blood Pressure Mean 126 128 95 Pulse Ox 98 98 98 Oxygen Delivery Method Room Air Weight Weight: 144 lb 13.499 oz Body Mass Index (BMI) 23.3 Physical Exam Narrative Physical Examination: General: Awake, alert, oriented x 3 and cooperative, seated upright in the ED bed in no apparent distress, notes back improved, currently rating discomfort 1 out of 10, dull. Skin: Normal color, normal turgor, no icterus, no cyanosis except occasional stage ecchymoses, abrasions specially with recent fall. HEENT: AT/NC, EOMI, PERRLA, MMM, no carotid bruits or JVD noted. Lungs: Mild diminished, greater bases, poor effort, no rales, ronchi or wheezing. Heart: Irregular, rate controlled; no gallop, rub audible, + SM. Abdomen: Soft, NTTP, ND, hyperactive BS, no HSM. Extremities: No cyanosis, clubbing, or edema. Neurological: Patient awake, alert, oriented as noted, cognitive function intact; pupils equally reactive to light and accommodation, cranial nerves gross normal, moving all 4 extremities, no focal deficits, strength moderately global decrease secondary to acute presentation, improved following ibuprofen likely per discussion. Psychiatric: Affect appears fatigued otherwise normal, no acute evidence of depressive or anxiety feelings but does have underlying history. Results Imaging Radiology Impression Brain CT 03/20/25 06:22 IMPRESSION: No intracranial hemorrhage, mass effect or calvarial fracture. Chronic involutional changes again noted. Acute on chronic maxillary sinusitis again noted as above. Reading Location: [facility] Lumbar Spine X-Ray 03/20/25 06:35 IMPRESSION: Since the prior study there is now an L1 superior endplate compression fracture with mild anterior wedging and loss of vertebral body height. No evidence of retropulsion of bone or associated malalignment. Reading Location: [facility] Assessment & Plan Assessment/Plan (1) Closed compression fracture of lumbar vertebra: PLAN: Plan The patient is an 79 y/o M w/ PMHx: Persistent AF/Flutter, Hx TIA, Carotid disease, Cerebral meningioma, Anxiety and Depression/ADHD, OTTO, GERD w/ Rosado's esophagus, Aortic aneurysm and dissection with history of aortic mural thrombus, HTN, HLD, Valvular Heart Disease s/p prostatic AV replacement 2001 and TAVR 2015, CAD s/p CABG and PCI who presents to the [facility] ED on 03/20/2025 with history of mechanical fall, tripped at same level while in his home the morning of day of presentation noting to have hit his head but not having any loss of consciousness with persistent lumbar back pain following his fall prompting ED evaluation to be cautious. #1. Mechanical Fall with resulting Acute Intractable Back Pain with plain image lumbar findings with L1 superior endplate compression fracture with mild anterior wedging and loss of vertebral body height concerning for acute findings secondary to recent fall with adult FTT: Will admit to [facility], maintain on fall precautions, frequent positioning, initiate IV toradol low dose judiciously, lidoacine patches, tizanidine PRN low dose, po/IV narcotic pain regimen, anti-emetics, bowel regimen. Will consult PT and OT for evaluation as well as Case management for discharge planning for transition to likely assisted living. #2. Known cerebral meningioma: 02/15/25 CTA head and neck with no intracranial large vessel occlusion, aneurysm or AVM, severe calcific plaque of the proximal right common carotid with near complete occlusion, severe calcific plaque left subclavian artery resulting in moderate severe narrowing, arterially hyperenhancing lesion within the right frontal lobe along the anterior cranial fossa compatible with meningioma. Encourage continued outpatient follow-up with neurology as previously arranged. #3. Hx TIA w/ Carotid disease: Most recent noted imaging with MRI of the brain 02/15/25 with chronic microvascular ischemic and involutional changes, CTA head and neck at that time also with severe calcific plaque of the proximal right common carotid with near complete occlusion, severe calcific plaque left subclavian artery resulting in moderate severe narrowing. Most recently noted carotid duplex ultrasound 02/16/2025 with mild stenosis of the right and left extracranial internal carotids, bulky calcific plaque in the proximal common carotid, patent antegrade vertebrals bilaterally. Continued on Plavix, statin, hypertensive regimen as noted. Had previously been on Eliquis however given fall history from review of recent cardiology notes this was discontinued. Recently referred per Cardiology to vascular for ongoing evaluation carotid disease. #4. Aortic aneurysm and dissection history, aortic mural thrombus: Most recent imaging noted chest CTA with stent graft at the aortic root, eccentric thrombus in the ascending aorta, moderate to severe atherosclerotic calcific disease of the aorta, small bilateral pleural effusions. Continued on Plavix, statin, hypertensive regimen as noted. Target blood pressure per most recent cardiology visit 135/85, bioprosthetic valve function noted to be normal with mean gradient 19 which is unchanged x 3 years, as noted had previously been anticoagulated but this was discontinued given serial falls per cardiology most recent note. #5. Valvular heart disease: Status post prosthetic AV replacement 2001, follow-up TAVR 2015, most recent echocardiogram 02/15/2025 with normal LV size, LV EF 55%, mild concentric LVH, ascending aortic wall thickened and likely reinforce, bioprosthetic aortic valve, mean aortic valve gradient 25 mmHg with mild to moderate aortic stenosis. #6. CAD: Status post CABG (GUZMÁN to the LAD, SVG to the OM 1996 and then SVG to the circumflex and AVR with ascending aortic replacement 2001) and PCI (PCI OM 2007), continue Plavix, statin, metoprolol, MÓNICA inhibitor regimen with hold parameters as needed. #7. Persistent AF/flutter: Will continue patient home metoprolol regimen, continued on plavix. Had previously been on Eliquis however given fall history from review of recent cardiology notes this was discontinued. #8. Hypertension: Continue home regimen including benazepril, metoprolol, PRN hydralazine. #9. Hyperlipidemia: Will continue patient on statin therapy. #10. Anxiety and depression/ADHD: Will continue patient home mirtazapine, low-dose as needed lorazepam and bupropion regimen, encourage continued outpatient follow-up and evaluation. Per record appears to use Ritalin but only when driving. #11. BPH with obstructive pathology: Will continue patient on Flomax regimen. #12. GERD with history Rosado's esophagus: Will continue patient on PPI. #13. OTTO: CPAP ordered, normally does not tolerated but willing to try in house just in case the mask fits better. #14. DVT prophylaxis: Lovenox. #15. CODE status: Patient SAVANNA is his son and living will is currently in place. Discussed CODE status at length including difference between FULL code, DNR-CCA and DNR-CC status. Following discussions about the differences in these status, requested DNR-CCA with intubation. Several examples given and optioned to change from prior DNR-CCA, no intubation to intubation allowance. Advanced Care Planning Face to Face Time: 16 minutes. Charges/Coding Visit Charges Inpatient E&M: 93391 Init Hosp L2 Procedures Hospitalists Procedures: 49727 Advncd Care Plan 30 Min
--- NOTE | 2025-03-20 14:33 | NURSING ---
talked with chick room supervisor, Dr. Flores, and social work lecturer Lucretia. Aware ER social work lecturer already addressing nursing admission screen for suicidal ideations- please refer to their documentation. Aware per boardinghouse keeper and social work lecturer no suicide precautions at this time.
--- NOTE | 2025-03-20 15:00 | CASEMGMT ---
Social Work Collaboration with ED social worker school this date. -During presentation in the ED assisted living was explored, which patient is open to and interested in [place]. No open beds in the [place] location currently, but openings available tomorrow in [facility]. -Patient with recent falls at home, and reportedly unsteady while in the ED. PT/OT to evaluate for continued need post discharge. -Note, ED SW completed [place] Suicide Severity Risk Screening due to patient making statements of SI at ED Triage. Per ED SW - patient as no active method, plan, intent, or past history of attempts. Patient is active with Dr. Kelly for psychiatry and was to establish with counseling as of today, 03.20.[address] Kelly's office. Refer to ED SW note for further details regarding suicide risk assessment and mental health. Currently, no identified need for a 1:1 sitter. Updated desizing machine operator that ED SW addressed SI screening in the ED today. Plan: SW to follow and assist as indicated, including for discharge planning and support as indicated. Anticipate discharge disposition assisted living with possible [facility] PT/OT versus potential need for short term SNF. -GABRIEL Rincon
[2025-03-20 15:29] LABS: Absolute Lymphocyte Count 0.74 X10^3/uL (0.83-4.51); Absolute Neutrophil Count 6.8 X10^3/uL (2.0-7.7); Basophil# 0.04 X10^3/uL; Basophil% 0.5 % (0-1); Eosinophil# 0.12 X10^3/uL; Eosinophils% 1.4 % (0-5); Hematocrit 45.6 % (40-54); Hemoglobin 15.6 g/dL (13.0-16.5); Lymphocyte # 0.74 X10^3/ul (0.83-4.51); Lymphocyte % 8.5 % (19-41); Mean Corp Hgb Conc 34.2 g/dL (32-36); Mean Corpuscular Hgb 34.1 pg (27.0-32.0); Mean Corpuscular Volume 99.8 fL (80-94); Mean Platelet Vol. 9.7 fl (6.2-12.0); Monocyte# 0.97 X10^3/uL; Monocyte% 11.1 % (0-10); NRBC Flagged by Analyzer 0 % (0-5); Neutrophil # 6.78 X10^3/uL (2.7-7.7); Neutrophil % 77.9 % (47-70); Platelet Count 172 K/mm3 (150-450); RBC Distribution Width CV 13.3 % (11.6-14.6); RBC Distribution Width SD 48.7 fl (35.1-43.9); Red Blood Count 4.57 M/mm3 (4.6-6.2); White Blood Count 8.7 K/mm3 (4.4-11.0)
[2025-03-20] MEDS: Ensure Plus High Protein 120 ML LIQUID PO (15:51)
[2025-03-20 15:58] LABS: ALB/GLOB Ratio 1.7 RATIO (0.9-2.4); AST(SGOT) 30 U/L (<=37); Alanine Aminotransfer ALT/SGPT 30 U/L (<=46); Albumin, Serum 3.6 g/dL (3.4-4.8); Alkaline Phosphatase 91 U/L (40-129); Anion Gap 9 (5-15); BUN 19 mg/dL (4-19); BUN/Creat Ratio 15.8 RATIO (10-20); Calcium,Total 10.1 mg/dL (7.6-11.0); Carbon Dioxide 23.5 mmol/L (21.0-32.0); Chloride 106 mmol/L (98-108); EST Glomerular Filtration Rate 61 (>60); Estimated Creatinine Clearance 43.57 ml/min (50-250); Globulin 2.1 g/dL (2.2-4.2); Glucose 109 mg/dL (70-99); Potassium 4.5 mmol/L (3.3-5.1); Protein, Total 5.7 g/dL (5.9-8.4); Sodium Level 139 mmol/L (133-145); Total Bilirubin 0.55 mg/dL (0.00-1.30)
[2025-03-20] MEDS: Mag Hydrox/Al Hydrox/Simeth 30 ML UDC PO (21:25)
--- NOTE | 2025-03-20 21:32 | NURSING ---
PT REFUSED TORADOL AND IV START. STATES HIS PAIN IS MINOR.
[2025-03-20] MEDS: Metoprolol Tartrate 25 MG Tablet PO (21:35)
[2025-03-20] MEDS: Tamsulosin HCl 0.4 MG Capsule PO (21:36)
[2025-03-20] MEDS: Acetaminophen 325 MG Tablet 650 MG PO (21:36)
[2025-03-20] MEDS: Mirtazapine 30 MG Tablet PO (21:37)
[2025-03-20] MEDS: buPROPion (SR) 150 MG Tablet.SA PO (21:37)
[2025-03-20] MEDS: Atorvastatin Calcium 40 MG Tablet PO (21:37)
[2025-03-21 02:55] VITALS: BP 90/48; PULSE 62; RESP 14; TEMP 36.6; O2SAT 98
[2025-03-21] MEDS: Acetaminophen 325 MG Tablet 650 MG PO ×3 (04:00→14:48)
[2025-03-21 05:40] VITALS: BMI 23.0
[2025-03-21 07:05] LABS: Absolute Lymphocyte Count 0.77 X10^3/uL (0.83-4.51); Absolute Neutrophil Count 6.1 X10^3/uL (2.0-7.7); Basophil# 0.03 X10^3/uL; Basophil% 0.4 % (0-1); Eosinophil# 0.15 X10^3/uL; Eosinophils% 1.8 % (0-5); Hematocrit 47.6 % (40-54); Hemoglobin 16.3 g/dL (13.0-16.5); Lymphocyte # 0.77 X10^3/ul (0.83-4.51); Lymphocyte % 9.5 % (19-41); Mean Corp Hgb Conc 34.2 g/dL (32-36); Mean Corpuscular Hgb 34.3 pg (27.0-32.0); Mean Corpuscular Volume 100.2 fL (80-94); Mean Platelet Vol. 9.8 fl (6.2-12.0); Monocyte# 1.04 X10^3/uL; Monocyte% 12.8 % (0-10); NRBC Flagged by Analyzer 0 % (0-5); Neutrophil % 74.9 % (47-70); Platelet Count 151 K/mm3 (150-450); RBC Distribution Width CV 13.3 % (11.6-14.6); RBC Distribution Width SD 49.1 fl (35.1-43.9); Red Blood Count 4.75 M/mm3 (4.6-6.2); White Blood Count 8.1 K/mm3 (4.4-11.0)
[2025-03-21 07:36] VITALS: O2SAT 97
[2025-03-21 07:45] VITALS: BP 131/58; PULSE 62; RESP 18; TEMP 36.4; O2SAT 98
[2025-03-21 07:49] LABS: ALB/GLOB Ratio 1.6 RATIO (0.9-2.4); AST(SGOT) 27 U/L (<=37); Alanine Aminotransfer ALT/SGPT 28 U/L (<=46); Albumin, Serum 3.5 g/dL (3.4-4.8); Alkaline Phosphatase 100 U/L (40-129); Anion Gap 9 (5-15); BUN 19 mg/dL (4-19); BUN/Creat Ratio 18.4 RATIO (10-20); Calcium,Total 10.1 mg/dL (7.6-11.0); Carbon Dioxide 24.4 mmol/L (21.0-32.0); Chloride 107 mmol/L (98-108); Creatinine, Serum 1.02 mg/dL (0.70-1.20); EST Glomerular Filtration Rate 74 (>60); Estimated Creatinine Clearance 51.26 ml/min (50-250); Globulin 2.2 g/dL (2.2-4.2); Glucose 97 mg/dL (70-99); Potassium 4.9 mmol/L (3.3-5.1); Protein, Total 5.7 g/dL (5.9-8.4); Sodium Level 140 mmol/L (133-145); Total Bilirubin 0.73 mg/dL (0.00-1.30)
[2025-03-21] MEDS: Ensure Plus High Protein 120 ML LIQUID PO (10:09)
[2025-03-21] MEDS: Lidocaine 5% Patch 2 PATCH TOPICAL (10:09)
[2025-03-21] MEDS: Pantoprazole Sodium 20 MG Tablet PO (10:10)
[2025-03-21] MEDS: Clopidogrel Bisulfate 75 MG Tablet PO (10:10)
[2025-03-21] MEDS: Lisinopril 2.5 MG Tablet PO (10:11)
[2025-03-21] MEDS: buPROPion (SR) 150 MG Tablet.SA 300 MG PO (10:11)
[2025-03-21 10:17] VITALS: BP 146/60; PULSE 56
--- NOTE | 2025-03-21 10:53 | PCM.DC ---
Discharge Instructions Diet Discharge Diet: 2000 mg Sodium Diet DC O2, CPAP, BIPAP needs Home O2 Discharge instructions: No Dressing / Incision Discharge Activity: Return to Normal Activity Weight Bearing Status: Weight bearing as tolerated Dressing / Incision Call your doctor if you observe: Fever of 101 or Higher, Coldness, Increased Pain, Numbness or Tingling, Change in Color, Inability to urinate, Inability to have a bowel movement, Shortness of breath, Dizziness, Fainting spells, Swelling in the ankles, Chest pain, Prolonged hiccupping, Increased palpitations (irregular heartbeat) and Calf discomfort Follow Up Care When: IN 2 WEEKS Test Results: Test results from this visit will be discussed in further detail at your follow-up appointment, if applicable. Discharge Plan Admission Admit Date/Time: 03/20/25 14:04 Primary Reason for Your Visit: Acute back pain due to fall Attending Provider: Juan Watters Primary Care Provider: Kip Parnell Chi Consulting Providers: Kamilah Flores Instructions Patient Instructions: ED Fracture, Vertebral Compression, ED Head Injury (Adult) Additional Instructions / Restrictions: Ice to your back. Massage. Tylenol. Hot shower or whirlpool tub. You L1 compression fracture of your lumbar spine. Follow-up with your doctor if not improving. Return emergency department if you are feeling a lot worse. [id number], Motrin/ibuprofen for 400 mg every 8 hourly as needed for back pain for 1 week. Discharge Orders/Prescriptions Prescriptions: New tizanidine 2 mg Tablet 2 mg PO Q8H PRN PRN (Reason: muscle strain/spasms) 30 Days Qty: 30 0RF Continued biotin 1 mg capsule 1 mg PO DAILY tamsulosin 0.4 mg capsule 0.4 mg PO QHS cholecalciferol (vitamin D3) 25 mcg (1,000 unit) capsule 25 mcg PO DAILY metoprolol tartrate 25 mg tablet 25 mg PO QHS Qty: 90 3RF methylphenidate HCl [Ritalin] 5 mg tablet 5 mg PO DAILY PRN (Reason: ALERTNESS WHEN DRIVING) mirtazapine 30 mg tablet 30 mg PO QHS Qty: 30 2RF bupropion HCl 150 mg tablet sustained-release 12 hr See Rx Instructions PO DAILY Qty: 90 2RF Rx Instructions: orally daily; TAKE 2 TABLETS (300 MG) EVERY MORNING AND 1 TABLET EVERY EVENING coenzyme Q10 [Co Q-10] 30 mg capsule 30 mg PO DAILY omeprazole magnesium [Prilosec OTC] 20 mg tablet,delayed release (DR/EC) 20 mg PO DAILY benazepril 5 mg tablet 2.5 mg PO DAILY nitroglycerin 0.4 MG tablet 0.4 mg sublingual Q5M PRN (Reason: Chest Pain) Patient Comments: CHEST PAIN clopidogrel 75 mg Tablet 75 mg PO DAILY Qty: 0 0RF atorvastatin 40 mg tablet 40 mg PO QHS Qty: 90 3RF Patient Comments: PT TAKES NEEDED Rx Instructions: TAKE 1 TABLET AT BEDTIME lorazepam 0.5 mg tablet 0.5 mg PO QHS PRN (Reason: anxiety) Qty: 30 1RF Referrals / Follow Up: Kip Parnell Chi, MD [Primary Care Provider] - 3-5 Days if not improving Disposition Disposition (needs filled in before D/C Order can be placed): Home Health Service
--- NOTE | 2025-03-21 11:42 | CASEMGMT ---
Discharge Planning A list of?HH providers including quality and resource use data and consistent with the patient's preferred geographic region, medical needs, and insurance network was created in [employer].? This list was provided to the RN CHARLES. Carmen Zavaleta, Discharge Planning Asst.
--- NOTE | 2025-03-21 11:42 | CASEMGMT ---
Addendum entered by Lisa Li 03/21/25 13:25: Social Work- SW followed up on resources and HHC list; pt selected [facility] and [facility]. RNCHARLES notified. Pt reports no needs or additional questions at this time. APURVA Rosales Original Note: Social Work- SW met with pt to discuss discharge planning. SW introduced self and role; pt agreeable to meet. Pt reports that he has been in communications with Claudio at [facility] regarding assisted living. Pt reports that he plans to discharge home then move to the assisted living in [place] in a week when a unit becomes available. Pt reports that he prefers not to move out of the area then have to move back. Pt also reports that he has a dog that he needs to find a home for before moving into assisted living, as he cannot afford the extra fee. Pt is open to HHC if needed at discharge, would be open to meals on wheels, and would like food resources. Pt reports that he has a lively medic alert. Pt reports no other needs at this time. BRIAN called to obtain information from [employer] on delivered food. Pt provided with contact number to have food delivered Thursday. SW also provided [employer] card, meals on wheels information, and food resources information. BRIAN collaborated with JEMMA and LACIE for HHC list. APURVA Rosales
--- NOTE | 2025-03-21 12:05 | CASEMGMT ---
Addendum entered by Leela Roberts 03/21/25 14:01: SARAH SOTO received tc from Angela at [facility], they are able to accept pt as long as he makes his appt with Dr. Parnell on at 1pm. She is requesting [employer] to be added as well for medic alert and assistance with AL. SARAH SOTO into pt room, pt aware of need to keep appt. Pt states he will obtain transportation for this. Pt states he lives in a two story home with 2 steps to enter. Pt reports feeling safe to return home at this time. Pt did well with therapy per verbal report. Pt is aware that [facility] will have therapy as well as [employer] added to help with transition into AL if needed as well as medic alert. Pt denies any further homegoing needs at this time. Addendum entered by Leela Roberts 03/21/25 13:16: Pt does not have transportation home and requests to use [facility] van per nurse. TC to [facility] van, they can transport pt at 3:30, requesting pt be at main entrance at 3:20pm. Updated pt nurse. Addendum entered by Leela Roberts 03/21/25 13:05: Pt has chosen [facility] and [facility]. TC to [facility], left message on intake's vm. Will await decision to accept. Original Note: SARAH SOTO into pt room, pt sitting up in chair. Pt is agreeable to [facility] but states he doesn't know how long he will be at home before going to the AL. He is aware that [facility] can see him at the AL as well. Pt provided list of [facility] agenices created by dc cancer genetics assistant. Pt to review and SARAH SOTO to check back.
--- NOTE | 2025-03-21 12:59 | DS.PCM_ITS ---
Providers Date of Admission: 03/20/25 Date of Discharge: 03/21/25 Primary Care Physician: Dr. Kip Parnell MD Reason For Visit: FALLS, BACK PAIN Diagnosis Discharge Diagnosis (1) Closed compression fracture of lumbar vertebra: Status: Acute Code(s): S32.000A - Wedge compression fracture of unspecified lumbar vertebra, initial encounter for closed fracture Plan 79-year-old male admitted with acute back pain after fall on his tailbone. 1. Mechanical fall resulting into L1 superior endplate compression fracture: Patient had lumbar x-ray in the ED which shows L1 superior endplate compression fracture with mild anterior wedging and loss of vertebral body height. No evidence of retropulsion of bone or associated malalignment. Functionally patient did well he walked around the nursing station. Bedside exam for spinal cord compression negative and no cauda equina signs. Patient is being discharged OTC ibuprofen and tizanidine prescription given. Advised follow-up with pain management Dr. Rashaun Valles in 2 weeks to evaluate for any procedure of kyphoplasty indicated 2. CAD status post CABG, valvular heart disease, status post AVR/TAVR aortic aneurysm and dissection history/mural thrombus: Most recent chest CT 10/03 with the stent graft at aortic root and eccentric thrombus in the ascending aorta. Patient on Plavix, statin. Has bioprosthetic TAVR in 2016. Most recent echo 02/15/2025 with normal LV size, LV EF 55%, mild concentric LVH, ascending aortic wall thickened and bioprosthetic aortic valve, mean aortic valve gradient 25 mmHg with mild to moderate aortic stenosis. 3. Persistent A-fib/A-flutter. Previously patient was on Eliquis but discontinued because of history of fall 4. Other comorbidities include hypertension, dyslipidemia: On benazepril and metoprolol. On statin. 5. Other multiple comorbidities include BPH on Flomax, GERD, OTTO on CPAP, anxiety depression/ADHD on mirtazapine and Ritalin. Discharge medication reconciliation done. Discharge follow-up instructions completed. Discharge process discussed with the patient and all questions were answered to patient's satisfaction. Follow with PCP in 1 to 2 weeks Total time spent, exact 35 minutes on discharge meds reconciliation, examination, coordination of care with nurses and ancillary staff, review of imaging and blood test and discussion with the patient on follow-up instructions. Medications at Discharge Home Medications nitroglycerin 0.4 mg sublingual tablet 0.4 mg sublingual Q5M PRN Chest Pain 03/01/14 biotin 1 mg capsule 1 mg PO DAILY 01/25/19 metoprolol tartrate 25 mg tablet 25 mg PO QHS #90 tabs 09/14/20 cholecalciferol (vitamin D3) 25 mcg (1,000 unit) capsule 25 mcg PO DAILY 10/08/22 tamsulosin 0.4 mg capsule 0.4 mg PO QHS prostate 10/08/22 methylphenidate HCl 5 mg tablet (Ritalin) 5 mg PO DAILY PRN ALERTNESS WHEN DRIVING 04/11/24 atorvastatin 40 mg tablet 40 mg PO QHS #90 tabs 11/21/24 bupropion HCl 150 mg tablet,12 hr sustained-release See Rx Instructions PO DAILY #90 TABLETS 12/27/24 mirtazapine 30 mg tablet 30 mg PO QHS #30 TABLETS 12/27/24 clopidogrel 75 mg tablet 75 mg PO DAILY #0 tabs 02/16/25 benazepril 5 mg tablet 2.5 mg PO DAILY 03/01/25 coenzyme Q10 30 mg capsule (Co Q-10) 30 mg PO DAILY 03/01/25 omeprazole magnesium 20 mg tablet,delayed release (Prilosec OTC) 20 mg PO DAILY 03/01/25 lorazepam 0.5 mg tablet 0.5 mg PO QHS PRN anxiety #30 tabs 03/13/25 tizanidine 2 mg tablet 2 mg PO Q8H PRN PRN muscle strain/spasms 1 month #30 tabs 03/21/25 Physical Exam Narrative Patient admitted yesterday after fall on his tailbone that resulted into acute back pain. Patient states he does not have chronic back pain and physically very active. Patient walked around the nursing station. Physical exam General: Alert, Oriented x3, Cooperative HEENT: Atraumatic, PERRLA, EOMI, Normocephalic. Oral: No Gingival or Mucosal Lesions/ Ulcerations Neck: Supple, No JVD, Negative Carotid Bruits Chest wall/Lungs: Air entry equal in bilateral lung bases. No crepitation/rhonchi Cardiovascular: Regular rate and rhythm, Normal S1,S2, No M/G/R Abdomen: Bowel Sounds Present, Soft, Non Tender, Non-Distended : No dysuria. No renal angle tenderness. No suprapubic tenderness. Extremities: No edema, Capillary Refill Less than 3 Seconds Skin: No rashes, No breakdown Musculoskeletal: No Tenderness to Palpation of Joints or Extremities. ROM intact Spine: Leg raise test shows mild back strain at 60 degree elevation of RLE but brudenzki sign negative. SLR negative at 30 degrees. No spinal cord or nerve compression signs Neurological: Cranial nerves II-XII grossly intact, DTR 2+/4. No acute focal neurological deficit. Psych/Mental Status: Normal Affect, Appropriate. Weight / BMI Weight Weight: 143 lb 1.28 oz Body Mass Index (BMI) 23.0 ABG / Lab / Microbiology Data 03/21/25 06:30 03/21/25 06:30 Laboratory: Laboratory Results - last 24 hr 03/20/25 15:15: WBC 8.7, RBC 4.57 L, Hgb 15.6, Hct 45.6, MCV 99.8 H, MCH 34.1 H, MCHC 34.2, RDW Std Deviation 48.7 H, RDW Coeff of Alessandro 13.3, Plt Count 172, MPV 9.7, Immature Gran % (Auto) 0.600, Neut % (Auto) 77.9 H, Lymph % (Auto) 8.5 L, M afia % (Auto) 11.1 H, Eos % (Auto) 1.4, Baso % (Auto) 0.5, Absolute Neuts (auto) 6.8, Absolute Lymphs (auto) 0.74 L, Nucleated RBC % 0, Sodium 139, Potassium 4.5, Chloride 106, Carbon Dioxide 23.5, Anion Gap 9, BUN 19, Creatinine 1.20, E stim Creat Clear Calc 43.57 L, Est GFR (MDRD) Non-Af 61, BUN/Creatinine Ratio 15.8, Glucose 109 H, Calcium 10.1, Total Bilirubin 0.55, AST 30, ALT 30, Alkaline Phosphatase 91, Total Protein 5.7 L, Albumin 3.6, Globulin 2.1 L, Albumin/Globulin Ratio 1.7 03/21/25 06:30: WBC 8.1, RBC 4.75, Hgb 16.3, Hct 47.6, MCV 100.2 H, MCH 34.3 H, MCHC 34.2, RDW Std Deviation 49.1 H, RDW Coeff of Alessandro 13.3, Plt Count 151, MPV 9.8, Immature Gran % (Auto) 0.600, Neut % (Auto) 74.9 H, Lymph % (Auto) 9.5 L, M afia % (Auto) 12.8 H, Eos % (Auto) 1.8, Baso % (Auto) 0.4, Absolute Neuts (auto) 6.1, Absolute Lymphs (auto) 0.77 L, Nucleated RBC % 0, Sodium 140, Potassium 4.9, Chloride 107, Carbon Dioxide 24.4, Anion Gap 9, BUN 19, Creatinine 1.02, Estim Creat Clear Calc 51.26, Est GFR (MDRD) Non-Af 74, BUN/Creatinine Ratio 18.4, Glucose 97, Calcium 10.1, Total Bilirubin 0.73, AST 27, ALT 28, Alkaline Phosphatase 100, Total Protein 5.7 L, Albumin 3.5, Globulin 2.2, Albumin/Globulin Ratio 1.6 D/C Instructions Discharge Diet: 2000 mg Sodium Diet Weight Bearing Status: Weight bearing as tolerated Call your doctor if you observe: Fever of 101 or Higher, Coldness, Increased Pain, Numbness or Tingling, Change in Color, Inability to urinate, Inability to have a bowel movement, Shortness of breath, Dizziness, Fainting spells, Swelling in the ankles, Chest pain, Prolonged hiccupping, Increased palpitations (irregular heartbeat) and Calf discomfort DC O2, CPAP, BIPAP Needs Home O2 Discharge instructions: No When: IN 2 WEEKS Meaningful Use Info Meaningful Use Meaningful Use Diagnoses (Choose all that apply): None applicable Ischemic Stroke Statin Dosing Therapy Reference: STATIN DOSE THERAPY REFERENCE: * Patients > 75 years receive moderate or high dose statin therapy. * Patients 75 years or YOUNGER should receive HIGH intensity statin dose unless contraindicated. You will be required to document reason for non-treatment if statin daily dose does not meet guidelines. HIGH DOSE STATIN THERAPY DAILY Atorvastatin > than or = to 40 mg Rosuvastatin > than or = to 20 mg Amlodipine + Atorvastatin > than or = to 2.5/40 mg Ezetimibe + Simvastatin 10/80 mg Simvastatin 80mg Discharge Plan Admission Admit Date/Time: 03/20/25 14:04 Primary Reason for Your Visit: Acute back pain due to fall Attending Provider: Juan Watters Primary Care Provider: Kip Parnell [employer] Providers: Kamilah Flores Instructions Patient Instructions: ED Fracture, Vertebral Compression, ED Head Injury (Adult) Additional Instructions / Restrictions: Ice to your back. Massage. Tylenol. Hot shower or whirlpool tub. You L1 compression fracture of your lumbar spine. Follow-up with your doctor if not improving. Return emergency department if you are feeling a lot worse. [id number], Motrin/ibuprofen for 400 mg every 8 hourly as needed for back pain for 1 week. Discharge Orders/Prescriptions Prescriptions: New tizanidine 2 mg Tablet 2 mg PO Q8H PRN PRN (Reason: muscle strain/spasms) 30 Days Qty: 30 0RF Continued biotin 1 mg capsule 1 mg PO DAILY tamsulosin 0.4 mg capsule 0.4 mg PO QHS cholecalciferol (vitamin D3) 25 mcg (1,000 unit) capsule 25 mcg PO DAILY metoprolol tartrate 25 mg tablet 25 mg PO QHS Qty: 90 3RF methylphenidate HCl [Ritalin] 5 mg tablet 5 mg PO DAILY PRN (Reason: ALERTNESS WHEN DRIVING) mirtazapine 30 mg tablet 30 mg PO QHS Qty: 30 2RF bupropion HCl 150 mg tablet sustained-release 12 hr See Rx Instructions PO DAILY Qty: 90 2RF Rx Instructions: orally daily; TAKE 2 TABLETS (300 MG) EVERY MORNING AND 1 TABLET EVERY EVENING coenzyme Q10 [Co Q-10] 30 mg capsule 30 mg PO DAILY omeprazole magnesium [Prilosec OTC] 20 mg tablet,delayed release (DR/EC) 20 mg PO DAILY benazepril 5 mg tablet 2.5 mg PO DAILY nitroglycerin 0.4 MG tablet 0.4 mg sublingual Q5M PRN (Reason: Chest Pain) Patient Comments: CHEST PAIN clopidogrel 75 mg Tablet 75 mg PO DAILY Qty: 0 0RF atorvastatin 40 mg tablet 40 mg PO QHS Qty: 90 3RF Patient Comments: PT TAKES NEEDED Rx Instructions: TAKE 1 TABLET AT BEDTIME lorazepam 0.5 mg tablet 0.5 mg PO QHS PRN (Reason: anxiety) Qty: 30 1RF Referrals / Follow Up: Chad Valles MD [Med Staff - Active Staff] - Within 2 Weeks (To evaluation for L1 superior endplate compression fracture for kyphoplasty) Kip Parnell Chi, MD [Primary Care Provider] - 3-5 Days if not improving Disposition Disposition (needs filled in before D/C Order can be placed): Home Health Service
[2025-03-21 15:10] VITALS: BP 153/74; PULSE 64; RESP 16; TEMP 36.4; O2SAT 98
--- NOTE | 2025-03-21 15:35 | PHA.DC.MC.R ---
Pharmacy [facility] has performed discharge medication reconciliation and counseling for this patient. 1. TIZANIDINE 2MG PO Q8H PRN MUSCLE STRAIN/SPASMS The patient's discharge medication list was reviewed for discrepancies and discrepancies were resolved. The patient was counseled on the following discharge medications and changes in medications for homegoing were reviewed. The Reason for Use, instructions for use, and potential side effects were reviewed for all new medications. The patient's questions regarding all of their medications were answered. The patient was able to verbally demonstrate an understanding of their discharge medications. Medications at Discharge Home Medications nitroglycerin 0.4 mg sublingual tablet 0.4 mg sublingual Q5M PRN Chest Pain 03/01/14 biotin 1 mg capsule 1 mg PO DAILY 01/25/19 metoprolol tartrate 25 mg tablet 25 mg PO QHS #90 tabs 09/14/20 cholecalciferol (vitamin D3) 25 mcg (1,000 unit) capsule 25 mcg PO DAILY 10/08/22 tamsulosin 0.4 mg capsule 0.4 mg PO QHS prostate 10/08/22 methylphenidate HCl 5 mg tablet (Ritalin) 5 mg PO DAILY PRN ALERTNESS WHEN DRIVING 04/11/24 atorvastatin 40 mg tablet 40 mg PO QHS #90 tabs 11/21/24 bupropion HCl 150 mg tablet,12 hr sustained-release See Rx Instructions PO DAILY #90 TABLETS 12/27/24 mirtazapine 30 mg tablet 30 mg PO QHS #30 TABLETS 12/27/24 clopidogrel 75 mg tablet 75 mg PO DAILY #0 tabs 02/16/25 benazepril 5 mg tablet 2.5 mg PO DAILY 03/01/25 coenzyme Q10 30 mg capsule (Co Q-10) 30 mg PO DAILY 03/01/25 omeprazole magnesium 20 mg tablet,delayed release (Prilosec OTC) 20 mg PO DAILY 03/01/25 lorazepam 0.5 mg tablet 0.5 mg PO QHS PRN anxiety #30 tabs 03/13/25 tizanidine 2 mg tablet 2 mg PO Q8H PRN PRN muscle strain/spasms 1 month #30 tabs 03/21/25
== END 2025-03-21 15:28 | disposition home health service (06) ==
LOC: ED 14:10 → MS3 14:30
PROVIDERS: Admitting Provider Family Medicine; Emergency Provider Emergency Medicine; PCP Family Medicine Geriatric Medicine; Visit Provider Internal Medicine
DX: S32.000A Wedge compression fracture of unspecified lumbar vertebra, initial encounter for closed fracture (principal); I48.19 Other persistent atrial fibrillation; I48.92 Unspecified atrial flutter; D32.0 Benign neoplasm of cerebral meninges; I10 Essential (primary) hypertension; S09.90XA Unspecified injury of head, initial encounter; G47.33 Obstructive sleep apnea (adult) (pediatric); I25.10 Atherosclerotic heart disease of native coronary artery without angina pectoris; Z79.02 Long term (current) use of antithrombotics/antiplatelets; R53.81 Other malaise; E78.00 Pure hypercholesterolemia, unspecified; W01.0XXA Fall on same level from slipping, tripping and stumbling without subsequent striking against object, initial encounter; F32.9 Major depressive disorder, single episode, unspecified; Z95.2 Presence of prosthetic heart valve; Z95.1 Presence of aortocoronary bypass graft; Z79.899 Other long term (current) drug therapy; Y92.009 Unspecified place in unspecified non-institutional (private) residence as the place of occurrence of the external cause; F41.9 Anxiety disorder, unspecified; Z86.73 Personal history of transient ischemic attack (TIA), and cerebral infarction without residual deficits; N40.1 Benign prostatic hyperplasia with lower urinary tract symptoms; N13.8 Other obstructive and reflux uropathy; Z66 Do not resuscitate
CPT/HCPCS: 36415; 70450; 72100; 80053; 85025; 97162; 97166; 99221; 99285; G0378

== ENCOUNTER 2025-03-23 10:31 | Emergency (ER) | payer MEDICARE, SELFPAY ==
[2025-03-23 10:31] VITALS: BP 114/79; PULSE 102; RESP 14; TEMP 36.6; O2SAT 95; BMI 23.6
--- NOTE | 2025-03-23 11:25 | EKG12_ITS ---
Test Reason : Blood Pressure : */* mmHG Vent. Rate : 59 BPM Atrial Rate : 286 BPM P-R Int : * ms QRS Dur : 82 ms QT Int : 388 ms P-R-T Axes : * -34 74 degrees QTcB Int : 384 ms Atrial flutter with variable A-V block Left axis deviation Abnormal ECG Confirmed by JAMES BELLE, JESSE ([id number]), editor magazine JARED CESAR ([id number]) on 03/27/2025 8:41:25 AM Referred By: Confirmed By: JESSE RAMIREZ MD
--- NOTE | 2025-03-23 11:53 | EX.ED.VIS.PS ---
HPI HPI - Psych History of Present Illness Chief Complaint: Suicidal Informant: patient Associated Symptoms Associated Symptoms - Psych: Positive for Depressed, Change in sleeping and Suicidal Thoughts Specific plan (suicidal thought): No plan Narrative Narrative: Patient is an 79-year-old male with history of lumbar compression fracture, persistent atrial fibrillation (not on any blood thinners), hypertension, hyperlipidemia and recent TIA 1 week ago. He is presenting today for depression and suicidal thoughts. Patient states he is feeling out of control and he wants someone to make all of his medical decisions. He describes passive suicidal ideations and wishes he was but does not have a plan or think he would go through the plan. Notes he feels very isolated as his 2 years ago and his only family is his son who lives in [place]. He states he feels guilty whenever he has to call his son because his son works from home and has a full-time job. He called his PCP today who recommend he come to the ER for [facility] psych evaluation. Patient cannot tell me what his symptoms were for his TIA a week ago. He notes he did have a fall after this and is had a sore back but that seems to be doing better. He notes that he sometimes does have slurred speech and trouble finishing his sentences. Has a hard time telling me how long this been going on. Denies any acute weakness but does feel generally weak. Has a chronic cough but denies any change in his cough. Denies any swelling of his legs. No fever or chills reported. States that his sleep medication was recently changed from lorazepam to something that starts with a tea. He does follow with psychiatry, Dr. Kelly. No other acute complaints at this time. Chart review shows that patient was admitted 03/20 through 03/21 for fall and found to have compression fracture of the lumbar spine L1 superior endplate. Had previously been on Eliquis with this was discontinued because of his fall. On 02/15 patient had an observation stay for TIA with negative MRI of the brain. Symptoms or speech changes. [facility] Medical History Persistent atrial fibrillation Carotid stenosis Atrial flutter Meningioma, cerebral Brain TIA Ros[place] esophagus GERD (gastroesophageal reflux disease) OTTO (obstructive sleep apnea) Anxiety Non-smoker Fall Aortic aneurysm and dissection Grief Wears hearing aid Wears glasses Alcohol use High cholesterol Narcolepsy Injury of head and neck History of Holter monitoring History of echocardiogram History of stress test Hypertension Cardiology follow-up encounter History of Mohs micrographic surgery for skin cancer Major depression Acute decompensated heart failure Chronic cough Severe obstructive sleep apnea Positional lightheadedness Essential (primary) hypertension 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) Back pain Limb weakness Difficulty balancing Knee pain Cancer Arthritis Chest pain on exertion Abnormal stress test Carotid bruit Atherosclerotic heart disease of [place] coronary artery without angina pectoris Osteoarthritis Depression Thrombocytopenia HLD (hyperlipidemia) Home Medications ?Medication ?Instructions ?Recorded ?Last Taken ?Type nitroglycerin 0.4 mg sublingual 0.4 mg sublingual Q5M PRN Chest 03/01/14 03/01/14 History tablet Pain biotin 1 mg capsule 1 mg PO DAILY 01/25/19 03/23/25 History metoprolol tartrate 25 mg tablet 25 mg PO QHS #90 tabs 09/14/20 03/22/25 Rx cholecalciferol (vitamin D3) 25 25 mcg PO DAILY 10/08/22 03/23/25 History mcg (1,000 unit) capsule tamsulosin 0.4 mg capsule 0.4 mg PO QHS prostate 10/08/22 03/22/25 History methylphenidate HCl 5 mg tablet 5 mg PO DAILY PRN ALERTNESS WHEN 04/11/24 Unknown History (Ritalin) DRIVING atorvastatin 40 mg tablet 40 mg PO QHS #90 tabs 11/21/24 03/22/25 Rx bupropion HCl 150 mg tablet,12 hr See Rx Instructions PO DAILY #90 12/27/24 03/23/25 Rx sustained-release TABLETS mirtazapine 30 mg tablet 30 mg PO QHS #30 TABLETS 12/27/24 03/22/25 Rx clopidogrel 75 mg tablet 75 mg PO DAILY #0 tabs 02/16/25 03/23/25 Rx benazepril 5 mg tablet 2.5 mg PO DAILY 03/01/25 03/22/25 History coenzyme Q10 30 mg capsule (Co 30 mg PO DAILY 03/01/25 03/20/25 History Q-10) aspirin 81 mg capsule 81 mg PO DAILY 03/23/25 03/23/25 History omeprazole 40 mg capsule,delayed 40 mg PO DAILY 03/23/25 03/23/25 History release potassium chloride 20 mEq 20 meq PO DAILY 03/23/25 Unknown History tablet,extended release tizanidine 2 mg tablet 2 mg PO Q8H PRN muscle 03/23/25 03/22/25 History strain/spasms Allergy/AdvReac Type Severity Reaction Status Date / Time No Known Allergies Allergy Verified 03/23/25 10:32 Family History Father , Age 70 COPD (chronic obstructive pulmonary disease) Mother , Age 94 Congestive heart failure Brother , Age 61 Sudden cardiac Brother , age 84 Hypertension Hyperlipidemia COPD (chronic obstructive pulmonary disease) Surgical History Hx of oral surgery History of esophagogastroduodenoscopy (EGD) Hx of surgical procedure Hx of colonoscopy Hx of bilateral cataract extraction History of uvulectomy History of hernia repair History of transcatheter aortic valve replacement (TAVR) (03/22/16) History of coronary artery stent placement (10/20/08) H/O coronary artery bypass surgery (09/23/02) History of aortic valve replacement with bioprosthetic valve (09/23/02) History of left heart catheterization Social History household members: none pets and animals: Yes Smoking Status: Never smoker alcohol intake: current alcohol intake frequency: a few times a week Alcohol type: wine substance use type: does not use caffeine: Yes Type: coffee Number of servings: 1 ROS ROS ED Constitutional Constitutional ED: Denies chills or fever(s) ENT ENT ED: Denies sore throat Cardiovascular Cardiovascular: Denies chest pain Respiratory/Chest Respiratory/Chest: Reports cough; Denies dyspnea Gastrointestinal Gastrointestinal: Denies abdominal pain, nausea or vomiting Neurologic Neurologic: Reports weakness; Denies paresthesias Psychiatric Psychiatric: Reports depression, suicidal ideation and suicidal thoughts Hematologic/Lymphatic Hematologic/Lymphatic: Denies easy bleeding or easy bruising EXAM Physical Exam Const Vital Signs: 03/23/25 10:31 03/23/25 12:49 Temperature 98 F Temperature Source Temporal Pulse Rate 102 H 64 Respiratory Rate 14 18 Blood Pressure 114/79 131/78 H Blood Pressure Mean 90 95 Pulse Ox 95 99 Oxygen Delivery Method Room Air Room Air Positive well nourished and well developed General Appearance ED: well developed and NAD HEENT Reports moist mucous membranes Eyes PERRL and EOMs intact bilaterally Neck supple and no JVD Resp normal respiratory effort and clear to auscultation bilaterally GI non-tender and non-distended Extremity normal to inspection Neuro oriented x3, CN's II-XII intact bilaterally and no sensory deficits noted Neuro Narrative: Mildly tremulous with patient states he feels cold Sensorium / Orientation: alert Motor Exam: muscle tone normal throughout; Negative for general weakness Psych cooperative and affect normal Appearance: grossly normal Attitude: calm Activity / Motor Behavior: appropriate eye contact Speech: normal speech Mood & Affect: depressed Thought Process: normal thought process Thought Content: suicidality Attention / Concentration: attention grossly intact Memory / Cognition: memory grossly intact Insight: fair Skin Lesions: no lesions Rashes: no rashes MDM MDM MDM Narrative Medical decision making narrative: Patient evaluated for worsening depression and feeling like he needs mental health. Initially he told me he has more passive suicidal deviations however social work was able to speak to home health who states that he had thoughts of either slitting his wrist or overdosing on pills. Medical clearance labs are obtained and to make sure there is no acute process that further could be causing his psychiatric symptoms. Patient is medically cleared. There is not appear to be any acute process causing his symptoms. Patient does have 1+ bacteria but is mildly contaminated his urine. Will send for culture but do not think he requires treatment. Patient denies any head trauma and had a CT of his brain 3 days ago so do not think repeat imaging is indicated. Chest x-ray viewed by myself as well as radiology does not show any acute process. I did speak with the patient's PCP, Dr. Parnell, who states the patient told him he was suicidal which is why suggested he come to the emergency room. Case discussed with oncology social worker to arrange a psychiatric admission. Patient is medically cleared. History & Record Review Additional record(s) reviewed:: Prior inpatient record Lab Data Attestation: I reviewed the patient's lab results. Labs: Laboratory Results - last 24 hr 03/23/25 03/23/25 11:46 12:12 WBC 7.7 RBC 4.71 Hgb 16.2 Hct 47.7 MCV 101.3 H MCH 34.4 H MCHC 34.0 RDW Std Deviation 50.8 H RDW Coeff of Alessandro 13.5 Plt Count 163 MPV 9.7 Immature Gran % (Auto) 0.700 Neut % (Auto) 78.0 H Lymph % (Auto) 9.7 L [place] % (Auto) 9.3 Eos % (Auto) 1.6 Baso % (Auto) 0.7 Absolute Neuts (auto) 6.0 Absolute Lymphs (auto) 0.74 L Nucleated RBC % 0 Sodium 138 Potassium 4.6 Chloride 105 Carbon Dioxide 24.2 Anion Gap 9 BUN 21 H Creatinine 1.07 Estim Creat Clear Calc 48.86 L Est GFR (MDRD) Non-Af 70 BUN/Creatinine Ratio 19.2 Glucose 92 Calcium 9.8 Total Bilirubin 0.90 AST 26 ALT 22 Alkaline Phosphatase 90 Total Protein 6.3 Albumin 3.8 Globulin 2.5 Albumin/Globulin Ratio 1.5 Urine Color Yellow Urine Clarity Clear Urine pH 7.0 Ur Specific [place] 1.010 Urine Protein 30 H Urine Glucose (UA) Normal Urine Ketones Negative Urine Occult Blood Negative Urine Nitrite Negative Urine Bilirubin Negative Urine Urobilinogen 1 H Ur Leukocyte Esterase 25 H Urine RBC 0 SEEN Urine WBC 0-5 SEEN Ur Squamous Epith Cells 0-5 SEEN Urine Bacteria 1+ Urine Mucus 0 SEEN Urine Opiates Screen NEGATIVE U Buprenorphine Qual NEGATIVE Ur Oxycodone Screen NEGATIVE Urine Methadone Screen NEGATIVE Urine Fentanyl Screen NEGATIVE Ur Barbiturates Screen NEGATIVE Ur Phencyclidine Scrn NEGATIVE Ur Amphetamines Screen NEGATIVE U Benzodiazepines Scrn NEGATIVE Urine Cocaine Screen NEGATIVE U Cannabinoids Screen NEGATIVE Ethyl Alcohol < 10.1 Radiography Chest X-Ray - ED: 1 View, Read by ED Physician, Read by Radiologist and No Acute Disease Diagnostic Testing: Clinical Impression(s) from Imaging Studies Chest X-Ray 03/23/25 12:03 IMPRESSION: The lungs are clear. Stable examination. Hiatal hernia. 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 Discharge Plan Triage Chief Complaint: Suicidal Other Complaint: Confusion ED Provider: Paula Powell Dx/Rx/DC Orders Clinical Impression: Depression with suicidal ideation, Persistent atrial fibrillation Prescriptions: No Action biotin 1 mg capsule 1 mg PO DAILY tamsulosin 0.4 mg capsule 0.4 mg PO QHS cholecalciferol (vitamin D3) 25 mcg (1,000 unit) capsule 25 mcg PO DAILY metoprolol tartrate 25 mg tablet 25 mg PO QHS Qty: 90 3RF methylphenidate HCl [Ritalin] 5 mg tablet 5 mg PO DAILY PRN (Reason: ALERTNESS WHEN DRIVING) mirtazapine 30 mg tablet 30 mg PO QHS Qty: 30 2RF bupropion HCl 150 mg tablet sustained-release 12 hr See Rx Instructions PO DAILY Qty: 90 2RF Rx Instructions: orally daily; TAKE 2 TABLETS (300 MG) EVERY MORNING AND 1 TABLET EVERY EVENING coenzyme Q10 [Co Q-10] 30 mg capsule 30 mg PO DAILY benazepril 5 mg tablet 2.5 mg PO DAILY nitroglycerin 0.4 MG tablet 0.4 mg sublingual Q5M PRN (Reason: Chest Pain) Patient Comments: CHEST PAIN clopidogrel 75 mg Tablet 75 mg PO DAILY Qty: 0 0RF omeprazole 40 mg capsule,delayed release(DR/EC) 40 mg PO DAILY potassium chloride 20 mEq tablet extended release 20 meq PO DAILY aspirin 81 mg capsule 81 mg PO DAILY tizanidine 2 mg Tablet 2 mg PO Q8H PRN atorvastatin 40 mg tablet 40 mg PO QHS Qty: 90 3RF Patient Comments: PT TAKES NEEDED Rx Instructions: TAKE 1 TABLET AT BEDTIME Primary Care Provider: Kip Parnell Chi Referrals: Kip Parnell Chi, MD [Primary Care Provider] - Print Language: Angolan
--- NOTE | 2025-03-23 11:56 | CM.ED ---
Social work This SW received call from BRIAN Rosa at [facility] (ph: [phone]). Natividad stated patient would likely be returning to [facility] ED today due to making SI statements while [facility] was present at the home this morning. Per Natividad, patient stated having SI thoughts for awhile now and patient reportedly stated having specific SI including slitting wrists and taking pills. Patient reportedly told Natividad that patient would not actually by suicide, but patient also reportedly told Natividad that patient would not trust self to be discharged home alone. SW to follow up. Zaina Meraz, TALLOW REFINER, SAFEMAKER
--- NOTE | 2025-03-23 12:03 | RAD_ITS ---
PROCEDURE: CHEST 1 VIEW (PORTABLE) 03/23/2025 REASON FOR EXAM: WEAKNESS TECHNIQUE: Frontal view of the chest. COMPARISON: Comparison is made with prior study dated April 30, 2023. FINDINGS: Hardware: None Heart: Prior CABG. Lungs: The lungs are clear. Bones: Degenerative changes are identified within the thoracic spine. Other: Tortuosity of the descending thoracic aorta. Hiatal hernia. RAD/Chest 1 View (Portable) IMPRESSION: The lungs are clear. Stable examination. Hiatal hernia. Reading Location: [id number]
[2025-03-23 12:08] LABS: Mucous, Urine 0 SEEN /hpf (<or=2+); Red Blood Cells-Urine 0 SEEN /hpf (0-5)
[2025-03-23 12:18] LABS: Amphetamine Urine NEGATIVE (<1000 ng/mL); Barbiturate Urine NEGATIVE (< 200 ng/mL); Benzodiazepine Urine NEGATIVE (< 200 ng/mL); Buprenorphine Urine NEGATIVE (< 200 ng/mL); Cocaine Urine NEGATIVE (< 300 ng/mL); Fentanyl, Urine NEGATIVE; Methadone Urine NEGATIVE (< 300 ng/mL); Opiates Urine NEGATIVE (< 300 ng/mL); Oxycodone, Urine NEGATIVE (< 100 ng/mL); PCP Urine NEGATIVE (< 25 ng/mL); THC Urine NEGATIVE (< 50 ng/mL)
[2025-03-23 12:23] LABS: Color, Urine Yellow (Yellow); Glucose, Dipstick Normal (Normal); Ketone-Dipstick Negative (Negative); Leukocyte Esterase-Dipstick 25 /ul (Negative); Nitrite-Dipstick Negative (Negative); Occult Blood-Urine Negative /ul (Negative); Protein-Dipstick 30 mg/dl (Negative); Urine Bilirubin Dipstick Negative (Negative); Urine Clarity Clear (Clear); Urine Urobilinogen 1 mg/dl (Normal)
[2025-03-23 12:23] LABS: Absolute Lymphocyte Count 0.74 X10^3/uL (0.83-4.51); Basophil# 0.05 X10^3/uL; Basophil% 0.7 % (0-1); Eosinophil# 0.12 X10^3/uL; Eosinophils% 1.6 % (0-5); Hematocrit 47.7 % (40-54); Hemoglobin 16.2 g/dL (13.0-16.5); Lymphocyte # 0.74 X10^3/ul (0.83-4.51); Lymphocyte % 9.7 % (19-41); Mean Corpuscular Hgb 34.4 pg (27.0-32.0); Mean Corpuscular Volume 101.3 fL (80-94); Mean Platelet Vol. 9.7 fl (6.2-12.0); Monocyte# 0.71 X10^3/uL; Monocyte% 9.3 % (0-10); NRBC Flagged by Analyzer 0 % (0-5); Neutrophil # 5.98 X10^3/uL (2.7-7.7); Platelet Count 163 K/mm3 (150-450); RBC Distribution Width CV 13.5 % (11.6-14.6); RBC Distribution Width SD 50.8 fl (35.1-43.9); Red Blood Count 4.71 M/mm3 (4.6-6.2); White Blood Count 7.7 K/mm3 (4.4-11.0)
[2025-03-23 12:37] LABS: Squamous Epithelial Cells - UA 0-5 SEEN /hpf (0-5); White Blood Cells 0-5 SEEN /hpf (0-5)
[2025-03-23 12:38] LABS: Bacteria 1+ /hpf (None Seen)
[2025-03-23 12:49] VITALS: BP 131/78; PULSE 64; RESP 18; O2SAT 99
[2025-03-23 12:57] LABS: ALB/GLOB Ratio 1.5 RATIO (0.9-2.4); AST(SGOT) 26 U/L (<=37); Alanine Aminotransfer ALT/SGPT 22 U/L (<=46); Albumin, Serum 3.8 g/dL (3.4-4.8); Alkaline Phosphatase 90 U/L (40-129); Anion Gap 9 (5-15); BUN 21 mg/dL (4-19); BUN/Creat Ratio 19.2 RATIO (10-20); Calcium,Total 9.8 mg/dL (7.6-11.0); Carbon Dioxide 24.2 mmol/L (21.0-32.0); Chloride 105 mmol/L (98-108); Creatinine, Serum 1.07 mg/dL (0.70-1.20); EST Glomerular Filtration Rate 70 (>60); Estimated Creatinine Clearance 48.86 ml/min (50-250); Globulin 2.5 g/dL (2.2-4.2); Glucose 92 mg/dL (70-99); Potassium 4.6 mmol/L (3.3-5.1); Protein, Total 6.3 g/dL (5.9-8.4); Sodium Level 138 mmol/L (133-145)
[2025-03-23 13:01] LABS: Alcohol, Blood (Medical)-Serum < 10.1 mg/dL (<=10.0)
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
[2025-03-23 20:49] VITALS: BP 130/64; PULSE 69; RESP 18; O2SAT 98
--- NOTE | 2025-03-23 21:37 | PCA ---
pt accepted [facility] floor 4 109
[2025-03-23 21:53] VITALS: BP 130/64; PULSE 69; RESP 18; TEMP 36.6; O2SAT 98
--- NOTE | 2025-03-23 22:18 | CM.ED ---
Social work 1455: Called [facility] (ph: [phone]) and they had beds available. Their staff stated needing multiple things faxed along with referral, including COVID test, EKG, CT of head, and chest xray along with usual things. Requests passed onto Dr. Powell who put in orders. 1630: Results were still not received of everything, so this SW asked Yenny, ED executive legal secretary, to fax to [facility] when results were received in order for SW to do another mental health assessment for another patient. Yenny accepted and faxed packet when available (f: [phone]). 0: Jayant from [facility] called to accept patient, but reported needing updated pink slip faxed prior to providing accepting information. This SW had difficulty with faxing information due to fax machine issues. 0: patient called this SW into patient's room, expressing feeling better and desiring to go home due to feeling as if patient was coping better. Patient was informed by this SW of continued concerns for patient's depression levels and patient stated understanding. 2129: [facility] provided accepting information and patient was updated. Patient stated feeling upset regarding the length of time this took. SW provided active listening and empathic support as needed. Accepting information: Dr. Natali Jameson. N2N: [phone] [facility], Floor 4, Room 109 48 [facility], [facility] Zaina Meraz, BI CONSULTANT, TELESCOPE REPAIRER
== END 2025-03-23 22:33 ==
LOC: ED 11:19
PROVIDERS: Emergency Provider Emergency Medicine; PCP Family Medicine Geriatric Medicine; Visit Provider Emergency Medicine
DX: R45.851 Suicidal ideations (principal); I50.9 Heart failure, unspecified; I11.0 Hypertensive heart disease with heart failure; I48.19 Other persistent atrial fibrillation; F32.A Depression, unspecified; I25.10 Atherosclerotic heart disease of native coronary artery without angina pectoris; E78.00 Pure hypercholesterolemia, unspecified; R47.81 Slurred speech; K21.9 Gastro-esophageal reflux disease without esophagitis; Z79.899 Other long term (current) drug therapy; Z79.02 Long term (current) use of antithrombotics/antiplatelets; Z79.85 Long-term (current) use of injectable non-insulin antidiabetic drugs
CPT/HCPCS: 71045; 80053; 80307; 81001; 82077; 85025; 87631; 93005; 99284; A4216